=== PATIENT | male | born 1950 | race Caucasian/White ===

== ENCOUNTER 2019-11-02 08:23 | Outpatient (CLI) | payer OTHER, SELFPAY ==
--- NOTE | 2019-11-02 08:50 | CT_ITS ---
WS: [id number] CT ABDOMEN PELVIS TECHNIQUE: Noncontrast CT of the abdomen and pelvis with coronal and sagittal reformatted images. CLINICAL INFORMATION: EVAL FOR HYDROCELE COMPARISON: CT September 01, 2018 DLP: 1295.[address] scans at [facility] use at least one of these dose optimization techniques: automat ed exposure control; mA and/or kV adjustment per patient size (includes targeted exams where dose is matched to clinical indication); or iterative reconstruction. FINDINGS: Noncontrast liver is normal. Noncontrast spleen is normal. Postoperative changes GE junction. Calcifi ed granuloma left lower lobe. Subsegmental atelectasis right lung base. Pleural plaques. Tiny noncalc ified pulmonary nodule right lower lobe measuring 2.9 mm Adrenal glands are normal. Bilateral renal cortical atrophy. Prior postoperative changes cystectomy w ith ileoconduit right lower quadrant. Moderate left hydronephrosis. This is progressed slightly ellen red to 2018. Moderate left ureterectasis slightly progressed. Mild right hydronephrosis is unchanged. Fatty atrophy of the pancreas. Aortic calcification. Surgical clips in the pelvis. Cholecystectomy. Soft tissue thickening along the dorsal rectum unchanged. Ileal conduit appears unremarkable. Right r enal cyst. Chronic degenerative changes both hips. Left femoral head has been resected. Osteopenia. Chronic endp late compression deformities in the lumbar spine. CT/CT abdomen pelvis wo con [id number] IMPRESSION: 1. Moderate left hydronephrosis with ureterectasis has progressed since the p rior examination. Left ureter is dilated down to the ileal conduit. Ileal condu it appears normal. 2. Mild right hydronephrosis is unchanged. 3. No evidence of small or large bowel obstruction. 4. Soft tissue thickening along the dorsal rectum and distal sacrum is unchang ed in appearance. 5. Additional nonacute findings as above.
[2019-11-02] MEDS: iohexol 300 mg/mL 50 mL Btl PO (09:50)
== END 2019-11-02 08:24 | disposition home or self-care (01) ==
LOC: RADWPI 08:32
PROVIDERS: Family Provider Internal Medicine; PCP Internal Medicine; Visit Provider Internal Medicine
DX: N13.30 Unspecified hydronephrosis (principal)
CPT/HCPCS: 74176

== ENCOUNTER 2020-09-04 09:15 | Outpatient (CLI) | payer OTHER, SELFPAY ==
--- NOTE | 2020-09-04 09:20 | CT_ITS ---
WS: [id number] LDCT LUNG CANCER SCREENING TECHNIQUE: Noncontrast CT of the chest with coronal and sagittal reformatted images. CLINICAL INFORMATION: NICOTINE DEPENDENCE,CIGARETTES COMPARISON: None. DLP: 65.5 mGy.cm DIvol: 1.[address] scans at [facility] use at least one of these dose optimization techniques: automat ed exposure control; mA and/or kV adjustment per patient size (includes targeted exams where dose is matched to clinical indication); or iterative reconstruction. FINDINGS: No suspicious pulmonary parenchymal opacities. Calcified pleural plaques right lower lobe. Moderate chronic emphysematous changes. No acute pulmonary infiltrates. Subsegmental atelectasis in t he right greater than left lung bases. No mediastinal or hilar lymphadenopathy. Aortic calcification. Coronary calcification. Postoperative changes GE junction. No axillary lymphadenopathy. Enlarged nod ular left thyroid lobe measuring 3.2 x 2.2 CM. This can be followed up with ultrasound. A few calcifi ed granulomas. CT/CT lung screening [id number] IMPRESSION: LUNG-RADS: 1-Negative FOLLOW UP: 12 Month: Continue annual screening with LDCT
== END 2020-09-04 09:16 | disposition home or self-care (01) ==
LOC: RAD 09:18
PROVIDERS: PCP Family Medicine; Visit Provider Internal Medicine Pulmonary Disease
DX: Z12.2 Encounter for screening for malignant neoplasm of respiratory organs (principal); F17.210 Nicotine dependence, cigarettes, uncomplicated
CPT/HCPCS: G0297; J7611

== ENCOUNTER 2020-09-08 11:42 | Outpatient (CLI) | payer OTHER, SELFPAY ==
--- NOTE | 2020-09-08 11:47 | NM_ITS ---
WS: [id number] INDICATION: Hydronephrosis TECHNIQUE: Nuclear medicine renal flow study. 11.4 mCi technetium 99m DTPA administered. 20 mg Lasix administered at 10 minutes. FINDINGS: Bilateral renal cortical atrophy. Postoperative changes cystectomy with ileoconduit right lower quadrant. Poor asymmetric decreased per fusion involving the right kidney with decreased time to peak. Right kidney perfusion 25% compared to 74% in the left kidney. Delayed right nephrogram with delayed excretion. More normal appearing left nephrogram with cortical medullary phase and excretion. NM/NM renal flow w pharm [id number] IMPRESSION: 1. Prior postoperative changes cystectomy with ileoconduit right lower quadran t 2. Poor function right kidney with decreased perfusion and decreased time to p eak. 3. Right kidney perfusion 25% compared to 74% left kidney. 4. Delayed right nephrogram with delayed excretion.
== END 2020-09-08 11:43 | disposition home or self-care (01) ==
LOC: RAD 11:43
PROVIDERS: PCP Family Medicine; Visit Provider Urology
DX: N13.30 Unspecified hydronephrosis (principal)
CPT/HCPCS: 78708; A9539; J1940

== ENCOUNTER 2020-09-11 12:00 | Outpatient (CLI) | payer OTHER, SELFPAY | END 2020-09-11 12:01 | disposition home or self-care (01) | LOC: SLEEP 09-12 14:41 | PROVIDERS: PCP Family Medicine; Visit Provider Internal Medicine Pulmonary Disease | DX: G47.33 Obstructive sleep apnea (adult) (pediatric) (principal) | CPT/HCPCS: 87635; 94762 ==

== ENCOUNTER → 2020-10-26 14:54 | Outpatient (BNVA) | payer OTHER, SELFPAY | PROVIDERS: PCP Family Medicine; Visit Provider Internal Medicine Pulmonary Disease | DX: R06.02 Shortness of breath (principal) | CPT/HCPCS: 87635 ==

== ENCOUNTER → 2020-11-02 10:19 | Outpatient (BNVA) | payer OTHER, SELFPAY | PROVIDERS: PCP Family Medicine; Visit Provider Internal Medicine Pulmonary Disease | DX: J44.9 Chronic obstructive pulmonary disease, unspecified (principal) | CPT/HCPCS: 87635 ==

== ENCOUNTER 2020-11-07 10:16 | Outpatient (CLI) | payer OTHER, SELFPAY ==
--- NOTE | 2020-11-07 10:31 | US_ITS ---
WS: [id number] THYROID ULTRASOUND (TI-RADS CRITERIA) History: Enlarged thyroid. Technique: Ultrasound examination of the thyroid and adjacent soft tissues is performed. FINDINGS: Right lobe: 4.8 cm x 2.0 cm x 1.6 cm. Volume: 8.1 cm3. Mildly enlarged thyroid. Hypoechoic nodule is probably a cyst with a maximum diameter 4 mm in the inf erior gland. There is an additional similar 3 mm cyst more inferiorly. Benign lymph nodes. Left lobe: 4.1 cm x 1.3 cm x 1.8 cm. Volume: 4.9 cm3. Normal size gland. Nonspecific hypoechoic nodule measuring 9 x 7 x 6 mm in the inferior gland. Isthmus: 0.3 cm. Estimated total number of nodules greater than or equal to 1 cm: 0 Number of spongiform nodules greater than or equal to 2 cm not described below (TR1): 0 Number of mixed cystic and solid nodules greater than or equal to 1.5 cm not described below (TR2): 0 US/US thyroid [id number] Impression: TR1 Recommendation:No FNA or follow-up. If thyroid nodule(s) change on follow-up examinations the recommendations will be altered as necessary.
--- NOTE | 2020-11-07 11:16 | PFTS_ITS ---
Date of Study:11/07/20 Date of Dictation: 11/08/2020 MECHANICS: Forced vital capacity (FVC) is . Reduced Forced expiratory volume in one second (FEV1) is . Severely reduced 38% FEV1/FVC is reduced. There is no significant response to bronchodilators, however their use is not precluded if there is clinical benefit. FLOW VOLUME LOOP: Sloping of expiratory limb suggestive of airway obstruction. LUNG VOLUMES: Not measured DIFFUSING CAPACITY FOR CARBON MONOXIDE: Severely reduced 34% . INTERPRETATION: The spirometry consistent with severe obstructive ventilatory defect.There is no significant response to bronchodilators, however their use is not precluded if there is clinical benefit. Severely reduced gas transfer. Please correlate clinically MTDD
== END 2020-11-07 10:17 | disposition home or self-care (01) ==
LOC: RAD 10:22
PROVIDERS: PCP Family Medicine; Visit Provider Internal Medicine Pulmonary Disease
DX: E04.1 Nontoxic single thyroid nodule (principal); J44.9 Chronic obstructive pulmonary disease, unspecified
CPT/HCPCS: 76536; 94060; 94729; J7611

== ENCOUNTER → 2020-11-08 11:06 | Outpatient (BNVA) | payer OTHER, SELFPAY | PROVIDERS: PCP Family Medicine; Visit Provider Internal Medicine | DX: E04.1 Nontoxic single thyroid nodule (principal) | CPT/HCPCS: 99204 ==

== ENCOUNTER 2020-11-28 12:45 | Emergency (ER) | payer OTHER, MEDICARE, SELFPAY ==
[2020-11-28] VITALS (30 sets, daily range): BP systolic 85–180; BP diastolic 52–100; PULSE 54–86; RESP 12–20; TEMP 34.2–34.5; O2SAT 96–100
--- NOTE | 2020-11-28 12:50 | XR_ITS ---
WS: [id number] Exam: XR chest 1V portable [id number] Date/Time of Exam: 11/28/2020 1:14 PM Reason For Exam: dyspnea/cough Comparison 01/19/2018. An endotracheal tube has been placed and ends about 4 cm above the dominick in good position. Right sub clavian line ends at the expected region of the lower one third of the SVC. An enteric tube extends b elow the diaphragm. The tip is not visible. The side-port of the tube is probably near the GE junctio n. There is increased density in the left retrocardiac region that may represent infiltrate or atelec tasis in the left lower lobe. Pulmonary vascular congestion seen in the right lung. Numerous old righ t rib fractures and mild right-sided pleural thickening. Marked pulmonary hyperinflation. XR/XR chest 1V portable [id number] IMPRESSION: 1. Increased density in the left retrocardiac region which may represent infilt rate and/or atelectasis in the left lower lobe. 2. Pulmonary hyperinflation most likely indicating obstructive lung disease. 3. Pulmonary vascular congestion seen throughout the right lung. 4. ET tube and right subclavian central line both appear to be in satisfactory position. An enteric tube is also identified. The side-port of the tube is prob ably near the GE junction and should be advanced another 4 to 5 cm for optimal position.
--- NOTE | 2020-11-28 12:55 | CT_ITS ---
WS: [id number] CT ABDOMEN PELVIS TECHNIQUE: Contrast-enhanced CT of the abdomen and pelvis with coronal and sagittal reformatted image s. CLINICAL INFORMATION: abd pain COMPARISON: CT November 02, 2019 DLP: 1411.[address] scans at [facility] use at least one of these dose optimization techniques: automat ed exposure control; mA and/or kV adjustment per patient size (includes targeted exams where dose is matched to clinical indication); or iterative reconstruction. FINDINGS: Thoracolumbar scoliosis. Postoperative changes GE junction. Compressive atelectasis in left greater t barton right lung base with air bronchograms. Prior cholecystectomy. Mild intrahepatic biliary ductal di latation. Portal vein and splenic vein are normal. Fatty atrophy of the pancreas. Normal spleen. Ente deniz tube with tip in the stomach. Fluid distended stomach with air-fluid level in the duodenum. Bilateral renal cortical atrophy. Bilateral renal cortical cysts. Mild left hydronephrosis slightly i mproved compared to previous.. Bilateral ureterectasis. Mucosal enhancement involving the ureters. Re commend correlation for UTI. Ileoconduit appears patent. Aortic calcification. Normal caliber abdominal aorta. Sigmoid constipation. Left descending colon con stipation. No evidence of high-grade obstruction. Soft tissue thickening along the dorsal rectum and distal sacrum is similar in appearance compared to previous. No drainable fluid collections. Chronic degenerative changes both hips. Left femoral head has been resected. Osteopenia. Chronic endp late compression deformities in the lumbar spine. CT/CT abdomen pelvis w con* [id number] IMPRESSION: 1. Compressive atelectasis in the lung bases left greater than right with air bronchograms. 2. Prior cystectomy with ileoconduit and bilateral ureterectasis left greater than right similar to previous. Mild left hydronephrosis is slightly improved c ompared to previous. 3. Bilateral ureteral mucosal enhancement. Correlation for UTI. 4. Dense sigmoid and left descending colon constipation. No evidence of high-g rade obstruction. 5. Fluid distended stomach with air-fluid levels in the proximal duodenum. Ent rome tube with tip in the stomach. 6. Normal caliber abdominal aorta. 7. Soft tissue thickening along the dorsal rectum and distal sacrum unchanged in appearance. Attempted notification Segundo Corrales DO at 11/28/2020 4:06 PM.
--- NOTE | 2020-11-28 12:55 | CT_ITS ---
WS: [id number] CT HEAD TECHNIQUE: Noncontrast CT of the head obtained from the skullbase to the vertex. CLINICAL INFORMATION: AMS COMPARISON: None. DLP: 899.[address] scans at [facility] use at least one of these dose optimization techniques: automat ed exposure control; mA and/or kV adjustment per patient size (includes targeted exams where dose is matched to clinical indication); or iterative reconstruction. FINDINGS: No evidence of intracranial hemorrhage or mass effect. Ventricular system and basal cisterns are bell nt. Mild small vessel changes with mild parenchymal volume loss. No extra-axial fluid collections. Lo w-attenuation change in the right frontal lobe at the vertex nonspecific but likely due to chronic is chemia. Fluid within the ethmoid air cells and nasal turbinates. Mucosal thickening in the mastoid air cells. Fluid in the posterior nasopharynx from recent intubation. CT/CT head wo con* [id number] IMPRESSION: 1. No evidence of intracranial hemorrhage or mass effect. 2. Mild small vessel changes with mild parenchymal volume loss. 3. Subcortical low-attenuation change in the right frontal lobe at the vertex likely chronic ischemia. 4. Fluid within the mastoid air cells and posterior nasopharynx. Notified Segundo Corrales DO at 11/28/2020 3:53 PM.
--- NOTE | 2020-11-28 12:56 | ECG_ITS ---
[facility] Test Date: 2020-11-28 Pat Name: Johnny Jo Department: Room: Gender: Male [employer]: : 1950 Requested By: Segundo De La Cruz Order Number: [id number] Raoul MD: Tushar Muller M.D. Measurements Intervals [place] Rate: 54 P: 75 CA: 291 QRS: -64 QRSD: 110 T: 63 QT: 469 QTc: 448 Interpretive Statements SINUS BRADYCARDIA WITH FIRST DEGREE AV BLOCK LEFT AXIS DEVIATION [QRS AXIS < -30] INCOMPLETE RIGHT BUNDLE BRANCH BLOCK [90+ ms QRS DURATION, TERMINAL R IN V1/V2, 40+ ms S IN I/aVL/V4/V5/V6] INFERIOR MYOCARDIAL INFARCTION , PROBABLY OLD [40+ ms Q WAVE AND/OR ST/T ABNORMALITY IN II/aVF] ANTEROSEPTAL MYOCARDIAL INFARCTION , OF INDETERMINATE AGE [40+ ms Q WAVE IN V1-V4] Compared to ECG 01/20/2018 04:10:03 First degree AV block now present Left-axis deviation now present Incomplete right bundle-branch block now present Myocardial infarct finding still present Electronically Signed On 11-28-2020 17:37:02 [employer]ADE MATCHER by Tushar Muller M.D. [id number]
[2020-11-28 13:21] LABS: ABG PH Result 6.78 (7.35-7.45); Arterial Blood Gas Hematocrit 35.1 % (42-52); Base Excess ABG -22.5 mmol/L (-2.0-2.0); Blood Gas Allen Test Pos; Blood Gas Operator Identificat CAK; Blood Gas Sample Site Brachial, right; Blood Gas Sample Type Arterial; Carboxyhemoglobin 0.6 %THgb (0.4-20.1); HCO3 ABG 12.9 mmol/L (22-26); HGB O2 Sat 83.8 % (95-100); Ionized Calcium Level - ABG 1.3 mmol/L (1.1-1.4); Methemoglobin 1.1 % (0.4-1.5); Oxygen Device NC; Oxygen Saturation ABG 85.2; PO2 ABG 69.1 mmHg (80.0-100.0); Potassium Level - ABG 4.2 mmol/L (3.5-5.0); Total Hemoglobin 11.4 g/dL (14-18)
[2020-11-28 13:22] LABS: ABG PCO2 87.7 mmHg (35-45)
[2020-11-28] MEDS: sodium chloride 0.9% 1,000 ML 999 ML IV ×3 (14:00→16:34)
[2020-11-28 14:11] LABS: Basophils % 0.2 %; Hematocrit 34.5 % (42.0-52.0); Hemoglobin 10.6 g/dL (11.7-16.6); Lymphocytes # 0.2 10^3/uL (0.8-4.8); Mean Corpuscular HGB Conc 30.7 g/dL (30.0-36.0); Mean Corpuscular Hemoglobin 26.8 pg (28.0-34.0); Mean Corpuscular Volume 87.3 fL (80-94); Mean Platelet Volume 10.4 fL (7.4-10.4); Monocytes # 0.3 10^3/uL (0.2-0.9); Neutrophils # 23.24 10^3/uL (1.8-7.7); Nucleated Red Blood Cells # 0.1 /100WBC; Nucleated Red Blood Cells % 0.3 %; Platelet Count 207 10^3/cmm (130-400); Red Blood Count 3.95 10^6/uL (4.1-5.3); Red Cell Distribution Width 18.8 % (12.1-15.1)
[2020-11-28 14:23] LABS: Ketone (Acetest) Serum Negative (Negative)
[2020-11-28] MEDS: vecuronium 10 mg SDV IVP (14:23)
[2020-11-28 14:27] LABS: Troponin(5th) Baseline 60 ng/L (0-15)
[2020-11-28] MEDS: succinylcholine 20 mg/mL SDV 10mL 90 MG IV (14:29)
[2020-11-28] MEDS: ciprofloxacin 400 MG/200 ML PREMIX 200 MG IV (14:30)
[2020-11-28 14:32] LABS: Potassium 4.4 mmol/L (3.5-5.1)
--- NOTE | 2020-11-28 14:33 | ED_ITS ---
HPI - Weakness General: Chief complaint: Weakness Stated complaint: WEAKNESS, SOB Time Seen by Provider: 11/28/20 12:46 History of Present Illness: HPI Narrative: 69-year-old male brought in via EMS with complaint of shortness of breath altered mental status and weakness. On arrival here patient is nonresponsive and lethargic. ABG showed critical findings and patient was emergently intubated. Patient's previous histories were reviewed in the chart just on physical exam noted disease previously had abdominal surgery is also evidence of a previous tracheostomy with scarring and neck at the sternal notch. 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 MD Complaint: generalized weakness Onset (ago): unknown Duration: constant Review of Systems General: Reports: ROS unobtainable due to medical condition and ROS unobtainable due to mental status PFS ED PFSH: Medical History Anxiety Autonomic dysreflexia Calculus of kidney Chronic hepatitis CKD (chronic kidney disease), stage III Diabetes Folate deficiency anemia GERD with esophagitis History of pressure ulcer HTN (hypertension) Hydronephrosis Hyperkalemia Iron deficiency anemia Major depressive disorder, recurrent Old myocardial infarction Other osteomyelitis, other site Other specific personality disorders Pure hypercholesterolemia Quadriplegia, C5-C7 complete Recurrent UTI Vitamin D deficiency Surgical History History of kidney surgery Hx of heart artery stent Family History Mother , 93 Cancer Colon Father , 56 CAD (coronary artery disease) Social History Smoking and tobacco status: current some day smoker cigarettes [ Other cigarette details: [id number] 50yr history ] Quit status (tobacco): considering quitting Second hand smoke exposure: No Smoking risk assessment/counseling performed?: Yes Alcohol intake: never Desire information about substance/drug rehabilitation?: No Counseling given: Yes Caregiver/support person: Yes Lives independently: Yes Household members: spouse Housing: House Marital status: service: Yes status: Discharged branch: [employer] Current occupational status: disabled History of recent travel: No Current gender identity: Male Physical Exam Const: COMMON NORMALS: no acute distress GENERAL APPEARANCE: cooperative and comfortable HENMT: COMMON NORMALS: normocephalic, atraumatic and hearing grossly normal bilaterally HEAD & SCALP: normocephalic and atraumatic Resp: AUSCULTATION: rhonchi and diminished lung sounds Cardio: COMMON NORMALS: regular rate, regular rhythm and No murmurs present (Cardio) RATE: regular rate RHYTHM: regular rhythm GI: COMMON NORMALS: Soft to palpation and No hepatosplenomegaly present AUSCULTATION: Yes normoactive bowel sounds PALPATION: Yes Soft to palpation, No Tenderness to palpation present (GI), No Guarding due to palpation present (GI) and Yes No hepatosplenomegaly present Extremity: COMMON NORMALS: normal to inspection, capillary refill normal and no calf tenderness GENERAL: Yes edema (Nonpitting bilaterally) LEFT LOWER EXTREMITY: Yes hip joint (Flail left hip joint) Procedures Central Line Placement Right SC: Patient Placed on Monitor/Pulse Ox: Yes MD Prep: mask, gown and gloves Central Line Prep: Chlorhexidine scrub Ultrasound Used for Placement: Yes Central Line Lumen Inserted: triple Post Procedure: sutured in place, good blood return, all ports aspirated, flushed, capped and sterile dressing applied Post Procedure X-Ray: tip of catheter in good position and no pneumothorax seen Patient Tolerated Procedure: no complications Complications: none Additional Comments: Emergent placement of right subclavian central line for IV access in a critical patient. Intubation sedative: Etomidate Mg Given: 30 paralytic: Succinylcholine Mg Given: 90 Laryngoscope: fiber optic video scope Assist Device Used: fiber optic device ET Tube Size: 6.5 ET Tube Uncuffed: No Tube Secured Depth (cm): 22 Tube Secured Location: teeth Tube Placement Confirmation: visualized tube passing through cords, equal breath sounds bilaterally, no breath sounds over epigastrium and confirmation by capnometry Patient Tolerated Procedure: well Intubation Complications: difficult intubation Additional Comments: Previously had a tracheostomy initial attempt was made with an 8 5 ET tube was unable to get it to pass through the cords due to obstruction initial attempt was made and then abandoned since we could not get the tubes to pass through the cords. Cords were easily visualized without difficulty but just physically would not pass. Patient was hyperventilated by [id number] and then a second attempt was made during the same time a second smaller 1.5 ET tube was readied which was used passed easily through the cords. Course Vital Signs: Vital signs: Vital Signs Temperature 94.1 F L 11/28/20 18:09 Pulse Rate 82 11/28/20 19:09 Respiratory Rate 12 11/28/20 19:09 Blood Pressure 128/79 11/28/20 19:09 Pulse Oximetry 97 11/28/20 19:09 MDM - Weakness MDM Narrative: Medical decision making narrative: Transfer to [facility] ICU. Unfortunately no available ICU beds here. Patient has been started on antibiotics. Cultures done. He currently is getting IV fluids and IV Levophed via central line. We had tried titrating the Levophed down to where he requires a base amount of Levophed of 4 otherwise he will drop his pressures into the 50s and 60s systolic. He is requiring minimal assist sedation. Shortly after we had secured the central line patient was significantly bradycardic was given half milligram of atropine and has not needed any further since. Lab Data: Labs: Lab Results 11/28/20 11/28/20 11/28/20 Range/Units 12:57 13:07 13:10 WBC (4.0-10.0) 10^3/ uL RBC (4.1-5.3) 10^6/u L Hgb (11.7-16.6) g/dL Hct (42.0-52.0) % MCV (80-94) fL MCH (28.0-34.0) pg MCHC (30.0-36.0) g/dL RDW (12.1-15.1) % Plt Count (130-400) 10^3/c mm MPV (7.4-10.4) fL Neut % (Auto) % Lymph % (Auto) % Kaufman % (Auto) % Eos % (Auto) % Baso % (Auto) % Neut # (Auto) (1.8-7.7) 10^3/u L Lymph # (Auto) (0.8-4.8) 10^3/u L Kaufman # (Auto) (0.2-0.9) 10^3/u L Eos # (Auto) (0.0-0.8) 10^3/u L Baso # (Auto) (0.0-0.1) 10^3/u L Nucleated RBC % (a uto) % Nucleated RBCs # /100WBC PT (12.1-14.9) SECO NDS INR (0.8-1.2) APTT (23.9-36.7) SECO NDS Specimen Type Arterial Sample Site Brachial, right ABG pH 6.78 L* (7.35-7.45) ABG pCO2 87.7 H* (35-45) mmHg ABG pO2 69.1 L (80.0-100.0) mmH g ABG HCO3 12.9 L (22-26) mmol/L ABG O2 Saturation 85.2 ABG Base Excess -22.5 L (-2.0-2.0) mmol/ L Matt Test Pos A-a O2 Gradient Not Reportable Hematocrit 35.1 L (42-52) % Hgb O2 Saturation 83.8 L (95-100) % Carboxyhemoglobin 0.6 (0.4-20.1) %THgb Methemoglobin 1.1 (0.4-1.5) % Total Hemoglobin 11.4 L (14-18) g/dL Sodium 132.0 (131-143) mmol/L Potassium 4.2 (3.5-5.0) mmol/L Glucose 172.0 H (70-115) mg/dL Ionized Calcium 1.3 (1.1-1.4) mmol/L O2 Delivery Device Nc O2 Liters/Min 6.0 % Mechanical Rate FiO2 % Tidal Volume PEEP cmH20 Mechanical Assembler ID Cak Chloride (98-107) mmol/L Carbon Dioxide (22-29) mmol/L Anion Gap (5-19) BUN (8-23) mg/dL Creatinine (0.7-1.2) mg/dL GFR Calculation (90-130) mL/min POC Glucose 153 H (70-110) mg/dL Calculated Osmolal ity (285-295) mOsm/k g Lactic Acid (0.5-2.2) mmol/L Calcium (8.5-10.5) mg/dL Magnesium (1.7-2.3) mg/dL Total Bilirubin (0.15-1.2) mg/dL AST (0-40) U/L ALT (0-41) U/L Alkaline Phosphata se (40-130) IU/L Ammonia (16-60) umol/L Creatine Kinase Troponin T Baselin e (0-15) ng/L Troponin T 120 Min [place] (0-15) ng/L Delta Troponin T (0-10) ABS# Troponin T Hi Sens 6Hr (0-15) ng/L Troponin T Hi Sens 6Hr Delta (0-12) ng/L Total Protein (6.6-8.7) g/dL Albumin (3.5-5.2) g/dL Globulin (1.3-4.6) g/dL Lipase (13-60) U/L Urine Color Yellow (Yellow) Urine Appearance Cloudy (CLEAR) Urine pH 6.5 (5-7) Ur Specific Gravit y 1.010 (1.005-1.030) Urine Protein 2+ H (Negative) Urine Glucose (UA) Norm (Normal) Urine Ketones Negative (Negative) Urine Blood 3+ H (Negative) Urine Nitrate Negative (Negative) Urine Bilirubin Neg (Negative) Urine Urobilinogen Norm (Negative) mg/dL Ur Leukocyte Karina ase 2+ H (Negative) Urine RBC 15-25 H (0-2) /hpf Urine WBC Too numerous to c nt H (0-5) /hpf Ur Squamous Epith Cells 0-4 H (0-5) /hpf Amorphous Sediment Not Reportable Urine Bacteria 3+ H (NONE) /hpf Serum Ketones (Negative) SARS-CoV-2 Ag (Rap id) (Negative) 11/28/20 11/28/20 11/28/20 Range/Units 13:55 13:55 13:55 WBC 24.0 H (4.0-10.0) 10^3/ uL RBC 3.95 L (4.1-5.3) 10^6/u L Hgb 10.6 L (11.7-16.6) g/dL Hct 34.5 L (42.0-52.0) % MCV 87.3 (80-94) fL MCH 26.8 L (28.0-34.0) pg MCHC 30.7 (30.0-36.0) g/dL RDW 18.8 H (12.1-15.1) % Plt Count 207 (130-400) 10^3/c mm MPV 10.4 (7.4-10.4) fL Neut % (Auto) 97.0 % Lymph % (Auto) 1.0 % Kaufman % (Auto) 1.0 % Eos % (Auto) 0.0 % Baso % (Auto) 0.2 % Neut # (Auto) 23.24 H (1.8-7.7) 10^3/u L Lymph # (Auto) 0.2 L (0.8-4.8) 10^3/u L Kaufman # (Auto) 0.3 (0.2-0.9) 10^3/u L Eos # (Auto) 0.0 (0.0-0.8) 10^3/u L Baso # (Auto) 0.0 (0.0-0.1) 10^3/u L Nucleated RBC % (a uto) 0.3 % Nucleated RBCs # 0.1 /100WBC PT (12.1-14.9) SECO NDS INR (0.8-1.2) APTT (23.9-36.7) SECO NDS Specimen Type Sample Site ABG pH (7.35-7.45) ABG pCO2 (35-45) mmHg ABG pO2 (80.0-100.0) mmH g ABG HCO3 (22-26) mmol/L ABG O2 Saturation ABG Base Excess (-2.0-2.0) mmol/ L Matt Test A-a O2 Gradient Hematocrit (42-52) % Hgb O2 Saturation (95-100) % Carboxyhemoglobin (0.4-20.1) %THgb Methemoglobin (0.4-1.5) % Total Hemoglobin (14-18) g/dL Sodium 130 L (131-143) mmol/L Potassium 4.4 (3.5-5.0) mmol/L Glucose 181 H (70-115) mg/dL Ionized Calcium (1.1-1.4) mmol/L O2 Delivery Device O2 Liters/Min % Mechanical Rate FiO2 % Tidal Volume PEEP cmH20 Mechanical Assembler ID Chloride 105 (98-107) mmol/L Carbon Dioxide 11 L (22-29) mmol/L Anion Gap 18.4 (5-19) BUN 75 H (8-23) mg/dL Creatinine 3.1 H (0.7-1.2) mg/dL GFR Calculation 20.2 L (90-130) mL/min POC Glucose (70-110) mg/dL Calculated Osmolal ity 297 H (285-295) mOsm/k g Lactic Acid 0.7 (0.5-2.2) mmol/L Calcium 7.8 L (8.5-10.5) mg/dL Magnesium 2.2 (1.7-2.3) mg/dL Total Bilirubin 0.2 (0.15-1.2) mg/dL AST 15 (0-40) U/L ALT 12 (0-41) U/L Alkaline Phosphata se 209 H (40-130) IU/L Ammonia (16-60) umol/L Creatine Kinase Troponin T Baselin e (0-15) ng/L Troponin T 120 Min [place] (0-15) ng/L Delta Troponin T (0-10) ABS# Troponin T Hi Sens 6Hr (0-15) ng/L Troponin T Hi Sens 6Hr Delta (0-12) ng/L Total Protein 5.7 L (6.6-8.7) g/dL Albumin 3.1 L (3.5-5.2) g/dL Globulin 2.6 (1.3-4.6) g/dL Lipase 15 (13-60) U/L Urine Color (Yellow) Urine Appearance (CLEAR) Urine pH (5-7) Ur Specific Gravit y (1.005-1.030) Urine Protein (Negative) Urine Glucose (UA) (Normal) Urine Ketones (Negative) Urine Blood (Negative) Urine Nitrate (Negative) Urine Bilirubin (Negative) Urine Urobilinogen (Negative) mg/dL Ur Leukocyte Karina ase (Negative) Urine RBC (0-2) /hpf Urine WBC (0-5) /hpf Ur Squamous Epith Cells (0-5) /hpf Amorphous Sediment Urine Bacteria (NONE) /hpf Serum Ketones (Negative) SARS-CoV-2 Ag (Rap id) (Negative) 11/28/20 11/28/20 11/28/20 Range/Units 13:55 13:55 13:55 WBC (4.0-10.0) 10^3/ uL RBC (4.1-5.3) 10^6/u L Hgb (11.7-16.6) g/dL Hct (42.0-52.0) % MCV (80-94) fL MCH (28.0-34.0) pg MCHC (30.0-36.0) g/dL RDW (12.1-15.1) % Plt Count (130-400) 10^3/c mm MPV (7.4-10.4) fL Neut % (Auto) % Lymph % (Auto) % Kaufman % (Auto) % Eos % (Auto) % Baso % (Auto) % Neut # (Auto) (1.8-7.7) 10^3/u L Lymph # (Auto) (0.8-4.8) 10^3/u L Kaufman # (Auto) (0.2-0.9) 10^3/u L Eos # (Auto) (0.0-0.8) 10^3/u L Baso # (Auto) (0.0-0.1) 10^3/u L Nucleated RBC % (a uto) % Nucleated RBCs # /100WBC PT (12.1-14.9) SECO NDS INR (0.8-1.2) APTT (23.9-36.7) SECO NDS Specimen Type Sample Site ABG pH (7.35-7.45) ABG pCO2 (35-45) mmHg ABG pO2 (80.0-100.0) mmH g ABG HCO3 (22-26) mmol/L ABG O2 Saturation ABG Base Excess (-2.0-2.0) mmol/ L Matt Test A-a O2 Gradient Hematocrit (42-52) % Hgb O2 Saturation (95-100) % Carboxyhemoglobin (0.4-20.1) %THgb Methemoglobin (0.4-1.5) % Total Hemoglobin (14-18) g/dL Sodium (131-143) mmol/L Potassium (3.5-5.0) mmol/L Glucose (70-115) mg/dL Ionized Calcium (1.1-1.4) mmol/L O2 Delivery Device O2 Liters/Min % Mechanical Rate FiO2 % Tidal Volume PEEP cmH20 Mechanical Assembler ID Chloride (98-107) mmol/L Carbon Dioxide (22-29) mmol/L Anion Gap (5-19) BUN (8-23) mg/dL Creatinine (0.7-1.2) mg/dL GFR Calculation (90-130) mL/min POC Glucose (70-110) mg/dL Calculated Osmolal ity (285-295) mOsm/k g Lactic Acid (0.5-2.2) mmol/L Calcium (8.5-10.5) mg/dL Magnesium (1.7-2.3) mg/dL Total Bilirubin (0.15-1.2) mg/dL AST (0-40) U/L ALT (0-41) U/L Alkaline Phosphata se (40-130) IU/L Ammonia (16-60) umol/L Creatine Kinase Cancelled Troponin T Baselin e 60 H (0-15) ng/L Troponin T 120 Min [place] (0-15) ng/L Delta Troponin T (0-10) ABS# Troponin T Hi Sens 6Hr (0-15) ng/L Troponin T Hi Sens 6Hr Delta (0-12) ng/L Total Protein (6.6-8.7) g/dL Albumin (3.5-5.2) g/dL Globulin (1.3-4.6) g/dL Lipase (13-60) U/L Urine Color (Yellow) Urine Appearance (CLEAR) Urine pH (5-7) Ur Specific Gravit y (1.005-1.030) Urine Protein (Negative) Urine Glucose (UA) (Normal) Urine Ketones (Negative) Urine Blood (Negative) Urine Nitrate (Negative) Urine Bilirubin (Negative) Urine Urobilinogen (Negative) mg/dL Ur Leukocyte Karina ase (Negative) Urine RBC (0-2) /hpf Urine WBC (0-5) /hpf Ur Squamous Epith Cells (0-5) /hpf Amorphous Sediment Urine Bacteria (NONE) /hpf Serum Ketones Negative (Negative) SARS-CoV-2 Ag (Rap id) (Negative) 11/28/20 11/28/20 11/28/20 Range/Units 13:55 13:55 14:15 WBC (4.0-10.0) 10^3/ uL RBC (4.1-5.3) 10^6/u L Hgb (11.7-16.6) g/dL Hct (42.0-52.0) % MCV (80-94) fL MCH (28.0-34.0) pg MCHC (30.0-36.0) g/dL RDW (12.1-15.1) % Plt Count (130-400) 10^3/c mm MPV (7.4-10.4) fL Neut % (Auto) % Lymph % (Auto) % Kaufman % (Auto) % Eos % (Auto) % Baso % (Auto) % Neut # (Auto) (1.8-7.7) 10^3/u L Lymph # (Auto) (0.8-4.8) 10^3/u L Kaufman # (Auto) (0.2-0.9) 10^3/u L Eos # (Auto) (0.0-0.8) 10^3/u L Baso # (Auto) (0.0-0.1) 10^3/u L Nucleated RBC % (a uto) % Nucleated RBCs # /100WBC PT 16.20 H (12.1-14.9) SECO NDS INR 1.26 H (0.8-1.2) APTT 38.5 H (23.9-36.7) SECO NDS Specimen Type Arterial Sample Site Brachial, right ABG pH 6.99 L* (7.35-7.45) ABG pCO2 38.6 (35-45) mmHg ABG pO2 452.0 H (80.0-100.0) mmH g ABG HCO3 9.3 L (22-26) mmol/L ABG O2 Saturation 98.0 ABG Base Excess -21.3 L (-2.0-2.0) mmol/ L Matt Test N/a A-a O2 Gradient 25.9 H Hematocrit 32.7 L (42-52) % Hgb O2 Saturation 97.2 (95-100) % Carboxyhemoglobin < 0.0 L (0.4-20.1) %THgb Methemoglobin 1.0 (0.4-1.5) % Total Hemoglobin 10.7 L (14-18) g/dL Sodium 133.0 (131-143) mmol/L Potassium 3.5 (3.5-5.0) mmol/L Glucose 184.0 H (70-115) mg/dL Ionized Calcium 1.1 (1.1-1.4) mmol/L O2 Delivery Device Vent O2 Liters/Min % Mechanical Rate 14.0 FiO2 100.0 % Tidal Volume 0.50 PEEP 8.0 cmH20 Mechanical Assembler ID Gd Chloride (98-107) mmol/L Carbon Dioxide (22-29) mmol/L Anion Gap (5-19) BUN (8-23) mg/dL Creatinine (0.7-1.2) mg/dL GFR Calculation (90-130) mL/min POC Glucose (70-110) mg/dL Calculated Osmolal ity (285-295) mOsm/k g Lactic Acid (0.5-2.2) mmol/L Calcium (8.5-10.5) mg/dL Magnesium (1.7-2.3) mg/dL Total Bilirubin (0.15-1.2) mg/dL AST (0-40) U/L ALT (0-41) U/L Alkaline Phosphata se (40-130) IU/L Ammonia 63 H (16-60) umol/L Creatine Kinase Troponin T Baselin e (0-15) ng/L Troponin T 120 Min [place] (0-15) ng/L Delta Troponin T (0-10) ABS# Troponin T Hi Sens 6Hr (0-15) ng/L Troponin T Hi Sens 6Hr Delta (0-12) ng/L Total Protein (6.6-8.7) g/dL Albumin (3.5-5.2) g/dL Globulin (1.3-4.6) g/dL Lipase (13-60) U/L Urine Color (Yellow) Urine Appearance (CLEAR) Urine pH (5-7) Ur Specific Gravit y (1.005-1.030) Urine Protein (Negative) Urine Glucose (UA) (Normal) Urine Ketones (Negative) Urine Blood (Negative) Urine Nitrate (Negative) Urine Bilirubin (Negative) Urine Urobilinogen (Negative) mg/dL Ur Leukocyte Karina ase (Negative) Urine RBC (0-2) /hpf Urine WBC (0-5) /hpf Ur Squamous Epith Cells (0-5) /hpf Amorphous Sediment Urine Bacteria (NONE) /hpf Serum Ketones (Negative) SARS-CoV-2 Ag (Rap id) (Negative) 11/28/20 11/28/20 11/28/20 Range/Units 14:51 15:55 19:45 WBC (4.0-10.0) 10^3/ uL RBC (4.1-5.3) 10^6/u L Hgb (11.7-16.6) g/dL Hct (42.0-52.0) % MCV (80-94) fL MCH (28.0-34.0) pg MCHC (30.0-36.0) g/dL RDW (12.1-15.1) % Plt Count (130-400) 10^3/c mm MPV (7.4-10.4) fL Neut % (Auto) % Lymph % (Auto) % Kaufman % (Auto) % Eos % (Auto) % Baso % (Auto) % Neut # (Auto) (1.8-7.7) 10^3/u L Lymph # (Auto) (0.8-4.8) 10^3/u L Kaufman # (Auto) (0.2-0.9) 10^3/u L Eos # (Auto) (0.0-0.8) 10^3/u L Baso # (Auto) (0.0-0.1) 10^3/u L Nucleated RBC % (a uto) % Nucleated RBCs # /100WBC PT (12.1-14.9) SECO NDS INR (0.8-1.2) APTT (23.9-36.7) SECO NDS Specimen Type Sample Site ABG pH (7.35-7.45) ABG pCO2 (35-45) mmHg ABG pO2 (80.0-100.0) mmH g ABG HCO3 (22-26) mmol/L ABG O2 Saturation ABG Base Excess (-2.0-2.0) mmol/ L Matt Test A-a O2 Gradient Hematocrit (42-52) % Hgb O2 Saturation (95-100) % Carboxyhemoglobin (0.4-20.1) %THgb Methemoglobin (0.4-1.5) % Total Hemoglobin (14-18) g/dL Sodium (131-143) mmol/L Potassium (3.5-5.0) mmol/L Glucose (70-115) mg/dL Ionized Calcium (1.1-1.4) mmol/L O2 Delivery Device O2 Liters/Min % Mechanical Rate FiO2 % Tidal Volume PEEP cmH20 Mechanical Assembler ID Chloride (98-107) mmol/L Carbon Dioxide (22-29) mmol/L Anion Gap (5-19) BUN (8-23) mg/dL Creatinine (0.7-1.2) mg/dL GFR Calculation (90-130) mL/min POC Glucose (70-110) mg/dL Calculated Osmolal ity (285-295) mOsm/k g Lactic Acid (0.5-2.2) mmol/L Calcium (8.5-10.5) mg/dL Magnesium (1.7-2.3) mg/dL Total Bilirubin (0.15-1.2) mg/dL AST (0-40) U/L ALT (0-41) U/L Alkaline Phosphata se (40-130) IU/L Ammonia (16-60) umol/L Creatine Kinase Troponin T Baselin e (0-15) ng/L Troponin T 120 Min [place] 48.71 H (0-15) ng/L Delta Troponin T -11.29 L (0-10) ABS# Troponin T Hi Sens 6Hr 86.59 H (0-15) ng/L Troponin T Hi Sens 6Hr Delta 26.59 H* (0-12) ng/L Total Protein (6.6-8.7) g/dL Albumin (3.5-5.2) g/dL Globulin (1.3-4.6) g/dL Lipase (13-60) U/L Urine Color (Yellow) Urine Appearance (CLEAR) Urine pH (5-7) Ur Specific Gravit y (1.005-1.030) Urine Protein (Negative) Urine Glucose (UA) (Normal) Urine Ketones (Negative) Urine Blood (Negative) Urine Nitrate (Negative) Urine Bilirubin (Negative) Urine Urobilinogen (Negative) mg/dL Ur Leukocyte Karina ase (Negative) Urine RBC (0-2) /hpf Urine WBC (0-5) /hpf Ur Squamous Epith Cells (0-5) /hpf Amorphous Sediment Urine Bacteria (NONE) /hpf Serum Ketones (Negative) SARS-CoV-2 Ag (Rap id) Negative (Negative) Critical Care Time Critical Care Time: Critical Care Time: Yes Total Critical Care Time: 120 Attestation: This case had a high probability of a clinically significant, sudden, or life threatening deterioration of this patient's condition which required my full and direct attention, intervention and personal management. Discharge Plan Discharge Patient Disposition: Xfer Other Clinical Impression: Acute hypoxemic respiratory failure, Quadriplegia, C5-C7 complete, COPD (chronic obstructive pulmonary disease), Pneumonia Referrals: Julia Lacey MD [Referring] - Coding Level of Care Code ED Java Consultant for Lavonne Chaney
[2020-11-28 14:36] LABS: Blood Gas Operator Identificat GD; Blood Gas Sample Type Arterial; Oxygen Device VENT
[2020-11-28 14:36] LABS: Glucose Point of Care 153 mg/dL (70-110)
[2020-11-28] MEDS: vancomycin 1,000 MG in sodium chloride 0.9% 250 ML 250 MG IV (14:36)
[2020-11-28 14:42] LABS: Bilirubin Urine Neg (Negative); Blood Urine 3+ (Negative); Glucose Urine UA Norm (Normal); Ketones Urine Negative (Negative); Nitrate Urine Negative (Negative); Protein Urine 2+ (Negative); Urine Appearance Cloudy (CLEAR); Urine Color Yellow (Yellow); Urobilinogen Urine Norm (Negative); pH Urine 6.5 (5-7)
[2020-11-28] MEDS: atropine 0.1 mg/mL Syr 10 mL 1 MG IVP (14:42)
[2020-11-28 14:43] LABS: Add Urine Microscopic? YES; Leukocyte Esterase Urine 2+ (Negative)
[2020-11-28 14:44] LABS: INR 1.26 (0.8-1.2)
[2020-11-28 14:44] LABS: Bacteria Urine 3+ /hpf; RBC Urine 15-25 /hpf (0-2); Squamous Epithelial Cell Urine 0-4 /hpf (0-5); WBC Urine TOO NUMEROUS TO CNT /hpf (0-5)
[2020-11-28 14:45] LABS: Add Urine Culture? Yes
[2020-11-28 14:45] LABS: Partial Thromboplastin Time 38.5 SECONDS (23.9-36.7)
[2020-11-28 14:45] LABS: ABG PCO2 38.6 mmHg (35-45); Alveolar-Arterial Oxygen Gradi 25.9 mmHg (5-10); Arterial Blood Gas Hematocrit 32.7 % (42-52); Base Excess ABG -21.3 mmol/L (-2.0-2.0); Blood Gas Sample Site Brachial, right; Carboxyhemoglobin < 0.0 %THgb (0.4-20.1); HCO3 ABG 9.3 mmol/L (22-26); HGB O2 Sat 97.2 % (95-100); Ionized Calcium Level - ABG 1.1 mmol/L (1.1-1.4); Potassium Level - ABG 3.5 mmol/L (3.5-5.0); Total Hemoglobin 10.7 g/dL (14-18)
[2020-11-28 14:48] LABS: ABG PH Result 6.99 (7.35-7.45)
[2020-11-28 14:50] LABS: Glomerular Filtration Rate 20.2 mL/min (90-130); Glucose 181 mg/dL (65-115)
[2020-11-28 14:51] LABS: Anion Gap 18.4 (5-19); Blood Urea Nitrogen 75 mg/dL (8-23); Calcium 7.8 mg/dL (8.5-10.5); Carbon Dioxide 11 mmol/L (22-29); Chloride 105 mmol/L (98-107); Magnesium 2.2 mg/dL (1.7-2.3); Osmolality Calculated 297 mOsm/kg (285-295); Total Bilirubin 0.2 mg/dL (0.15-1.2)
[2020-11-28 14:52] LABS: Alanine Aminotransferase 12 U/L (0-41); Albumin Level 3.1 g/dL (3.5-5.2); Alkaline Phosphatase 209 IU/L (40-130); Aspartate Amino Transferase 15 U/L (0-40); Globulin 2.6 g/dL (1.3-4.6); Lipase 15 U/L (13-60); Total Protein 5.7 g/dL (6.6-8.7)
[2020-11-28 14:53] LABS: Ammonia 63 umol/L (16-60); Sodium 130 mmol/L (136-145)
--- NOTE | 2020-11-28 14:56 | PC.NURSE ---
patient brought in via EMS, c/o shortness of breathing, altered mental status. connect to monitor,patient is nonresponsive, agonal breathing,cool to touch, rectal temp shows 93, bear hugger placed. 1332 ET placed by MD 1342 central line placed by MD 1345 OG placed manual blood pressure 180/100 at 1445 MD awared, titrated Levo manual blood pressure 160/78 at 1450, keep levo at 4 mcg/min per MD verbal order recheck rectal temp 93.1
--- NOTE | 2020-11-28 14:56 | ECG_ITS ---
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 Measurements Intervals [place] Rate: 74 P: IA: QRS: -57 QRSD: 121 T: 74 QT: 457 QTc: 509 Interpretive Statements ATRIAL FLUTTER/TACHYCARDIA LEFT AXIS DEVIATION [QRS AXIS < -30] POSSIBLE RIGHT VENTRICULAR CONDUCTION DELAY [RSR (QR) IN V1/V2] ANTEROSEPTAL MYOCARDIAL INFARCTION , OF INDETERMINATE AGE [40+ ms Q WAVE IN V1-V4] Compared to ECG 11/28/2020 13:10:59 Sinus bradycardia no longer present First degree AV block no longer present Incomplete right bundle-branch block no longer present Myocardial infarct finding still present Electronically Signed On 11-28-2020 17:43:27 FUNERAL LIMOUSINE DRIVER by Tushar Muller M.D. [id number]
[2020-11-28 15:23] LABS: SARS Covid-2 Antigen Negative (Negative)
[2020-11-28] MEDS: iohexol 300 mg/mL 100 mL Btl IV (15:35)
[2020-11-28 15:43] LABS: Lactic Sepsis W/Reflex 0.7 mmol/L (0.5-2.2)
--- NOTE | 2020-11-28 16:05 | PC.NURSE ---
urine output from ileal conduit is 50ml
--- NOTE | 2020-11-28 16:22 | PC.NURSE ---
titrate levo at 6mcg/min at 1450
[2020-11-28 16:27] LABS: Troponin 5 2HR 48.71 ng/L (0-15); Troponin 5 2HR Delta -11.29 ABS# (0-10)
--- NOTE | 2020-11-28 16:50 | PC.NURSE ---
keep levo at 4 mcg/min per MD
--- NOTE | 2020-11-28 16:53 | PC.NURSE ---
hold levo at this time per MD verbal order
--- NOTE | 2020-11-28 17:21 | PC.NURSE ---
MD awared bp, keep levo at 4 mcg/min
--- NOTE | 2020-11-28 18:09 | PC.NURSE ---
MD flower Hernandez, michelle beverly.
--- NOTE | 2020-11-28 18:27 | PC.NURSE ---
attempted to call report, adviced to call back in 20 minutes due to shift change
[2020-11-28 20:31] LABS: Troponin 5 6HR 86.59 ng/L (0-15)
[2020-11-28 20:51] LABS: Troponin 5 6HR Delta 26.59 ng/L (0-12)
== END 2020-11-28 19:09 | disposition other institution (70) ==
PROVIDERS: Emergency Provider Family Medicine
DX: J44.0 Chronic obstructive pulmonary disease with (acute) lower respiratory infection (principal); J18.9 Pneumonia, unspecified organism; J96.01 Acute respiratory failure with hypoxia; G82.53 Quadriplegia, C5-C7 complete; E11.22 Type 2 diabetes mellitus with diabetic chronic kidney disease; I12.9 Hypertensive chronic kidney disease with stage 1 through stage 4 chronic kidney disease, or unspecified chronic kidney disease; N18.30 Chronic kidney disease, stage 3 unspecified; I25.2 Old myocardial infarction; F17.210 Nicotine dependence, cigarettes, uncomplicated
CPT/HCPCS: 31500; 36415; 36416; 36556; 36600; 70450; 71045; 74177; 80051; 80053; 81001; 82009; 82140; 82330; 82805; 82962; 83605; 83690; 83735; 84484; 85025; 85610; 85730; 87070; 87077; 87086; 87186; 87205; 87426; 93005; 94002; 94799; 96365; 96366; 96367; 99291; 99292; C1751; J0330; J0461; J0744; J3370; J3490; J7030; J7050; Q9967

== ENCOUNTER → 2021-01-09 11:19 | Day surgery (SDC) | payer OTHER, SELFPAY ==
--- NOTE | 2021-01-09 13:36 | PC.NURSE ---
1320- NOTIFIED [facility] PROVIDER OF LARGE CLOT FORMATION FOUND ON GUIDEWIRE DURING PROCEDURE AND INABILITY TO PLACE MIDLINE OR PICC LINE FOLLOWING ATTEMPT TO LEFT AND RIGHT SIDES. NEW ORDERS RECEIVED TO DRAW PT/INR.
[2021-01-09 14:18] LABS: INR 1.09 (0.8-1.2)
== END ==
PROVIDERS: PCP Family Medicine; Visit Provider Family Medicine
DX: N39.0 Urinary tract infection, site not specified (principal)
CPT/HCPCS: 36569; 85610

== ENCOUNTER 2021-01-09 14:15 | Emergency (ER) | payer OTHER, MEDICARE, SELFPAY ==
[2021-01-09 15:02] VITALS: BP 136/84; PULSE 61; RESP 18; TEMP 36.8; O2SAT 98; BMI 25.0
[2021-01-09 16:53] VITALS: BP 175/92; PULSE 73; RESP 16; O2SAT 97
--- NOTE | 2021-01-09 16:54 | USCV_ITS ---
Johnny Jo Age: 70 Gender: M : 1950 Exam Date: 01/09/2021 17:14 Ordering Phys: Segundo Corrales DO Technologist: Pooja Dolan Exam Location: [facility] – [place] Indication: CLOTS SEEN WHEN PICC LINE WAS ATTEMPTED HISTORY: ATTEMPTED ACCESS IN FOR PICC LINE. COULD NOT ACCESS AND SAW CLOTS PROCEDURES: Venous duplex imaging was performed in only the left upper extremity. The following venous structures were evaluated: internal jugular vein, subclavian vein, axillary vein, and brachial veins. In addition, the basilic vein, cephalic vein, radial vein, and ulnar vein. FINDINGS: NO EVIDENCE DVT SEEN. SCANNED RIGHT OVER AREA OF ATTEMPTED ACCESS IN LT BASILIC. PLEASE NOTE VIEWS 20, 21 AND 22 ARE CEPHALIC VEIN...VERY SMALL BUT ALSO APPEAR PATENT. CONCLUSIONS No evidence of thrombus of the left upper extremity veins. Small cephalic and basilic veins in the area of attempted access which appears patent. Misbah Villegas MD (Electronically Signed) Final Date: 10 January 2021 09:41 S
--- NOTE | 2021-01-09 16:55 | W.ED.GENADLT ---
HPI - General Adult General: Chief complaint: General Medical Stated complaint: to be seen for blood clots, [facility] Time Seen by Provider: 01/09/21 14:33 History of Present Illness: HPI narrative: 70-year-old male presents emergency room with complaint of difficulty with insertion of a PICC line. He was recently diagnosed with a cystitis has a mild pyelonephritis he was post to start IV antibiotics via PICC line on home infusions. They went up with the PICC line in today and could not get the PICC line to pass there was a concern that there was a clot. Patient relates that evidently there was clot at the end of the tip of the PICC line when it was removed. He denies any chest pain denies any shortness of breath is not any swelling in his left arm. Left arm was where they had been trying to place the line. Patient has a history of partial quadriplegia with minimal use of his upper extremities due to a previous below previous cervical cord injury. Onset (ago): minute(s) Associated symptoms: Deny chest pain, confusion, cough, diaphoresis, decreased appetite, dyspnea, fevers/chills, headache(s), malaise, nausea, rash, palpitations, seizures, short of breath, syncope, vomiting or weakness Treatments prior to arrival: none Review of Systems Const: Denies: malaise or diaphoresis ENMT: Denies: throat pain, ear or mastoid pain, nasal discharge or nasal congestion Card: Denies: chest pain, palpitations or syncope Resp: Denies: dyspnea GI: Denies: nausea or vomiting : Denies: flank pain, dysuria, urinary frequency or urinary urgency Skin/Breast: Denies: rash or pruritus Neuro: Denies: headache(s) or confusion [facility] PFSH: Medical History Anxiety Autonomic dysreflexia Calculus of kidney Chronic hepatitis CKD (chronic kidney disease), stage III Diabetes Folate deficiency anemia GERD with esophagitis History of pressure ulcer HTN (hypertension) Hydronephrosis Hyperkalemia Iron deficiency anemia Major depressive disorder, recurrent Old myocardial infarction Other osteomyelitis, other site Other specific personality disorders Pure hypercholesterolemia Quadriplegia, C5-C7 complete Recurrent UTI Vitamin D deficiency Surgical History History of kidney surgery Hx of heart artery stent Family History Mother , 93 Cancer Colon Father , 56 CAD (coronary artery disease) Social History Smoking and tobacco status: current some day smoker cigarettes [ Other cigarette details: [id number] 52yr history ] Quit status (tobacco): considering quitting Second hand smoke exposure: No Smoking risk assessment/counseling performed?: Yes Alcohol intake: never Desire information about substance/drug rehabilitation?: No Counseling given: Yes Caregiver/support person: Yes Lives independently: Yes Household members: spouse Housing: House Marital status: service: Yes status: Discharged branch: [employer] Current occupational status: disabled History of recent travel: No Current gender identity: Male Physical Exam Const: COMMON NORMALS: no acute distress GENERAL APPEARANCE: cooperative and comfortable ORIENTATION/CONSCIOUSNESS: Yes awake, Yes oriented to person, Yes oriented to place and Yes oriented to time HENMT: COMMON NORMALS: normocephalic, atraumatic and hearing grossly normal bilaterally HEAD & SCALP: normocephalic and atraumatic Neck/C-Spine: COMMON NORMALS: no JVD Resp: COMMON NORMALS: normal respiratory effort, No retractions, No use of accessory muscles and clear to auscultation bilaterally AUSCULTATION: clear to auscultation bilaterally Cardio: COMMON NORMALS: no JVD, regular rate, regular rhythm and No murmurs present (Cardio) RATE: regular rate RHYTHM: regular rhythm GI: COMMON NORMALS: Soft to palpation and No hepatosplenomegaly present AUSCULTATION: Yes normoactive bowel sounds PALPATION: Yes Soft to palpation, No Tenderness to palpation present (GI), No Guarding due to palpation present (GI) and Yes No hepatosplenomegaly present Neuro: SENSORIUM/ORIENTATION: Yes oriented to person, Yes oriented to place and Yes oriented to time Course Vital Signs: Vital signs: Vital Signs Temperature 98.3 F 01/09/21 15:02 Pulse Rate 72 01/09/21 17:47 Respiratory Rate 16 01/09/21 17:47 Blood Pressure 168/86 01/09/21 17:47 Pulse Oximetry 98 01/09/21 17:47 MDM - General Adult MDM Narrative: Medical decision making narrative: No sign of extra extremity clot. Recommend they follow-up with their primary care doc. He will need to get other vascular access is [facility] Discharge Plan Discharge Patient Disposition: Home Clinical Impression: Feared complaint without diagnosis Condition: Stable Prescriptions: No Action atorvastatin 80 mg tablet 80 mg PO DAILY@0800 RF: 0 carvedilol 12.5 mg tablet 6.25 mg PO BID@799,1999 RF: 0 cholecalciferol (vitamin D3) 1,250 mcg (50,000 unit) capsule 1,250 mcg PO DAILY@0800 RF: 0 docusate sodium 100 mg capsule 300 mg PO BID@ RF: 0 doxepin 10 mg capsule 20 mg PO BEDTIME@1999 RF: 0 duloxetine 30 mg capsule,delayed release(DR/EC) 60 mg PO DAILY@0800 RF: 0 famotidine 40 mg tablet 40 mg PO BID@ RF: 0 furosemide 20 mg tablet 20 mg PO DAILY@08 RF: 0 melatonin 3 mg capsule 6 mg PO DAILY@1999 RF: 0 senna 8.6 mg capsule 8.6 mg PO BID@799,1999 PRN (Reason: Constipation) RF: 0 sodium bicarbonate 650 mg tablet 650 mg PO BID@ RF: 0 lactulose 10 gram/15 mL solution 10 gm PO DAILY@08 RF: 0 lidocaine HCl 2 % jelly 1 applic TOPICAL TID PRN (Reason: Pain) RF: 0 oxycodone 5 mg capsule 5 mg PO Q4H PRN (Reason: Pain) RF: 0 patiromer calcium sorbitex 16.8 gram powder in packet 16.8 gm PO DAILY@1200 RF: 0 nitroglycerin [Nitrostat] 0.4 mg tablet, sublingual 0.4 mg SUBLINGUAL Q5M PRN (Reason: CHEST PAINS) RF: 0 Lantus Solostar U-100 Insulin 100 unit/mL (3 mL) insulin pen 20 unit SUBCUT DAILY@1999 RF: 0 gabapentin 100 mg capsule 300 mg PO BID@799,1999 RF: 0 Lactobacillus acidophilus [Acidophilus] Capsule 10 mg PO DAILY@08 RF: 0 alprazolam 0.25 mg tablet 0.25 mg PO BID PRN (Reason: anxiety) RF: 0 albuterol sulfate [ProAir HFA] 90 mcg/actuation HFA aerosol inhaler 2 puff inhalation Q6H PRN (Reason: Shortness Of Breath) RF: 0 ciprofloxacin HCl 500 mg tablet 200 mg PO BID@799,1999 RF: 0 Aspir-Low 81 mg Tablet,Delayed Release (Dr/Ec) 81 mg PO DAILY@799 RF: 0 bisacodyl 10 mg Suppository 10 mg MD DAILY@1999 RF: 0 ferrous sulfate 325 mg (65 mg iron) Tablet 325 mg PO BID@799,1999 RF: 0 folic acid 1 mg Tablet 1 mg PO DAILY@799 RF: 0 Bevespi Aerosphere 9-4.8 mcg HFA aerosol inhaler 2 puff inhalation BID@ RF: 0 Discharge Orders: Discharge ED (Routine); Ordered 01/09/21 Ordered By: Segundo Corraels Referrals: Julia Lacey MD [Primary Care Provider] - Discharge Diet: Usual diet Discharge Activity: Resume usual activity Patient Instructions: Opioid Safety Activity Restrictions/Additional Instructions: Contact your doctor tomorrow to arrange for other vascular access for treatments for your cystitis. Coding Level of Care Code ED Exposure Machine Operator for Lavonne Chaney
--- NOTE | 2021-01-09 17:13 | PC.NURSE ---
ULTRASOUND IN ROOM
[2021-01-09 17:47] VITALS: BP 168/86; PULSE 72; RESP 16; O2SAT 98
== END 2021-01-09 17:59 | disposition home or self-care (01) ==
PROVIDERS: Emergency Provider Family Medicine; PCP Family Medicine
DX: Z71.1 Person with feared health complaint in whom no diagnosis is made (principal); Z79.4 Long term (current) use of insulin; I12.9 Hypertensive chronic kidney disease with stage 1 through stage 4 chronic kidney disease, or unspecified chronic kidney disease; E11.22 Type 2 diabetes mellitus with diabetic chronic kidney disease; N18.30 Chronic kidney disease, stage 3 unspecified; I25.2 Old myocardial infarction; G82.53 Quadriplegia, C5-C7 complete; F17.210 Nicotine dependence, cigarettes, uncomplicated
CPT/HCPCS: 93971; 99282

== ENCOUNTER 2021-05-01 16:09 | Inpatient (IN) | payer OTHER, MEDICARE, SELFPAY ==
[2021-05-01] VITALS (7 sets, daily range): BP systolic 116–160; BP diastolic 72–117; PULSE 68–122; RESP 17–26; TEMP 37.6; O2SAT 93–100; BMI 22.9
--- NOTE | 2021-05-01 16:34 | XRR_ITS ---
PROCEDURE INFORMATION: Exam: XR Chest Exam date and time: 05/01/2021 4:34 PM Age: 70 years old Clinical indication: Shortness of breath; Patient HX: AMS; Additional info: SOB, sepsis TECHNIQUE: Imaging protocol: XR of the chest. Views: 1 view. COMPARISON: CR XR chest 1V portable [id number] 11/28/2020 2:05 PM FINDINGS: Lungs: There is mild coarse reticular opacity in the right mid to lower lung. Central interstitial markings are indistinct. There is no focal consolidation. Pleural spaces: There is no pleural effusion or pneumothorax. Heart/Mediastinum: There is moderate enlargement of the cardiac silhouette. Bones/joints: Bones are unremarkable. XR/XR chest 1V portable [id number] IMPRESSION: Indistinct central interstitial markings in the setting of cardiac enlargement suggests interstitial edema. This finding is decreased since 11/28/2020.
--- NOTE | 2021-05-01 16:35 | CTR_ITS ---
PROCEDURE INFORMATION: Exam: CT Head Without Contrast Exam date and time: 05/01/2021 4:35 PM Age: 70 years old Clinical indication: Altered mental status/memory loss; Additional info: AMS TECHNIQUE: Imaging protocol: Computed tomography of the head without contrast. Radiation optimization: All CT scans at this facility use at least one of these dose optimization techniques: automated exposure control; mA and/or kV adjustment per patient size (includes targeted exams where dose is matched to clinical indication); or iterative reconstruction. COMPARISON: CT head wo con* [id number] 11/28/2020 3:38 PM RADIATION DOSE METRICS: Total DLP (mGy-cm): 1238.77 FINDINGS: Brain: There is a small focus of encephalomalacia in the high mesial anterior right frontal lobe. There is mild diffuse cerebral atrophy. There is no acute intracranial hemorrhage. Cerebral ventricles: There is mild ex vacuo dilation of the lateral ventricles. The basal cisterns are unremarkable. Paranasal sinuses: The paranasal sinuses are clear. Mastoid air cells: The mastoid air cells are clear. Bones/joints: The calvarium is intact. Soft tissues: The visible extracranial soft tissues are unremarkable. CT/CT head wo con* [id number] IMPRESSION: 1. No acute intracranial abnormality. 2. Small chronic infarct right frontal lobe. Radiation Dose CTDIVOL = (mGy): DLP = 1238.77 (mGy-cm)
--- NOTE | 2021-05-01 16:36 | ED_ITS ---
Documented by User: NADYA Nam 05/01/21 17:01 HPI - Altered Mental Status General: Chief Complaint: Altered Mental Status Stated Complaint: AMS Time Seen by Provider: 05/01/21 16:31 Source: EMS Mode of arrival: EMS Limitations: altered mental status History of Present Illness: HPI narrative: Patient is a 70-year-old male with a history of hepatitis, DM, CKD, GERD, HTN, CAD, and quadriplegia here after he was brought by EMS for complaints of altered mental status. Patient himself is not able to provide any history at this time. He is not able to follow commands. EMS report states that the told them patient has been lethargic over the past few days and has been unable to speak. I contacted patient's who tells me prior to Friday patient had not been sleeping well so on Friday he took a sleeping pill and apparently slept for the next 41 hours. states she checked on him today and he was flushed and clammy so she called an ambulance. MD complaint: altered mental status Timing confirmed by: family member Severity: severe Consistency of symptoms: Getting Worse Review of Systems General: Reports: ROS unobtainable due to mental status PFSH ED PFSH: Medical History Anxiety Autonomic dysreflexia Calculus of kidney Chronic hepatitis CKD (chronic kidney disease), stage III Diabetes Folate deficiency anemia GERD with esophagitis History of pressure ulcer HTN (hypertension) Hydronephrosis Hyperkalemia Iron deficiency anemia Major depressive disorder, recurrent Old myocardial infarction Other osteomyelitis, other site Other specific personality disorders Pure hypercholesterolemia Quadriplegia, C5-C7 complete Recurrent UTI Vitamin D deficiency Surgical History History of kidney surgery Hx of heart artery stent Family History Mother , 93 Cancer Colon Father , 56 CAD (coronary artery disease) Social History Smoking and tobacco status: current every day smoker cigarettes [ Other cigarette details: [id number] 50yr history ] Quit status (tobacco): considering quitting Second hand smoke exposure: No Smoking risk assessment/counseling performed?: Yes Alcohol intake: never Desire information about substance/drug rehabilitation?: No Counseling given: Yes Caregiver/support person: Yes Lives independently: Yes Household members: spouse Housing: House Marital status: service: Yes status: Discharged branch: [employer] Current occupational status: disabled History of recent travel: No Current gender identity: Male Physical Exam Const: EXAM LIMITATIONS: altered mental status GENERAL APPEARANCE: disheveled and diaphoretic ORIENTATION/CONSCIOUSNESS: Yes awake HENMT: COMMON NORMALS: normocephalic and atraumatic HEAD & SCALP: normocephalic and atraumatic Resp: EFFORT & INSPECTION: Yes tachypneic and Yes labored AUSCULTATION: rhonchi (throughout) Cardio: COMMON NORMALS: regular rhythm RATE: tachycardic RHYTHM: regular rhythm GI: COMMON NORMALS: Normal to inspection, nondistended, normoactive bowel sounds present and Soft to palpation PALPATION: Yes Soft to palpation OTHER: ileal conduit urinary diversion present; urine in bag yellow with heavy sediment Neuro: A[place] COMA SCALE: document GCS findings [place] coma scale eye opening: Spontaneous [place] coma scale verbal response: Sounds [place] coma scale motor response: None (patient is a quadriplegic with no use of extr emities; does not follow commands) [place] coma scale total score: 7 Course Vital Signs: Vital signs: Vital Signs Temperature 99.6 F 05/01/21 16:11 Pulse Rate 68 05/01/21 22:55 Respiratory Rate 21 H 05/01/21 22:55 Blood Pressure 133/89 05/01/21 21:49 Pulse Oximetry 93 05/01/21 22:55 MDM - Altered Mental Status Lab Data: Labs: Lab Results 05/01/21 05/01/21 05/01/21 Range/Units 17:02 20:51 21:05 WBC Cancelled Corrected WBC Cancelled RBC Cancelled Hgb Cancelled Hct Cancelled MCV Cancelled MCH Cancelled MCHC Cancelled RDW Cancelled Plt Count Cancelled MPV Cancelled Gran % Cancelled Neut % (Auto) Cancelled Lymph % (Auto) Cancelled [place] % (Auto) Cancelled Eos % (Auto) Cancelled Baso % (Auto) Cancelled Neut # (Auto) Cancelled Lymph # (Auto) Cancelled [place] # (Auto) Cancelled Eos # (Auto) Cancelled Baso # (Auto) Cancelled Absolute Gran (aut o) Cancelled Nucleated RBC % (a uto) Cancelled Nucleated RBCs # Cancelled Specimen Type Arterial Sample Site Brachial, left ABG pH 7.48 H (7.35-7.45) ABG pCO2 28.2 L (35-45) mmHg ABG pO2 121.0 H (80.0-100.0) mmH g ABG HCO3 21.1 L (22-26) mmol/L ABG O2 Saturation 97.0 ABG Base Excess -1.2 (-2.0-2.0) mmol/ L Matt Test Pos A-a O2 Gradient 5.3 (5-10) mmHg Hematocrit 41.5 L (42-52) % Hgb O2 Saturation 96.0 (95-100) % Carboxyhemoglobin 0.1 L (0.4-20.1) %THgb Methemoglobin 0.9 (0.4-1.5) % Total Hemoglobin 13.5 L (14-18) g/dL Sodium 146.0 H (131-143) mmol/L Potassium 4.2 (3.5-5.0) mmol/L Glucose 177.0 H (70-115) mg/dL Ionized Calcium 1.5 H (1.1-1.4) mmol/L O2 Delivery Device Nc O2 Liters/Min 2.0 % FiO2 28.0 % Process Description Writer ID Cak Chloride (98-107) mmol/L Carbon Dioxide (22-29) mmol/L Anion Gap (5-19) BUN (8-23) mg/dL Creatinine (0.7-1.2) mg/dL GFR Calculation (90-130) mL/min Calculated Osmolal ity (285-295) mOsm/k g Lactic Acid (0.5-2.2) mmol/L Calcium (8.5-10.5) mg/dL Total Bilirubin (0.15-1.2) mg/dL AST (0-40) U/L ALT (0-41) U/L Alkaline Phosphata se (40-130) IU/L Creatine Kinase (39-308) U/L Troponin T Baselin e (0-15) ng/L C-Reactive Protein (0.0-4.9) mg/L NT-Pro-B Natriuret Pep (0-125) pg/mL Total Protein (6.6-8.7) g/dL Albumin (3.5-5.2) g/dL Globulin (1.3-4.6) g/dL Urine Color (Yellow) Urine Appearance (CLEAR) Urine pH (5-7) Ur Specific Gravit y (1.005-1.030) Urine Protein (Negative) Urine Glucose (UA) (Normal) Urine Ketones (Negative) Urine Blood (Negative) Urine Nitrate (Negative) Urine Bilirubin (Negative) Urine Urobilinogen (Negative) mg/dL Ur Leukocyte Karina ase (Negative) Urine RBC (0-2) /hpf Urine WBC (0-5) /hpf Ur Squamous Epith Cells (0-5) /hpf Amorphous Sediment /hpf Urine Bacteria (NONE) /hpf Urine Opiates Scre en (Negative) ng/mL Ur Barbiturates Sc reen (Negative) ng/mL Ur Phencyclidine S crn (Negative) ng/mL Ur Amphetamines Sc reen (Negative) ng/mL U Benzodiazepines Scrn (Negative) ng/mL Urine Cocaine Scre en (Negative) ng/mL U Marijuana (THC) Screen (Negative) ng/mL SARS-CoV-2 Ag (Rap id) Negative (Negative) 05/01/21 05/01/21 05/01/21 Range/Units 21:05 21:05 21:05 WBC Corrected WBC RBC Hgb Hct MCV MCH MCHC RDW Plt Count MPV Gran % Neut % (Auto) Lymph % (Auto) [place] % (Auto) Eos % (Auto) Baso % (Auto) Neut # (Auto) Lymph # (Auto) [place] # (Auto) Eos # (Auto) Baso # (Auto) Absolute Gran (aut o) Nucleated RBC % (a uto) Nucleated RBCs # Specimen Type Sample Site ABG pH (7.35-7.45) ABG pCO2 (35-45) mmHg ABG pO2 (80.0-100.0) mmH g ABG HCO3 (22-26) mmol/L ABG O2 Saturation ABG Base Excess (-2.0-2.0) mmol/ L Matt Test A-a O2 Gradient (5-10) mmHg Hematocrit (42-52) % Hgb O2 Saturation (95-100) % Carboxyhemoglobin (0.4-20.1) %THgb Methemoglobin (0.4-1.5) % Total Hemoglobin (14-18) g/dL Sodium 145 (131-143) mmol/L Potassium 4.7 (3.5-5.0) mmol/L Glucose 155 H (70-115) mg/dL Ionized Calcium (1.1-1.4) mmol/L O2 Delivery Device O2 Liters/Min % FiO2 % Process Description Writer ID Chloride 107 (98-107) mmol/L Carbon Dioxide 21 L (22-29) mmol/L Anion Gap 21.7 H (5-19) BUN 50 H (8-23) mg/dL Creatinine 1.6 H (0.7-1.2) mg/dL GFR Calculation 43.2 L (90-130) mL/min Calculated Osmolal ity 316 H (285-295) mOsm/k g Lactic Acid 2.3 H (0.5-2.2) mmol/L Calcium 10.6 H (8.5-10.5) mg/dL Total Bilirubin 0.4 (0.15-1.2) mg/dL AST 14 (0-40) U/L ALT 11 (0-41) U/L Alkaline Phosphata se 168 H (40-130) IU/L Creatine Kinase 47 (39-308) U/L Troponin T Baselin e 137 H* (0-15) ng/L C-Reactive Protein 9.0 H (0.0-4.9) mg/L NT-Pro-B Natriuret Pep 9585 H (0-125) pg/mL Total Protein 6.3 L (6.6-8.7) g/dL Albumin 3.4 L (3.5-5.2) g/dL Globulin 2.9 (1.3-4.6) g/dL Urine Color (Yellow) Urine Appearance (CLEAR) Urine pH (5-7) Ur Specific Gravit y (1.005-1.030) Urine Protein (Negative) Urine Glucose (UA) (Normal) Urine Ketones (Negative) Urine Blood (Negative) Urine Nitrate (Negative) Urine Bilirubin (Negative) Urine Urobilinogen (Negative) mg/dL Ur Leukocyte Karina ase (Negative) Urine RBC (0-2) /hpf Urine WBC (0-5) /hpf Ur Squamous Epith Cells (0-5) /hpf Amorphous Sediment /hpf Urine Bacteria (NONE) /hpf Urine Opiates Scre en (Negative) ng/mL Ur Barbiturates Sc reen (Negative) ng/mL Ur Phencyclidine S crn (Negative) ng/mL Ur Amphetamines Sc reen (Negative) ng/mL U Benzodiazepines Scrn (Negative) ng/mL Urine Cocaine Scre en (Negative) ng/mL U Marijuana (THC) Screen (Negative) ng/mL SARS-CoV-2 Ag (Rap id) (Negative) 05/01/21 05/01/21 05/01/21 Range/Units 21:11 21:11 22:21 WBC 14.8 H Corrected WBC RBC 4.25 Hgb 11.9 Hct 37.2 L MCV 87.5 MCH 28.0 MCHC 32.0 RDW 15.4 H Plt Count 265 MPV 9.6 Gran % Neut % (Auto) 91.7 Lymph % (Auto) 3.3 [place] % (Auto) 2.6 Eos % (Auto) 0.0 Baso % (Auto) 0.3 Neut # (Auto) 13.57 H Lymph # (Auto) 0.5 L [place] # (Auto) 0.4 Eos # (Auto) 0.0 Baso # (Auto) 0.1 Absolute Gran (aut o) Nucleated RBC % (a uto) 0 Nucleated RBCs # 0.0 Specimen Type Sample Site ABG pH (7.35-7.45) ABG pCO2 (35-45) mmHg ABG pO2 (80.0-100.0) mmH g ABG HCO3 (22-26) mmol/L ABG O2 Saturation ABG Base Excess (-2.0-2.0) mmol/ L Matt Test A-a O2 Gradient (5-10) mmHg Hematocrit (42-52) % Hgb O2 Saturation (95-100) % Carboxyhemoglobin (0.4-20.1) %THgb Methemoglobin (0.4-1.5) % Total Hemoglobin (14-18) g/dL Sodium (131-143) mmol/L Potassium (3.5-5.0) mmol/L Glucose (70-115) mg/dL Ionized Calcium (1.1-1.4) mmol/L O2 Delivery Device O2 Liters/Min % FiO2 % Process Description Writer ID Chloride (98-107) mmol/L Carbon Dioxide (22-29) mmol/L Anion Gap (5-19) BUN (8-23) mg/dL Creatinine (0.7-1.2) mg/dL GFR Calculation (90-130) mL/min Calculated Osmolal ity (285-295) mOsm/k g Lactic Acid (0.5-2.2) mmol/L Calcium (8.5-10.5) mg/dL Total Bilirubin (0.15-1.2) mg/dL AST (0-40) U/L ALT (0-41) U/L Alkaline Phosphata se (40-130) IU/L Creatine Kinase (39-308) U/L Troponin T Baselin e (0-15) ng/L C-Reactive Protein (0.0-4.9) mg/L NT-Pro-B Natriuret Pep (0-125) pg/mL Total Protein (6.6-8.7) g/dL Albumin (3.5-5.2) g/dL Globulin (1.3-4.6) g/dL Urine Color Yellow (Yellow) Urine Appearance Cloudy (CLEAR) Urine pH 6 (5-7) Ur Specific Gravit y 1.010 (1.005-1.030) Urine Protein 3+ H (Negative) Urine Glucose (UA) Norm (Normal) Urine Ketones Negative (Negative) Urine Blood 2+ H (Negative) Urine Nitrate Negative (Negative) Urine Bilirubin Neg (Negative) Urine Urobilinogen Norm (Negative) mg/dL Ur Leukocyte Karina ase 2+ H (Negative) Urine RBC 5-10 H (0-2) /hpf Urine WBC Too numerous to c nt H (0-5) /hpf Ur Squamous Epith Cells 0-4 H (0-5) /hpf Amorphous Sediment 4+ /hpf Urine Bacteria 4+ H (NONE) /hpf Urine Opiates Scre en Negative (Negative) ng/mL Ur Barbiturates Sc reen Negative (Negative) ng/mL Ur Phencyclidine S crn Negative (Negative) ng/mL Ur Amphetamines Sc reen Negative (Negative) ng/mL U Benzodiazepines Scrn Negative (Negative) ng/mL Urine Cocaine Scre en Negative (Negative) ng/mL U Marijuana (THC) Screen Positive H (Negative) ng/mL SARS-CoV-2 Ag (Rap id) (Negative) Discharge Plan Discharge Patient Disposition: Admitted As Inpatient Clinical Impression: Sepsis, Acute pyelitis, Acute alteration in mental status Condition: Stable Coding Level of Care Code ED Soaping Department Supervisor for Chg Fwd Exam Detailed Documented by User: Cameron Knight MD 05/01/21 23:41 HPI - Altered Mental Status General: Chief Complaint: Altered Mental Status Stated Complaint: AMS Time Seen by Provider: 05/01/21 16:31 PFSH ED PFSH: Medical History Anxiety Autonomic dysreflexia Calculus of kidney Chronic hepatitis CKD (chronic kidney disease), stage III Diabetes Folate deficiency anemia GERD with esophagitis History of pressure ulcer HTN (hypertension) Hydronephrosis Hyperkalemia Iron deficiency anemia Major depressive disorder, recurrent Old myocardial infarction Other osteomyelitis, other site Other specific personality disorders Pure hypercholesterolemia Quadriplegia, C5-C7 complete Recurrent UTI Vitamin D deficiency Surgical History History of kidney surgery Hx of heart artery stent Family History Mother , 93 Cancer Colon Father , 56 CAD (coronary artery disease) Social History Smoking and tobacco status: current every day smoker cigarettes [ Other cigarette details: [id number] 50yr history ] Quit status (tobacco): considering quitting Second hand smoke exposure: No Smoking risk assessment/counseling performed?: Yes Alcohol intake: never Desire information about substance/drug rehabilitation?: No Counseling given: Yes Caregiver/support person: Yes Lives independently: Yes Household members: spouse Housing: House Marital status: service: Yes status: Discharged branch: [employer] Current occupational status: disabled History of recent travel: No Current gender identity: Male Course Vital Signs: Vital signs: Vital Signs Temperature 99.6 F 05/01/21 16:11 Pulse Rate 68 05/01/21 22:55 Respiratory Rate 21 H 05/01/21 22:55 Blood Pressure 133/89 05/01/21 21:49 Pulse Oximetry 93 05/01/21 22:55 MDM - Altered Mental Status MDM Narrative: Medical decision making narrative: Antonia: Took over this patient from Ms. Beatty. The patient is likely septic and had been extremely difficult to get IV access. I even called anesthesiology and after multiple attempts he placed a central line in the right inguinal location for IV access. He is significantly altered and able to respond to pain. He is breathing on his own quite well satting in the upper 90s on room air. Blood pressure also maintaining itself. He came in quite tachycardic around 120 and after a couple hours it also spontaneously reduced. I discussed with his who said he is currently being treated for a UTI. 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 He has noticed the past 2 days of doses because he has sleep for them. He has not eaten or drinking nearly anything during that time. He was started on IV fluids and antibiotics for presumed sepsis from urine source. CT shows bilateral pyelitis. Discussed with Dr. Christy who accepts to the floor. Lab Data: Labs: Lab Results 05/01/21 05/01/21 05/01/21 Range/Units 17:02 20:51 21:05 WBC Cancelled Corrected WBC Cancelled RBC Cancelled Hgb Cancelled Hct Cancelled MCV Cancelled MCH Cancelled MCHC Cancelled RDW Cancelled Plt Count Cancelled MPV Cancelled Gran % Cancelled Neut % (Auto) Cancelled Lymph % (Auto) Cancelled [place] % (Auto) Cancelled Eos % (Auto) Cancelled Baso % (Auto) Cancelled Neut # (Auto) Cancelled Lymph # (Auto) Cancelled [place] # (Auto) Cancelled Eos # (Auto) Cancelled Baso # (Auto) Cancelled Absolute Gran (aut o) Cancelled Nucleated RBC % (a uto) Cancelled Nucleated RBCs # Cancelled Specimen Type Arterial Sample Site Brachial, left ABG pH 7.48 H (7.35-7.45) ABG pCO2 28.2 L (35-45) mmHg ABG pO2 121.0 H (80.0-100.0) mmH g ABG HCO3 21.1 L (22-26) mmol/L ABG O2 Saturation 97.0 ABG Base Excess -1.2 (-2.0-2.0) mmol/ L Matt Test Pos A-a O2 Gradient 5.3 (5-10) mmHg Hematocrit 41.5 L (42-52) % Hgb O2 Saturation 96.0 (95-100) % Carboxyhemoglobin 0.1 L (0.4-20.1) %THgb Methemoglobin 0.9 (0.4-1.5) % Total Hemoglobin 13.5 L (14-18) g/dL Sodium 146.0 H (131-143) mmol/L Potassium 4.2 (3.5-5.0) mmol/L Glucose 177.0 H (70-115) mg/dL Ionized Calcium 1.5 H (1.1-1.4) mmol/L O2 Delivery Device Nc O2 Liters/Min 2.0 % FiO2 28.0 % Process Description Writer ID Cak Chloride (98-107) mmol/L Carbon Dioxide (22-29) mmol/L Anion Gap (5-19) BUN (8-23) mg/dL Creatinine (0.7-1.2) mg/dL GFR Calculation (90-130) mL/min Calculated Osmolal ity (285-295) mOsm/k g Lactic Acid (0.5-2.2) mmol/L Calcium (8.5-10.5) mg/dL Total Bilirubin (0.15-1.2) mg/dL AST (0-40) U/L ALT (0-41) U/L Alkaline Phosphata se (40-130) IU/L Creatine Kinase (39-308) U/L Troponin T Baselin e (0-15) ng/L C-Reactive Protein (0.0-4.9) mg/L NT-Pro-B Natriuret Pep (0-125) pg/mL Total Protein (6.6-8.7) g/dL Albumin (3.5-5.2) g/dL Globulin (1.3-4.6) g/dL Urine Color (Yellow) Urine Appearance (CLEAR) Urine pH (5-7) Ur Specific Gravit y (1.005-1.030) Urine Protein (Negative) Urine Glucose (UA) (Normal) Urine Ketones (Negative) Urine Blood (Negative) Urine Nitrate (Negative) Urine Bilirubin (Negative) Urine Urobilinogen (Negative) mg/dL Ur Leukocyte Karina ase (Negative) Urine RBC (0-2) /hpf Urine WBC (0-5) /hpf Ur Squamous Epith Cells (0-5) /hpf Amorphous Sediment /hpf Urine Bacteria (NONE) /hpf Urine Opiates Scre en (Negative) ng/mL Ur Barbiturates Sc reen (Negative) ng/mL Ur Phencyclidine S crn (Negative) ng/mL Ur Amphetamines Sc reen (Negative) ng/mL U Benzodiazepines Scrn (Negative) ng/mL Urine Cocaine Scre en (Negative) ng/mL U Marijuana (THC) Screen (Negative) ng/mL SARS-CoV-2 Ag (Rap id) Negative (Negative) 05/01/21 05/01/21 05/01/21 Range/Units 21:05 21:05 21:05 WBC Corrected WBC RBC Hgb Hct MCV MCH MCHC RDW Plt Count MPV Gran % Neut % (Auto) Lymph % (Auto) [place] % (Auto) Eos % (Auto) Baso % (Auto) Neut # (Auto) Lymph # (Auto) [place] # (Auto) Eos # (Auto) Baso # (Auto) Absolute Gran (aut o) Nucleated RBC % (a uto) Nucleated RBCs # Specimen Type Sample Site ABG pH (7.35-7.45) ABG pCO2 (35-45) mmHg ABG pO2 (80.0-100.0) mmH g ABG HCO3 (22-26) mmol/L ABG O2 Saturation ABG Base Excess (-2.0-2.0) mmol/ L Matt Test A-a O2 Gradient (5-10) mmHg Hematocrit (42-52) % Hgb O2 Saturation (95-100) % Carboxyhemoglobin (0.4-20.1) %THgb Methemoglobin (0.4-1.5) % Total Hemoglobin (14-18) g/dL Sodium 145 (131-143) mmol/L Potassium 4.7 (3.5-5.0) mmol/L Glucose 155 H (70-115) mg/dL Ionized Calcium (1.1-1.4) mmol/L O2 Delivery Device O2 Liters/Min % FiO2 % Process Description Writer ID Chloride 107 (98-107) mmol/L Carbon Dioxide 21 L (22-29) mmol/L Anion Gap 21.7 H (5-19) BUN 50 H (8-23) mg/dL Creatinine 1.6 H (0.7-1.2) mg/dL GFR Calculation 43.2 L (90-130) mL/min Calculated Osmolal ity 316 H (285-295) mOsm/k g Lactic Acid 2.3 H (0.5-2.2) mmol/L Calcium 10.6 H (8.5-10.5) mg/dL Total Bilirubin 0.4 (0.15-1.2) mg/dL AST 14 (0-40) U/L ALT 11 (0-41) U/L Alkaline Phosphata se 168 H (40-130) IU/L Creatine Kinase 47 (39-308) U/L Troponin T Baselin e 137 H* (0-15) ng/L C-Reactive Protein 9.0 H (0.0-4.9) mg/L NT-Pro-B Natriuret Pep 9585 H (0-125) pg/mL Total Protein 6.3 L (6.6-8.7) g/dL Albumin 3.4 L (3.5-5.2) g/dL Globulin 2.9 (1.3-4.6) g/dL Urine Color (Yellow) Urine Appearance (CLEAR) Urine pH (5-7) Ur Specific Gravit y (1.005-1.030) Urine Protein (Negative) Urine Glucose (UA) (Normal) Urine Ketones (Negative) Urine Blood (Negative) Urine Nitrate (Negative) Urine Bilirubin (Negative) Urine Urobilinogen (Negative) mg/dL Ur Leukocyte Karina ase (Negative) Urine RBC (0-2) /hpf Urine WBC (0-5) /hpf Ur Squamous Epith Cells (0-5) /hpf Amorphous Sediment /hpf Urine Bacteria (NONE) /hpf Urine Opiates Scre en (Negative) ng/mL Ur Barbiturates Sc reen (Negative) ng/mL Ur Phencyclidine S crn (Negative) ng/mL Ur Amphetamines Sc reen (Negative) ng/mL U Benzodiazepines Scrn (Negative) ng/mL Urine Cocaine Scre en (Negative) ng/mL U Marijuana (THC) Screen (Negative) ng/mL SARS-CoV-2 Ag (Rap id) (Negative) 05/01/21 05/01/21 05/01/21 Range/Units 21:11 21:11 22:21 WBC 14.8 H Corrected WBC RBC 4.25 Hgb 11.9 Hct 37.2 L MCV 87.5 MCH 28.0 MCHC 32.0 RDW 15.4 H Plt Count 265 MPV 9.6 Gran % Neut % (Auto) 91.7 Lymph % (Auto) 3.3 [place] % (Auto) 2.6 Eos % (Auto) 0.0 Baso % (Auto) 0.3 Neut # (Auto) 13.57 H Lymph # (Auto) 0.5 L [place] # (Auto) 0.4 Eos # (Auto) 0.0 Baso # (Auto) 0.1 Absolute Gran (aut o) Nucleated RBC % (a uto) 0 Nucleated RBCs # 0.0 Specimen Type Sample Site ABG pH (7.35-7.45) ABG pCO2 (35-45) mmHg ABG pO2 (80.0-100.0) mmH g ABG HCO3 (22-26) mmol/L ABG O2 Saturation ABG Base Excess (-2.0-2.0) mmol/ L Matt Test A-a O2 Gradient (5-10) mmHg Hematocrit (42-52) % Hgb O2 Saturation (95-100) % Carboxyhemoglobin (0.4-20.1) %THgb Methemoglobin (0.4-1.5) % Total Hemoglobin (14-18) g/dL Sodium (131-143) mmol/L Potassium (3.5-5.0) mmol/L Glucose (70-115) mg/dL Ionized Calcium (1.1-1.4) mmol/L O2 Delivery Device O2 Liters/Min % FiO2 % Process Description Writer ID Chloride (98-107) mmol/L Carbon Dioxide (22-29) mmol/L Anion Gap (5-19) BUN (8-23) mg/dL Creatinine (0.7-1.2) mg/dL GFR Calculation (90-130) mL/min Calculated Osmolal ity (285-295) mOsm/k g Lactic Acid (0.5-2.2) mmol/L Calcium (8.5-10.5) mg/dL Total Bilirubin (0.15-1.2) mg/dL AST (0-40) U/L ALT (0-41) U/L Alkaline Phosphata se (40-130) IU/L Creatine Kinase (39-308) U/L Troponin T Baselin e (0-15) ng/L C-Reactive Protein (0.0-4.9) mg/L NT-Pro-B Natriuret Pep (0-125) pg/mL Total Protein (6.6-8.7) g/dL Albumin (3.5-5.2) g/dL Globulin (1.3-4.6) g/dL Urine Color Yellow (Yellow) Urine Appearance Cloudy (CLEAR) Urine pH 6 (5-7) Ur Specific Gravit y 1.010 (1.005-1.030) Urine Protein 3+ H (Negative) Urine Glucose (UA) Norm (Normal) Urine Ketones Negative (Negative) Urine Blood 2+ H (Negative) Urine Nitrate Negative (Negative) Urine Bilirubin Neg (Negative) Urine Urobilinogen Norm (Negative) mg/dL Ur Leukocyte Karina ase 2+ H (Negative) Urine RBC 5-10 H (0-2) /hpf Urine WBC Too numerous to c nt H (0-5) /hpf Ur Squamous Epith Cells 0-4 H (0-5) /hpf Amorphous Sediment 4+ /hpf Urine Bacteria 4+ H (NONE) /hpf Urine Opiates Scre en Negative (Negative) ng/mL Ur Barbiturates Sc reen Negative (Negative) ng/mL Ur Phencyclidine S crn Negative (Negative) ng/mL Ur Amphetamines Sc reen Negative (Negative) ng/mL U Benzodiazepines Scrn Negative (Negative) ng/mL Urine Cocaine Scre en Negative (Negative) ng/mL U Marijuana (THC) Screen Positive H (Negative) ng/mL SARS-CoV-2 Ag (Rap id) (Negative) Discharge Plan Discharge Patient Disposition: Admitted As Inpatient Clinical Impression: Sepsis, Acute pyelitis, Acute alteration in mental status Condition: Stable Coding Level of Care Code ED Soaping Department Supervisor for [place] Fwd Exam Detailed
--- NOTE | 2021-05-01 16:37 | ECG_ITS ---
[facility] Test Date: 2021-05-01 Pat Name: Johnny Jo Department: Room: Gender: Male Emergency Telecommunications Dispatcher: : 1950 Requested By: Amparo Beatty Order Number: [id number] Raoul MD: Tushar Muller M.D. Measurements Intervals [place] Rate: 94 P: 75 ME: 216 QRS: -70 QRSD: 90 T: 68 QT: 363 QTc: 455 Interpretive Statements SINUS RHYTHM WITH SINUS ARRHYTHMIA WITH FIRST DEGREE AV BLOCK POSSIBLE RIGHT ATRIAL ENLARGEMENT [0.25mV P WAVE] POSSIBLE LEFT ATRIAL ENLARGEMENT [-0.1mV P WAVE IN V1/V2] POSSIBLE RIGHT VENTRICULAR CONDUCTION DELAY [RSR (QR) IN V1/V2] LEFT ANTERIOR FASCICULAR BLOCK [QRS AXIS <= -45, QR IN I, RS IN II] POSSIBLE ANTEROSEPTAL MYOCARDIAL INFARCTION [30 ms Q WAVE IN V1-V4], OF INDETERMINATE AGE Compared to ECG 11/28/2020 15:48:43 Left anterior fascicular block now present Atrial flutter no longer present Left-axis deviation no longer present Myocardial infarct finding still present Electronically Signed On 05-02-2021 0:51:39 CDT by Tushar Muller M.D. [id number]
[2021-05-01 17:13] LABS: ABG PCO2 28.2 mmHg (35-45); ABG PH Result 7.48 (7.35-7.45); Alveolar-Arterial Oxygen Gradi 5.3 mmHg (5-10); Arterial Blood Gas Hematocrit 41.5 % (42-52); Base Excess ABG -1.2 mmol/L (-2.0-2.0); Blood Gas Allen Test Pos; Blood Gas Operator Identificat CAK; Blood Gas Sample Site Brachial, left; Blood Gas Sample Type Arterial; Carboxyhemoglobin 0.1 %THgb (0.4-20.1); HCO3 ABG 21.1 mmol/L (22-26); Ionized Calcium Level - ABG 1.5 mmol/L (1.1-1.4); Methemoglobin 0.9 % (0.4-1.5); Oxygen Device NC; Potassium Level - ABG 4.2 mmol/L (3.5-5.0); Total Hemoglobin 13.5 g/dL (14-18)
--- NOTE | 2021-05-01 17:45 | PC.NURSE ---
Patient's eyes open, when patient is asked a question, he closes his eyes and doesn't respond.
--- NOTE | 2021-05-01 18:37 | ECG_ITS ---
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 Measurements Intervals [place] Rate: 107 P: 80 ND: 193 QRS: -72 QRSD: 97 T: 71 QT: 352 QTc: 471 Interpretive Statements SINUS TACHYCARDIA POSSIBLE RIGHT ATRIAL ENLARGEMENT [0.25mV P WAVE] POSSIBLE LEFT ATRIAL ENLARGEMENT [-0.1mV P WAVE IN V1/V2] MARKED LEFT AXIS DEVIATION [QRS AXIS < -30] INCOMPLETE RIGHT BUNDLE BRANCH BLOCK [90+ ms QRS DURATION, TERMINAL R IN V1/V2, 40+ ms S IN I/aVL/V4/V5/V6] POSSIBLE LEFT VENTRICULAR HYPERTROPHY [VOLTAGE CRITERIA PLUS LAE OR QRS WIDENING] ANTEROSEPTAL MYOCARDIAL INFARCTION [40+ ms Q WAVE IN V1-V4], OF INDETERMINATE AGE Compared to ECG 05/01/2021 17:17:18 Incomplete right bundle-branch block now present First degree AV block no longer present Left anterior fascicular block no longer present Myocardial infarct finding still present Electronically Signed On 05-02-2021 0:52:35 CDT by Tushar Muller M.D. [email or web address]/store/[id number]
--- NOTE | 2021-05-01 21:04 | XRR_ITS ---
PROCEDURE INFORMATION: Exam: XR Chest Exam date and time: 05/01/2021 9:04 PM Age: 70 years old Clinical indication: Prior surgery; Surgery type: Cardiac stents; Patient HX: S/P attempted central line placement. ; Additional info: Post central line attempt TECHNIQUE: Imaging protocol: XR of the chest. Views: 1 view. COMPARISON: CR XR chest 1V portable [id number] 05/01/2021 4:44 PM FINDINGS: Tubes, catheters and devices: No central line is visible. Lungs: There is no consolidation. Pleural spaces: There is no pleural effusion or pneumothorax. Heart/Mediastinum: There is moderate enlargement of the cardiac silhouette. Bones/joints: Bones are unremarkable. XR/XR chest 1V portable [id number] IMPRESSION: No pneumothorax.
--- NOTE | 2021-05-01 21:22 | ANES.PROC ---
Anesthesia Procedures Procedure/Date: 05/01/21 Right femoral central access Central Venous Insert: Central Venous Line: 7fr 3-lumen 20cm Time Out Performed: Yes Consent: requested by attending/covering physician and emergency procedure Central Line: New Anesthesia monitors: pulse oximetry, EKG, BP cuff and oxygen Vein cannulated: other (Right femoral) Ultrasound used: to identify patency to vessel Post procedure: Obtain Chest X-Ray Additional Comments: Attempted several times in left subclavian, but patient very uncooperative and could not hold still enough to gain access there. Attempted right femoral vein after visualization with US, initially hit femoral artery and then redirected to access vein. Seldinger technique, sterile gown, glove, mask and drapes. Patient tolerated the femoral access much better. Sutured in place and covered with sterile dressing.
[2021-05-01] MEDS: sodium chloride 0.9% 1,000 ML 999 ML IV (21:29)
[2021-05-01 21:45] LABS: Amphetamines Screen Urine Negative (Negative); Barbiturates Screen Urine Negative (Negative); Benzodiazepines Screen Urine Negative (Negative); Cocaine Screen Urine Negative (Negative); Opiate Screen Urine Negative (Negative); PCP Screen Urine Negative (Negative); THC Screen Urine Positive (Negative)
[2021-05-01] MEDS: aztreonam 2,000 MG in sodium chloride 0.9% (plus) 100 ML 200 MG IV (21:48)
[2021-05-01 21:53] LABS: Alanine Aminotransferase 11 U/L (0-41); Albumin Level 3.4 g/dL (3.5-5.2); Alkaline Phosphatase 168 IU/L (40-130); Anion Gap 21.7 (5-19); Aspartate Amino Transferase 14 U/L (0-40); Blood Urea Nitrogen 50 mg/dL (8-23); Calcium 10.6 mg/dL (8.5-10.5); Carbon Dioxide 21 mmol/L (22-29); Chloride 107 mmol/L (98-107); Creatine Phosphokinase 47 U/L (39-308); Globulin 2.9 g/dL (1.3-4.6); Glomerular Filtration Rate 43.2 mL/min (90-130); Glucose 155 mg/dL (65-115); Osmolality Calculated 316 mOsm/kg (285-295); Potassium 4.7 mmol/L (3.5-5.1); Sodium 145 mmol/L (136-145); Total Bilirubin 0.4 mg/dL (0.15-1.2); Total Protein 6.3 g/dL (6.6-8.7)
[2021-05-01 21:57] LABS: Add Urine Culture? Yes; Add Urine Microscopic? YES; Amorphous Sediment Urine 4+ /hpf; Bacteria Urine 4+ /hpf; Bilirubin Urine Neg (Negative); Blood Urine 2+ (Negative); Glucose Urine UA Norm (Normal); Ketones Urine Negative (Negative); Leukocyte Esterase Urine 2+ (Negative); Nitrate Urine Negative (Negative); Protein Urine 3+ (Negative); Squamous Epithelial Cell Urine 0-4 /hpf (0-5); Urine Appearance Cloudy (CLEAR); Urine Color Yellow (Yellow); Urobilinogen Urine Norm (Negative); WBC Urine TOO NUMEROUS TO CNT /hpf (0-5); pH Urine 6 (5-7)
[2021-05-01 22:09] LABS: Lactic Sepsis W/Reflex 2.3 mmol/L (0.5-2.2)
[2021-05-01 22:14] LABS: SARS Covid-2 Antigen Negative (Negative)
[2021-05-01 22:20] LABS: NT Pro B Type Natriuretic Pept 9585 pg/mL (0-125)
[2021-05-01] MEDS: vancomycin 1,500 MG/300 ML PIGGYBACK 200 MG IV (22:22)
--- NOTE | 2021-05-01 22:22 | CTR_ITS ---
PROCEDURE INFORMATION: Exam: CT Chest With Contrast; Diagnostic Exam date and time: 05/01/2021 10:22 PM Age: 70 years old Clinical indication: Fever and shortness of breath; Prior surgery; Surgery type: Stents, kidney, bladder, gb; Additional info: Altered. Ileal conduit. Has UTI currently. TECHNIQUE: Imaging protocol: Diagnostic computed tomography of the chest with contrast. Radiation optimization: All CT scans at this facility use at least one of these dose optimization techniques: automated exposure control; mA and/or kV adjustment per patient size (includes targeted exams where dose is matched to clinical indication); or iterative reconstruction. Contrast material: VISI 320; Contrast volume: 95 ml; Contrast route: INTRAVENOUS (IV); COMPARISON: CT abdomen pelvis w con* [id number] 11/28/2020 3:42 PM RADIATION DOSE METRICS: Total DLP (mGy-cm): 2195.07 FINDINGS: Thyroid: Substernal thyroid nodule the left measuring up to 3.6 cm. Lungs: There is mild upper lung predominant centrilobular emphysema. There is subsegmental atelectasis in the lung bases. Pleural spaces: There is posterior costal pleural calcification on the right. There is no pleural effusion or pneumothorax. Heart: Heart size is normal. There is no pericardial effusion. Pulmonary arteries: The central pulmonary arteries are unremarkable. Aorta: There is moderate aortic atherosclerotic disease. Lymph nodes: There is no mediastinal or hilar lymphadenopathy. Bones/joints: Bones are unremarkable. Soft tissues: The extrathoracic soft tissues are unremarkable. IMPRESSION: 1. No acute findings. 2. Substernal thyroid nodule on the left. Follow-up non-emergent thyroid ultrasound is recommended. COMMENTS: Consistent with the [employer]'s Incidental Findings Committee white paper (J Am Constance Radiol 2015): In patients aged 35 years and older with an incidental thyroid nodule equal to or greater than 1.[address], MRI or extrathyroidal US, further evaluation with dedicated thyroid US is recommended for patients with normal life expectancy and without comorbidities. For smaller nodules without suspicious features, no further evaluation or follow up is recommended. PROCEDURE INFORMATION: Exam: CT Abdomen And Pelvis With Contrast Exam date and time: 05/01/2021 10:22 PM Age: 70 years old Clinical indication: Fever and shortness of breath; Prior surgery; Surgery type: Stents, kidney, bladder, gb; Additional info: Altered. Ileal conduit. Has UTI currently. TECHNIQUE: Imaging protocol: Computed tomography of the abdomen and pelvis with contrast. Radiation optimization: All CT scans at this facility use at least one of these dose optimization techniques: automated exposure control; mA and/or kV adjustment per patient size (includes targeted exams where dose is matched to clinical indication); or iterative reconstruction. Contrast material: VISI 320; Contrast volume: 95 ml; Contrast route: INTRAVENOUS (IV); COMPARISON: CT abdomen pelvis w con* [id number] 11/28/2020 3:42 PM RADIATION DOSE METRICS: Total DLP (mGy-cm): 2195.07 FINDINGS: Tubes, catheters and devices: There is a right femoral venous catheter extending into the common iliac vein. Liver: The liver is normal. Gallbladder and bile ducts: The gallbladder is absent. There is ectasia of the common bile duct and central intrahepatic ducts. Pancreas: There is mild atrophy of the pancreas. Spleen: The spleen is unremarkable. Adrenal glands: The adrenal glands are unremarkable. Kidneys and ureters: There is moderate bilateral renal atrophy and multifocal renal cortical scarring. There is moderate left and mild right hydronephrosis. There is gas in the collecting systems bilaterally. There is diffuse renal pelvic and proximal ureteral urothelial thickening and enhancement bilaterally. Right lower quadrant ileal urinary diversion is nondistended. Stomach and bowel: The stomach is unremarkable. The small bowel is nondilated. There is mild sigmoid colonic diverticulosis without evidence of diverticulitis. Appendix: The appendix is not visible. Intraperitoneal space: There is no free air or significant intraperitoneal free fluid. Vasculature: There is severe aortic atherosclerotic disease. The portal, splenic and superior mesenteric veins are patent. Lymph nodes: There is no lymphadenopathy in the retroperitoneum, mesentery, pelvis or inguinal regions. Urinary bladder: Absent Reproductive: Unremarkable as visualized. Bones/joints: There is moderate lumbar scoliosis. No fracture. There is chronic deformity of the pelvis with internal fixation of the right proximal femur and marked heterotopic calcification of the right hip. The left femoral head is absent. Soft tissues: There is no peristomal hernia. CT/CT chest abd pel w con* IMPRESSION: 1. Bilateral pyelitis. Gas in the renal collecting system bilaterally may be related to gas-forming infection or gaseous reflux related to ileal urinary diversion. 2. Mild right and moderate left hydronephrosis, stable compared to 11/28/2020. Right lower quadrant ileal urinary diversion is nondistended. Radiation Dose CTDIVOL = (mGy): DLP = 2195.07~2195.07 (mGy-cm)
[2021-05-01 22:23] LABS: Basophils # 0.1 10^3/uL (0.0-0.1); Basophils % 0.3 %; Hematocrit 37.2 % (42.0-52.0); Hemoglobin 11.9 g/dL (11.7-16.6); Lymphocytes # 0.5 10^3/uL (0.8-4.8); Lymphocytes % 3.3 %; Mean Corpuscular Volume 87.5 fL (80-94); Mean Platelet Volume 9.6 fL (7.4-10.4); Monocytes # 0.4 10^3/uL (0.2-0.9); Monocytes % 2.6 %; Neutrophils # 13.57 10^3/uL (1.8-7.7); Neutrophils % 91.7 %; Nucleated Red Blood Cells % 0 %; Platelet Count 265 10^3/cmm (130-400); Red Blood Count 4.25 10^6/uL (4.1-5.3); Red Cell Distribution Width 15.4 % (12.1-15.1); White Blood Count 14.8 10^3/uL (4.0-10.0)
--- NOTE | 2021-05-01 22:37 | ECG_ITS ---
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 Measurements Intervals [place] Rate: 67 P: 84 NC: 209 QRS: -59 QRSD: 88 T: 72 QT: 404 QTc: 429 Interpretive Statements SINUS RHYTHM POSSIBLE RIGHT VENTRICULAR CONDUCTION DELAY [RSR (QR) IN V1/V2] LEFT ANTERIOR FASCICULAR BLOCK [QRS AXIS <= -45, QR IN I, RS IN II] ANTEROSEPTAL MYOCARDIAL INFARCTION [40+ ms Q WAVE IN V1-V4], OF INDETERMINATE AGE Compared to ECG 05/01/2021 18:04:47 Left anterior fascicular block now present Sinus tachycardia no longer present Left-axis deviation no longer present Incomplete right bundle-branch block no longer present Myocardial infarct finding still present Electronically Signed On 05-17-2021 10:12:19 CDT by Janis Cuevas M.D. [id number]
[2021-05-01] MEDS: iodixanol 320 mg/mL 100mL Btl IV (22:42)
[2021-05-01 22:46] LABS: Troponin(5th) Baseline 137 ng/L (0-15)
[2021-05-01 23:17] LABS: Reflex Lactate Order REFLEX LACTIC ORDERD
--- NOTE | 2021-05-01 23:52 | PC.NURSE ---
Assumed care of patient at 2300 05/01/21 from DIANA Mendoza
[2021-05-02] VITALS (9 sets, daily range): BP systolic 94–180; BP diastolic 64–118; PULSE 51–94; RESP 15–22; TEMP 36.4–36.9; O2SAT 97–100
[2021-05-02 00:01] LABS: Lactic Acid level (Lactate) 1.6 mmol/L (0.5-2.2)
[2021-05-02 00:03] LABS: Troponin 5 2HR 136.6 ng/L (0-15); Troponin 5 2HR Delta -0.4 ABS# (0-10)
--- NOTE | 2021-05-02 01:45 | PC.NURSE ---
Patient turned to left side, pillow placed under right back/buttock to alleviate pressure.
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
[2021-05-02] MEDS: sodium chloride 0.9% 1,000 ML 500 ML IV (02:43)
[2021-05-02 04:03] LABS: Troponin 5 6HR 156.7 ng/L (0-15); Troponin 5 6HR Delta 19.7 ng/L (0-12)
[2021-05-02] MEDS: enoxaparin 40 mg/0.4 mL Syringe SUBCUT (04:14)
[2021-05-02] MEDS: sodium chloride 0.45% 1,000 ML 75 ML IV (04:14)
[2021-05-02] MEDS: famotidine 20 mg/2 mL INJ IVP ×2 (04:14→15:57)
[2021-05-02 04:21] LABS: Glucose Point of Care 143 mg/dL (70-110)
[2021-05-02 05:20] LABS: Alanine Aminotransferase 9 U/L (0-41); Albumin Level 2.9 g/dL (3.5-5.2); Alkaline Phosphatase 139 IU/L (40-130); Anion Gap 18.5 (5-19); Aspartate Amino Transferase 13 U/L (0-40); Blood Urea Nitrogen 49 mg/dL (8-23); Calcium 9.2 mg/dL (8.5-10.5); Carbon Dioxide 20 mmol/L (22-29); Chloride 112 mmol/L (98-107); Globulin 2.6 g/dL (1.3-4.6); Glomerular Filtration Rate 46.5 mL/min (90-130); Glucose 143 mg/dL (65-115); Osmolality Calculated 317 mOsm/kg (285-295); Potassium 4.5 mmol/L (3.5-5.1); Sodium 146 mmol/L (136-145); Total Bilirubin 0.3 mg/dL (0.15-1.2); Total Protein 5.5 g/dL (6.6-8.7)
[2021-05-02] MEDS: meropenem 2,000 MG in sodium chloride 0.9% (100 ml) 100 ML 33.33 MG IV ×2 (05:39→17:56)
[2021-05-02 06:39] LABS: Glucose Point of Care 136 mg/dL (70-110)
--- NOTE | 2021-05-02 07:43 | P.CONIM_ITS ---
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 Apparently it was placed because of a dysfunctional bladder secondary to quadriplegia C7 level. Reports approximately 2-3 urinary tract infections per year. Typical symptoms include cloudy urine increased flank pain sediment in the urine and fever at times. Imaging including ultrasounds in 2019 showed moderate BILATERAL hydronephrosis with cortical thinning bilaterally. In June 2020 had a loopogram that showed reflux of contrast through the ileal conduit and up both ureters unchanged from 2016 with no evidence of obstruction. The hydronephrosis was presumed at that time to be related to reflux and chronic upper urinary tract deterioration from diversion and not Obstruction. To be sure though, a Lasix renogram was performed that showed no evidence of destruction but with decreased function bilaterally and this was in September 2020. We discussed that it was likely that he would continue to see further deterioration of his renal function over time and that he was over 2 decades post urinary diversion but had done reasonably well. Has had multiple with multiple resistant organisms. This hospital stay was initiated after ER evaluation for altered mental status, anorexia, and significant deterioration from his baseline with presumed sepsis. CT scan revealed bilateral hydronephrosis, bilateral renal inflammatory changes, air within the collecting system but not into the tissue. Question for consult was whether or not this represented severe emphysematous pyelonephritis and whether or not his hydronephrosis required intervention. Given the above data regarding his prior loopogram and Lasix renogram I think that the hydronephrosis is related to reflux that does not require further intervention. Agree with selective antibiotic therapy based on culture results. Review of Systems General: Reports: ROS unobtainable due to mental status Meds/Allergies Home Medications and Allergies Home Medications Medication Instructions Recorded Confirmed Last Taken Type atorvastatin 80 mg tablet 80 mg PO DAILY@0800 05/25/20 05/01/21 04/29/21 History carvedilol 12.5 mg tablet 12.5 mg PO BID@0800,199905/25/20 05/01/21 04/29/21 History cholecalciferol (vitamin D3) 1,250 1,250 mcg PO DAILY@0800 05/25/20 05/01/21 04/29/21 History mcg (50,000 unit) capsule docusate sodium 100 mg capsule 300 mg PO BID@0800,199905/25/20 05/01/21 04/29/21 History famotidine 40 mg tablet 40 mg PO BID@0800,199905/25/20 05/01/21 04/29/21 History furosemide 20 mg tablet 20 mg PO DAILY@0805/25/20 05/01/21 04/29/21 History lidocaine HCl 2 % mucosal jelly 1 applic TOPICAL TID PRN 05/25/20 05/01/21 04/29/21 History melatonin 3 mg capsule 6 mg PO DAILY@199905/25/20 05/01/21 04/29/21 History nitroglycerin 0.4 mg sublingual 0.4 mg SUBLINGUAL Q5M PRN 05/25/20 05/01/21 Unknown History tablet oxycodone 5 mg capsule 5 mg PO Q4H PRN 05/25/20 05/01/21 Unknown History patiromer calcium sorbitex 16.8 16.8 gm PO DAILY@1200 05/25/20 05/01/21 04/29/21 History gram oral powder packet sennosides 8.6 mg capsule 8.6 mg PO BID@08,1999 PRN 05/25/20 05/01/21 04/29/21 History sodium bicarbonate 650 mg tablet 650 mg PO BID@0800,199905/25/20 05/01/21 04/29/21 History Lactobacillus acidophilus 10 mg PO DAILY@0800 07/21/20 05/01/21 04/29/21 History albuterol sulfate 90 mcg/actuation 2 puff INHALATION Q6H PRN 08/16/20 05/01/21 04/29/21 History aerosol inhaler alprazolam 0.25 mg tablet 0.25 mg PO BID PRN 08/16/20 05/01/21 Unknown History gabapentin 100 mg capsule 300 mg PO BID@08,1999 cap 10/16/20 05/01/21 04/29/21 History aspirin [Aspir-Low] 81 mg PO DAILY@0811/28/20 05/01/21 04/29/21 History bisacodyl 10 mg OK BID@799,199911/28/20 05/01/21 04/29/21 History ferrous sulfate 325 mg PO BID@08,199911/28/20 05/01/21 04/29/21 History folic acid 1 mg PO DAILY@0811/28/20 05/01/21 04/29/21 History albuterol sulfate 2.5 mg INHALATION Q4H PRN 01/17/21 05/01/21 Unknown History budesonide 160 mcg-glycopyr 9 2 inh INHALATION BID #10.7 g 04/17/21 05/01/21 04/29/21 Rx mcg-formot 4.8 mcg/actuation HFA inhaler doxepin 10 mg capsule 10 mg PO BEDTIME@1999 cap 04/17/21 05/01/21 04/29/21 History duloxetine 30 mg capsule,delayed 60 mg PO DAILY@799 cap 04/17/21 05/01/21 04/29/21 History release insulin glargine 100 unit/mL (3 15 unit SUBCUT DAILY@1999 PRN ml 04/17/21 05/01/21 Unknown History mL) subcutaneous pen lactulose 10 gram/15 mL oral 10 g PO DAILY@08 PRN 04/17/21 05/01/21 Unknown History solution Allergies Allergy/AdvReac Type Severity Reaction Status Date / Time ceftazidime Allergy Unknown Unknown Verified 05/01/21 16:26 Penicillins Allergy Unknown Unknown Verified 05/01/21 16:26 pravastatin Allergy Unknown Unknown Verified 05/01/21 16:26 Current Medications Current Medications Generic Name Dose Route Start Last Admin Trade Name Freq PRN Reason Stop Dose Admin Enoxaparin Sodium 40 mg 05/02/21 04:00 05/02/21 04:14 Enoxaparin 40 Mg/0.4 Ml Syringe SUBCUT 40 mg Q24H BRII Administration Famotidine 20 mg 05/02/21 03:46 05/02/21 04:14 Famotidine 20 Mg/2 Ml Inj IVP 20 mg Q12H BRII Administration Sodium Chloride 1,000 mls @ 75 mls/hr 05/02/21 03:46 05/02/21 04:14 Sodium Chloride 0.45% IV 75 mls/hr .[id number] BRII Administration Meropenem 2,000 mg/ Sodium 100 mls @ 33.3333 mls/hr 05/02/21 05:30 05/02/21 05:39 Chloride IV 33.33 mls/hr Q12H BRII Administration PFSH Acute PFSH: Medical History Anxiety Autonomic dysreflexia Calculus of kidney Chronic hepatitis CKD (chronic kidney disease), stage III Diabetes Folate deficiency anemia GERD with esophagitis History of pressure ulcer HTN (hypertension) Hydronephrosis Hyperkalemia Iron deficiency anemia Major depressive disorder, recurrent Old myocardial infarction Other osteomyelitis, other site Other specific personality disorders Pure hypercholesterolemia Quadriplegia, C5-C7 complete Recurrent UTI Vitamin D deficiency Surgical History History of kidney surgery Hx of heart artery stent Family History Mother , 93 Cancer Colon Father , 56 CAD (coronary artery disease) Social History Smoking and tobacco status: current every day smoker cigarettes [ Other cigarette details: [id number] 50yr history ] Quit status (tobacco): considering quitting Second hand smoke exposure: No Smoking risk assessment/counseling performed?: Yes Alcohol intake: never Desire information about substance/drug rehabilitation?: No Counseling given: Yes Caregiver/support person: Yes Lives independently: Yes Household members: spouse Housing: House Marital status: service: Yes status: Discharged branch: [place] Current occupational status: disabled History of recent travel: No Current gender identity: Male Vitals/I&O/Wt Last Vital Signs Temp 98.4 F 05/02/21 00:33 Pulse 87 05/02/21 05:46 Resp 20 H 05/02/21 05:46 BP 144/83 05/02/21 05:46 Pulse Ox 99 05/02/21 05:46 05/01/21 05/02/21 05/02/21 22:59 06:59 14:59 Intake Total 100 / 100 2300 / 2400 Balance 100 / 100 2300 / 2400 Weight last 48 hrs Weight 160 lb Physical Exam Narrative: EXAM NARRATIVE: Arousable. Responds to questions Not able to speak coherently though. Unaware of his situation. No labored respiration. No abdominal distention Quadriplegia Data Micro: Micro: Microbiology 05/01/21 21:05 Blood Culture - Pr eliminary Blood SPECIMEN [facility] 05/01/21 21:05 Blood Culture - Pr eliminary Blood SPECIMEN [facility] A&P Assessment and plan (1) Hydronephrosis: Historically nonobstructive. Refluxing ureterointestinal anastomosis with urinary diversion on loopogram study in the recent past. Lasix renogram showed no evidence of obstruction as well. Does not require intervention Would not recommend stenting or PERC tubes given the findings above Status: Acute Qualifiers: Hydronephrosis type: other Qualified Code(s): N13.39 - Other hydronephrosis (2) History of urostomy: Ileal loop diversion initially in the and later revised about 10+ years later. 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 Status: Acute (3) Recurrent UTI: Multiple recurrent UTIs Status: Acute (4) Quadriplegia, C5-C7 complete: Status: Acute (5) Sepsis: Status: Acute Qualifiers: Sepsis acute organ dysfunction status: with acute organ dysfunction Sepsis type: sepsis due to unspecified organism Severe sepsis acute organ dysfunction type: encephalopathy Severe sepsis shock status: without septic shock Qualified Code(s): A41.9 - Sepsis, unspecified organism; R65.20 - Severe sepsis without septic shock; G93.40 - Encephalopathy, unspecified Consult Attestations Medical Necessity Statement: See attending Coding Level of Care Code Acute Door Technician for [facility] Fwd Diagnoses Hydronephrosis N13.39 Hydronephrosis type: other History of urostomy Z98.890 Recurrent UTI N39.0 Quadriplegia, C5-C7 complete G82.53 Sepsis A41.9; R65.20; G93.40 Sepsis acute organ dysfunction status: with acute organ dysfunction Sepsis type: sepsis due to unspecified organism Severe sepsis acute organ dysfunction type: encephalopathy Severe sepsis shock status: without septic shock
--- NOTE | 2021-05-02 07:54 | USCV_ITS ---
Johnny Jo Age: 70 Gender: M : 1950 Exam Date: 05/02/2021 10:09 Ordering Phys: Jahaira Christy MD Technologist: Exam Location: [facility] [place] Indication: nstemi BP: 163 / 96 HR: 88 Rhythm: Sinus Technical Quality: Poor MEASUREMENTS (Male / Female) Normal Values 2D ECHO LV Diastolic Diameter PLAX 4.1 cm 4.2 - 5.9 / 3.9 - 5.3 cm LV Systolic Diameter PLAX 2.4 cm IVS Diastolic Thickness 1.4 cm 0.6 - 1.0 / 0.6 - 0.9 cm IVS Systolic Thickness 1.8 cm LVPW Diastolic Thickness 1.2 cm 0.6 - 1.0 / 0.6 - 0.9 cm LVPW Systolic Thickness 1.5 cm LVOT Diameter 2.1 cm LV Ejection Fraction 2D Teich 72.3 % LV Ejection Fraction MOD 2C 45.3 % LV Ejection Fraction 2C AL 46.0 % LA Diameter 3.6 cm Aorta at Sinotubular Diameter 3.5 cm DOPPLER AV Peak Velocity 126.0 cm/s LVOT Peak Velocity 81.0 cm/s AV Area Cont Eq vti 2.3 cm squared AV Area Cont Eq pk 2.2 cm squared MV Area PHT 5.0 cm squared Mitral E to A Ratio 1.0 MV E' Velocity 41.5 cm/s Mitral E to MV E' Ratio 14.2 Mitral E to LV E' Lateral Ratio 14.4 Mitral E to LV E' Septal Ratio 14.2 TR Peak Velocity 139.7 cm/s TR Peak Gradient 7.8 mmHg TV Peak E Velocity 94.0 cm/s Right Atrial Pressure 3.0 mmHg Pulmonary Artery Systolic Pressu 10.8 mmHg FINDINGS Left Ventricle Normal left ventricular size and systolic function, EF 55 %. Mild left ventricular hypertrophy. Segmental wall motion analysis difficult. No gross abnormalities noted. Grade I/IV diastolic dysfunction (abnormal relaxation filling pattern), normal to mildly elevated filling pressures. Right Ventricle Possibly of normal size and ejection fraction Right Atrium Right atrium not well visualized. Left Atrium Possibly of normal size. Mitral Valve The leaflets could not be visualized well. No gross abnormalities noted. Aortic Valve The leaflets could not be visualized well Tricuspid Valve No gross abnormalities noted Pulmonic Valve Pulmonic valve not well visualized. Pericardium Normal pericardium without effusion. Aorta Normal aortic annulus size. CONCLUSIONS Patient was uncooperative. Technically difficult study because of poor apical windows. Normal left ventricular size and systolic function, EF 55 %. Mild left ventricular hypertrophy. Segmental wall motion analysis difficult. No gross abnormalities noted. Grade I/IV diastolic dysfunction (abnormal relaxation filling pattern), normal to mildly elevated filling pressures. No gross valvular abnormalities were noted. No pericardial effusion. No previous study is available for comparison. Dr Tavon Yanes MD FACC (Electronically Signed) Final Date: 02 May 2021 19:55 S
[2021-05-02 08:28] LABS: Glucose Point of Care 127 mg/dL (70-110)
[2021-05-02] MEDS: enoxaparin 30 mg/0.3 mL Syringe SUBCUT (09:20)
[2021-05-02] MEDS: atorvastatin 40 mg Tablet 80 MG PO (09:21)
[2021-05-02] MEDS: aspirin 81 mg EC Tablet PO (09:21)
--- NOTE | 2021-05-02 10:58 | PC.NURSE ---
Pt able to answer yes and no questions only at this time, which is an improvement from yesterday. Pt turned to L-side, vss, unable to obtain BP on either arm at this time. Fluids infusing Abx infusion complete. no other needs identified at this time, will continue to monitor.
[2021-05-02 14:10] LABS: Troponin T (5th) Once 145 ng/L (0-15)
[2021-05-02 14:20] LABS: Coronavirus Test Green County Not Detected
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
[2021-05-02] MEDS: dextrose 5%-sod chloride 0.45% 1,000 ML 75 ML IV (15:57)
[2021-05-02 16:26] LABS: Procalcitonin 0.17 ng/mL (0-0.5)
[2021-05-02 17:21] LABS: Glucose Point of Care 121 mg/dL (70-110)
[2021-05-02] MEDS: acetaminophen 325 mg Tablet 650 MG PO (20:13)
[2021-05-02] MEDS: bisacodyl 10 mg Supp PR (20:14)
[2021-05-02] MEDS: enoxaparin 80 mg/0.8 mL Syringe 70 MG SUBCUT (20:14)
[2021-05-02] MEDS: carvedilol 12.5 mg Tablet PO (20:14)
[2021-05-02 22:00] LABS: Glucose Point of Care 113 mg/dL (70-110)
[2021-05-03] VITALS (17 sets, daily range): BP systolic 69–127; BP diastolic 43–75; PULSE 0–68; RESP 10–20; TEMP 35.7–37.1; O2SAT 98–100
[2021-05-03] MEDS: acetaminophen 325 mg Tablet 650 MG PO ×2 (02:48→14:26)
[2021-05-03] MEDS: famotidine 20 mg/2 mL INJ IVP ×2 (02:48→15:38)
[2021-05-03] MEDS: meropenem 2,000 MG in sodium chloride 0.9% (100 ml) 100 ML 33.33 MG IV (05:27)
[2021-05-03 05:50] LABS: Basophils % 0.4 %; Hematocrit 30.3 % (42.0-52.0); Hemoglobin 9.2 g/dL (11.7-16.6); Lymphocytes # 0.1 10^3/uL (0.8-4.8); Lymphocytes % 1.7 %; Mean Corpuscular HGB Conc 30.4 g/dL (30.0-36.0); Mean Corpuscular Hemoglobin 27.5 pg (28.0-34.0); Mean Corpuscular Volume 90.4 fL (80-94); Monocytes # 0.3 10^3/uL (0.2-0.9); Neutrophils # 6.81 10^3/uL (1.8-7.7); Nucleated Red Blood Cells % 0 %; Platelet Count 165 10^3/cmm (130-400); Red Blood Count 3.35 10^6/uL (4.1-5.3); Red Cell Distribution Width 15.7 % (12.1-15.1); White Blood Count 7.5 10^3/uL (4.0-10.0)
[2021-05-03 06:09] LABS: Anion Gap 16.7 (5-19); Blood Urea Nitrogen 55 mg/dL (8-23); Calcium 8.3 mg/dL (8.5-10.5); Carbon Dioxide 15 mmol/L (22-29); Chloride 111 mmol/L (98-107); Glomerular Filtration Rate 40.3 mL/min (90-130); Glucose 117 mg/dL (65-115); Osmolality Calculated 304 mOsm/kg (285-295); Potassium 3.7 mmol/L (3.5-5.1); Sodium 139 mmol/L (136-145)
[2021-05-03 06:15] LABS: Procalcitonin 0.16 ng/mL (0-0.5)
[2021-05-03 06:41] LABS: Glucose Point of Care 108 mg/dL (70-110)
[2021-05-03] MEDS: carvedilol 12.5 mg Tablet PO (08:13)
[2021-05-03] MEDS: atorvastatin 40 mg Tablet 80 MG PO (08:13)
[2021-05-03] MEDS: clopidogrel 75 mg Tablet PO (08:13)
[2021-05-03] MEDS: aspirin 81 mg EC Tablet PO (08:13)
[2021-05-03] MEDS: enoxaparin 80 mg/0.8 mL Syringe 70 MG SUBCUT ×2 (08:14→21:58)
[2021-05-03] MEDS: ipratropium-albuterol 3 mL Neb INHALATION ×2 (08:40→16:22)
[2021-05-03] MEDS: bisacodyl 10 mg Supp PR (10:17)
[2021-05-03 10:37] LABS: Glucose Point of Care 120 mg/dL (70-110)
[2021-05-03] MEDS: dextrose 5%-sod chloride 0.45% 1,000 ML 75 ML IV (10:55)
--- NOTE | 2021-05-03 11:13 | PC.CHAP ---
Pastoral Care Encounter/Spiritual Assessment Type of Contact [] Declined case aide visit [] Patient/Family/Request visit [] Outpatient visit [] Follow-up visit [] Physician referral [] Code/Alert [x] Routine visit [] Staff referral [] Actively dying [] Patient sleeping [] Family support [] [] Out of room [] Palliative care [] [x] Receiving care in room [] Pre-surgical visit [] Trauma [x] Long length of stay [] ICU visit [] Other: Relational/Emotional Strength [x Patient feels connected with others/family/visitors/staff [] Distress [] Loneliness/isolation [] Abandonment Spirituality of Patient [x] Person of Jessica [] Attends Sabianism of their Jessica [x] Believes in Prayer [] Reads Bible or Pentecostalism materials [] There are Spiritual issues to be addressed Radio Program Director Interventions [x] Prayer [x] Active listening [x] Non-anxious presence [x] Spiritual/emotional support [] Crisis/trauma care [x] Spiritual counseling [] Bereavement support [] Provided bereavement packet [] Provided Bible/devotional materials [] Provided toy/stuffed animal, coloring book to patient or family member [] Provided Communion [] Anointing/[place]sea [] Salvation [x] Completed spiritual assessment [] Other: Impact on Illness or Injury [] Angry [] Fearful [x] Anxious [] Often cries [] Exhaustion [x] Unable to work [] Unable to attend yazidism [] Unable to walk/stand [] Unable to read [] Unable to drive [] Unable to eat/drink [] Unable to sleep [] Unable to be with family [] Patient intubated [] Other: Summary a senior / has health issues not mihir when he can go home has a good attitude about his health Time spent with patient 10 mins
[2021-05-03] MEDS: oxyCODONE 5 mg IR Tab/Cap PO (15:38)
--- NOTE | 2021-05-03 16:34 | XR_ITS ---
WS: [id number] CHEST XRAY TECHNIQUE: Portable chest. CLINICAL INFORMATION: lung sound coarse COMPARISON: May 01, 2021 FINDINGS: Heart: Cardiomegaly. Calcification. Lungs: Hyperinflation with advanced chronic emphysematous changes. Mild interstitial thickening in th e lung bases similar to previous. No acute-appearing pulmonary infiltrates. No focal pneumonia. Trace pleural fluid or pleural thickening in the lung bases. Bones: Chronic bilateral rib fractures. XR/XR chest 1V portable [id number] IMPRESSION: 1. Hyperinflation with advanced chronic emphysematous changes. 2. Mild interstitial thickening in the lung bases similar to previous. No acut e-appearing pulmonary infiltrates. 3. Trace pleural fluid or pleural thickening both costophrenic angles.
--- NOTE | 2021-05-03 17:40 | P.PN_ITS ---
Subjective Subjective: Interval history: Patient was awake and alert this morning very pleasant and cooperative during my evaluation Echo 55% EF, poor apical windows, no active chest pain patient is stating that he did not express any chest pain yesterday Urine culture growing 1 out of 2 blood Blood culture positive gram-positive bacillus Vitals/I&O/Wt Last Vital Signs Temp 98.7 F 05/03/21 16:00 Pulse 48 L 05/03/21 16:22 Resp 10 L 05/03/21 16:22 BP 93/49 05/03/21 16:00 Pulse Ox 98 05/03/21 16:22 05/03/21 05/03/21 05/03/21 06:59 14:59 22:59 Intake Total 1600 / 2710 340 / 340 Balance 1600 / 2210 340 / 340 Physical Exam Narrative: EXAM NARRATIVE: He was laying in right lateral position Saturating well on 2 L nasal cannula Hemodynamically stable Awake alert oriented x3 Quadriplegia No new neurological deficit S1, S2 sinus rhythm No sign of congestive heart failure or dehydration Soft abdomen, ileal conduit draining clear urine Data : 05/03/21 05:10 05/03/21 05:10 Micro: Microbiology 05/01/21 21:05 Blood Culture - Preliminary Blood Bacillus sp not b. anthracis 05/01/21 21:11 Urine Culture - Preliminary Urine,Clean Catch Gram Negative Rods 05/01/21 21:05 Blood Culture - Preliminary Blood NEGATIVE TO DATE A&P Assessment and plan (1) Sepsis: Status: Acute Qualifiers: Sepsis acute organ dysfunction status: with acute organ dysfunction Sepsis type: sepsis due to unspecified organism Severe sepsis acute organ dysfunction type: encephalopathy Severe sepsis shock status: without septic shock Qualified Code(s): A41.9 - Sepsis, unspecified organism; R65.20 - Severe sepsis without septic shock; G93.40 - Encephalopathy, unspecified (2) Acute pyelitis: Status: Acute (3) Non-STEMI (non-ST elevated myocardial infarction): Status: Acute (4) Acute alteration in mental status: Status: Acute (5) Quadriplegia, C5-C7 complete: Status: Acute Additional A&P Information Sepsis: Encephalopathy improved Remarkable recovery of his mentation Has stayed afebrile Blood pressure soft today we will give him 1 L normal saline bolus Chest x-ray without any signs of from edema Urine culture growing gram-negative rods, blood culture positive gram-positive cocci bacillus which I think is a contaminant Keep him on meropenem for now, has stayed afebrile, white count improved remarkably NSTEMI: Echo difficult to tell if there was any wall motion abnormality directed however he has grade 1 diastolic dysfunction with preserved ejection fraction to finish 48 hours of ACS protocol, no active chest pain Altered mental status: Improved this was deemed secondary to septic encephalopathy Acute on chronic kidney disease current creatinine 1.7 we will discontinue Lovenox if creatinine function is worsening, not a candidate to get lisinopril Full code Cardiac diet DVT prophylaxis not indicated therapeutic Lovenox would suffice Sleep apnea uses 2 L of oxygen at night Attestations Medical Necessity Statement*: Patient will stay in the hospital until we see culture and sensitivity report Time Spent in Patient Care: less than 15 minutes Coding Level of Care Code Acute Circulating Nurse for [facility] Fwd Diagnoses Sepsis A41.9; R65.20; G93.40 Sepsis acute organ dysfunction status: with acute organ dysfunction Sepsis type: sepsis due to unspecified organism Severe sepsis acute organ dysfunction type: encephalopathy Severe sepsis shock status: without septic shock Acute pyelitis N10 Non-STEMI (non-ST elevated myocardial infarction) I21.4 Acute alteration in mental status R41.82 Quadriplegia, C5-C7 complete G82.53
[2021-05-03 17:41] LABS: Glucose Point of Care 116 mg/dL (70-110)
--- NOTE | 2021-05-03 18:38 | PC.RESP ---
Smoking Cessation and Pulmonary Rehab information sent to patient.
[2021-05-03] MEDS: sodium chloride 0.9% 1,000 ML 999 ML IV ×2 (20:32→21:09)
--- NOTE | 2021-05-03 21:14 | PC.NURSE ---
2nd 1 liter bolus infusing, bp 80/47
[2021-05-03 22:44] LABS: Glucose Point of Care 134 mg/dL (70-110)
--- NOTE | 2021-05-03 23:54 | PC.NURSE ---
Report called to DIANA Helms in [facility]. Patient transferred by bed with all personal belongings to room 107 on 1[address].
[2021-05-04] VITALS (87 sets, daily range): BP systolic 72–156; BP diastolic 34–94; PULSE 50–88; RESP 15–33; TEMP 36.7; O2SAT 85–100
[2021-05-04] MEDS: ipratropium-albuterol 3 mL Neb INHALATION (00:27)
[2021-05-04] MEDS: midodrine 5 mg TABLET 10 MG PO (00:28)
[2021-05-04] MEDS: dextrose 5%-sod chloride 0.45% 1,000 ML 75 ML IV (00:58)
--- NOTE | 2021-05-04 00:59 | PC.NURSE ---
Received patient from [facility] via bed. Report from DIANA Zapata at bedside. Patient transferred to first floor per Dr Christy due to decrease in blood pressure with decreased MAP. Dr Christy in to see patient and decided hold Levophed drip for now to try Midodrine. Received verbal order to hold Levophed and give Midodrine 10mg TID with first dose now which has been been given. Will monitor blood pressures every 30min. Patient has patent triple lumen central line to right groin. Urostomy to right lower abd. Patient requires total assistance due to being quadriplegic. Patient has open area to inner right buttock. Sacrum in red and blanchable at this time. Open area to left upper inner groin which is covered with optifoam presently.
[2021-05-04] MEDS: meropenem 2,000 MG in sodium chloride 0.9% (100 ml) 100 ML 33.3 MG IV (01:36)
--- NOTE | 2021-05-04 01:55 | PC.NURSE ---
Noted blood pressures continue to decrease in bilateral arms. Obtained manual and received 74/36. Placed cuff on right popliteal and received pressure reading of 99/50 with MAP of 66. Informed Dr Christy and she will stop Midodrine and we will start Levophed as previously ordered. RBVO
[2021-05-04 02:36] LABS: Basophils % 0.2 %; Lymphocytes # 0.1 10^3/uL (0.8-4.8); Lymphocytes % 2.2 %; Mean Corpuscular Hemoglobin 27.9 pg (28.0-34.0); Mean Corpuscular Volume 92.9 fL (80-94); Mean Platelet Volume 10.2 fL (7.4-10.4); Monocytes # 0.2 10^3/uL (0.2-0.9); Monocytes % 3.8 %; Neutrophils # 4.01 10^3/uL (1.8-7.7); Neutrophils % 88.9 %; Nucleated Red Blood Cells % 0 %; Platelet Count 146 10^3/cmm (130-400); Red Blood Count 3.23 10^6/uL (4.1-5.3); Red Cell Distribution Width 15.6 % (12.1-15.1); White Blood Count 4.5 10^3/uL (4.0-10.0)
--- NOTE | 2021-05-04 02:40 | XRR_ITS ---
PROCEDURE INFORMATION: Exam: XR Chest Exam date and time: 05/04/2021 2:40 AM Age: 70 years old Clinical indication: Prior surgery; Surgery type: Cardiac stents; Patient HX: Worsening dyspnea TECHNIQUE: Imaging protocol: XR of the chest. Views: 1 view. COMPARISON: CR XR chest 1V portable [id number] 05/03/2021 4:56 PM FINDINGS: Lungs: There is enlargement of the pulmonary vascularity. There is thickening of the interstitial markings. Pleural spaces: Tiny bilateral pleural effusions. Heart/Mediastinum: The heart is moderately enlarged. Bones/joints: Unremarkable. XR/XR chest 1V portable [id number] IMPRESSION: 1. Congestive heart failure. 2. Tiny bilateral pleural effusions.
[2021-05-04 02:44] LABS: Anion Gap 15.9 (5-19); Blood Urea Nitrogen 53 mg/dL (8-23); Calcium 7.1 mg/dL (8.5-10.5); Chloride 111 mmol/L (98-107); Glomerular Filtration Rate 35.4 mL/min (90-130); Glucose 105 mg/dL (65-115); Osmolality Calculated 291 mOsm/kg (285-295); Sodium 133 mmol/L (136-145)
[2021-05-04 02:47] LABS: Carbon Dioxide 8 mmol/L (22-29); Potassium 1.9 mmol/L (3.5-5.1)
[2021-05-04] MEDS: famotidine 20 mg/2 mL INJ IVP ×2 (02:58→15:51)
[2021-05-04] MEDS: acetaminophen 325 mg Tablet 650 MG PO ×2 (02:58→18:00)
[2021-05-04] MEDS: ALPRAZolam 0.5 mg Tablet PO (03:04)
[2021-05-04 03:10] LABS: NT Pro B Type Natriuretic Pept 6845 pg/mL (0-125)
[2021-05-04 03:36] LABS: ABG PCO2 25.8 mmHg (35-45); Arterial Blood Gas Hematocrit 28.2 % (42-52); Base Excess ABG -21.1 mmol/L (-2.0-2.0); Blood Gas Allen Test Pos; Blood Gas Sample Type Arterial; HCO3 ABG 7.5 mmol/L (22-26)
[2021-05-04 03:37] LABS: Blood Gas Sample Site Radial, left; Oxygen Device NC
[2021-05-04] MEDS: oxyCODONE 5 mg IR Tab/Cap PO ×3 (03:48→09:39)
[2021-05-04] MEDS: potassium chloride ER 20 mEq Tablet 40 MEQ PO (03:48)
--- NOTE | 2021-05-04 03:57 | PC.NURSE ---
0250 received critical lab results of KCl of 1.9 and venous CO2 of 8. Informed Dr Christy and she placed orders for ABG to confirm levels as well as KCl replacement. Dr Christy in to see patient. Levophed started at 2mcg/min (7ml/hr) per doctor orders. Monitoring BP q15min currently.
[2021-05-04] MEDS: potassium chloride premix 100 ML 25 MEQ IV ×2 (04:07→07:35)
--- NOTE | 2021-05-04 04:12 | PC.NURSE ---
Meropenum timing adjusted per Deena in pharmacy due to late administration.
[2021-05-04 05:01] LABS: Lactate (Lactic Acid level) 0.7 mmol/L (0.5-2.2)
--- NOTE | 2021-05-04 05:27 | PM.EVENT ---
Event Note Event Note: Multiple events through the night. Was called by nurse at 8 PM to report blood pressure of 69/40. Received 2 L fluid bolus thereafter which improved the blood pressure to 86/40. Patient also bradycardic, hypothermic to 96.5, alert and awake, complaining of dizziness. Started on pressor support with Levophed which improved blood pressure to 130/58. Cheetah monitoring showing low SVC, hypotension does not appear to be fluid responsive. Initially moved to CSU when there were no beds, thereafter shifted to ICU once bed became available. CMP this morning with profound hypokalemia at 1.9, confirmed with ABG which confirms potassium of 1.6. Also with interim development of metabolic acidosis with bicarb at 8. ABG with 7.07/25/126/99% Supplemented with 80 mEq of IV potassium +40 mEq p.o. Check CMP every 4 hours Also started on bicarb infusion Due to concern for worsening sepsis received additional dose of amikacin 7.5 mg x 1. Discussed with pharmacy, amikacin trough monitoring not possible in-house, will hold off on further doses for now and monitor closely , his past Pseudomonas isolate was both tobramycin and gentamicin resistant. Additionally started on vancomycin given positive blood cultures for bacillus, likely to be a contaminant however given concern for worsening sepsis will cover until clear blood culture can be demonstrated for today. This morning patient complained of shortness of breath, chest x-ray was repeated, showed signs of pulmonary vascular congestion. May have been precipitated by fluid boluses through the day yesterday. Holding off on Lasix for now given critically low potassium of 1.9. Once potassium at an acceptable level may need to consider diuresis again. Currently saturating 99% on 2 L/min nasal cannula. No tachypnea. check TSH and random cortisol Event Notes Attestations Time Spent in Patient Care: Greater than 35 minutes
[2021-05-04] MEDS: sodium bicarbonate 150 MEQ in dextrose 5% 1,000 ML 100 MEQ IV ×2 (05:32→16:24)
[2021-05-04 05:58] LABS: ABG PH Result 7.07 (7.35-7.45)
[2021-05-04 06:56] LABS: Glucose Point of Care 128 mg/dL (70-110)
[2021-05-04] MEDS: vancomycin 1,250 MG/250 ML PIGGYBACK 250 MG IV (07:22)
--- NOTE | 2021-05-04 08:25 | ECG_ITS ---
[facility] Test Date: 2021-05-04 Pat Name: Johnny Jo Department: Room: ICU02 Gender: Male [employer]: : 1950 Requested By: Jahaira Christy Order Number: [id number] Reading MD: PARISH SHEPARD Measurements Intervals [place] Rate: 68 P: 268 LA: 169 QRS: -47 QRSD: 110 T: 29 QT: 448 QTc: 480 Interpretive Statements ECTOPIC ATRIAL RHYTHM WITH FREQUENT VENTRICULAR PREMATURE COMPLEXES IN A BIGEMINAL PATTERN MARKED LEFT AXIS DEVIATION [QRS AXIS < -30] INCOMPLETE RIGHT BUNDLE BRANCH BLOCK [90+ ms QRS DURATION, TERMINAL R IN V1/V2, 40+ ms S IN I/aVL/V4/V5/V6] ANTEROSEPTAL MYOCARDIAL INFARCTION [40+ ms Q WAVE IN V1-V4], OF INDETERMINATE AGE Compared to ECG 05/01/2021 23:15:42 Ectopic atrial rhythm now present Ventricular premature complex(es) now present Left-axis deviation now present Incomplete right bundle-branch block now present Electronically Signed On 05-05-2021 20:29:57 CDT by PARISH SHEPARD [id number]
[2021-05-04 08:28] LABS: Glucose Point of Care 115 mg/dL (70-110)
[2021-05-04 08:40] LABS: ABG PCO2 26.9 mmHg (35-45); Alveolar-Arterial Oxygen Gradi 6.1 mmHg (5-10); Arterial Blood Gas Hematocrit 31.8 % (42-52); Base Excess ABG -20.3 mmol/L (-2.0-2.0); Blood Gas Allen Test Pos; Blood Gas Operator Identificat AMH; Blood Gas Sample Site Radial, right; Blood Gas Sample Type Arterial; Carboxyhemoglobin 0.1 %THgb (0.4-20.1); HCO3 ABG 8.1 mmol/L (22-26); HGB O2 Sat 96.8 % (95-100); Ionized Calcium Level - ABG 1.2 mmol/L (1.1-1.4); Oxygen Device NC; Oxygen Saturation ABG 97.9; Potassium Level - ABG 2.3 mmol/L (3.5-5.0); Total Hemoglobin 10.4 g/dL (14-18)
[2021-05-04] MEDS: ALPRAZolam 0.5 mg Tablet 0.25 MG PO (08:40)
[2021-05-04] MEDS: atorvastatin 40 mg Tablet 80 MG PO (08:40)
[2021-05-04] MEDS: aspirin 81 mg EC Tablet PO (08:40)
[2021-05-04] MEDS: enoxaparin 80 mg/0.8 mL Syringe 70 MG SUBCUT (08:41)
[2021-05-04] MEDS: duloxetine 30 mg Capsule 60 MG PO (08:41)
[2021-05-04] MEDS: clopidogrel 75 mg Tablet PO (08:41)
--- NOTE | 2021-05-04 09:15 | PC.NURSE ---
Patient transferred to ICU as previosly ordered.
--- NOTE | 2021-05-04 09:27 | PC.NURSE ---
At 0815 patient c/o feel like I am going to pass out . Dr. Martines at bedside. Orders for stat abg's and 12 lead EKG. O2 sat 85-88%. RR 32. Patient denies chest pain. Episode resolved by the time ekg completed. RR rate still elevated at 26. Patient asked for his breakfast tray back.
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
--- NOTE | 2021-05-04 10:25 | PC.NURSE ---
Patient states that he is scared that he is going to . Patient reassured that his vital signs are doing well and his status is improving. Patient states that he is anxious and hasn't slept in 3 days. Patient asked for something to help calm him down, says that he should have Xanax. Patient's doctor notified and doctor stated that he wanted the patient to stay tachypnic to help with the his CO2 (acidosis).
[2021-05-04 11:33] LABS: Glucose Point of Care 134 mg/dL (70-110)
--- NOTE | 2021-05-04 12:00 | PC.NURSE ---
Patient asked again for something to help calm him down and help him sleep. Patient assured that the nurses are watching his vital signs and we monitor everything from the nurses station. This nurse also made sure to check in with the patient to reassure him.
[2021-05-04] MEDS: potassium chloride oral liq 20 mEq/15 mL UDC 40 MEQ PO (12:27)
--- NOTE | 2021-05-04 12:30 | PC.NURSE ---
at patient's bedside. Patient appears to be less anxious at this time. Patient's brought supplies to change out the urostomy bag. This nurse offered assistance with changing the urostomy bag out, but the said she would do it. The also fed the patient his lunch. Patient items and call light in reach. Will continue to monitor.
[2021-05-04 13:26] LABS: Alanine Aminotransferase 12 U/L (0-41); Albumin Level 2.6 g/dL (3.5-5.2); Alkaline Phosphatase 123 IU/L (40-130); Anion Gap 17.8 (5-19); Aspartate Amino Transferase 45 U/L (0-40); Blood Urea Nitrogen 53 mg/dL (8-23); Calcium 6.5 mg/dL (8.5-10.5); Carbon Dioxide 10 mmol/L (22-29); Chloride 105 mmol/L (98-107); Free T4 Free Thyroxine 0.98 ng/dL (0.82-1.77); Globulin 2.2 g/dL (1.3-4.6); Glomerular Filtration Rate 29.9 mL/min (90-130); Glucose 133 mg/dL (65-115); Osmolality Calculated 286 mOsm/kg (285-295); Sodium 130 mmol/L (136-145); T3 Free 1.3 PG/ML (2.0-4.4); Thyroid Stimulating Hormone 0.27 uIU/mL (0.27-4.20); Total Bilirubin 0.2 mg/dL (0.15-1.2); Total Protein 4.8 g/dL (6.6-8.7)
[2021-05-04 13:31] LABS: Potassium 2.8 mmol/L (3.5-5.1)
--- NOTE | 2021-05-04 15:06 | PC.NURSE ---
Patient resting in bed with eyes closed. Will continue to monitor.
--- NOTE | 2021-05-04 15:57 | PM.PN ---
Subjective Subjective: Interval history: Last night events noted, and I was interviewing patient he stated presyncopal symptoms, stat EKG was obtained which showed multiple PVCs without any active infarction or ischemic changes, glucose 116 mg/dL, his map was 69, he was afebrile and was eating his breakfast when entered the room His symptoms resolved within 5 minutes without any intervention, he has been using his accessory muscles for deep breathing however no neck flaccidness or drooling of saliva noted no ptosis Repeat ABG was done which showed worsening acidosis unfortunately cannot start bicarb drip because of hypokalemia he has potassium running at the bedside I also gave him 40 mEq p.o., creatinine 2.2, lactic acid normal, TSH normal Requested Dr. Amato to evaluate him as he is not fluid responsive and he came in with troponin above 100 and received therapeutic Lovenox however no active chest pain ischemic or infarctive event he is not fluid responsive as per Cheetah device, my differentials would include neurogenic shock versus cardiogenic, he has stayed afebrile, without leukocytosis does not show typical septic signs lactic acid is normal, procalcitonin normal, agree with following up with cortisol level He does have normal anion gap metabolic acidosis which is secondary to ureteral ileal conduit which would explain hypokalemia as well, Covid PCR negative, he received amikacin 1 dose last night Vitals/I&O/Wt Last Vital Signs Temp 98.1 F 05/04/21 07:08 Pulse 62 05/04/21 13:45 Resp 20 H 05/04/21 09:39 BP 122/60 05/04/21 13:45 Pulse Ox 98 05/04/21 13:45 05/04/21 05/04/21 05/04/21 06:59 14:59 22:59 Intake Total 1789.66 / 3825.71 909.306 / 909.306 Output Total 100 / 350 Balance 1689.66 / 3475.71 909.306 / 909.306 Weight last 48 hrs Weight 78.063 kg Physical Exam Narrative: EXAM NARRATIVE: Patient was awake and alert was eating breakfast with the help of an aide went into the room however complain of presyncope however no ptosis noted but he has been using his respiratory sensory muscles and shoulder blades to take deep breaths Able to hold his head no active drooling of saliva Quadriplegic S1, S2 with mild signs of fluid overload Bilateral breath sounds with crackles Lower extremity no edema Disuse atrophy of legs Soft abdomen, ureteroileal conduit draining yellow-colored urine Data : 05/04/21 01:53 05/04/21 12:20 Micro: Microbiology 05/04/21 12:20 Blood Culture - Preliminary Blood SPECIMEN COLLECTED 05/01/21 21:11 Urine Culture - Final Urine,Clean Catch Escherichia coli 05/04/21 06:06 Blood Culture - Preliminary Blood SPECIMEN COLLECTED 05/01/21 21:05 Blood Culture - Preliminary Blood Bacillus sp not b. anthracis A&P Assessment and plan (1) Non-STEMI (non-ST elevated myocardial infarction): Status: Acute (2) Sepsis: Status: Acute Qualifiers: Sepsis acute organ dysfunction status: with acute organ dysfunction Sepsis type: sepsis due to unspecified organism Severe sepsis acute organ dysfunction type: encephalopathy Severe sepsis shock status: without septic shock Qualified Code(s): A41.9 - Sepsis, unspecified organism; R65.20 - Severe sepsis without septic shock; G93.40 - Encephalopathy, unspecified (3) Acute pyelitis: Status: Acute (4) Acute alteration in mental status: Status: Acute (5) Thyroid nodule incidentally noted on imaging study: Status: Acute (6) Nocturnal hypoxia: Status: Acute (7) Quadriplegia, C5-C7 complete: Status: Acute (8) Normal anion gap metabolic acidosis: Status: Acute (9) Hypokalemia: Status: Acute (10) Acute kidney injury superimposed on chronic kidney disease: Status: Acute Additional A&P Information Septic encephalopathy: Improved Sepsis Amikacin first dose was given yesterday he has been on meropenem, vancomycin added last night No leukocytosis he has stayed afebrile Normal procalcitonin level, normal lactic acid level urine is dark-colored Shock: lactic acid, procalcitonin, TSH normal, will follow up with the cortisol level Was admitted with NSTEMI, rule out cardiogenic shock, Hypovolemic shock less likely as he is not responsive to fluids Obstructive shock to be ruled out will request D-dimer I will keep neurogenic shock high in my differential with hypotension I did not see tachycardia, it is very important to follow-up with cortisol level Currently he is in ICU with improvement in blood pressure on Levophed Requested cardiology consult Normal anion gap metabolic acidosis Secondary to ureteral ileal conduit Lactic acid normal Hypokalemia noted, renal tubular acidosis will be in differential I cannot add bicarb at this point because of hypokalemia potassium repleted 2.8 today, discontinue bicarb drip that was added overnight We will give him another 40 meq PO kcl Check magnesium level Acute on chronic kidney disease Worsening creatinine received 2 L normal saline bolus which caused pulmonary edema Bilateral pyelitis gas in renal collecting system no intervention recommended by urologist Non-ST segment elevation ND Finished 2 days on Lovenox EKG not showing ischemic infarct changes No active chest pain, requested cardiology consult Echo with poor apical window however preserved ejection fraction Full code Regular diet DVT prophylaxis Heparin discontinued therapeutic Lovenox Attestations Medical Necessity Statement*: Continue ICU management for shock Time Spent in Patient Care: 16 - 35 minutes Coding Level of Care Code Acute Epic Ambulatory Analyst for Chg Fwd Diagnoses Non-STEMI (non-ST elevated myocardial infarction) I21.4 Sepsis A41.9; R65.20; G93.40 Sepsis acute organ dysfunction status: with acute organ dysfunction Sepsis type: sepsis due to unspecified organism Severe sepsis acute organ dysfunction type: encephalopathy Severe sepsis shock status: without septic shock Acute pyelitis N10 Acute alteration in mental status R41.82 Thyroid nodule incidentally noted on imaging study E04.1 Nocturnal hypoxia G47.34 Quadriplegia, C5-C7 complete G82.53 Normal anion gap metabolic acidosis E87.2 Hypokalemia E87.6 Acute kidney injury superimposed on chronic kidney disease N17.9; N18.9
[2021-05-04 16:11] LABS: Glucose Point of Care 204 mg/dL (70-110)
--- NOTE | 2021-05-04 16:20 | PC.NURSE ---
Patient Temperature Attempted to take patient's temperature oral, axillary and rectally. Thermometer would not give a reading. Patient given a heated blanket and temperature was turned up. [employer] was contacted for the bear hugger used for hypothermic patients. Patient states that the bear hugger feels good. Call light and patient items within reach. Will continue to monitor.
--- NOTE | 2021-05-04 16:25 | PC.NURSE ---
Report Report faxed to [employer]. Report further called and received by Christy Dent RN
[2021-05-04] MEDS: meropenem 2,000 MG in sodium chloride 0.9% (100 ml) 100 ML 33.33 MG IV (16:47)
--- NOTE | 2021-05-04 17:00 | PC.NURSE ---
Patient temperature rechecked rectally. Patient temperature reading was 94.3 degrees. Bear hugger blanket is set on the medium setting. Patient's updated on current status. Call light and patient items within reach. Will continue to monitor.
[2021-05-04 17:38] LABS: Glucose Point of Care 175 mg/dL (70-110)
[2021-05-04 17:46] LABS: Alanine Aminotransferase 12 U/L (0-41); Albumin Level 2.3 g/dL (3.5-5.2); Alkaline Phosphatase 123 IU/L (40-130); Anion Gap 17.1 (5-19); Aspartate Amino Transferase 47 U/L (0-40); Blood Urea Nitrogen 54 mg/dL (8-23); Calcium 6.5 mg/dL (8.5-10.5); Carbon Dioxide 10 mmol/L (22-29); Chloride 106 mmol/L (98-107); Globulin 2.6 g/dL (1.3-4.6); Glomerular Filtration Rate 28.4 mL/min (90-130); Glucose 182 mg/dL (65-115); Osmolality Calculated 289 mOsm/kg (285-295); Potassium 3.1 mmol/L (3.5-5.1); Sodium 130 mmol/L (136-145); Total Bilirubin 0.2 mg/dL (0.15-1.2); Total Protein 4.9 g/dL (6.6-8.7)
--- NOTE | 2021-05-04 18:16 | PC.NURSE ---
Patient c/o feeling too hot. Patient asks that covers and bear hugger be turned off. Patient rolled and rectal temperature reads 95.9 degrees. Patient covered with sheet. Call light and patient items within reach. Will continue to monitor.
[2021-05-04 19:16] LABS: Blood Urea Nitrogen 56 mg/dL (8-23); Calcium 6.2 mg/dL (8.5-10.5); Carbon Dioxide 10 mmol/L (22-29); Chloride 107 mmol/L (98-107); Glomerular Filtration Rate 27.1 mL/min (90-130); Glucose 161 mg/dL (65-115); Osmolality Calculated 291 mOsm/kg (285-295); Sodium 131 mmol/L (136-145)
[2021-05-04 20:50] LABS: Glucose Point of Care 136 mg/dL (70-110)
[2021-05-04] MEDS: heparin 5,000 unit/mL INJ 1 mL 5000 UNIT SUBCUT (20:51)
[2021-05-04 21:07] LABS: Alanine Aminotransferase 11 U/L (0-41); Albumin Level 2.4 g/dL (3.5-5.2); Alkaline Phosphatase 117 IU/L (40-130); Aspartate Amino Transferase 41 U/L (0-40); Blood Urea Nitrogen 54 mg/dL (8-23); Calcium 6.2 mg/dL (8.5-10.5); Carbon Dioxide 11 mmol/L (22-29); Chloride 105 mmol/L (98-107); Globulin 2.4 g/dL (1.3-4.6); Glomerular Filtration Rate 27.1 mL/min (90-130); Glucose 148 mg/dL (65-115); Osmolality Calculated 290 mOsm/kg (285-295); Sodium 131 mmol/L (136-145); Total Bilirubin 0.2 mg/dL (0.15-1.2); Total Protein 4.8 g/dL (6.6-8.7)
--- NOTE | 2021-05-04 21:25 | PM.CONSULT ---
Providers/Reason For Consult Consulting Physician/Specialty*: Cardiology Reason for Consult*: Hypotension, arrhythmia Attending Physician: Le Martines MD Primary Care Provider: Julia Lacey MD History of Present Illness History of Present Illness Johnny Jo is a 70 year old male past medical history significant for quadriplegic, CKD, recurrent UTIs, electrolyte imbalance, anemia, obesity was admitted with sepsis, UTI, today was found to be hypotensive with abnormal PAC and frequent PVCs on the rhythm strips which is the reason we have been asked to see him. Patient was given IV fluids started on Levophed. Patient was moved to the unit. He was also noted to be severely hypokalemic which is being replenished now. When I saw the patient he denies chest pain rhythm was sinus with ectopic atrial and ventricular beats. Currently denies chest pain and there is no evidence on the EKG for ischemia. Review of Systems General: Reports: ROS unobtainable due to medical condition and ROS unobtainable due to mental status Meds/Allergies Home Medications and Allergies Home Medications Medication Instructions Recorded Confirmed Last Taken Type atorvastatin 80 mg tablet 80 mg PO DAILY@79905/25/20 05/01/21 04/29/21 History carvedilol 12.5 mg tablet 12.5 mg PO BID@05/25/20 05/01/21 04/29/21 History cholecalciferol (vitamin D3) 1,250 1,250 mcg PO DAILY@79905/25/20 05/01/21 04/29/21 History mcg (50,000 unit) capsule docusate sodium 100 mg capsule 300 mg PO BID@05/25/20 05/01/21 04/29/21 History famotidine 40 mg tablet 40 mg PO BID@05/25/20 05/01/21 04/29/21 History furosemide 20 mg tablet 20 mg PO DAILY@79905/25/20 05/01/21 04/29/21 History lidocaine HCl 2 % mucosal jelly 1 applic TOPICAL TID PRN 05/25/20 05/01/21 04/29/21 History melatonin 3 mg capsule 6 mg PO DAILY@199905/25/20 05/01/21 04/29/21 History nitroglycerin 0.4 mg sublingual 0.4 mg SUBLINGUAL Q5M PRN 05/25/20 05/01/21 Unknown History tablet oxycodone 5 mg capsule 5 mg PO Q4H PRN 05/25/20 05/01/21 Unknown History patiromer calcium sorbitex 16.8 16.8 gm PO DAILY@1200 05/25/20 05/01/21 04/29/21 History gram oral powder packet sennosides 8.6 mg capsule 8.6 mg PO BID@0800,1999 PRN 05/25/20 05/01/21 04/29/21 History sodium bicarbonate 650 mg tablet 650 mg PO BID@0800,199905/25/20 05/01/21 04/29/21 History Lactobacillus acidophilus 10 mg PO DAILY@0800 07/21/20 05/01/21 04/29/21 History albuterol sulfate 90 mcg/actuation 2 puff INHALATION Q6H PRN 08/16/20 05/01/21 04/29/21 History aerosol inhaler alprazolam 0.25 mg tablet 0.25 mg PO BID PRN 08/16/20 05/01/21 Unknown History gabapentin 100 mg capsule 300 mg PO BID@0800,1999 cap 10/16/20 05/01/21 04/29/21 History aspirin [Aspir-Low] 81 mg PO DAILY@0800 11/28/20 05/01/21 04/29/21 History bisacodyl 10 mg TX BID@0800,199911/28/20 05/01/21 04/29/21 History ferrous sulfate 325 mg PO BID@0800,199911/28/20 05/01/21 04/29/21 History folic acid 1 mg PO DAILY@0800 11/28/20 05/01/21 04/29/21 History albuterol sulfate 2.5 mg INHALATION Q4H PRN 01/17/21 05/01/21 Unknown History budesonide 160 mcg-glycopyr 9 2 inh INHALATION BID #10.7 g 04/17/21 05/01/21 04/29/21 Rx mcg-formot 4.8 mcg/actuation HFA inhaler doxepin 10 mg capsule 10 mg PO BEDTIME@1999 cap 04/17/21 05/01/21 04/29/21 History duloxetine 30 mg capsule,delayed 60 mg PO DAILY@0800 cap 04/17/21 05/01/21 04/29/21 History release insulin glargine 100 unit/mL (3 15 unit SUBCUT DAILY@1999 PRN ml 04/17/21 05/01/21 Unknown History mL) subcutaneous pen lactulose 10 gram/15 mL oral 10 g PO DAILY@0800 PRN 04/17/21 05/01/21 Unknown History solution Allergies Allergy/AdvReac Type Severity Reaction Status Date / Time ceftazidime Allergy Unknown Unknown Verified 05/01/21 16:26 Penicillins Allergy Unknown Unknown Verified 05/01/21 16:26 pravastatin Allergy Unknown Unknown Verified 05/01/21 16:26 Current Medications Current Medications Generic Name Dose Route Start Last Admin Trade Name Freq PRN Reason Stop Dose Admin Acetaminophen 650 mg 05/02/21 03:46 05/04/21 18:00 Acetaminophen 325 Mg Tablet PO 650 mg Q6H PRN Administration Mild/Mod Pain Or Temp >/= 101 Albuterol Sulfate 2.5 mg 05/02/21 03:55 05/04/21 03:20 Albuterol 2.5 Mg/0.5 Ml Neb INHALATION 2.5 mg Q4H PRN Administration SHORTNESS OF BREATH Albuterol/Ipratropium 3 ml 05/02/21 03:46 05/04/21 00:27 Ipratropium-Albuterol 3 Ml Neb INHALATION 3 ml Q6H PRN Administration SHORTNESS OF BREATH Alprazolam 0.25 mg 05/04/21 02:52 05/04/21 08:40 Alprazolam 0.5 Mg Tablet PO 0.25 mg BID PRN Administration anxiety Aspirin 81 mg 05/02/21 08:00 05/04/21 08:40 Aspirin 81 Mg Ec Tablet PO 81 mg DAILY@0800 BRII Administration Atorvastatin Calcium 80 mg 05/02/21 08:00 05/04/21 08:40 Atorvastatin 40 Mg Tablet PO 80 mg DAILY@0800 BRII Administration Bisacodyl 10 mg 05/02/21 08:00 05/04/21 20:42 Bisacodyl 10 Mg Supp TX Not Given BID@ [facility] Carvedilol 12.5 mg 05/02/21 08:00 05/03/21 08:13 Carvedilol 12.5 Mg Tablet PO 12.5 mg BID@0800,2000 BRII Administration Clopidogrel Bisulfate 75 mg 05/03/21 09:00 05/04/21 08:41 Clopidogrel 75 Mg Tablet PO 75 mg DAILY BRII Administration Duloxetine HCl 60 mg 05/04/21 08:00 05/04/21 08:41 Duloxetine 30 Mg Capsule PO 60 mg DAILY@0800 BRII Administration Famotidine 20 mg 05/02/21 03:46 05/04/21 15:51 Famotidine 20 Mg/2 Ml Inj IVP 20 mg Q12H BRII Administration Heparin Sodium (Beef Lung) 5,000 unit 05/04/21 21:00 05/04/21 20:51 Heparin 5,000 Unit/Ml Inj 1 Ml SUBCUT 5,000 unit Q8H BRII Administration Norepinephrine Bitartrate 4 mg 254 mls @ 0 mls/hr 05/04/21 00:16 05/04/21 08:24 / Dextrose IV 10 mcg/min .Q0M BRII 38.1 mls/hr Titration Protocol Per Protocol Vancomycin/PEG/NADA/Lysine/Water 1,250 mg in 250 mls @ 250 mls/hr 05/04/21 06:30 05/04/21 08:35 Vancocin IV Infused Q24H BRII Infusion Meropenem 2,000 mg/ Sodium 100 mls @ 33.3333 mls/hr 05/04/21 17:00 05/04/21 16:47 Chloride IV 33.33 mls/hr Q12H BRII Administration Insulin Aspart 0 unit 05/02/21 08:00 05/04/21 20:48 Insulin Aspart 100 Unit/1 Ml SUBCUT Not Given WM&BEDTIME [facility] Protocol Oxycodone HCl 5 mg 05/03/21 15:03 05/04/21 09:39 Oxycodone 5 Mg Ir Tab/Cap PO 5 mg Q4H PRN Administration Pain PFSH Acute PFSH: Medical History Anxiety Autonomic dysreflexia Calculus of kidney Chronic hepatitis CKD (chronic kidney disease), stage III Diabetes Folate deficiency anemia GERD with esophagitis History of pressure ulcer HTN (hypertension) Hydronephrosis Hyperkalemia Iron deficiency anemia Major depressive disorder, recurrent Old myocardial infarction Other osteomyelitis, other site Other specific personality disorders Pure hypercholesterolemia Quadriplegia, C5-C7 complete Recurrent UTI Vitamin D deficiency Surgical History History of kidney surgery Hx of heart artery stent Family History Mother , 93 Cancer Colon Father , 56 CAD (coronary artery disease) Social History Smoking and tobacco status: current every day smoker cigarettes [ Other cigarette details: [id number] 50yr history ] Quit status (tobacco): considering quitting Second hand smoke exposure: No Smoking risk assessment/counseling performed?: Yes Alcohol intake: never Desire information about substance/drug rehabilitation?: No Counseling given: Yes Caregiver/support person: Yes Lives independently: Yes Household members: spouse Housing: House Marital status: service: Yes status: Discharged branch: [employer] Current occupational status: disabled History of recent travel: No Current gender identity: Male Dietary Habits: Current diet type/program: diabetic Caffeine: Yes Vitals/I&O/Wt Last Vital Signs Temp 98.1 F 05/04/21 07:08 Pulse 55 L 05/04/21 21:00 Resp 20 H 05/04/21 19:58 BP 111/46 05/04/21 21:00 Pulse Ox 100 05/04/21 21:00 05/04/21 05/04/21 05/04/21 06:59 14:59 22:59 Intake Total 1789.66 / 3825.71 909.306 / 557.672 1094.667 / 2231.973 Output Total 100 / 350 100 / 100 Balance 1689.66 / 3475.71 909.306 / 247.976 8798.667 / 2131.973 Weight last 48 hrs Weight 172 lb 1.6 oz Physical Exam Narrative: EXAM NARRATIVE: GENERAL: Patient is alert, awake and oriented x3. He appeared to be anxious NECK: No jugular vein distension. HEENT: No cyanosis. No icterus. No pallor. HEART: Regular S1 and S2. No murmur, rub or gallop. LUNGS: Clear to auscultate bilaterally. ABDOMEN: Soft, nontender and nondistended. Positive bowel sounds. No guarding, rebound or tenderness. CENTRAL NERVOUS SYSTEM: Quadriplegia EXTREMITIES: Lower extremities with trace edema bilaterally. Data Micro: Micro: Microbiology 05/04/21 12:20 Blood Culture - Pr eliminary Blood [facility] 05/01/21 21:11 Urine Culture - Fi nal Urine,Clean Catch Escherichia col i 05/04/21 06:06 Blood Culture - Pr eliminary Blood SPE[facility]IM[facility] 05/01/21 21:05 Blood Culture - Pr eliminary Blood Bacillus sp not b. anthracis PACs and frequent PVCs left axis deviation otherwise no significant ST changes suggestive of ischemia. A&P Assessment and plan (1) Sepsis: Most likely cause for hypotension is sepsis continue IV fluid along with pressors and antibiotics as suggested Status: Acute Qualifiers: Sepsis acute organ dysfunction status: with acute organ dysfunction Sepsis type: sepsis due to unspecified organism Severe sepsis acute organ dysfunction type: encephalopathy Severe sepsis shock status: without septic shock Qualified Code(s): A41.9 - Sepsis, unspecified organism; R65.20 - Severe sepsis without septic shock; G93.40 - Encephalopathy, unspecified (2) Non-STEMI (non-ST elevated myocardial infarction): Most likely type II event due to sepsis Status: Acute (3) Hypokalemia: It is being replenished Status: Acute (4) Acute kidney injury superimposed on chronic kidney disease: Continue IV fluid hopefully with improvement of mean arterial pressure and IV fluid renal function will improve. Status: Acute (5) Hypotensive episode: Most likely due to sepsis less likely cardiogenic. Continue IV fluid and pressors. Will monitor. We will ask for echocardiogram to assess LV function Status: Acute Consult Attestations Medical Necessity Statement: Patient require continuation hospitalization and by ICU for above defined care. 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
[2021-05-04 22:25] LABS: ABG PH Result 7.09 (7.35-7.45)
[2021-05-05] VITALS (55 sets, daily range): BP systolic 79–157; BP diastolic 42–73; PULSE 55–83; RESP 18–37; TEMP 34.4–35.1; O2SAT 89–100
--- NOTE | 2021-05-05 00:15 | PC.NURSE ---
Levophed running at 2 mcg/min at begging of shift, MAR shows 10
[2021-05-05] MEDS: potassium chloride oral liq 20 mEq/15 mL UDC 40 MEQ PO ×2 (01:31→09:16)
[2021-05-05] MEDS: oxyCODONE 5 mg IR Tab/Cap PO ×2 (01:53→05:47)
--- NOTE | 2021-05-05 02:34 | PC.NURSE ---
patient cool to the touch, unable to obtain temp, rectal probe inserted, temp 94.6. bear hugger placed, temp currently 95.2. patient refusing bear hugger at this time, patient educated why it is necessary, patient still refused
[2021-05-05] MEDS: famotidine 20 mg/2 mL INJ IVP ×2 (03:20→14:50)
[2021-05-05 04:45] LABS: Basophils % 0.4 %; Eosinophils # 0.1 10^3/uL (0.0-0.8); Eosinophils % 1.1 %; Hematocrit 30.8 % (42.0-52.0); Hemoglobin 9.8 g/dL (11.7-16.6); Lymphocytes # 0.2 10^3/uL (0.8-4.8); Mean Corpuscular HGB Conc 31.8 g/dL (30.0-36.0); Mean Corpuscular Hemoglobin 27.5 pg (28.0-34.0); Mean Corpuscular Volume 86.5 fL (80-94); Mean Platelet Volume 10.8 fL (7.4-10.4); Monocytes # 0.3 10^3/uL (0.2-0.9); Monocytes % 2.9 %; Neutrophils # 9.68 10^3/uL (1.8-7.7); Neutrophils % 90.2 %; Nucleated Red Blood Cells % 0.4 %; Platelet Count 138 10^3/cmm (130-400); Red Blood Count 3.56 10^6/uL (4.1-5.3); Red Cell Distribution Width 15.7 % (12.1-15.1); White Blood Count 10.7 10^3/uL (4.0-10.0)
[2021-05-05 05:08] LABS: Alanine Aminotransferase 13 U/L (0-41); Albumin Level 2.4 g/dL (3.5-5.2); Alkaline Phosphatase 128 IU/L (40-130); Anion Gap 16.2 (5-19); Aspartate Amino Transferase 40 U/L (0-40); Blood Urea Nitrogen 53 mg/dL (8-23); Calcium 6.2 mg/dL (8.5-10.5); Carbon Dioxide 14 mmol/L (22-29); Chloride 108 mmol/L (98-107); Globulin 2.4 g/dL (1.3-4.6); Glomerular Filtration Rate 25.8 mL/min (90-130); Glucose 91 mg/dL (65-115); Osmolality Calculated 294 mOsm/kg (285-295); Potassium 3.2 mmol/L (3.5-5.1); Sodium 135 mmol/L (136-145); Total Bilirubin 0.2 mg/dL (0.15-1.2); Total Protein 4.8 g/dL (6.6-8.7)
[2021-05-05] MEDS: heparin 5,000 unit/mL INJ 1 mL 5000 UNIT SUBCUT ×3 (05:45→20:56)
[2021-05-05] MEDS: meropenem 2,000 MG in sodium chloride 0.9% (100 ml) 100 ML 33.33 MG IV (05:46)
[2021-05-05] MEDS: vancomycin 1,250 MG/250 ML PIGGYBACK 250 MG IV (05:46)
[2021-05-05] MEDS: sodium bicarbonate 8.4% 1 mEq/mL 50mL Syr 25 MEQ IVP (09:15)
[2021-05-05] MEDS: aspirin 81 mg EC Tablet PO (09:16)
[2021-05-05] MEDS: duloxetine 30 mg Capsule 60 MG PO (09:16)
[2021-05-05] MEDS: bisacodyl 10 mg Supp PR ×2 (09:17→20:56)
[2021-05-05] MEDS: levoFLOXacin 750 mg Tablet PO (09:17)
[2021-05-05] MEDS: atorvastatin 40 mg Tablet 80 MG PO (09:17)
[2021-05-05] MEDS: clopidogrel 75 mg Tablet PO (09:17)
[2021-05-05 09:22] LABS: Glucose Point of Care 101 mg/dL (70-110)
[2021-05-05 10:21] LABS: Slide Review Slide Review Perform
[2021-05-05 10:27] LABS: Cortisol Random 30.18 ug/dL (2.47-19.5)
[2021-05-05 11:30] LABS: ABG PCO2 51.2 mmHg (35-45); Base Excess ABG -16.2 mmol/L (-2.0-2.0); Blood Gas Allen Test Pos; Blood Gas LPM 3.5 %; Blood Gas Operator Identificat BD; Blood Gas Sample Site Brachial, right; Blood Gas Sample Type Arterial; Oxygen Device NC; PO2 ABG 97.6 mmHg (80.0-100.0)
[2021-05-05 11:31] LABS: ABG PH Result 7.04 (7.35-7.45)
--- NOTE | 2021-05-05 11:59 | PC.NURSE ---
Patients core temperature was 93.9. This nurse educated patient on the rohan hugger but he refused.
[2021-05-05 12:34] LABS: Glucose Point of Care 56 mg/dL (70-110)
[2021-05-05 12:34] LABS: Glucose Point of Care 108 mg/dL (70-110)
--- NOTE | 2021-05-05 12:46 | PC.SOCIAL ---
IM follow up explained to patient and he nodded yes when asked if understood.Paper copy left in room.Pt currently on bipap.
[2021-05-05 13:12] LABS: D Dimer 3.72 ug/mIFEU (0-0.59)
--- NOTE | 2021-05-05 13:34 | PM.PN ---
Subjective Subjective: Interval history: Blood pressure has improved. Overall stable currently vital lino. He is off pressors. Vitals/I&O/Wt Last Vital Signs Temp 93.9 F L 05/05/21 09:00 Pulse 67 05/05/21 09:30 Resp 18 05/05/21 05:47 BP 119/59 05/05/21 09:30 Pulse Ox 98 05/05/21 09:30 05/04/21 05/05/21 05/05/21 22:59 06:59 14:59 Intake Total 1422.667 / 2553.334 Output Total 100 / 100 Balance 1322.667 / 2453.334 Weight last 48 hrs Weight 172 lb 1.6 oz Physical Exam Narrative: EXAM NARRATIVE: GENERAL: Patient is sleeping NECK: No jugular vein distension. HEENT: No cyanosis. No icterus. No pallor. HEART: Regular S1 and S2. No murmur, rub or gallop. LUNGS: Clear to auscultate bilaterally. CENTRAL NERVOUS SYSTEM: Quadriplegia EXTREMITIES: Lower extremities with trace edema bilaterally. Data : 05/05/21 03:30 05/05/21 03:30 Micro: Microbiology 05/04/21 12:20 Blood Culture - Preliminary Blood NEGATIVE TO DATE 05/04/21 06:06 Blood Culture - Preliminary Blood NEGATIVE TO DATE 05/01/21 21:11 Urine Culture - Final Urine,Clean Catch Escherichia coli A&P Assessment and plan (1) Sepsis: Continue as per medicine Status: Acute Qualifiers: Sepsis acute organ dysfunction status: with acute organ dysfunction Sepsis type: sepsis due to unspecified organism Severe sepsis acute organ dysfunction type: encephalopathy Severe sepsis shock status: without septic shock Qualified Code(s): A41.9 - Sepsis, unspecified organism; R65.20 - Severe sepsis without septic shock; G93.40 - Encephalopathy, unspecified (2) Non-STEMI (non-ST elevated myocardial infarction): Most likely type II event due to sepsis, continue conservative management Status: Acute (3) Hypokalemia: Replenished Status: Acute (4) Acute kidney injury superimposed on chronic kidney disease: Continue IV fluids for possible sepsis induced prerenal insult with ATN Status: Acute (5) Hypotensive episode: Continue IV fluid. Most likely not due to cardiogenic secondary to sepsis since LV function is normal no effusion on the echo. Status: Acute Attestations Medical Necessity Statement*: Continue hospitalization for above defined care. 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
--- NOTE | 2021-05-05 13:41 | PM.PN ---
Subjective Subjective: Interval history: This morning patient was seen in the ICU, his vasopressors were turned off at 7 AM, wean off his oxygen he was saturating 100% on 2 L Requested ABG which revealed mixed metabolic and respiratory acidosis, requested BiPAP, and repeat blood gas within1 hr urine culture which is growing E. coli pansensitive Noticed leukocytosis however he has stayed hypothermic Vitals/I&O/Wt Last Vital Signs Temp 93.9 F L 05/05/21 09:00 Pulse 67 05/05/21 09:30 Resp 18 05/05/21 05:47 BP 119/59 05/05/21 09:30 Pulse Ox 98 05/05/21 09:30 05/04/21 05/05/21 05/05/21 22:59 06:59 14:59 Intake Total 1422.667 / 2553.334 Output Total 100 / 100 Balance 1322.667 / 2453.334 Weight last 48 hrs Weight 78.063 kg Physical Exam Narrative: EXAM NARRATIVE: Patient opens eyes to verbal command Awake alert oriented to time place and person However feels lethargic and fatigued and frequently stares at the ceiling during conversation however no signs of delirium or psychosis Soft abdomen with bag draining concentrated urine Lower extremity misuse atrophy Patient is quadriplegic and uses his respiratory sensory muscles and shoulder blades to help him take deep breaths no active signs of myasthenia gravis no ptosis he is able to hold his neck independently Data : 05/05/21 03:30 05/05/21 03:30 Micro: Microbiology 05/04/21 12:20 Blood Culture - Preliminary Blood NEGATIVE TO DATE 05/04/21 06:06 Blood Culture - Preliminary Blood NEGATIVE TO DATE 05/01/21 21:11 Urine Culture - Final Urine,Clean Catch Escherichia coli A&P Assessment and plan (1) Shock: Status: Acute (2) Acute kidney injury superimposed on chronic kidney disease: Status: Acute (3) Hypokalemia: Status: Acute (4) Normal anion gap metabolic acidosis: Status: Acute (5) Non-STEMI (non-ST elevated myocardial infarction): Status: Acute (6) Acute pyelitis: Status: Acute (7) Thyroid nodule incidentally noted on imaging study: Status: Acute (8) Nocturnal hypoxia: Status: Acute (9) Quadriplegia, C5-C7 complete: Status: Acute Additional A&P Information Septic shock Noticed leukocytosis today he is hypothermic, lactic acid procalcitonin TSH and cortisol level unremarkable Appreciate cardiology recommendations Vasopressors weaned off this morning We will do another [place]etah device monitoring to see fluid responsiveness his urine does look concentrated Neurogenic shock has not been ruled out that was thought secondary to lack of tachycardia with hypotension Urine culture showing pansensitive gram-negative bruno, E. coli I would go ahead and switch him to linezolid and aztreonam instead of meropenem and vancomycin because of worsening kidney function Blood cultures sterile Mixed metabolic and respiratory acidosis respiratory failure I will start him on BiPAP I do believe he is getting tired because of tachypnea which was in compensation to metabolic acidosis his bicarb and potassium improved I will give him another amp of bicarb today and repeat blood gas after BiPAP usage and if he is deteriorating we will plan for intubation Normal anion gap acidosis with hypokalemia Ureteroileal conduit versus RTA, normal anion gap Replenish bicarb furthur once potassium is within acceptable range Will request urinary electrolytes to know the etiology Acute on chronic kidney disease Creatinine worsened in last 48 hours, he was not fully responsive and became fluid overloaded after getting bolus with hypotension, He came in with sepsis secondary to bilateral pyelitis however urology not planning for any intervention, will place nephro consult today His urine looks concentrated, send urine electrolytes Non-ST segment elevation MA: Appreciate cardio recommendation, type II MA secondary to sepsis We will transition his diet to liquid because he is on BiPAP now Full code DVT prophylaxis Heparin, Lovenox discontinued Attestations Medical Necessity Statement*: Continue ICU care for mixed respiratory and metabolic acidosis Time Spent in Patient Care: 16 - 35 minutes Coding Level of Care Code Acute 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
[2021-05-05 14:24] LABS: ABG PCO2 40.9 mmHg (35-45); Alveolar-Arterial Oxygen Gradi 19.9 mmHg (5-10); Arterial Blood Gas Hematocrit 32.9 % (42-52); Base Excess ABG -15.9 mmol/L (-2.0-2.0); Blood Gas Allen Test Pos; Blood Gas Operator Identificat BD; Blood Gas Sample Site Brachial, right; Blood Gas Sample Type Arterial; Blood Gas Tidal Volume 0.55; Carboxyhemoglobin 0.1 %THgb (0.4-20.1); HCO3 ABG 12.8 mmol/L (22-26); HGB O2 Sat 94.8 % (95-100); Methemoglobin 0.3 % (0.4-1.5); Oxygen Device BIPAP; Oxygen Saturation ABG 95.3; PO2 ABG 80.5 mmHg (80.0-100.0); Potassium Level - ABG 4.3 mmol/L (3.5-5.0); Total Hemoglobin 10.7 g/dL (14-18)
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
[2021-05-05] MEDS: sodium bicarbonate 8.4% 1 mEq/mL 50mL Syr 100 MEQ IVP ×2 (14:45→14:47)
[2021-05-05] MEDS: calcium gluconate 0.1 gm/mL 10% SDV 10mL 1 GM IVP (14:45)
[2021-05-05] MEDS: linezolid premix 600 MG/300 ML PREMIX 300 MG IV (14:55)
[2021-05-05] MEDS: lidocaine 1% 5 ML in potassium chloride premix 100 ML 25 ML IV (14:55)
[2021-05-05] MEDS: sodium bicarbonate 8.4% 1 mEq/mL 50mL Syr 50 MEQ IVP (15:02)
[2021-05-05 15:59] LABS: Lactate (Lactic Acid level) 0.8 mmol/L (0.5-2.2)
[2021-05-05 16:08] LABS: Creatine Phosphokinase 71 U/L (39-308); Magnesium 1.4 mg/dL (1.7-2.3); Uric Acid 6.2 mg/dL (3.4-7.0)
[2021-05-05] MEDS: aztreonam 1,000 MG in sodium chloride 0.9% (plus) 50 ML 100 MG IV (17:29)
[2021-05-05 18:36] LABS: Creatinine Urine, Random 63 mg/dL (39-259)
[2021-05-05 18:37] LABS: Potassium, Radom Urine 16 mmol/L; Urine Random Sodium 79 mmol/L
[2021-05-05 19:26] LABS: Urine Random Chloride 10 mmol/L
[2021-05-05 19:52] LABS: Glucose Point of Care 147 mg/dL (70-110)
[2021-05-05 20:54] LABS: Glucose Point of Care 85 mg/dL (70-110)
--- NOTE | 2021-05-05 23:22 | PC.NURSE ---
MAR showing vasopressor still running when I began care at 1999. No IV fluids are going at this time. Per doctors note the pressors where scheduled to be d/c'd.
[2021-05-05 23:48] LABS: Urea Nitrogen,Urine Random 203 mg/dL
[2021-05-06] VITALS (56 sets, daily range): BP systolic 92–199; BP diastolic 47–113; PULSE 32–120; RESP 14–36; TEMP 35.2–36.4; O2SAT 86–100
--- NOTE | 2021-05-06 | SCC_ITS ---
Procedure Done: 1. Placement of 12 Serbian 16 cm long non-tunneled temporary hemodialysis catheter right internal jugular vein 2. Fluoroscopic guidance and interpretation for placement of catheter 3. Ultrasound guidance to access the right internal jugular vein 5.2 seconds of fluoroscopic guidance, for a cumulative dose of 0.34 mGy, was provided to Dr. Jones by the radiology department. C-arm images of the chest were saved for the patient's permanent record. GENIE
[2021-05-06] MEDS: famotidine 20 mg/2 mL INJ IVP ×2 (02:49→15:43)
[2021-05-06] MEDS: linezolid premix 600 MG/300 ML PREMIX 300 MG IV (02:57)
[2021-05-06] MEDS: ALPRAZolam 0.5 mg Tablet 0.25 MG PO (03:25)
--- NOTE | 2021-05-06 04:14 | PC.NURSE ---
patient not cooperating with staff, taking bipap off, pushing staff away when trying to help. Dr. Christy contacted and gave t.o. for precedex gtt
[2021-05-06] MEDS: aztreonam 1,000 MG in sodium chloride 0.9% (plus) 50 ML 100 MG IV (05:20)
[2021-05-06] MEDS: heparin 5,000 unit/mL INJ 1 mL 5000 UNIT SUBCUT (05:23)
--- NOTE | 2021-05-06 05:26 | PC.NURSE ---
Patient increasing confusion and agression. Not leaving BI-pap or bear hugger on. DOc called who ordered Precidex. Started at 1730. Will continue to monitor.
[2021-05-06] MEDS: dexmedetomidine 400 MCG in sodium chloride 0.9% (100 ml) 100 ML 6.09 MCG IV (05:35)
[2021-05-06 08:40] LABS: Eosinophils % 0.5 %; Hematocrit 24.3 % (42.0-52.0); Hemoglobin 7.7 g/dL (11.7-16.6); Lymphocytes # 0.1 10^3/uL (0.8-4.8); Lymphocytes % 3.6 %; Mean Corpuscular HGB Conc 31.7 g/dL (30.0-36.0); Mean Corpuscular Hemoglobin 27.5 pg (28.0-34.0); Mean Corpuscular Volume 86.8 fL (80-94); Mean Platelet Volume 11.3 fL (7.4-10.4); Monocytes # 0.1 10^3/uL (0.2-0.9); Monocytes % 3.8 %; Neutrophils % 90.5 %; Nucleated Red Blood Cells % 0.5 %; Platelet Count 68 10^3/cmm (130-400); Red Cell Distribution Width 16.4 % (12.1-15.1); White Blood Count 3.7 10^3/uL (4.0-10.0)
[2021-05-06] MEDS: sodium chloride 0.9% 1,000 ML 50 ML IV (08:40)
[2021-05-06 08:54] LABS: Glucose Point of Care 103 mg/dL (70-110)
[2021-05-06 09:01] LABS: Anion Gap 16.5 (5-19); Blood Urea Nitrogen 62 mg/dL (8-23); Calcium 6.4 mg/dL (8.5-10.5); Carbon Dioxide 16 mmol/L (22-29); Chloride 106 mmol/L (98-107); Glomerular Filtration Rate 20.9 mL/min (90-130); Glucose 89 mg/dL (65-115); Osmolality Calculated 295 mOsm/kg (285-295); Potassium 4.5 mmol/L (3.5-5.1); Sodium 134 mmol/L (136-145)
[2021-05-06] MEDS: clopidogrel 75 mg Tablet PO (09:02)
[2021-05-06] MEDS: aspirin 81 mg EC Tablet PO (09:02)
[2021-05-06] MEDS: atorvastatin 40 mg Tablet 80 MG PO (09:02)
[2021-05-06] MEDS: duloxetine 30 mg Capsule 60 MG PO (09:03)
[2021-05-06] MEDS: bisacodyl 10 mg Supp PR ×2 (09:19→20:18)
--- NOTE | 2021-05-06 09:49 | PC.NURSE ---
wm. saline used for fluid bolus and infusion
--- NOTE | 2021-05-06 10:45 | ANE.PACU2 ---
Inpatient post-anesthesia follow up: Airway intact: Yes Vital signs: Temperature 97.5 F Pulse Rate [Apical ] 62 Pulse Rate 77 Respiratory Rate 22 Blood Pressure [Ri ght Arm] 116/72 Blood Pressure 99/62 Pulse Oximetry 81 Oxygen Delivery Me thod Mechanical Ventila tion Oxygen Flow Rate 40 Fraction of Inspir ed Oxygen 100 Hydration adequate: Yes Nausea and vomiting: No Pain level: 1 Mental status: Baseline Additional Comments: This note is for 05/06/21
--- NOTE | 2021-05-06 10:48 | P.PN_ITS ---
Subjective Subjective: Interval history: He was on nasal cannula oxygen throughout the night, however, remained extremely tachypneic. Respiratory rate in the 40-50 range. He is back on BiPAP now and appears to be a little more comfortable. Mild global edema. Urine output noted to be roughly 450 mL over the last 24 hours. Hemodynamics otherwise soft but relatively stable. No overt uremic s ymptoms. Medications: Reviewed: Yes Vitals/I&O/Wt Last Vital Signs Temp 95.4 F L 05/06/21 04:00 Pulse 64 05/06/21 05:51 Resp 22 H 05/06/21 04:00 BP 94/55 05/06/21 04:00 Pulse Ox 96 05/06/21 05:51 05/05/21 05/06/21 05/06/21 22:59 06:59 14:59 Intake Total 705 / 888.82 352.943 / 1241.763 7.579 / 7.579 Output Total 150 / 150 300 / 450 Balance 555 / 738.82 52.943 / 791.763 7.579 / 7.579 Physical Exam Narrative: EXAM NARRATIVE: Constitutional: Sick, unwell HEENT: Wet mucosa, no jvp, non icteric Lungs: Bilaterally clear wheeze or rales in all lung zones CVS: S1 S2, no murmurs Abdo: Soft, BS ok Ext 4: Minimal edema, peripheral perfusion with no cyanosis Neurological: Grossly non-focal Data : 05/06/21 08:32 05/06/21 08:32 Micro: Microbiology 05/04/21 12:20 Blood Culture - Preliminary Blood NEGATIVE TO DATE 05/04/21 06:06 Blood Culture - Preliminary Blood NEGATIVE TO DATE A&P Additional A&P Information 1. Oliguric acute renal failure Consistent with septic associated ATN. Admission CT scan demonstrated bilateral hydronephrosis, however, this more consistent with reflux rather than true obstruction. Given that he is severely tachypneic, attempting to blow off the acid burden, he is at high risk of respiratory failure. We are unable to give him large volumes of sodium bicarbonate intravenously and so dialysis is indicated for his acidosis. Message left for his [place] to call me. Dialysis will be prescribed today, 3K, ultrafiltration of only 1 L, bicarb concentration of 35, 3.5 hours. I will evaluate him tomorrow morning for additional dialysis needs. Avoid usual nephrotoxic agents Dose medications for GFR less than 15 2. Acidosis As mentioned above, at this time dialysis will be indicated to correct his acidosis and prevent respiratory failure. 3. Septic shock. Consistent with urosepsis, E. coli found in the urine. Currently on combination antibiotic therapy with aztreonam and Zyvox. 4. Respiratory distress Secondary to sepsis, combination metabolic and respiratory acidosis. Currently on BiPAP, currently at high risk of requiring intubation. Call placed to his , d/w Bedside RN, manager dialysis, Dr Martines Exam and interview performed with aid of bedside RN using telemedicine Time spent 20 min inc > 50% of time in face to face counseling Salvador Watters MD [facility] [phone] Attestations Medical Necessity Statement*: Eval for renal failure Coding Level of Care Code Acute Central Supply Worker for Perig Shiv
--- NOTE | 2021-05-06 11:48 | PC.NURSE ---
0900 cheeta monitor used for fluid sensitivity. h.r. 52, svi44, 74%end. fluid responsive
[2021-05-06 11:59] LABS: Glucose Point of Care 87 mg/dL (70-110)
--- NOTE | 2021-05-06 12:06 | PM.CONSULT ---
Providers/Reason For Consult Consulting Physician/Specialty*: Evan Jones MD Reason for Consult*: Temporary hemo-dialysis catheter Requesting Physician: Dr. Martines Attending Physician: Le Martines MD Primary Care Provider: Julia Lacey MD History of Present Illness History of Present Illness Chief Complaint: Patient requires hemodialysis catheter per nephrology service History of present illness: Mitch Jo is a 70 year old male with history of quadriplegia, chronic kidney disease and recurrent UTIs. Admitted with sepsis and UTI to the hospital service. Patient has an ileal conduit. Because of the worsening kidney functions and patient has been tachypneic, the thought that the patient is having sepsis associated with acute tubular necrosis that will require temporary hemodialysis. General surgery was consulted for placement of temporary hemodialysis catheter Review of Systems General: Reports: ROS unobtainable due to medical condition Meds/Allergies Home Medications and Allergies Home Medications Medication Instructions Recorded Confirmed Last Taken Type atorvastatin 80 mg tablet 80 mg PO DAILY@79905/25/20 05/01/21 04/29/21 History carvedilol 12.5 mg tablet 12.5 mg PO BID@08,199905/25/20 05/01/21 04/29/21 History cholecalciferol (vitamin D3) 1,250 1,250 mcg PO DAILY@79905/25/20 05/01/21 04/29/21 History mcg (50,000 unit) capsule docusate sodium 100 mg capsule 300 mg PO BID@08,199905/25/20 05/01/21 04/29/21 History famotidine 40 mg tablet 40 mg PO BID@05/25/20 05/01/21 04/29/21 History furosemide 20 mg tablet 20 mg PO DAILY@79905/25/20 05/01/21 04/29/21 History lidocaine HCl 2 % mucosal jelly 1 applic TOPICAL TID PRN 05/25/20 05/01/21 04/29/21 History melatonin 3 mg capsule 6 mg PO DAILY@199905/25/20 05/01/21 04/29/21 History nitroglycerin 0.4 mg sublingual 0.4 mg SUBLINGUAL Q5M PRN 05/25/20 05/01/21 Unknown History tablet oxycodone 5 mg capsule 5 mg PO Q4H PRN 05/25/20 05/01/21 Unknown History patiromer calcium sorbitex 16.8 16.8 gm PO DAILY@1200 05/25/20 05/01/21 04/29/21 History gram oral powder packet sennosides 8.6 mg capsule 8.6 mg PO BID@0800,1999 PRN 05/25/20 05/01/21 04/29/21 History sodium bicarbonate 650 mg tablet 650 mg PO BID@0800,199905/25/20 05/01/21 04/29/21 History Lactobacillus acidophilus 10 mg PO DAILY@0800 07/21/20 05/01/21 04/29/21 History albuterol sulfate 90 mcg/actuation 2 puff INHALATION Q6H PRN 08/16/20 05/01/21 04/29/21 History aerosol inhaler alprazolam 0.25 mg tablet 0.25 mg PO BID PRN 08/16/20 05/01/21 Unknown History gabapentin 100 mg capsule 300 mg PO BID@0800,1999 cap 10/16/20 05/01/21 04/29/21 History aspirin [Aspir-Low] 81 mg PO DAILY@0800 11/28/20 05/01/21 04/29/21 History bisacodyl 10 mg ID BID@0800,199911/28/20 05/01/21 04/29/21 History ferrous sulfate 325 mg PO BID@0800,199911/28/20 05/01/21 04/29/21 History folic acid 1 mg PO DAILY@0800 11/28/20 05/01/21 04/29/21 History albuterol sulfate 2.5 mg INHALATION Q4H PRN 01/17/21 05/01/21 Unknown History budesonide 160 mcg-glycopyr 9 2 inh INHALATION BID #10.7 g 04/17/21 05/01/21 04/29/21 Rx mcg-formot 4.8 mcg/actuation HFA inhaler doxepin 10 mg capsule 10 mg PO BEDTIME@1999 cap 04/17/21 05/01/21 04/29/21 History duloxetine 30 mg capsule,delayed 60 mg PO DAILY@0800 cap 04/17/21 05/01/21 04/29/21 History release insulin glargine 100 unit/mL (3 15 unit SUBCUT DAILY@1999 PRN ml 04/17/21 05/01/21 Unknown History mL) subcutaneous pen lactulose 10 gram/15 mL oral 10 g PO DAILY@0800 PRN 04/17/21 05/01/21 Unknown History solution Allergies Allergy/AdvReac Type Severity Reaction Status Date / Time ceftazidime Allergy Unknown Unknown Verified 05/06/21 12:31 Penicillins Allergy Unknown Unknown Verified 05/06/21 12:31 pravastatin Allergy Unknown Unknown Verified 05/06/21 12:31 Current Medications Current Medications Generic Name Dose Route Start Last Admin Trade Name Freq PRN Reason Stop Dose Admin Acetaminophen 650 mg 05/02/21 03:46 05/04/21 18:00 Acetaminophen 325 Mg Tablet PO 650 mg Q6H PRN Administration Mild/Mod Pain Or Temp >/= 101 Albuterol Sulfate 2.5 mg 05/02/21 03:55 05/04/21 03:20 Albuterol 2.5 Mg/0.5 Ml Neb INHALATION 2.5 mg Q4H PRN Administration SHORTNESS OF BREATH Albuterol/Ipratropium 3 ml 05/02/21 03:46 05/04/21 00:27 Ipratropium-Albuterol 3 Ml Neb INHALATION 3 ml Q6H PRN Administration SHORTNESS OF BREATH Alprazolam 0.25 mg 05/04/21 02:52 05/06/21 03:25 Alprazolam 0.5 Mg Tablet PO 0.25 mg BID PRN Administration anxiety Aspirin 81 mg 05/02/21 08:00 05/06/21 09:02 Aspirin 81 Mg Ec Tablet PO 81 mg DAILY@0800 BRII Administration Atorvastatin Calcium 80 mg 05/02/21 08:00 05/06/21 09:02 Atorvastatin 40 Mg Tablet PO 80 mg DAILY@0800 BRII Administration Bisacodyl 10 mg 05/02/21 08:00 05/06/21 09:19 Bisacodyl 10 Mg Supp ID 10 mg BID@ BRII Administration Carvedilol 12.5 mg 05/02/21 08:00 05/03/21 08:13 Carvedilol 12.5 Mg Tablet PO 12.5 mg BID@ BRII Administration Famotidine 20 mg 05/02/21 03:46 05/06/21 02:49 Famotidine 20 Mg/2 Ml Inj IVP 20 mg Q12H BRII Administration Heparin Sodium (Beef Lung) 5,000 unit 05/04/21 21:00 05/06/21 05:23 Heparin 5,000 Unit/Ml Inj 1 Ml SUBCUT 5,000 unit Q8H BRII Administration Norepinephrine Bitartrate 4 mg 254 mls @ 0 mls/hr 05/04/21 00:16 05/05/21 08:00 / Dextrose IV 0 mcg/min .Q0M BRII 0 mls/hr Titration Protocol Per Protocol Aztreonam 1,000 mg/ Sodium 50 mls @ 100 mls/hr 05/05/21 16:00 05/06/21 05:41 Chloride IV Infused Q12H BRII Infusion Protocol Linezolid 600 mg in 300 mls @ 300 mls/hr 05/05/21 15:00 05/06/21 04:37 Zyvox Premix IV Infused Q12H BRII Infusion Protocol Sodium Chloride 1,000 mls @ 50 mls/hr 05/06/21 08:30 05/06/21 08:40 Sodium Chloride 0.9% IV 50 mls/hr .Q20H BRII Administration Insulin Aspart 0 unit 05/02/21 08:00 05/06/21 09:22 Insulin Aspart 100 Unit/1 Ml SUBCUT Not Given WM&BEDTIME BRII Protocol Oxycodone HCl 5 mg 05/03/21 15:03 05/05/21 05:47 Oxycodone 5 Mg Ir Tab/Cap PO 5 mg Q4H PRN Administration Pain PFSH Acute PFSH: Medical History Anxiety Autonomic dysreflexia Calculus of kidney Chronic hepatitis CKD (chronic kidney disease), stage III Diabetes Folate deficiency anemia GERD with esophagitis History of pressure ulcer HTN (hypertension) Hydronephrosis Hyperkalemia Iron deficiency anemia Major depressive disorder, recurrent Old myocardial infarction Other osteomyelitis, other site Other specific personality disorders Pure hypercholesterolemia Quadriplegia, C5-C7 complete Recurrent UTI Vitamin D deficiency Surgical History History of kidney surgery Hx of heart artery stent Family History Mother , 93 Cancer Colon Father , 56 CAD (coronary artery disease) Social History Smoking and tobacco status: current every day smoker cigarettes [ Other cigarette details: [id number] 50yr history ] Quit status (tobacco): considering quitting Second hand smoke exposure: No Smoking risk assessment/counseling performed?: Yes Alcohol intake: never Desire information about substance/drug rehabilitation?: No Counseling given: Yes Caregiver/support person: Yes Lives independently: Yes Household members: spouse Housing: House Marital status: service: Yes status: Discharged branch: [employer] Current occupational status: disabled History of recent travel: No Current gender identity: Male Vitals/I&O/Wt Last Vital Signs Temp 95.4 F L 05/06/21 04:00 Pulse 54 L 05/06/21 11:00 Resp 22 H 05/06/21 11:00 BP 115/54 05/06/21 11:00 Pulse Ox 99 05/06/21 11:00 05/05/21 05/06/21 05/06/21 22:59 06:59 14:59 Intake Total 705 / 888.82 352.943 / 1241.763 7.579 / 7.579 Output Total 150 / 150 300 / 450 Balance 555 / 738.82 52.943 / 791.763 7.579 / 7.579 Physical Exam Narrative: EXAM NARRATIVE: Patient is conscious alert yet lethargic BMI 25 Head and neck examination PERRLA no masses no cervical lymphadenopathy no jaundice Cardiac examination audible S1-S2 no murmurs no gallops no arrhythmias Chest is clear bilateral,abscence of Rhonchi or wheezes,no surgical emphysema Abdomen nontender nondistended soft no organomegaly guarding or rigidity/no signs of peritonitis Presence of ileal conduit and urinary diversion Patient is quadriplegic Right femoral triple-lumen central line placed Data Micro: Micro: Microbiology 05/04/21 12:20 Blood Culture - Pr eliminary Blood NEGATIVE TO RUMA E A&P Assessment and plan (1) Acute kidney injury superimposed on chronic kidney disease: Plan of care; After thorough history physical examination and reviewing the chart and reviweing the images with my personal intrepretation.I counseled the patient and his for temporary hemodialysis cath placement, indications, risks including pneumothorax that may require Chest tube(s) placement and potential injury of major vascular structures that may require Thoractomy, benefits,indications and alternatives were all discussed with the patient and his , patient's spouse understands and is interested to proceed. Rationale was carefully and clearly discussed with the patient's spouse.Appropriate informed consent have been reviewed and signed. Status: Acute Consult Attestations Medical Necessity Statement: Per hospitalist service Time Spent in Patient Care: (>than 50% of time spent in counselling and/or direct pt care on unit). Coding Level of Care Code Acute [employer] Account Manager for Chg Fwd Diagnoses Acute kidney injury superimposed on chronic kidney disease N17.9; N18.9
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
[2021-05-06] MEDS: magnesium oxide 400 mg tablet PO (12:15)
[2021-05-06 12:55] LABS: Eosinophils % 0.5 %; Hematocrit 25.9 % (42.0-52.0); Hemoglobin 8.2 g/dL (11.7-16.6); Lymphocytes # 0.2 10^3/uL (0.8-4.8); Mean Corpuscular HGB Conc 31.7 g/dL (30.0-36.0); Mean Corpuscular Hemoglobin 27.8 pg (28.0-34.0); Mean Corpuscular Volume 87.8 fL (80-94); Mean Platelet Volume 11.6 fL (7.4-10.4); Monocytes # 0.2 10^3/uL (0.2-0.9); Monocytes % 3.7 %; Neutrophils # 3.58 10^3/uL (1.8-7.7); Neutrophils % 89.1 %; Nucleated Red Blood Cells % 0.5 %; Platelet Count 71 10^3/cmm (130-400); Red Blood Count 2.95 10^6/uL (4.1-5.3); Red Cell Distribution Width 16.8 % (12.1-15.1)
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
--- NOTE | 2021-05-06 13:39 | SC_ITS ---
WS: [id number] INTRAOPERATIVE TECHNIQUE: 2 Spot fluoroscopic images for intraoperative purposes. FLUOROSCOPY TIME: 5.2 seconds CLINICAL INFORMATION: surgery COMPARISON: None. FINDINGS: Right central venous catheter with tip in the distal SVC. SC/C-arm FL for CVA [id number] IMPRESSION: Images obtained for intraoperative purposes.
--- NOTE | 2021-05-06 14:19 | PC.NURSE ---
1400 to o.r. for dialysis catheter.
--- NOTE | 2021-05-06 14:33 | P.OP_ITS ---
Operative Report Date of procedure: May 06, 2021 Pre-op Diagnosis: Acute renal failure Post-op diagnosis: same Post-op Findings: Normal anatomy of right IJ vein Procedure Done: 1. Placement of 12 [place] 16 cm long non-tunneled temporary hemodialysis catheter right internal jugular vein 2. Fluoroscopic guidance and interpretation for placement of catheter 3. Ultrasound guidance to access the right internal jugular vein Implants: Right internal jugular vein 12 [place] temporary dialysis catheter Surgeon: Evan Jones Machine Hostler: optometric tech April Circulating nurse Rimma BATISTA Anesthesia: MAC (Bri Yevgeniy) Estimated blood loss (mL): 5 Condition: stable Disposition: ICU Brief History: Acute renal failure requiring hemodialysis. Procedure: After identifying the patient in the ICU, patient was transferred to the OR and was placed in supine position . Both arms were tucked and all pressure points were padded. Patient was secured appropriately to the bed. Medications were reviewed to assess for anticoagulant usage. Risks and benefits and prevention of central line associated blood stream infection (CLABSI) were discussed with the patient/CPOA, and a consent was obtained. Monitors were in place and monitored throughout the procedure. A time out was performed with the nurse present. All necessary supplies were available prior to start. Hand hygiene was completed prior to starting. Maximum barrier technique was utilized including a sterile gown, sterile gloves with a hat and mask. Site was was prepped with [chlorhexidine] and a full body drape was placed. 5 mL of 1% lidocaine was injected into the skin with a 25 gauge needle. RN SURGERY ICU started infusing IV propofol . Started by right internal jugular vein, under ultrasound guidance, there was no evidence of intraluminal thrombosis per my interpretation and from the first stick I was able to retrieve venous blood. A wire was then advanced without difficulty. There were no ectopy noted.. A small incision was then made to facilitate the dilators over which the catheter was placed. The wire was then removed. The catheter was threaded to hub of the catheter. All ports were then aspirated showing venous return and were each then flushed with sterile normal saline and heparin. The catheter was then sutured in place and a Tegaderm was used to cover the insertion site. Biopatch was in placed around the insertion site. Type of catheter placement of 12 [place] temporary dialysis catheter 16 cm Week flush thousand units of heparin and 1 L of normal saline Strong flush 5000 units of heparin Count of instruments needles and sponges were completed The entire procedure was done under direct fluoroscopy and ultrasonography with my personal interpretation Patient was transferred to the ICU in stable condition Patient tolerated the procedure without difficulty or complication. A portable chest x-ray was performed which illustrated no pneumothorax and proper placement of the catheter with the tip resting just above the right atrium. Patients vital signs remained stable throughout the procedure. I was present for the whole entire procedure
--- NOTE | 2021-05-06 14:38 | XRR_ITS ---
PROCEDURE INFORMATION: Exam: XR Chest Exam date and time: 05/06/2021 2:38 PM Age: 70 years old Clinical indication: Other vascular access device placement or adjustment; Other: Ij hemodialysis catheter; Additional info: Status post placement of right internal jugular vein hemodia, hemodialysis catheter TECHNIQUE: Imaging protocol: XR of the chest. Views: 1 view. COMPARISON: CR XR chest 1V portable [id number] 05/04/2021 2:41 AM FINDINGS: Tubes, catheters and devices: Temporary dialysis catheter in the right neck extends to the mid SVC. Lungs: Hyperinflation of lungs. Coarsened reticular interstitial lung changes. Negative for focal airspace consolidation. Pleural spaces: Unremarkable. No pleural effusion. No pneumothorax. Heart/Mediastinum: Mild to moderate cardiomegaly. Bones/joints: Unremarkable. XR/XR chest 1V portable [id number] IMPRESSION: Right internal jugular vein approach temporary dialysis catheter in the mid superior vena cava without acute pulmonary complication.
--- NOTE | 2021-05-06 15:02 | PC.NURSE ---
1458 recd from or, post hemodialysis catheter placement. dressin to right neck d/i. back to bipap, 30% fio2.
[2021-05-06] MEDS: dextrose 50% syringe 50 mL 25 ML IVP (15:19)
[2021-05-06] MEDS: levofloxacin-dextrose 5 % 750 MG/150 ML PREMIX 100 MG IV (15:43)
--- NOTE | 2021-05-06 16:28 | PHA.FALL ---
A Pharmacy Consult Was Conducted For Johnny Catherine Langstoney Due To: Patel Fall Scale Risk Level: High Fall Risk On 05/06/21 08:00 And A Medication Fall Risk Score Greater Than 10. The Recommendations Are As Follows: EFFECTS ARE DESCRIBED, COMBINATIONS MAY INCREASE PERCENTAGE OR RISK THEY CAN BE ADDITIVE. IF FALL RISK IN FACILITY OR AFTER DISCHARGE IS POSSIBLE, LIMIT USE OF THE FOLLOWING MEDICATIONS OR USE ALTERNATIVES. ALPRAZOLAM: ADVERSE EFFECTS INCLUDE: Neurologic: Cognitive disorder (28.8% ), Confusion (1.5% to 10.4% ), Dysarthria (10.9% to 23.3% ), Incoordination (9.4% to 40.1% ), Lightheadedness (20.8% ), Memory impairment (15.4% to 33.1% ), Sedated (45.2% ), Somnolence (23% to 76.8% ) - RECOMMEND LIMIT LEVAQUIN: Neurologic: Dizziness (3% ), Headache (6% to 10% ), Insomnia (4% ) Disorientated, Disturbance of attention, Guillain-[place] syndrome, Memory impairment, Peripheral neuropathy, Pseudotumor cerebri, Raised intracranial pressure, Seizure (0.1% to 1% ) RECOMMEND CONTINUE WITH MONITORING OXYCODONE: Neurologic: Dizziness (1.6% to 5.7% ), Headache (6.2% to 13.9% ), Somnolence (Up to 8.8% ) RECOMMEND LIMIT ONDANSETRON: Other: Fatigue, Malaise - RECOMMEND CONTINUE WITH MONITORING
[2021-05-06] MEDS: heparin, porcine 1,000 unit/mL INJ 10 mL 10000 UNIT HE (16:30)
--- NOTE | 2021-05-06 17:00 | PC.HD ---
Catheter inserted today, surgical dressing in place with small amount bloody drainage noted to gauze under opsite. Catheter flushes and draws well. Hypertension noted pre treatment. Pt is quadriplegic with encephalopathy, currently on bipap so communication is limited, but he appears anxious. Explained procedure and offered reassurance. Discussed pt's anxiety with DISTRIBUTION MANAGER.
--- NOTE | 2021-05-06 17:07 | PC.NURSE ---
post hemodialysis catheter insertion, pt. moved from icu 4 to icu 10
--- NOTE | 2021-05-06 17:11 | P.PN_ITS ---
Subjective Subjective: Interval history: Blood pressure is stable. Patient was told therefore wearing warm blanket Medications: Reviewed: Yes Vitals/I&O/Wt Last Vital Signs Temp 95.4 F L 05/06/21 04:00 Pulse 54 L 05/06/21 11:00 Resp 22 H 05/06/21 11:00 BP 115/54 05/06/21 11:00 Pulse Ox 99 05/06/21 11:00 05/06/21 05/06/21 05/06/21 06:59 14:59 22:59 Intake Total 352.943 / 1241.763 7.579 / 7.579 Output Total 300 / 450 Balance 52.943 / 791.763 7.579 / 7.579 Physical Exam Narrative: EXAM NARRATIVE: GENERAL: Patient is on CPAP appear to be stable and arousable NECK: No jugular vein distension. HEENT: No cyanosis. No icterus. No pallor. HEART: Regular S1 and S2. No murmur, rub or gallop. LUNGS: Clear to auscultate bilaterally. CENTRAL NERVOUS SYSTEM: Quadriplegia Data : 05/06/21 12:18 05/06/21 08:32 Micro: Microbiology 05/04/21 12:20 Blood Culture - Preliminary Blood NEGATIVE TO DATE A&P Assessment and plan (1) Sepsis: Continue as per medicine recommendation Status: Acute Qualifiers: Sepsis acute organ dysfunction status: with acute organ dysfunction Sepsis type: sepsis due to unspecified organism Severe sepsis acute organ dysfunction type: encephalopathy Severe sepsis shock status: without septic shock Qualified Code(s): A41.9 - Sepsis, unspecified organism; R65.20 - Severe sepsis without septic shock; G93.40 - Encephalopathy, unspecified (2) Non-STEMI (non-ST elevated myocardial infarction): Stable doing fine from a cardiovascular perspective non-STEMI is due to sepsis and type II no further invasive or stress test needed at the moment Status: Acute (3) Hypokalemia: Replenished Status: Acute (4) Acute kidney injury superimposed on chronic kidney disease: Continue IV fluids for possible sepsis induced prerenal insult with ATN Status: Acute (5) Hypotensive episode: Continue IV fluid. Improved Status: Acute Attestations Medical Necessity Statement*: As per medicine Coding Level of Care Code Established Pt Acute Assistant Loan Processor for Chg Fwd Patient Type Established History Detailed Exam Detailed Medical Decision Making Moderate Complexity Diagnoses Sepsis A41.9; R65.20; G93.40 Sepsis acute organ dysfunction status: with acute organ dysfunction Sepsis type: sepsis due to unspecified organism Severe sepsis acute organ dysfunction type: encephalopathy Severe sepsis shock status: without septic shock Non-STEMI (non-ST elevated myocardial infarction) I21.4 Hypokalemia E87.6 Acute kidney injury superimposed on chronic kidney disease N17.9; N18.9 Hypotensive episode I95.9
--- NOTE | 2021-05-06 17:53 | XRR_ITS ---
PROCEDURE INFORMATION: Exam: XR Chest Exam date and time: 05/06/2021 5:53 PM Age: 70 years old Clinical indication: Device placement; Ett placement (vent status); Prior surgery; Surgery date: Post-operative (0-2 days); Surgery type: Dialysis cath; Patient HX: Check S/P et and og placement. Patient not yet fully sedated. Best films obtained. ; Additional info: Intubated TECHNIQUE: Imaging protocol: XR of the chest. Views: 1 view. COMPARISON: CR (CHEST, ) 05/06/2021 2:46 PM FINDINGS: Tubes, catheters and devices: Mid tracheal positioning of the endotracheal tube. Enteric tube in the stomach. Right neck approach temporary hemodialysis catheter in the mid SVC. Lungs: Hyperinflation of lungs with emphysematous changes. No focal airspace consolidation identified. Pleural spaces: Unremarkable. No pleural effusion. No pneumothorax. Heart/Mediastinum: Mild severity cardiac enlargement. Bones/joints: Old right lateral rib deformities. Old left lateral rib deformity. XR/XR chest 1V portable [id number] IMPRESSION: Satisfactory endotracheal and enteric tube placement.
--- NOTE | 2021-05-06 17:55 | PM.EVENT ---
Event Note Event Note: I was called on stat basis to evaluate the patient during his hemodialysis Patient was getting dialyzed today(1 hour down in his hemodialysis, 300 cc of fluids removed), then patient complaint of feeling hot while being on Linda hugger, nurse took him off BiPAP and tried to give him Tylenol, he was off BiPAP for about 5 minutes, he started becoming hypoxic on 10 L oxygen mask, his eyes started rolling back, he become bradycardic and unresponsive, he did not lose pulse, CPR was not started When I arrived patient was bradycardic heart rate in 50s, pulses intact, unresponsive with mild mottling noted at the chest anterior wall, however systolic blood pressure 110 mmHg, patient was intubated at the bedside right away As soon as we intubated him he started opening his eyes, he was biting tube and tried to move his arms Atropine 1 mg was pushed before intubation by Dr Brock, who was in the room when I arrived After intubation, pulse ox was showing 100% saturation, systolic blood pressure 113/67mmhg, heart rate fluctuated between 1 20-1 40s Plan Hypoxia leading to bradycardia and unresponsiveness Intubated at the bedside, Endotracheal tube size 8, secured at lip bite 25 cm which has been advanced to 27 cm after reviewing x-ray Post intubation hemodynamically stable, start fentanyl drip for sedation, heart rate 113, will obtain EKG on telemetry looks like SVT Will update Dr. 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
--- NOTE | 2021-05-06 18:14 | PC.NURSE ---
1744 hemodialysis in progress. pt. c/o headache. bipap off to mask at 6l became very anxious, took tylenol,mask back in place. heart rate bradyed down, pts eyes rolled back, help called for. [address]. martínez her, dr prescott arrived. intubated with 8.0 tube an og insertred
[2021-05-06 18:22] LABS: ABG PCO2 35.9 mmHg (35-45); ABG PH Result 7.31 (7.35-7.45); Arterial Blood Gas Hematocrit 26.9 % (42-52); Base Excess ABG -7.4 mmol/L (-2.0-2.0); Blood Gas Allen Test Pos; Blood Gas Operator Identificat BD; Blood Gas Sample Site Radial, right; Blood Gas Sample Type Arterial; Blood Gas Tidal Volume 0.45; Carboxyhemoglobin 0.1 %THgb (0.4-20.1); HCO3 ABG 18.1 mmol/L (22-26); HGB O2 Sat 97.4 % (95-100); Methemoglobin 0.8 % (0.4-1.5); Oxygen Device VENT; Oxygen Saturation ABG 98.2; Potassium Level - ABG 3.7 mmol/L (3.5-5.0); Total Hemoglobin 8.8 g/dL (14-18)
--- NOTE | 2021-05-06 18:28 | ECG_ITS ---
[facility] Test Date: 2021-05-06 Pat Name: Johnny Jo Department: Room: ICU10 Gender: Male Tapeman: : 1950 Requested By: Le Martines Order Number: [id number] Reading MD: LE SHEPARD Measurements Intervals [place] Rate: 110 P: 78 FL: 196 QRS: -83 QRSD: 84 T: 58 QT: 356 QTc: 482 Interpretive Statements SINUS TACHYCARDIA LOW QRS VOLTAGE IN PRECORDIAL LEADS [QRS DEFLECTION < 1.0 mV IN CHEST LEADS] POSSIBLE RIGHT VENTRICULAR CONDUCTION DELAY [RSR (QR) IN V1/V2] INFERIOR MYOCARDIAL INFARCTION, PROBABLY OLD ANTEROLATERAL MYOCARDIAL INFARCTION [40+ ms Q WAVE IN I/aVL/V3-V6], PROBABLY OLD Compared to ECG 05/04/2021 08:29:35 Low QRS voltage now present Ectopic atrial rhythm no longer present Ventricular premature complex(es) no longer present Left-axis deviation no longer present Incomplete right bundle-branch block no longer present Myocardial infarct finding still present Electronically Signed On 05-07-2021 23:34:52 CDT by LE SHEPARD [email or web address]
--- NOTE | 2021-05-06 18:30 | PC.NURSE ---
dialysis will resume tomorrow. was notifieed of episode, and is on her way from 1hr. out.
[2021-05-06 18:47] LABS: Basophils % 0.3 %; Eosinophils # 0.1 10^3/uL (0.0-0.8); Eosinophils % 0.6 %; Hematocrit 26.5 % (42.0-52.0); Hemoglobin 8.5 g/dL (11.7-16.6); Lymphocytes # 0.3 10^3/uL (0.8-4.8); Lymphocytes % 3.2 %; Mean Corpuscular HGB Conc 32.1 g/dL (30.0-36.0); Mean Corpuscular Hemoglobin 27.8 pg (28.0-34.0); Mean Corpuscular Volume 86.6 fL (80-94); Mean Platelet Volume 10.4 fL (7.4-10.4); Monocytes # 0.2 10^3/uL (0.2-0.9); Monocytes % 3.1 %; Neutrophils # 7.01 10^3/uL (1.8-7.7); Neutrophils % 90.6 %; Nucleated Red Blood Cells % 0.5 %; Platelet Count 82 10^3/cmm (130-400); Red Blood Count 3.06 10^6/uL (4.1-5.3); Red Cell Distribution Width 16.6 % (12.1-15.1); White Blood Count 7.7 10^3/uL (4.0-10.0)
[2021-05-06 18:53] LABS: Glucose Point of Care 100 mg/dL (70-110)
[2021-05-06 19:10] LABS: Anion Gap 18.9 (5-19); Blood Urea Nitrogen 43 mg/dL (8-23); Calcium 6.6 mg/dL (8.5-10.5); Carbon Dioxide 17 mmol/L (22-29); Chloride 107 mmol/L (98-107); Glomerular Filtration Rate 28.4 mL/min (90-130); Glucose 98 mg/dL (65-115); Osmolality Calculated 299 mOsm/kg (285-295); Potassium 3.9 mmol/L (3.5-5.1); Sodium 139 mmol/L (136-145)
--- NOTE | 2021-05-06 19:26 | PC.HD ---
appx 1 hour into treatment, PARISH VISITOR removed pt's bipap for med administration. He became extremely anxious with tachypneic guppy breathing, O2 mask applied per RN. Pt rapidly decompensated, lost consciousness, pulse decreased to 30's. Blood lines disconnected and cath flushed, machine moved out of the way of responders with blood recirculating. Dr Watters notified of situation. After pt was intubated and epi was given, pt was tachycardic and BP gradually decreased to 76/61, so blood returned to patient. Dr Watters awaiting ABG results to determine need to resume treatment. Once available, ABG results called to Dr Watters with instructions not to resume treatment tonite. Cath ports flushed and heparinized with caps secured.
[2021-05-06 19:32] LABS: Glucose Point of Care 83 mg/dL (70-110)
[2021-05-06 20:00] LABS: Troponin T (5th) Once 84 ng/L (0-15)
[2021-05-06 20:10] LABS: Hepatitis B Surface Antigen Non-Reactive (Nonreactive)
[2021-05-06] MEDS: carvedilol 12.5 mg Tablet PO ×2 (20:18→20:30)
[2021-05-06 21:40] LABS: Glucose Point of Care 82 mg/dL (70-110)
[2021-05-07] VITALS (72 sets, daily range): BP systolic 66–158; BP diastolic 41–89; PULSE 51–79; RESP 15–44; TEMP 36.1–36.8; O2SAT 96–100
[2021-05-07] MEDS: phenylephrine inj 25 MG in sodium chloride 0.9% 250 ML 24.24 MG IV ×2 (00:46→19:55)
[2021-05-07] MEDS: sodium chloride 0.9% 1,000 ML 50 ML IV (04:12)
[2021-05-07] MEDS: famotidine 20 mg/2 mL INJ IVP ×2 (04:12→16:13)
[2021-05-07 04:29] LABS: Basophils % 0.1 %; Eosinophils # 0.1 10^3/uL (0.0-0.8); Eosinophils % 0.8 %; Hematocrit 25.6 % (42.0-52.0); Hemoglobin 8.1 g/dL (11.7-16.6); Lymphocytes # 0.4 10^3/uL (0.8-4.8); Lymphocytes % 5.2 %; Mean Corpuscular HGB Conc 31.6 g/dL (30.0-36.0); Mean Corpuscular Hemoglobin 27.8 pg (28.0-34.0); Mean Platelet Volume 11.4 fL (7.4-10.4); Monocytes # 0.3 10^3/uL (0.2-0.9); Monocytes % 4.3 %; Neutrophils # 6.28 10^3/uL (1.8-7.7); Neutrophils % 87.5 %; Nucleated Red Blood Cells % 0.3 %; Platelet Count 101 10^3/cmm (130-400); Red Blood Count 2.91 10^6/uL (4.1-5.3); Red Cell Distribution Width 16.8 % (12.1-15.1); White Blood Count 7.2 10^3/uL (4.0-10.0)
[2021-05-07 04:46] LABS: Lactate (Lactic Acid level) 0.8 mmol/L (0.5-2.2)
[2021-05-07 04:52] LABS: Anion Gap 17.3 (5-19); Blood Urea Nitrogen 49 mg/dL (8-23); Calcium 6.7 mg/dL (8.5-10.5); Carbon Dioxide 17 mmol/L (22-29); Chloride 109 mmol/L (98-107); Glomerular Filtration Rate 22.6 mL/min (90-130); Glucose 76 mg/dL (65-115); Magnesium 1.5 mg/dL (1.7-2.3); Osmolality Calculated 300 mOsm/kg (285-295); Potassium 4.3 mmol/L (3.5-5.1); Sodium 139 mmol/L (136-145)
[2021-05-07 04:55] LABS: Procalcitonin 0.75 ng/mL (0-0.5)
[2021-05-07 05:06] LABS: ABG PH Result 7.34 (7.35-7.45); Arterial Blood Gas Hematocrit 30.1 % (42-52); Blood Gas Allen Test Pos; Blood Gas Sample Site Radial, right; Blood Gas Sample Type Arterial; Blood Gas Tidal Volume 0.45; HCO3 ABG 17.9 mmol/L (22-26); Oxygen Device VENT; PO2 ABG 78.9 mmHg (80.0-100.0)
--- NOTE | 2021-05-07 07:02 | PC.NURSE ---
Patient had an uneventful shift. Nil distress noted. Patient BP was low overnight, Spenser was started, BP came up, Spenser off. Other V/S stable. NPO status maintained. SCDs on. Remains on vent with peep 5 FiO2 30%, TV 450 and set rate 14, nil changes to vent settings. Bath given. Remains on Fent 25mcg Versed 3mg and N/S 50mls infusing. Report given to Ava ORTIZ.
[2021-05-07] MEDS: atorvastatin 40 mg Tablet 80 MG PO (09:04)
[2021-05-07] MEDS: magnesium oxide 400 mg tablet PO ×2 (09:05→14:19)
[2021-05-07] MEDS: aspirin 81 mg EC Tablet PO (09:05)
--- NOTE | 2021-05-07 09:49 | P.PN_ITS ---
Subjective Subjective: Interval history: Events of the last 24 hours in urine noted. During dialysis yesterday, his BiPAP was temporarily held so he could receive some oral medication at which time he became quite bradycardic, requiring intubation, ventilation and CPR. Today he is remarkably improved. He is off vasopressor agents. He is awake and close to being extubated. Urine output noted to be 275 mL only. Medications: Reviewed: Yes Vitals/I&O/Wt Last Vital Signs Temp 97.7 F 05/07/21 04:00 Pulse 68 05/07/21 06:00 Resp 18 05/07/21 09:10 BP 145/68 05/07/21 04:00 Pulse Ox 98 05/07/21 09:10 05/06/21 05/07/21 05/07/21 22:59 06:59 14:59 Intake Total 653.592 / 717.165 7690.244 / 1795.415 Output Total 658 / 658 530 / 1188 Balance -4.408 / 3.171 604.244 / 607.415 Weight last 48 hrs Weight 87.9 kg Physical Exam Narrative: EXAM NARRATIVE: Per RN report Constitutional: Intubated and vented HEENT: Wet mucosa, no jvp, non icteric Lungs: Bilaterally, wheezy in the bases CVS: S1 S2, no murmurs Abdo: Soft, BS ok Ext 4: Minimal edema, peripheral perfusion with no cyanosis Neurological: Grossly non-focal Data : 05/07/21 03:57 05/07/21 03:57 Micro: Microbiology 05/06/21 18:00 Gram Stain - Final Sputum - Endotracheal Tube Aspirate 05/01/21 21:05 Blood Culture - Final Blood NO GROWTH AFTER 5 DAYS A&P Additional A&P Information 1. Oliguric acute renal failure Consistent with septic associated ATN. Admission CT scan demonstrated bilateral hydronephrosis, however, this more consistent with reflux rather than true obstruction. Dialysis planned for today; UF 1-1.5L, 3K bath I will evaluate him tomorrow morning for additional dialysis needs. Avoid usual nephrotoxic agents Dose medications for GFR less than 15 2. Acidosis Due to bicarb wasting from ileostomy; dialysis will help 3. Septic shock. Consistent with urosepsis, E. coli found in the urine. Currently on combination antibiotic therapy with aztreonam and Zyvox. 4. Respiratory distress Secondary to sepsis, combination metabolic and respiratory acidosis. Intubated and vented, SBTs after dialysis today Exam and interview performed with aid of bedside RN using telemedicine Time spent 20 min inc > 50% of time in face to face counseling Salvador Watters MD [facility] [phone] Attestations Medical Necessity Statement*: Eval for renal failure Coding Level of Care Code Acute Respiratory Supervisor for Chg Fwd
--- NOTE | 2021-05-07 10:12 | PC.NURSE ---
Pain Assessment Patient is intubated and unable to report pain. When asked if he is in pain the patient shakes his head no from side to side.
--- NOTE | 2021-05-07 10:20 | PC.NURSE ---
Rounding Note Patient receiving hemodialysis at this time. Will continue to monitor.
--- NOTE | 2021-05-07 11:00 | PC.SOCIAL ---
IMM NOT GIVEN IMM update not given due to patient being intubated at this time and not d/c in the next 48 hours.
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
[2021-05-07 12:03] LABS: Glucose Point of Care 79 mg/dL (70-110)
[2021-05-07 12:03] LABS: Glucose Point of Care 76 mg/dL (70-110)
--- NOTE | 2021-05-07 13:23 | PC.NURSE ---
Patient still receiving hemodialysis. Patient resting in bed with eyes closed. Patient's at bedside. Will continue to monitor.
[2021-05-07] MEDS: bisacodyl 10 mg Supp PR (14:19)
[2021-05-07] MEDS: carvedilol 12.5 mg Tablet PO (14:19)
[2021-05-07 14:24] LABS: ABG PH Result 7.11 (7.35-7.45)
--- NOTE | 2021-05-07 15:27 | PC.NURSE ---
Restraints Patient restraints removed. Patient's at bedside to watch him. Patient restraint order still available incase it is needed at a later time. Will continue to monitor.
[2021-05-07] MEDS: dexmedetomidine 400 MCG in sodium chloride 0.9% (100 ml) 100 ML IV (17:07)
--- NOTE | 2021-05-07 17:20 | PC.NURSE ---
This nurse at bedside due to the patient removing his ventilation tube (tube removed at 16:30). Patient immediately had bipap applied by RT. Oxygen saturations are 100%. Patient in restraints and is fighting rest. Patient keeps trying to remove his mask by moving his face around and is trying to release his restraints. Patient is on a fentanyl and precedex drip. Doctor and charge nurse notified. Will continue to monitor.
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
--- NOTE | 2021-05-07 17:50 | PC.RESP ---
1630 pt self extubated, placed pt on bipap
[2021-05-07 18:04] LABS: Glucose Point of Care 70 mg/dL (70-110)
[2021-05-07] MEDS: haloperidol inj 5 mg/mL INJ 1 mL IM (18:33)
--- NOTE | 2021-05-07 19:27 | PC.HD ---
Arterial port gómez with some resistance, flushed well but would not run as arterial so lines reversed.
--- NOTE | 2021-05-07 19:34 | PC.HD ---
Catheter dressing with serousanguinous drainage noted, and site actively draining small amount. Pt had episodes of transient hypotension during treatment, resolved by turning off UF briefly. Treatment completed without other incidents.
--- NOTE | 2021-05-07 19:39 | PC.NURSE ---
Patient recieved with low BPs 80/50-70s/40s. Dr. Martines was called re patient's low BPs and order to restart Phenylephrine infusion. Patient on Bipap, nil distress noted. Remains stable.
--- NOTE | 2021-05-07 19:46 | PC.NURSE ---
Bisacodyl 10mg IN suppository held, patient having loose stools.
--- NOTE | 2021-05-07 19:47 | PC.NURSE ---
Carvedilol held, patient due to low BPs and HR 58bpm. Patient also NPO on Bipap as order.
[2021-05-08] VITALS (108 sets, daily range): BP systolic 73–166; BP diastolic 49–111; PULSE 47–69; RESP 17–45; TEMP 36–37.6; O2SAT 92–100
[2021-05-08] MEDS: dexmedetomidine 400 MCG in sodium chloride 0.9% (100 ml) 100 ML 16 MCG IV (01:07)
[2021-05-08] MEDS: famotidine 20 mg/2 mL INJ IVP ×2 (03:20→15:10)
[2021-05-08] MEDS: phenylephrine inj 25 MG in sodium chloride 0.9% 250 ML 24.24 MG IV (05:15)
--- NOTE | 2021-05-08 07:05 | PC.NURSE ---
Patient spent an uneventful shift last pm. Remains on Bipap with FiO2 40%. SB-SR on monitor.Remains on sedation Fent 25mcg, Precedex 0.5mcg. Phenylephrine 40mcg infusing via CVC line to Rt. groin. Neprostomy tube remains in place. Rt. Hemodialysis cath to Rt IJ remains in place. SCDs remains on. Restraints in place for patient's safety. Observation continues. Report given to Kay ORTIZ.
[2021-05-08 07:40] LABS: Glucose Point of Care 77 mg/dL (70-110)
[2021-05-08 08:04] LABS: Glucose Point of Care 79 mg/dL (70-110)
--- NOTE | 2021-05-08 08:21 | PC.NURSE ---
Patient left SCD currently removed. This morning this nurse was unable to obtain a blood pressure in either arm, so the blood pressure cuff was place on his lower left leg. Patient blood pressure was obtained and charted under vital signs. Blood pressure cuff will be removed and placed on right leg to ensure adequate perfusion with SCDs. Will continue to monitor.
--- NOTE | 2021-05-08 09:27 | PM.PN ---
Subjective Subjective: Interval history: Self extubated yesterday now on bipap. Remains on zayra at 40. Awake, interactive. Medications: Reviewed: Yes Vitals/I&O/Wt Last Vital Signs Temp 98.6 F 05/08/21 08:00 Pulse 58 L 05/08/21 09:05 Resp 17 05/08/21 08:00 BP 83/60 05/08/21 08:00 Pulse Ox 99 05/08/21 09:05 05/07/21 05/08/21 05/08/21 22:59 06:59 14:59 Intake Total 89.182 / 589.182 186.577 / 775.759 Output Total 350 / 2350 95 / 95 Balance -260.818 / -1760.818 186.577 / -1574.241 -95 / -95 Weight last 48 hrs Weight 85.5 kg Weight 87.9 kg Physical Exam Narrative: EXAM NARRATIVE: Constitutional: on bipap HEENT: Wet mucosa, no jvp, non icteric Lungs: Bilaterally, wheezy in the bases CVS: S1 S2, no murmurs Abdo: Soft, BS ok Ext 4: Minimal edema, peripheral perfusion with no cyanosis Neurological: Grossly non-focal Data : 05/07/21 03:57 05/07/21 03:57 Micro: Microbiology 05/01/21 21:05 Blood Culture - Final Blood Bacillus sp not b. anthracis 05/06/21 18:00 Gram Stain - Final Sputum - Endotracheal Tube Aspirate A&P Additional A&P Information 1. Oliguric acute renal failure Consistent with septic associated ATN. Admission CT scan demonstrated bilateral hydronephrosis, however, this more consistent with reflux rather than true obstruction. Repeat dialysis today, 1-2L, 3K,may need CRRT if he cannot tolerate UF although I don't believe he has a huge volume of fluid to remove at this time I will evaluate him tomorrow morning for additional dialysis needs. Avoid usual nephrotoxic agents Dose medications for GFR less than 15 2. Acidosis Due to bicarb wasting from ileostomy; dialysis likely to have hleped, labs pending for today. Of note his bicarb wasting will be less of an issues while he is oliguric 3. Septic shock. Consistent with urosepsis, E. coli found in the urine. Currently on combination antibiotic therapy with aztreonam and Zyvox. 4. Respiratory distress Secondary to sepsis, combination metabolic and respiratory acidosis. 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
[2021-05-08 09:30] LABS: Basophils % 0.1 %; Eosinophils % 0.1 %; Hematocrit 27.5 % (42.0-52.0); Hemoglobin 8.7 g/dL (11.7-16.6); Lymphocytes # 0.5 10^3/uL (0.8-4.8); Lymphocytes % 4.3 %; Mean Corpuscular HGB Conc 31.6 g/dL (30.0-36.0); Mean Corpuscular Hemoglobin 27.6 pg (28.0-34.0); Mean Corpuscular Volume 87.3 fL (80-94); Mean Platelet Volume 11.3 fL (7.4-10.4); Monocytes # 0.4 10^3/uL (0.2-0.9); Monocytes % 3.7 %; Neutrophils # 10.43 10^3/uL (1.8-7.7); Neutrophils % 89.9 %; Nucleated Red Blood Cells % 0 %; Platelet Count 146 10^3/cmm (130-400); Red Blood Count 3.15 10^6/uL (4.1-5.3); Red Cell Distribution Width 16.7 % (12.1-15.1); White Blood Count 11.6 10^3/uL (4.0-10.0)
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
--- NOTE | 2021-05-08 09:40 | PC.CHAP ---
Pastoral Care Encounter/Spiritual Assessment Type of Contact [] Declined hospital housekeeper visit [] Patient/Family/Request visit [] Outpatient visit [] Follow-up visit [] Physician referral [] Code/Alert [x] Routine visit [] Staff referral [] Actively dying [] Patient sleeping [] Family support [] [] Out of room [] Palliative care [] [] Receiving care in room [] Pre-surgical visit [] Trauma [] Long length of stay [x] ICU visit [x] Other: ventilator Relational/Emotional Strength [] Patient feels connected with others/family/visitors/staff [] Distress [] Loneliness/isolation [] Abandonment Spirituality of Patient [] Person of Jessica [] Attends Evangelical of their Jessica [] Believes in Prayer [] Reads Bible or Mu-Ism materials [] There are Spiritual issues to be addressed 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 Interventions [x] Prayer [] Active listening [] Non-anxious presence [] Spiritual/emotional support [] Crisis/trauma care [] Spiritual counseling [] Bereavement support [] Provided bereavement packet [] Provided Bible/devotional materials [] Provided toy/stuffed animal, coloring book to patient or family member [] Provided Communion [] Anointing/[place] [] Salvation [x] Completed spiritual assessment [] Other: Impact on Illness or Injury [] Angry [] Fearful [] Anxious [] Often cries [] Exhaustion [] Unable to work [] Unable to attend denominational [] Unable to walk/stand [] Unable to read [] Unable to drive [] Unable to eat/drink [] Unable to sleep [] Unable to be with family [] Patient intubated [] Other: Summary Time spent with patient
--- NOTE | 2021-05-08 09:48 | P.PN_ITS ---
Subjective Subjective: Interval history: The patient was seen and examined this morning. He self extubated yesterday. Currently he is on BiPAP. The patient appears to be awake alert and able to communicate. Remittent episodes of agitation requiring Haldol. Overnight was started on phenylephrine for hypotension. Medications: Reviewed: Yes Vitals/I&O/Wt Last Vital Signs Temp 98.6 F 05/08/21 08:00 Pulse 58 L 05/08/21 09:05 Resp 17 05/08/21 08:00 BP 83/60 05/08/21 08:00 Pulse Ox 99 05/08/21 09:05 05/07/21 05/08/21 05/08/21 22:59 06:59 14:59 Intake Total 89.182 / 589.182 186.577 / 775.759 Output Total 350 / 2350 95 / 95 Balance -260.818 / -1760.818 186.577 / -1574.241 -95 / -95 Weight last 48 hrs Weight 188 lb 7.924 oz Weight 193 lb 12.581 oz Physical Exam Narrative: EXAM NARRATIVE: General: Patient is awake alert and able to communicate. Neck: No JVD Respiratory: Auscultation: Reduced breath sound bilaterally, no crackles wheezing or rhonchi Cardiovascular: Regular rate and rhythm, S1-S2 present, distant heart sound Abdomen: Soft, nondistended, positive bowel sound Musculoskeletal: The patient is quadriplegia Skin: No rash Neuro: The patient is able to answer questions appropriately, he is able to move upper extremities somewhat Data : 05/08/21 09:07 05/07/21 03:57 Micro: Microbiology 05/01/21 21:05 Blood Culture - Final Blood Bacillus sp not b. anthracis 05/06/21 18:00 Gram Stain - Final Sputum - Endotracheal Tube Aspirate A&P Assessment and plan (1) Acute kidney injury superimposed on chronic kidney disease: This is a 70-year-old gentleman with acute worsening on chronic CKD. The worsening most likely secondary to acute pyelitis with E. coli. This had resulted in significant metabolic acidosis. The patient has COPD with severe airflow obstruction and was unable to compensate for the respiratory demand and ended up developing acute hypercapnic respiratory failure. The patient at that point was started on BiPAP however that could not prevent the impending respiratory failure. The patient self extubated yesterday. After that the patient was anxious and tachypneic and required BiPAP support. The patient seems to be doing better today. He will get dialysis today again. Status: Acute (2) Metabolic acidosis: Please see above Status: Acute (3) Acute hypercapnic respiratory failure: Currently the patient is on BiPAP. However, I believe we will be able to use BiPAP intermittently. Status: Acute (4) Acute respiratory failure with hypoxia: Status: Acute (5) COPD (chronic obstructive pulmonary disease): The patient has severe airflow obstruction and he is an active smoker. He follows up with my colleague as outpatient. We will start him on DuoNeb and Pulmicort nebulization [id number]. Status: Acute Qualifiers: COPD type: emphysema Emphysema type: centrilobular Qualified Code(s): J43.2 - Centrilobular emphysema (6) Sepsis: The patient has sepsis secondary to pyelitis with E. coli. He is on Levaquin. His blood cultures have been negative. There are episodes of hypotension. Going to start him on midodrine. Also going to start DVT prophylaxis. Status: Acute Qualifiers: Sepsis acute organ dysfunction status: with acute organ dysfunction Sepsis type: sepsis due to unspecified organism Severe sepsis acute organ dysfunction type: encephalopathy Severe sepsis shock status: without septic shock Qualified Code(s): A41.9 - Sepsis, unspecified organism; R65.20 - Severe sepsis without septic shock; G93.40 - Encephalopathy, unspecified (7) Acute pyelitis: See above Status: Acute (8) Hydronephrosis: The patient has chronic nonobstructive hydronephrosis. no surgical intervention is planned at this point. Status: Acute Qualifiers: Hydronephrosis type: other Qualified Code(s): N13.39 - Other hydronephrosis Attestations Medical Necessity Statement*: Will defer to the primary team Coding Level of Care Code Acute Shadowgraph Scale Operator for Lavonne Chaney Diagnoses Acute kidney injury superimposed on chronic kidney disease N17.9; N18.9 Metabolic acidosis E87.2 Acute hypercapnic respiratory failure J96.02 Acute respiratory failure with hypoxia J96.01 COPD (chronic obstructive pulmonary disease) J43.2 COPD type: emphysema Emphysema type: centrilobular Sepsis A41.9; R65.20; G93.40 Sepsis acute organ dysfunction status: with acute organ dysfunction Sepsis type: sepsis due to unspecified organism Severe sepsis acute organ dysfunction type: encephalopathy Severe sepsis shock status: without septic shock Acute pyelitis N10 Hydronephrosis N13.39 Hydronephrosis type: other Time Spent (min) 35
[2021-05-08 10:05] LABS: Alanine Aminotransferase 18 U/L (0-41); Albumin Level 2.5 g/dL (3.5-5.2); Alkaline Phosphatase 193 IU/L (40-130); Anion Gap 18.6 (5-19); Aspartate Amino Transferase 39 U/L (0-40); Blood Urea Nitrogen 39 mg/dL (8-23); Calcium 7.3 mg/dL (8.5-10.5); Carbon Dioxide 19 mmol/L (22-29); Chloride 103 mmol/L (98-107); Globulin 2.4 g/dL (1.3-4.6); Glomerular Filtration Rate 33.4 mL/min (90-130); Glucose 73 mg/dL (65-115); Magnesium 1.8 mg/dL (1.7-2.3); Osmolality Calculated 290 mOsm/kg (285-295); Phosphorus 5.9 mg/dL (2.5-4.5); Potassium 4.6 mmol/L (3.5-5.1); Sodium 136 mmol/L (136-145); Total Bilirubin 0.2 mg/dL (0.15-1.2); Total Protein 4.9 g/dL (6.6-8.7)
[2021-05-08] MEDS: enoxaparin 40 mg/0.4 mL Syringe SUBCUT (11:22)
[2021-05-08] MEDS: dexmedetomidine 400 MCG in sodium chloride 0.9% (100 ml) 100 ML IV (11:22)
[2021-05-08 11:51] LABS: Glucose Point of Care 76 mg/dL (70-110)
[2021-05-08] MEDS: phenylephrine inj 25 MG in sodium chloride 0.9% 250 ML 42.42 MG IV (14:03)
--- NOTE | 2021-05-08 14:40 | PC.NURSE ---
Wasted 31 ml of fentanyl with Soco Figueroa RN.
--- NOTE | 2021-05-08 15:00 | ECG_ITS ---
[facility] Test Date: 2021-05-08 Pat Name: Johnny Jo Department: Room: ICU10 Gender: Male Film Touch Up Inspector: : 1950 Requested By: Arsenio Singletary Order Number: [id number] Raoul MD: PARISH SHEPARD Measurements Intervals [place] Rate: 49 P: [place]: QRS: -22 QRSD: 94 T: 32 QT: 493 QTc: 447 Interpretive Statements SUPRAVENTRICULAR BRADYCARDIA INCOMPLETE RIGHT BUNDLE BRANCH BLOCK [90+ ms QRS DURATION, TERMINAL R IN V1/V2, 40+ ms S IN I/aVL/V4/V5/V6] ANTEROSEPTAL MYOCARDIAL INFARCTION [40+ ms Q WAVE IN V1-V4], PROBABLY OLD Compared to ECG 05/06/2021 18:31:12 Incomplete right bundle-branch block now present Sinus tachycardia no longer present Myocardial infarct finding still present Electronically Signed On 05-08-2021 22:31:54 CDT by PARISH SHEPARD [id number]
[2021-05-08] MEDS: fentaNYL 50 mcg/mL INJ 2mL 25 MCG IVP ×2 (15:10→22:38)
--- NOTE | 2021-05-08 15:18 | XRR_ITS ---
PROCEDURE INFORMATION: Exam: XR Chest Exam date and time: 05/08/2021 3:18 PM Age: 70 years old Clinical indication: Pain; Angina pectoris; Additional info: Chest pain TECHNIQUE: Imaging protocol: XR of the chest. Views: 1 view. COMPARISON: CR (CHEST, ) 05/06/2021 5:58 PM FINDINGS: Tubes, catheters and devices: Right central line terminates in the distal SVC. Mild cardiomegaly. Lungs: See Pleural spaces finding. Pleural spaces: Small volume right pleural effusion. The left lung base is not fully visualized due to positioning. No evident consolidation. Heart/Mediastinum: See Tubes, catheters and devices finding. Bones/joints: Unremarkable. XR/XR chest 1V portable [id number] IMPRESSION: 1. Small volume right pleural effusion. No evident consolidation. 2. Mild cardiomegaly.
[2021-05-08] MEDS: levofloxacin-dextrose 5 % 750 MG/150 ML PREMIX 100 MG IV (15:34)
[2021-05-08] MEDS: LORazepam 2 mg/mL INJ 1 mL IVP (15:34)
[2021-05-08 16:00] LABS: ABG PCO2 48.4 mmHg (35-45); ABG PH Result 7.32 (7.35-7.45); Alveolar-Arterial Oxygen Gradi 15.6 mmHg (5-10); Arterial Blood Gas Hematocrit 29.7 % (42-52); Base Excess ABG -1.3 mmol/L (-2.0-2.0); Blood Gas Allen Test Pos; Blood Gas Operator Identificat BD; Blood Gas Sample Site Radial, right; Blood Gas Sample Type Arterial; Blood Gas Tidal Volume 0.55; Carboxyhemoglobin 0.6 %THgb (0.4-20.1); HGB O2 Sat 93.1 % (95-100); Ionized Calcium Level - ABG 1.1 mmol/L (1.1-1.4); Methemoglobin 0.6 % (0.4-1.5); Oxygen Device BIPAP; Oxygen Saturation ABG 94.3; PO2 ABG 70.2 mmHg (80.0-100.0); Potassium Level - ABG 3.7 mmol/L (3.5-5.0); Total Hemoglobin 9.7 g/dL (14-18)
--- NOTE | 2021-05-08 16:21 | PC.NUTR ---
Nutrition folllow up: Notified Dr. Singletary of pt with no po intake X 4 days. If unable to consume oral diet within 1-3 days, recommend consideration of nutrition support if consistent with patient's plan of care. If TF appropriate and to be initiated, recommend Nepro starting at 10 ml/hr, increasing by 10 ml/hr q 6 hours to goal rate of 45 ml hr, with 180 ml H2O flushes q 4 hrs, to provide 1944 kcal, 87 g protein, and 1863 ml H2O. TF recommendations to be adjusted pending tolerance, labs, and other factors as needed. See full RD assessment for further details.
[2021-05-08 17:55] LABS: Glucose Point of Care 91 mg/dL (70-110)
--- NOTE | 2021-05-08 19:21 | PC.NURSE ---
[address] Perrin. Reviewed labs, vitals signs, and medications. Discussed plan of care. 1420 Clarified orders for fentanly drip. Orders to DC drip and give IVP PRN. 1455 HD nurse reported patient c/o chest pain. Vital signs obtained. Spoke to Dr. Singletary to report chest pain. Orders for EKG. 1510 Dr. Singletary at bedside orders for CXR and ABG. [address] Watters [address]45 Dr[address] Perrin at bedside. Reviewed vital signs and medications. US done at bedside per Dr. Perrin. Orders to give Haldol first for agitation followed by Zyprexa.
--- NOTE | 2021-05-08 19:31 | PC.NURSE ---
Shift Note Frequent safety and comfort rounds continue. Orders and/or nursing care completed as indicated. Patient monitored for response to intervention and treatment(s). Will continue to monitor.
[2021-05-08 21:12] LABS: Glucose Point of Care 86 mg/dL (70-110)
[2021-05-08] MEDS: ipratropium-albuterol 3 mL Neb INHALATION (21:17)
[2021-05-08] MEDS: budesonide 0.5 mg/2 mL Neb INHALATION (21:17)
[2021-05-08] MEDS: phenylephrine inj 25 MG in sodium chloride 0.9% 250 ML 36.36 MG IV (22:39)
[2021-05-09] VITALS (57 sets, daily range): BP systolic 61–139; BP diastolic 46–92; PULSE 40–97; RESP 16–36; TEMP 33.2–37.2; O2SAT 91–100
[2021-05-09] MEDS: dexmedetomidine 400 MCG in sodium chloride 0.9% (100 ml) 100 ML IV (00:13)
[2021-05-09] MEDS: haloperidol inj 5 mg/mL INJ 1 mL IM (00:36)
[2021-05-09] MEDS: famotidine 20 mg/2 mL INJ IVP ×2 (04:26→17:06)
--- NOTE | 2021-05-09 06:05 | PC.NURSE ---
shift summary patient has remained alert and oriented this shift. he is able to follow all commands on upper extremities, with mostly gross motor movement, and remains flaccid on the lower extremities. patient has been given a soft touch call light. patient remains increasingly more agitated throughout the night, constantly pulling bipap off. precedex gtt was started at a minimal rate of 0.1 and IM haldol was given. patient complained of mild pain this shift that was relieved by IV pain medicine. UOP was minimal with 150 out. Patient has remained sinus abdon throughout shift and BP remains stable with Spenser gtt. spenser has been titrated to 40 this morning. q2h turning has been implemented this shift with no new skin issues noted. patient has only slept a very minimal amount overnight.
--- NOTE | 2021-05-09 07:25 | P.PN_ITS ---
Subjective Subjective: Interval history: sob on bipap, on zayra, confused, weak Medications: Reviewed: Yes Medication Review Details: Current Medications Acetaminophen (Acetaminophen 325 Mg Tablet) 650 mg PO Q6H PRN PRN Reason: Mild/Mod Pain Or Temp >/= 101 Last Admin: 05/04/21 18:00 Dose: 650 mg Documented by: Albuterol Sulfate (Albuterol 2.5 Mg/0.5 Ml Neb) 2.5 mg INHALATION Q4H PRN PRN Reason: SHORTNESS OF BREATH Last Admin: 05/04/21 03:20 Dose: 2.5 mg Documented by: Albuterol/Ipratropium (Ipratropium-Albuterol 3 Ml Neb) 3 ml INHALATION Q6H PRN PRN Reason: SHORTNESS OF BREATH Last Admin: 05/08/21 21:17 Dose: 3 ml Documented by: Aspirin (Aspirin 81 Mg Ec Tablet) 81 mg PO DAILY@0800 [facility] Last Admin: 05/08/21 10:02 Dose: Not Given Documented by: Atorvastatin Calcium (Atorvastatin 40 Mg Tablet) 80 mg PO DAILY@08 [facility] Last Admin: 05/08/21 10:02 Dose: Not Given Documented by: Bisacodyl (Bisacodyl 10 Mg Supp) 10 mg IA BID@ [facility] Last Admin: 05/08/21 21:25 Dose: Not Given Documented by: Budesonide (Budesonide 0.5 Mg/2 Ml Neb) 0.5 mg INHALATION BID.RESPIRATORY [facility] Last Admin: 05/08/21 21:17 Dose: 0.5 mg Documented by: Carvedilol (Carvedilol 12.5 Mg Tablet) 12.5 mg PO BID@ [facility] Last Admin: 05/08/21 08:42 Dose: Not Given Documented by: Dextrose (Dextrose 50% Syringe 50 Ml) 25 ml IVP ONCE PRN; Protocol PRN Reason: hypoglycemia protocol Dextrose (Dextrose 50% Syringe 50 Ml) 50 ml IVP PRN PRN; Protocol PRN Reason: hypoglycemia protocol Enoxaparin Sodium (Enoxaparin 40 Mg/0.4 Ml Syringe) 40 mg SUBCUT Q24H [facility] Last Admin: 05/08/21 11:22 Dose: 40 mg Documented by: Famotidine (Famotidine 20 Mg/2 Ml Inj) 20 mg IVP Q12H [facility] Last Admin: 05/09/21 04:26 Dose: 20 mg Documented by: Fentanyl (Fentanyl 50 Mcg/Ml Inj 2ml) 25 mcg IVP Q2H PRN PRN Reason: SEVERE PAIN Last Admin: 05/08/21 22:38 Dose: 25 mcg Documented by: Glucagon (Glucagon 1 Mg/Ml Inj 1 Ml) 1 mg IM ONCE PRN; Protocol PRN Reason: Adult Acute Hypoglycemia Prot. Haloperidol Lactate (Haloperidol Inj 5 Mg/Ml Inj 1 Ml) 5 mg IM ONCE PRN PRN Reason: AGITATION Last Admin: 05/09/21 00:36 Dose: 5 mg Documented by: Dextrose (D5w) 500 mls @ 100 mls/hr IV ONCE PRN; Protocol PRN Reason: Adult Acute Hypoglycemia Prot Levofloxacin/Dextrose (Levaquin-D5w) 750 mg in 150 mls @ 100 mls/hr IV Q48H [facility]; Protocol Last Infusion: 05/08/21 17:05 Dose: Infused Documented by: Dexmedetomidine HCl 400 mcg/ (Sodium Chloride) 104 mls @ 0 mls/hr IV .Q0M BRII; Protocol Last Admin: 05/09/21 00:13 Dose: 0.2 mcg/kg/hr, 4.57 mls/hr Documented by: Phenylephrine HCl 25 mg/ (Sodium Chloride) 252.5 mls @ 0 mls/hr IV .Q0M BRII; Protocol Last Titration: 05/09/21 06:48 Dose: 50 mcg/min, 30.3 mls/hr Documented by: Insulin Aspart (Insulin Aspart 100 Unit/1 Ml) 0 unit SUBCUT WM&BEDTIME [facility]; Protocol Last Admin: 05/08/21 21:26 Dose: Not Given Documented by: Magnesium Oxide (Magnesium Oxide 400 Mg Tablet) 400 mg PO BID [facility] Last Admin: 05/08/21 17:48 Dose: Not Given Documented by: Methylprednisolone Sodium Succinate (Methylprednisolone Sod Succ 40 Mg/Ml Inj) 40 mg IVP DAILY [facility] Last Admin: 05/08/21 15:10 Dose: 40 mg Documented by: Midodrine (Midodrine 5 Mg Tablet) 10 mg PO TID [facility] Last Admin: 05/08/21 21:26 Dose: Not Given Documented by: Olanzapine (Olanzapine 10 Mg Vial) 5 mg IM ONCE PRN PRN Reason: AGITATION Ondansetron HCl (Ondansetron 2 Mg/Ml Sdv 2 Ml) 4 mg IVP Q8H PRN PRN Reason: vomiting, or N/V if npo Vitals/I&O/Wt Last Vital Signs Temp 97.8 F 05/09/21 03:30 Pulse 45 L 05/09/21 06:30 Resp 27 H 05/09/21 04:15 BP 91/53 05/09/21 04:15 Pulse Ox 100 05/09/21 06:30 05/08/21 05/09/21 05/09/21 22:59 06:59 14:59 Intake Total 702.50 / 959.473 210.686 / 1170.159 Output Total 1351 / 1496 150 / 1646 Balance -648.50 / -536.527 60.686 / -475.841 Weight last 48 hrs Weight 83.6 kg Weight 85.5 kg Physical Exam Narrative: EXAM NARRATIVE: zayra@ 40, rt sided nephtostomy tube, bipap, bradycardic, hypotensive heent- nc/at, eomi, anicteric neck supple lung -dull bases, poor air movement heart- reg bradycardic, no rub abd -soft, nt, nd, +BS, +ileostomy ext- 1-2+ edema neuro- responds Data : 05/08/21 09:07 05/08/21 09:07 Micro: Microbiology 05/04/21 06:06 Blood Culture - Final Blood NO GROWTH AFTER 5 DAYS 05/06/21 18:00 Gram Stain - Final Sputum - Endotracheal Tube Aspirate Sputum Culture - Preliminary Yeast species A&P Additional A&P Information 1. Oliguric acute renal failure working dx is septic associated ATN. Admission CT scan demonstrated bilateral hydronephrosis, however, this more consistent with reflux rather than true obstruction. Repeat dialysis today SUF only 1L QB 250, -ay need CRRT if he cannot tolerate UF although I don't believe he has a huge volume of fluid to remove at this time I will evaluate him tomorrow morning for additional dialysis needs. Avoid usual nephrotoxic agents Dose medications for GFR less than 15 2. Acidosis -currently resp acidosis -bipap 3. Septic shock. Consistent with urosepsis, E. coli found in the urine. Currently on combination antibiotic therapy with aztreonam and Zyvox. 4. Respiratory distress -per pulm Exam and interview performed with aid of bedside RN using telemedicine Time spent 30 min inc > 50% of time in face to face counseling Attestations 2 Medical Necessity Statement*: sepsis, ion, acidosis- per pulm/ medicine Time Spent in Patient Care: 16 - 35 minutes Coding Level of Care Code Acute Scientific Photographer for Lavonne Chaney
[2021-05-09 08:10] LABS: Glucose Point of Care 105 mg/dL (70-110)
[2021-05-09] MEDS: budesonide 0.5 mg/2 mL Neb INHALATION ×2 (08:48→21:07)
[2021-05-09] MEDS: ipratropium-albuterol 3 mL Neb INHALATION ×3 (08:48→21:07)
[2021-05-09] MEDS: magnesium oxide 400 mg tablet PO (08:53)
[2021-05-09] MEDS: aspirin 81 mg EC Tablet PO (08:54)
[2021-05-09] MEDS: midodrine 5 mg TABLET 10 MG PO ×2 (08:54→14:19)
[2021-05-09] MEDS: bisacodyl 10 mg Supp PR ×2 (08:54→19:52)
[2021-05-09] MEDS: atorvastatin 40 mg Tablet 80 MG PO (08:54)
[2021-05-09] MEDS: acetaminophen 325 mg Tablet 650 MG PO (09:12)
--- NOTE | 2021-05-09 09:49 | PC.CHAP ---
Pastoral Care Encounter/Spiritual Assessment Type of Contact [] Declined diamond blender visit [] Patient/Family/Request visit [] Outpatient visit [] Follow-up visit [] Physician referral [] Code/Alert [x] Routine visit [] Staff referral [] Actively dying [] Patient sleeping [] Family support [] [] Out of room [] Palliative care [] [x] Receiving care in room [] Pre-surgical visit [] Trauma [] Long length of stay [x] ICU visit x] Other: oxygen Relational/Emotional Strength [] Patient feels connected with others/family/visitors/staff [] Distress [] Loneliness/isolation [] Abandonment Spirituality of Patient [] Person of Jessica [] Attends Nondenominational of their Jessica [] Believes in Prayer [] Reads Bible or Shinto materials [] There are Spiritual issues to be addressed Ct Technician Interventions [x] Prayer [] Active listening [] Non-anxious presence [] Spiritual/emotional support [] Crisis/trauma care [] Spiritual counseling [] Bereavement support [] Provided bereavement packet [] Provided Bible/devotional materials [] Provided toy/stuffed animal, coloring book to patient or family member [] Provided Communion [] Anointing/[place] [] Salvation [x] Completed spiritual assessment [] Other: Impact on Illness or Injury [] Angry [] Fearful [] Anxious [] Often cries [] Exhaustion [] Unable to work [] Unable to attend baptism [] Unable to walk/stand [] Unable to read [] Unable to drive [] Unable to eat/drink [] Unable to sleep [] Unable to be with family [] Patient intubated [] Other: Summary Time spent with patient
--- NOTE | 2021-05-09 10:28 | PM.PN ---
Subjective Subjective: Interval history: The patient was seen and examined this morning. He was resting comfortably. Appears sleepy. Yesterday evening, the patient complained of chest pain while undergoing dialysis. He was tachypneic. Eventually a chest x-ray was done which did not reveal any new abnormalities. An arterial blood gas did not reveal any evidence of hypercapnia or significant hypoxia. The patient had been doing well overall. However, he has required BiPAP since he had self extubated more than 36 hours ago. Medications: Reviewed: Yes Vitals/I&O/Wt Last Vital Signs Temp 97.8 F 05/09/21 07:54 Pulse 44 L 05/09/21 08:49 Resp 17 05/09/21 08:49 BP 119/63 05/09/21 07:54 Pulse Ox 99 05/09/21 08:49 05/08/21 05/09/21 05/09/21 22:59 06:59 14:59 Intake Total 702.50 / 959.473 210.686 / 1170.159 Output Total 1351 / 1496 150 / 1646 Balance -648.50 / -536.527 60.686 / -475.841 Weight last 48 hrs Weight 184 lb 4.903 oz Weight 188 lb 7.924 oz Physical Exam Narrative: EXAM NARRATIVE: General: Patient is sleeping on BiPAP Neck: No JVD Respiratory: Auscultation: Reduced breath sound bilaterally, no crackles wheezing or rhonchi Cardiovascular: Regular rate and rhythm, S1-S2 present, distant heart sound Abdomen: Soft, nondistended, positive bowel sound Musculoskeletal: The patient is quadriplegia Skin: No rash Neuro: The patient is able to answer questions appropriately, he is able to move upper extremities somewhat Data : 05/08/21 09:07 05/08/21 09:07 Micro: Microbiology 05/04/21 06:06 Blood Culture - Final Blood NO GROWTH AFTER 5 DAYS 05/06/21 18:00 Gram Stain - Final Sputum - Endotracheal Tube Aspirate Sputum Culture - Preliminary Yeast species Attestation for Other Data: I personally reviewed and interpreted the following: Other data: I have reviewed his laboratory, microbiologic and radiologic data. A&P Assessment and plan (1) Acute kidney injury superimposed on chronic kidney disease: This is a 70-year-old gentleman with acute worsening on chronic CKD. The worsening most likely secondary to acute pyelitis with E. coli. This had resulted in significant metabolic acidosis. The patient has COPD with severe airflow obstruction and was unable to compensate for the respiratory demand and ended up developing acute hypercapnic respiratory failure. The patient at that point was started on BiPAP however that could not prevent the impending respiratory failure. The patient self extubated 05/07. After that the patient was anxious and tachypneic and required BiPAP support. The anxiety and tachypnea is contributing significantly to the patient's compromised respiratory status. I am going to start him on Seroquel today. Hopefully this will help. Status: Acute (2) Metabolic acidosis: The patient has undergone 2 sessions of dialysis. No significant metabolic acidosis at this time. Status: Acute (3) Acute hypercapnic respiratory failure: Currently the patient is on BiPAP. I am hoping that I will be able to at least get him off of BiPAP intermittently today. Status: Acute (4) Acute respiratory failure with hypoxia: There is no significant worsening of the hypoxia when the patient had a blood gas yesterday evening. Status: Acute (5) COPD (chronic obstructive pulmonary disease): The patient has severe airflow obstruction and he is an active smoker. He is receiving Pulmicort and DuoNeb nebulization as well as 40 mg of Solu-Medrol daily. We will continue the steroid therapy for 5 days. Status: Acute Qualifiers: COPD type: emphysema Emphysema type: centrilobular Qualified Code(s): J43.2 - Centrilobular emphysema (6) Sepsis: The patient has sepsis secondary to pyelitis with E. coli. He is on Levaquin. His blood cultures have been negative. There are episodes of hypotension. Now he is on midodrine. He will be on Levaquin 750 mg every 48 hours. Also going to start DVT prophylaxis. Status: Acute Qualifiers: Sepsis acute organ dysfunction status: with acute organ dysfunction Sepsis type: sepsis due to unspecified organism Severe sepsis acute organ dysfunction type: encephalopathy Severe sepsis shock status: without septic shock Qualified Code(s): A41.9 - Sepsis, unspecified organism; R65.20 - Severe sepsis without septic shock; G93.40 - Encephalopathy, unspecified (7) Acute pyelitis: See above Status: Acute (8) Hydronephrosis: The patient has chronic nonobstructive hydronephrosis. no surgical intervention is planned at this point. Status: Acute Qualifiers: Hydronephrosis type: other Qualified Code(s): N13.39 - Other hydronephrosis Additional A&P Information I am hoping that his respiratory status will improve and he would not require BiPAP at all times and hopefully then we can transfer him to the floor. Attestations Medical Necessity Statement*: Will defer to the primary team Coding Level of Care Code Acute Etcher [employer]ed [employer] Boards for g Fwd Diagnoses Acute kidney injury superimposed on chronic kidney disease N17.9; N18.9 Metabolic acidosis E87.2 Acute hypercapnic respiratory failure J96.02 Acute respiratory failure with hypoxia J96.01 COPD (chronic obstructive pulmonary disease) J43.2 COPD type: emphysema Emphysema type: centrilobular Sepsis A41.9; R65.20; G93.40 Sepsis acute organ dysfunction status: with acute organ dysfunction Sepsis type: sepsis due to unspecified organism Severe sepsis acute organ dysfunction type: encephalopathy Severe sepsis shock status: without septic shock Acute pyelitis N10 Hydronephrosis N13.39 Hydronephrosis type: other Time Spent (min) 33
--- NOTE | 2021-05-09 10:57 | PC.NURSE ---
Report received, assessment completed as charted. Pt AAOx4, remains bradycardic aware. Dialysis orders, awaiting dialysis nurse to initiate. No other issues noted. Nephrostomy tube in place draining to BSD. BIPAP in place. Repositioned Q2h and PRN. Will monitor.
[2021-05-09] MEDS: enoxaparin 40 mg/0.4 mL Syringe SUBCUT (11:16)
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
[2021-05-09] MEDS: albumin 12.5 GM/50 ML VIAL IV (13:00)
[2021-05-09] MEDS: phenylephrine inj 25 MG in sodium chloride 0.9% 250 ML 54.54 MG IV (13:13)
--- NOTE | 2021-05-09 13:16 | PC.NURSE ---
Pt was getting dialysis, became hypotensive. Spenser increased per protocol. increasingly hypotensive, albumin infused per dialysis nurse and spenser increased once again. Dialysis stopped per orders. BP slowly improving. aware, Labs ordered. Will monitor.
--- NOTE | 2021-05-09 13:44 | PC.SOCIAL ---
IMM UPDATE Infection Control Manager gave patient IMM update. Left him a copy of pg 2 of IMM. Initialed, dated, timed and placed in chart.
[2021-05-09 14:37] LABS: Free T4 Free Thyroxine 1.04 ng/dL (0.82-1.77); T3 Free 1.2 PG/ML (2.0-4.4)
--- NOTE | 2021-05-09 15:03 | USCV_ITS ---
Johnny Jo Age: 70 Gender: M : 1950 Exam Date: 05/09/2021 15:32 Ordering Phys: Gregory Perrin MD Technologist: Martina Lyons [place] [facility] [place] PT HAVING BREATHING DIFFICULITIES HISTORY: Sudden onset of breathing difficulities PROCEDURES: The venous duplex Doppler examination of both lower extremities was performed in the standard fashion. The following venous structures were evaluated: common femoral vein, profunda vein, proximal portion of the greater saphenous vein, superficial femoral vein, and the popliteal vein. In addition, the posterior tibial and peroneal trunk were evaluated. Serial compression, augmentation maneuvers, and spectral Doppler flow evaluation were performed. FINDINGS: Normal 2-D Doppler and augmentation and compressibility throughout the lower extremity venous structures. Additional imaging through the proximal calf veins also reveals no thrombus. Limited evaluation of the greater saphenous vein is patent with no thrombus. CONCLUSIONS No DVT bilateral lower extremities. Dr. Soco Whitfield DO (Electronically Signed) Final Date: 09 May 2021 16:18 S
[2021-05-09 15:31] LABS: Basophils % 0.2 %; Eosinophils % 0.1 %; Hematocrit 32.6 % (42.0-52.0); Hemoglobin 9.9 g/dL (11.7-16.6); Lymphocytes # 0.6 10^3/uL (0.8-4.8); Lymphocytes % 4.4 %; Mean Corpuscular HGB Conc 30.4 g/dL (30.0-36.0); Mean Corpuscular Hemoglobin 27.3 pg (28.0-34.0); Mean Corpuscular Volume 89.8 fL (80-94); Mean Platelet Volume 11.6 fL (7.4-10.4); Monocytes # 0.2 10^3/uL (0.2-0.9); Monocytes % 1.9 %; Neutrophils # 11.15 10^3/uL (1.8-7.7); Neutrophils % 90.2 %; Nucleated Red Blood Cells # 0.1 /100WBC; Nucleated Red Blood Cells % 0.6 %; Platelet Count 229 10^3/cmm (130-400); Red Blood Count 3.63 10^6/uL (4.1-5.3); Red Cell Distribution Width 16.2 % (12.1-15.1); White Blood Count 12.4 10^3/uL (4.0-10.0)
[2021-05-09 15:48] LABS: Lactate (Lactic Acid level) 0.7 mmol/L (0.5-2.2)
[2021-05-09 15:52] LABS: Alanine Aminotransferase 19 U/L (0-41); Alkaline Phosphatase 168 IU/L (40-130); Anion Gap 19.7 (5-19); Aspartate Amino Transferase 52 U/L (0-40); Blood Urea Nitrogen 34 mg/dL (8-23); Calcium 7.6 mg/dL (8.5-10.5); Carbon Dioxide 18 mmol/L (22-29); Chloride 102 mmol/L (98-107); Globulin 2.5 g/dL (1.3-4.6); Glomerular Filtration Rate 37.7 mL/min (90-130); Glucose 111 mg/dL (65-115); Osmolality Calculated 288 mOsm/kg (285-295); Potassium 4.7 mmol/L (3.5-5.1); Sodium 135 mmol/L (136-145); Total Bilirubin 0.4 mg/dL (0.15-1.2); Total Protein 5.5 g/dL (6.6-8.7)
--- NOTE | 2021-05-09 16:12 | ECG_ITS ---
[facility] Test Date: 2021-05-09 Pat Name: Johnny Jo Department: Room: ICU10 Gender: Male Scow Captain: : 1950 Requested By: Kloudco Marychuy Order Number: [id number] Raoul MD: Janis Cuevas M.D. Measurements Intervals [place] Rate: 98 P: 81 KS: 205 QRS: -78 QRSD: 98 T: 60 QT: 350 QTc: 448 Interpretive Statements SINUS RHYTHM LOW QRS VOLTAGE IN PRECORDIAL LEADS [QRS DEFLECTION < 1.0 mV IN CHEST LEADS] POSSIBLE RIGHT VENTRICULAR CONDUCTION DELAY [RSR (QR) IN V1/V2] LEFT ANTERIOR FASCICULAR BLOCK [QRS AXIS <= -45, QR IN I, RS IN II] ANTEROSEPTAL MYOCARDIAL INFARCTION [40+ ms Q WAVE IN V1-V4], OF INDETERMINATE AGE Compared to ECG 05/08/2021 15:06:19 Low QRS voltage now present Left anterior fascicular block now present Incomplete right bundle-branch block no longer present Myocardial infarct finding still present Electronically Signed On 05-09-2021 20:22:56 CDT by Janis Cuevas M.D. [id number]
[2021-05-09 17:07] LABS: Glucose Point of Care 133 mg/dL (70-110)
--- NOTE | 2021-05-09 17:26 | PC.NURSE ---
Titrated spenser down while adjusting levophed to desired effect. Spenser off by 1600, levo at mcg/min. Arrhythmia noted earlier,labs and EKG ordered. Difficulty obtaining oral or axillary temp. Rectal temp obtained, MD aware. Linda beverly ordered and applied. Various meds and labs ordered per MD. Pt alert and oriented but becoming increasingly unable to follow directions appropriately. Will monitor.
[2021-05-09 17:51] LABS: Troponin(5th) Baseline 100 ng/L (0-15)
[2021-05-09 18:23] LABS: Troponin 5 2HR 97.02 ng/L (0-15)
[2021-05-09 18:31] LABS: Troponin 5 2HR Delta -2.98 ABS# (0-10)
--- NOTE | 2021-05-09 18:31 | ECG_ITS ---
[facility] Test Date: 2021-05-09 Pat Name: Johnny Jo Department: Room: ICU10 Gender: Male Order Manager: : 1950 Requested By: [employer] Marychuy Order Number: [id number] Raoul MD: Tushar Muller M.D. Measurements Intervals [place] Rate: 72 P: 83 KS: 209 QRS: -86 QRSD: 95 T: 77 QT: 414 QTc: 455 Interpretive Statements SINUS RHYTHM MARKED LEFT AXIS DEVIATION [QRS AXIS < -30] POSSIBLE RIGHT VENTRICULAR CONDUCTION DELAY [RSR (QR) IN V1/V2] ANTEROSEPTAL MYOCARDIAL INFARCTION [40+ ms Q WAVE IN V1-V4], PROBABLY RECENT ACUTE CA Compared to ECG 05/09/2021 16:18:20 Left-axis deviation now present Left anterior fascicular block no longer present Myocardial infarct finding still present Electronically Signed On 05-10-2021 10:11:10 CDT by Tushar Muller M.D. [email or web address]/store/OM/[id number]
[2021-05-09] MEDS: hydrocortisone 100 mg/2 mL SDV 50 MG IVP (19:52)
[2021-05-09 20:29] LABS: Glucose Point of Care 201 mg/dL (70-110)
[2021-05-09] MEDS: sodium bicarbonate 650 mg Tablet PO (20:43)
[2021-05-09 21:23] LABS: Glucose Point of Care 90 mg/dL (70-110)
[2021-05-10] VITALS (76 sets, daily range): BP systolic 71–175; BP diastolic 42–111; PULSE 53–80; RESP 17–37; TEMP 35.2–36.5; O2SAT 74–100
[2021-05-10] MEDS: hydrocortisone 100 mg/2 mL SDV 50 MG IVP ×4 (00:36→20:03)
[2021-05-10] MEDS: famotidine 20 mg/2 mL INJ IVP ×2 (05:42→16:00)
--- NOTE | 2021-05-10 06:20 | PC.NURSE ---
Admit Note Patient admitted to [] from [] via []. Covering service notified. Patient presents with []. Orders reviewed & will continue to monitor. Patient oriented to environment, equipment, and informed of the following as found in the admission booklet: patient rights & responsibilities, visitor policy, hand and respiratory hygiene practice. Other education includes: [Oxygen saftey]. Patient had no c/o through shift]
[2021-05-10 06:58] LABS: Basophils % 0.1 %; Hematocrit 24.6 % (42.0-52.0); Hemoglobin 7.8 g/dL (11.7-16.6); Lymphocytes # 0.4 10^3/uL (0.8-4.8); Lymphocytes % 3.3 %; Mean Corpuscular HGB Conc 31.7 g/dL (30.0-36.0); Mean Corpuscular Hemoglobin 27.5 pg (28.0-34.0); Mean Corpuscular Volume 86.6 fL (80-94); Mean Platelet Volume 11.8 fL (7.4-10.4); Monocytes # 0.7 10^3/uL (0.2-0.9); Neutrophils # 10.31 10^3/uL (1.8-7.7); Neutrophils % 89.3 %; Nucleated Red Blood Cells % 0.3 %; Platelet Count 131 10^3/cmm (130-400); Red Blood Count 2.84 10^6/uL (4.1-5.3); Red Cell Distribution Width 16.1 % (12.1-15.1); White Blood Count 11.5 10^3/uL (4.0-10.0)
--- NOTE | 2021-05-10 07:06 | PC.NURSE ---
Shift Note Frequent safety and comfort rounds continue. Orders and/or nursing care completed as indicated. Patient monitored for response to intervention and treatment(s). Education provided includes[oxygen saftyey]. Patient had no c/o through shift. Will continue to monitor.
--- NOTE | 2021-05-10 07:06 | P.PN_ITS ---
Subjective Subjective: Interval history: more awake, on 2 pressers, bipap. sob, swollen, weak Medications: Reviewed: Yes Medication Review Details: Current Medications Acetaminophen (Acetaminophen 325 Mg Tablet) 650 mg PO Q6H PRN PRN Reason: Mild/Mod Pain Or Temp >/= 101 Last Admin: 05/09/21 09:12 Dose: 650 mg Documented by: Albuterol Sulfate (Albuterol 2.5 Mg/0.5 Ml Neb) 2.5 mg INHALATION Q4H PRN PRN Reason: SHORTNESS OF BREATH Last Admin: 05/04/21 03:20 Dose: 2.5 mg Documented by: Albuterol/Ipratropium (Ipratropium-Albuterol 3 Ml Neb) 3 ml INHALATION Q6H PRN PRN Reason: SHORTNESS OF BREATH Last Admin: 05/09/21 21:07 Dose: 3 ml Documented by: Alprazolam (Alprazolam 0.5 Mg Tablet) 0.25 mg PO TID PRN PRN Reason: AIR HUNGER Aspirin (Aspirin 81 Mg Ec Tablet) 81 mg PO DAILY@0800 [facility] Last Admin: 05/09/21 08:54 Dose: 81 mg Documented by: Atorvastatin Calcium (Atorvastatin 40 Mg Tablet) 80 mg PO DAILY@0800 [facility] Last Admin: 05/09/21 08:54 Dose: 80 mg Documented by: Bisacodyl (Bisacodyl 10 Mg Supp) 10 mg [place] BID@ [facility] Last Admin: 05/09/21 19:52 Dose: 10 mg Documented by: Budesonide (Budesonide 0.5 Mg/2 Ml Neb) 0.5 mg INHALATION BID.RESPIRATORY [facility] Last Admin: 05/09/21 21:07 Dose: 0.5 mg Documented by: Carvedilol (Carvedilol 12.5 Mg Tablet) 12.5 mg PO BID@ [facility] Last Admin: 05/08/21 08:42 Dose: Not Given Documented by: Dextrose (Dextrose 50% Syringe 50 Ml) 25 ml IVP ONCE PRN; Protocol PRN Reason: hypoglycemia protocol Dextrose (Dextrose 50% Syringe 50 Ml) 50 ml IVP PRN PRN; Protocol PRN Reason: hypoglycemia protocol Enoxaparin Sodium (Enoxaparin 40 Mg/0.4 Ml Syringe) 40 mg SUBCUT Q24H [facility] Last Admin: 05/09/21 11:16 Dose: 40 mg Documented by: Famotidine (Famotidine 20 Mg/2 Ml Inj) 20 mg IVP Q12H [facility] Last Admin: 05/10/21 05:42 Dose: 20 mg Documented by: Fentanyl (Fentanyl 50 Mcg/Ml Inj 2ml) 25 mcg IVP Q2H PRN PRN Reason: SEVERE PAIN Last Admin: 05/08/21 22:38 Dose: 25 mcg Documented by: Glucagon (Glucagon 1 Mg/Ml Inj 1 Ml) 1 mg IM ONCE PRN; Protocol PRN Reason: Adult Acute Hypoglycemia Prot. Haloperidol Lactate (Haloperidol Inj 5 Mg/Ml Inj 1 Ml) 5 mg IM ONCE PRN PRN Reason: AGITATION Last Admin: 05/09/21 00:36 Dose: 5 mg Documented by: Hydrocortisone Sodium Succinate (Hydrocortisone 100 Mg/2 Ml Sdv) 50 mg IVP Q6H [facility] Last Admin: 05/10/21 06:18 Dose: 50 mg Documented by: Dextrose (D5w) 500 mls @ 100 mls/hr IV ONCE PRN; Protocol PRN Reason: Adult Acute Hypoglycemia Prot Albumin Human (Albumin) 12.5 gm in 50 mls @ 60 mls/hr IV PRN PRN PRN Reason: Hypotension and/or symptomatic Last Infusion: 05/09/21 13:22 Dose: Infused Documented by: Norepinephrine Bitartrate 4 mg (/ Dextrose) 254 mls @ 0 mls/hr IV .Q0M [facility]; Protocol Last Admin: 05/09/21 23:42 Dose: 12 mcg/min, 45.72 mls/hr Documented by: Imipenem/Cilastatin Sodium 500 (mg/ Sodium Chloride) 100 mls @ 200 mls/hr IV Q12H [facility]; Protocol Last Admin: 05/10/21 05:42 Dose: 200 mls/hr Documented by: Caspofungin 50 mg/ Sodium (Chloride) 250 mls @ 250 mls/hr IV Q24H [facility] Vasopressin 100 unit/ Sodium (Chloride) 100 mls @ 0 mls/hr IV .Q0M [facility]; Protocol Vasopressin 40 unit/ Sodium (Chloride) 40 mls @ 0.03 mls/min IV CONT [facility] Last Infusion: 05/09/21 21:26 Dose: 0.03 mls/min Documented by: Insulin Aspart (Insulin Aspart 100 Unit/1 Ml) 0 unit SUBCUT WM&BEDTIME [facility]; Protocol Last Admin: 05/09/21 20:43 Dose: 1 unit Documented by: Magnesium Oxide (Magnesium Oxide 400 Mg Tablet) 400 mg PO BID [facility] Last Admin: 05/09/21 17:57 Dose: Not Given Documented by: Olanzapine (Olanzapine 10 Mg Vial) 5 mg IM ONCE PRN PRN Reason: AGITATION Ondansetron HCl (Ondansetron 2 Mg/Ml Sdv 2 Ml) 4 mg IVP Q8H PRN PRN Reason: vomiting, or N/V if npo Sodium Bicarbonate (Sodium Bicarbonate 650 Mg Tablet) 650 mg PO TID [facility] Last Admin: 05/09/21 20:43 Dose: 650 mg Documented by: Vitals/I&O/Wt Last Vital Signs Temp 91.7 F L 05/09/21 16:30 Pulse 68 05/10/21 06:21 Resp 33 H 05/10/21 06:00 BP 100/70 05/10/21 06:00 Pulse Ox 100 05/10/21 06:21 05/09/21 05/10/21 05/10/21 22:59 06:59 14:59 Intake Total 798.072 / 1338.203 Output Total 50 / 1276 Balance 748.072 / 62.203 Weight last 48 hrs Weight 85.2 kg Weight 83.6 kg Physical Exam Narrative: EXAM NARRATIVE: levo@ 4, vasoprrein on bipap tachypneic rt sided nephtostomy tube heent- nc/at, eomi, anicteric neck supple lung -dull bases and b/l wheezes heart- reg +s1, s2, no rub abd -soft, nt, nd, +BS, +ileostomy ext- 1-2+ edema neuro- responds Data : 05/10/21 06:05 05/09/21 15:15 Micro: Microbiology 05/09/21 17:39 Blood Culture - Preliminary Blood SPECIMEN COLLECTED 05/09/21 17:23 Blood Culture - Preliminary Blood SPECIMEN COLLECTED 05/06/21 18:00 Gram Stain - Final Sputum - Endotracheal Tube Aspirate Sputum Culture - Preliminary Yeast species 05/04/21 12:20 Blood Culture - Final Blood NO GROWTH AFTER 5 DAYS 05/04/21 06:06 Blood Culture - Final Blood NO GROWTH AFTER 5 DAYS A&P Additional A&P Information 1. Oliguric acute renal failure working dx is septic associated ATN. Admission CT scan demonstrated bilateral hydronephrosis, however, this more consistent with reflux rather than true obstruction. -BP dropped on HD yesterday -pt on 2 pressers -if needs dialysis, would recommend CRRT. Avoid usual nephrotoxic agents Dose medications for GFR less than 15 2. Acidosis - resp acidosis yesterday -bipap 3. Septic shock. - E. coli found in the urine. -yeast in sputum -blood bacillus -renal dose abx and anti-fungals 4. Respiratory distress -per pulm discussed marilu w/ Dr. Perrin Exam and interview performed with aid of bedside RN using telemedicine Time spent 30 min inc > 50% of time in face to face counseling Attestations Medical Necessity Statement*: septic shock, ion, bipap dependent Time Spent in Patient Care: 16 - 35 minutes Coding Level of Care Code Acute Optical Store Manager for Lavonne Chaney
[2021-05-10 07:11] LABS: Alanine Aminotransferase 15 U/L (0-41); Albumin Level 2.7 g/dL (3.5-5.2); Anion Gap 21.2 (5-19); Aspartate Amino Transferase 24 U/L (0-40); Blood Urea Nitrogen 40 mg/dL (8-23); Calcium 7.6 mg/dL (8.5-10.5); Carbon Dioxide 19 mmol/L (22-29); Chloride 99 mmol/L (98-107); Glomerular Filtration Rate 29.9 mL/min (90-130); Glucose 132 mg/dL (65-115); Osmolality Calculated 292 mOsm/kg (285-295); Phosphorus 5.4 mg/dL (2.5-4.5); Potassium 4.2 mmol/L (3.5-5.1); Sodium 135 mmol/L (136-145); Total Bilirubin 0.2 mg/dL (0.15-1.2); Total Protein 4.8 g/dL (6.6-8.7)
[2021-05-10 07:12] LABS: Alkaline Phosphatase 152 IU/L (40-130); Globulin 2.1 g/dL (1.3-4.6)
[2021-05-10 07:19] LABS: Calcium 7.4 mg/dL (8.5-10.5)
[2021-05-10 07:20] LABS: Parathyroid Hormone 193.9 pg/mL (15-65)
[2021-05-10 07:52] LABS: Specific Gravity, Urine 1.015 (1.005-1.030); Urine Appearance Hazy (CLEAR); Urine Color Yellow (Yellow); pH Urine 6.5 (5-7)
[2021-05-10 07:53] LABS: Add Urine Microscopic? YES; Bilirubin Urine Neg (Negative); Blood Urine 2+ (Negative); Glucose Urine UA Norm (Normal); Ketones Urine 1+ (Negative); Leukocyte Esterase Urine 1+ (Negative); Nitrate Urine Negative (Negative); Protein Urine 3+ (Negative); Urobilinogen Urine Norm (Negative)
[2021-05-10 07:55] LABS: Add Urine Culture? Yes; Bacteria Urine 1+ /hpf; Squamous Epithelial Cell Urine RARE /hpf (0-5); WBC Urine 0-4 /hpf (0-5)
[2021-05-10 08:08] LABS: Glucose Point of Care 145 mg/dL (70-110)
[2021-05-10 08:16] LABS: T4 Total 3.8 mcg/dL (4.9-10.5)
[2021-05-10] MEDS: sodium bicarbonate 650 mg Tablet PO ×3 (08:30→20:04)
[2021-05-10] MEDS: magnesium oxide 400 mg tablet PO ×2 (08:30→17:51)
[2021-05-10] MEDS: aspirin 81 mg EC Tablet PO (08:30)
[2021-05-10] MEDS: bisacodyl 10 mg Supp PR ×2 (08:31→20:04)
[2021-05-10] MEDS: budesonide 0.5 mg/2 mL Neb INHALATION ×2 (09:13→21:35)
[2021-05-10] MEDS: ALPRAZolam 0.5 mg Tablet 0.25 MG PO ×2 (09:23→20:04)
--- NOTE | 2021-05-10 09:44 | PC.CHAP ---
Pastoral Care Encounter/Spiritual Assessment Type of Contact [] Declined merchandising intern visit [] Patient/Family/Request visit [] Outpatient visit [] Follow-up visit [] Physician referral [] Code/Alert [x] Routine visit [] Staff referral [] Actively dying [] Patient sleeping [] Family support [] [] Out of room [] Palliative care [] [] Receiving care in room [] Pre-surgical visit [] Trauma [] Long length of stay [x] ICU visit [] Other: Relational/Emotional Strength [] Patient feels connected with others/family/visitors/staff [] Distress [] Loneliness/isolation [] Abandonment Spirituality of Patient [] Person of Jessica [] Attends [facility] of their Jessica [] Believes in Prayer [] Reads Bible or Evangelical materials [] There are Spiritual issues to be addressed Maid Housekeeper Interventions [x] Prayer [] Active listening [] Non-anxious presence [] Spiritual/emotional support [] Crisis/trauma care [] Spiritual counseling [] Bereavement support [] Provided bereavement packet [] Provided Bible/devotional materials [] Provided toy/stuffed animal, coloring book to patient or family member [] Provided Communion [] Anointing/[place] [] Salvation [x] Completed spiritual assessment [] Other: Impact on Illness or Injury [] Angry [] Fearful [] Anxious [] Often cries [] Exhaustion [] Unable to work [] Unable to attend baptist [] Unable to walk/stand [] Unable to read [] Unable to drive [] Unable to eat/drink [] Unable to sleep [] Unable to be with family [] Patient intubated [] Other: Summary Time spent with patient
[2021-05-10] MEDS: enoxaparin 40 mg/0.4 mL Syringe SUBCUT (09:47)
--- NOTE | 2021-05-10 10:24 | PM.PN ---
Subjective Subjective: Interval history: The patient was seen and examined this morning. I had also evaluate him yesterday evening. After his dialysis started yesterday, the patient became hypotensive and the dialysis was stopped. Unfortunately, the patient continued to be hypotensive eventually requiring 20 mcg of Levophed. At that point, the patient was started on vasopressin as well as stress dose hydrocortisone. At this time, the patient was also hypothermic with a temperature of 91 ?F. His cardiac work-up did not reveal any sign of ischemia. Bacterial and fungal blood cultures were sent. His antibiotic was switched to imipenem and caspofungin was added. His urine culture on this admission showed E. coli which was pansensitive. However, he is urine culture from November 2020 grew Pseudomonas which was resistant to Carbapenem, aminoglycoside. His endotracheal aspirate culture from May [address] scan of his abdomen has revealed bilateral hydronephrosis and air in the urinary collecting system likely secondary to transfer of gas from the gut because of the ileal conduit. This morning, the patient is still on BiPAP. He complains of shortness of breath and appears lethargic. Medications: Reviewed: Yes Vitals/I&O/Wt Last Vital Signs Temp 91.7 F L 05/09/21 16:30 Pulse 71 05/10/21 09:20 Resp 29 H 05/10/21 09:10 BP 113/74 05/10/21 08:00 Pulse Ox 94 05/10/21 09:17 05/09/21 05/10/21 05/10/21 22:59 06:59 14:59 Intake Total 798.072 / 1338.203 354 / 354 Output Total 50 / 1276 Balance 748.072 / 62.203 354 / 354 Weight last 48 hrs Weight 187 lb 13.341 oz Weight 184 lb 4.903 oz Physical Exam Narrative: EXAM NARRATIVE: General: Patient tired hent on BiPAP Neck: No JVD Respiratory: Auscultation: Reduced breath sound bilaterally, no crackles wheezing or rhonchi Cardiovascular: Regular rate and rhythm, S1-S2 present, distant heart sound Abdomen: Soft, nondistended, positive bowel sound Musculoskeletal: The patient is quadriplegic Skin: No rash Neuro: Patient is still able to answer questions, he is able to move upper extremities somewhat Data : 05/10/21 06:05 05/10/21 06:05 Micro: Microbiology 05/09/21 17:39 Blood Culture - Preliminary Blood SPECIMEN COLLECTED 05/09/21 17:23 Blood Culture - Preliminary Blood SPECIMEN COLLECTED 05/06/21 18:00 Gram Stain - Final Sputum - Endotracheal Tube Aspirate Sputum Culture - Preliminary Yeast species 05/04/21 12:20 Blood Culture - Final Blood NO GROWTH AFTER 5 DAYS 05/04/21 06:06 Blood Culture - Final Blood NO GROWTH AFTER 5 DAYS Attestation for Other Data: I personally reviewed and interpreted the following: Other data: I have reviewed his laboratory, microbiologic and radiologic data A&P Assessment and plan (1) Septic shock: The patient is currently being treated for septic shock. The source of the infection is likely urinary. However, it is unclear why the patient would develop shock all of a sudden after being treated with the appropriate antibiotic for the pansensitive E. coli. It is possible, that the patient has developed fungemia which would not be unusual in the setting of ileal conduit. At this point, I will continue with the empiric antibiotic and antifungal coverage. The patient is on Levophed and vasopressin and stress dose steroid. The map goal is 65. Status: Acute (2) Acute kidney injury superimposed on chronic kidney disease: The patient has acute worsening on chronic CKD. He has stable oliguric renal failure. The worsening most likely secondary to acute pyelitis with E. coli. The patient self extubated 05/07. After that the patient was anxious and tachypneic and required BiPAP support. At this point, I think the patient will benefit from CRRT as any degree of worsening metabolic acidosis or volume overload will likely result in intubation. Currently the patient is barely hanging on with the BiPAP. Status: Acute (3) Metabolic acidosis: The nephrology team is following the patient. He will be started on CRRT today. Status: Acute (4) Acute hypercapnic respiratory failure: Currently the patient is on BiPAP. There is no evidence of hypercapnia at this point. Status: Acute (5) COPD (chronic obstructive pulmonary disease): The patient has severe airflow obstruction and he is an active smoker. We will continue with DuoNeb and Pulmicort nebulization. He is on stress dose steroid. Status: Acute Qualifiers: COPD type: emphysema Emphysema type: centrilobular Qualified Code(s): J43.2 - Centrilobular emphysema (6) Acute pyelitis: His antibiotic coverage has been broadened. He is also on antifungal at this point. We have repeated the blood culture and urine culture. Status: Acute (7) Hydronephrosis: The patient has chronic nonobstructive hydronephrosis. no surgical intervention is planned at this point. Status: Acute Qualifiers: Hydronephrosis type: other Qualified Code(s): N13.39 - Other hydronephrosis Additional A&P Information The patient has gotten worse since yesterday. Hopefully he will pull-through. Attestations Medical Necessity Statement*: Will defer to the primary team Coding Level of Care Code Acute Supervisor Paste Mix[employer] for [facility] Fwd Diagnoses Septic shock A41.9; R65.21 Acute kidney injury superimposed on chronic kidney disease N17.9; N18.9 Metabolic acidosis E87.2 Acute hypercapnic respiratory failure J96.02 COPD (chronic obstructive pulmonary disease) J43.2 COPD type: emphysema Emphysema type: centrilobular Acute pyelitis N10 Hydronephrosis N13.39 Hydronephrosis type: other Time Spent (min) 37
[2021-05-10 10:56] LABS: Glucose Point of Care 143 mg/dL (70-110)
[2021-05-10 11:10] LABS: Basophils % 0.1 %; Hematocrit 25.4 % (42.0-52.0); Hemoglobin 8.1 g/dL (11.7-16.6); Lymphocytes # 0.3 10^3/uL (0.8-4.8); Mean Corpuscular HGB Conc 31.9 g/dL (30.0-36.0); Mean Corpuscular Hemoglobin 27.6 pg (28.0-34.0); Mean Corpuscular Volume 86.4 fL (80-94); Mean Platelet Volume 11.4 fL (7.4-10.4); Monocytes # 0.5 10^3/uL (0.2-0.9); Monocytes % 4.7 %; Neutrophils # 10.23 10^3/uL (1.8-7.7); Neutrophils % 90.9 %; Nucleated Red Blood Cells % 0.3 %; Platelet Count 133 10^3/cmm (130-400); Red Blood Count 2.94 10^6/uL (4.1-5.3); Red Cell Distribution Width 16.1 % (12.1-15.1); White Blood Count 11.3 10^3/uL (4.0-10.0)
--- NOTE | 2021-05-10 11:24 | PC.NURSE ---
0700 Report received. Pt assessment completed. No c/o pain or SOB at this time. Bipap in place, levo and vasopressin infusing per orders. Warming blanket in place. Temp normalized at 98.0. PT c/o being hot. rohan hugger removed. for now. Pt in bilateral wrist restraints d/t pulling bipap off. Repositioned q2h and PRN. Incont of bowel. VSS at this time. Will monitor
[2021-05-10 11:25] LABS: Partial Thromboplastin Time 36.4 SECONDS (23.9-36.7)
[2021-05-10 11:44] LABS: Albumin Level 2.8 g/dL (3.5-5.2); Anion Gap 19.2 (5-19); Blood Urea Nitrogen 39 mg/dL (8-23); Calcium 7.6 mg/dL (8.5-10.5); Carbon Dioxide 20 mmol/L (22-29); Chloride 101 mmol/L (98-107); Glomerular Filtration Rate 28.4 mL/min (90-130); Glucose 129 mg/dL (65-115); Magnesium 2.1 mg/dL (1.7-2.3); Phosphorus 5.3 mg/dL (2.5-4.5); Potassium 4.2 mmol/L (3.5-5.1); Sodium 136 mmol/L (136-145)
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
--- NOTE | 2021-05-10 12:23 | PC.NURSE ---
Switched patient from bipap to NC to eat. Pt in high fowlers position for meal. Pt ate well, no s/s of aspiration, but O2 sat and BP decreased. R femoral line in place and that is where pressors are infusing. Pt lowered to semi fowlers position after eating to see if angle of elevation was causing decrease in infusion of pressors. Bipap replaced per RT, levo increased to 10mcg/min. at bedside. Will monitor.
[2021-05-10 12:28] LABS: INR 1.13 (0.8-1.2)
--- NOTE | 2021-05-10 13:01 | PC.NURSE ---
Report given to Margo ORTIZ. Education provided to r/t CRRT, consent signed. BP stabilized. O2 sat stable. Dr. Perrin aware of condition.
[2021-05-10] MEDS: ipratropium-albuterol 3 mL Neb INHALATION (14:13)
[2021-05-10 15:23] LABS: Partial Thromboplastin Time 47.1 SECONDS (23.9-36.7)
[2021-05-10] MEDS: PrismaSol BGK 4/2.5 - 5,000 mL Bag 5000 ML CRRT ×3 (15:37→15:39)
[2021-05-10] MEDS: sodium chloride 0.9% 1,000 mL Bag CRRT ×2 (15:40→16:29)
--- NOTE | 2021-05-10 17:15 | PC.NURSE ---
CRRT: Dr Gilmore called to clarify CRRT orders. CRRT then started.
[2021-05-10 17:38] LABS: Anion Gap 19.2 (5-19); Blood Urea Nitrogen 40 mg/dL (8-23); Calcium 7.5 mg/dL (8.5-10.5); Carbon Dioxide 20 mmol/L (22-29); Chloride 101 mmol/L (98-107); Glomerular Filtration Rate 29.9 mL/min (90-130); Glucose 157 mg/dL (65-115); Magnesium 2.1 mg/dL (1.7-2.3); Phosphorus 5.5 mg/dL (2.5-4.5); Potassium 4.2 mmol/L (3.5-5.1); Sodium 136 mmol/L (136-145)
--- NOTE | 2021-05-10 17:38 | PC.NURSE ---
CRRT: Heparin 20ml (1000units/ml) syringe now installed.
--- NOTE | 2021-05-10 19:27 | PC.NURSE ---
Addendum entered by Margo Dickinson RN 05/10/21 19:36: Frequent safety and comfort rounds continue. Orders and/or nursing care completed as indicated. Patient monitored for response to intervention and treatment(s). Education provided includes Levophed, CRRT. Patient and/or representative personal service verbalized understanding. Will continue to monitor. Original Note: Shift summary: Pt rested in bed this shift. His has been in to visit, Dr Perrin updated her. Pt hypotensive this am, He is on vasopressin at 0.03ml/hr, rate non-titratable. Levophed was up to 10mcg/hr, now off. Pt started on CRRT, he is not tolerating blood f low rate of 200ml/hr, pump keeps alarming, now at 100ml/hr. It its being tolerated. Urine output of 450ml. Pt has urinary divergence appliance. Discharge in bag looks similar to yeast. Pt had used heated high flow today his O2 sats decreased, he has been on Bipap at 40% since. Bradycardia noted o m onitor at end of shift. Pt normotensive. Pt has had bradycardia previously.
--- NOTE | 2021-05-10 19:30 | PC.NURSE ---
Shift Note Frequent safety and comfort rounds continue. Orders and/or nursing care completed as indicated. Patient monitored for response to intervention and treatment(s). Education provided includes CRRT, call light, q2 hour turning, and wearing Bi-pap. Patient and/or floor representative understands and denies any further questions or concerns at this time. Will continue to monitor. Pt is rest in bed watching tv. Respirations are even and unlabored. No s/sx of distress noted. Pt is currently on CRRT and bi-pap. Pt denies any pains at this time. Pt is having difficulty wearing bi-pap due to the straps being too tight. Attempted to loosen straps but unable to so due to moderate leak around mask. Pt stated he understood and will try to tolerate bi-pap as much as possible. Pt denies any further concerns at this time. It is noted that pt's abd is distended and tender to palpation in upper and lower left quadrants. The distension is moderate in nature. Active bowel sounds x's 4 quadrants. When reading the last couple progress notes there is not distension or tenderness noted. Notified hospitalist contact acid plant operator helper. Waiting for response at this time. Bed in lowest and locked position, call light within reach, x's 2 rails up. Will continue to monitor pt.
[2021-05-10 19:59] LABS: Glucose Point of Care 151 mg/dL (70-110)
[2021-05-10 20:06] LABS: Partial Thromboplastin Time 60.5 SECONDS (23.9-36.7)
[2021-05-10 23:12] LABS: Partial Thromboplastin Time 192.8 SECONDS (23.9-36.7)
--- NOTE | 2021-05-10 23:32 | XRR_ITS ---
PROCEDURE INFORMATION: Exam: XR Abdomen Exam date and time: 05/10/2021 11:32 PM Age: 70 years old Clinical indication: Other: Distension; Prior surgery; Additional info: Abd distention TECHNIQUE: Imaging protocol: XR of the abdomen. Views: Frontal supine view of the abdomen. 1 View. COMPARISON: CT chest abd pel w con* 05/01/2021 10:38 PM FINDINGS: Tubes, catheters and devices: A right femoral venous catheter is placed, its tip near the L5 level. Joint space narrowing, sclerosis and bone spurring is seen within the right acetabulum compatible with osteoarthritis. Gastrointestinal tract: There is prominent gaseous distension of the stomach. Multiple loops of large and small bowel appear gas-filled. Bones/joints: There is absence of the left femoral head neck. XR/XR KUB portable [id number] IMPRESSION: There is gaseous distension of the stomach and multiple nondistended gas-filled loops of small and large bowel are seen. A diffuse ileus cannot be excluded.
[2021-05-11] VITALS (46 sets, daily range): BP systolic 66–167; BP diastolic 39–100; PULSE 43–141; RESP 7–54; TEMP 34.1–36.4; O2SAT 46–100; BMI 26.6
--- NOTE | 2021-05-11 00:10 | PC.NURSE ---
23:50- Hospitalist replied to my message about my concerns about pt's abd being distended and tender. X-ray of the abd was ordered. Hospitalist was asked to come to bedside due to x-ray findings. Hospitalist ordered NG to relieve pressure off abd. As the hospitalist entered the room to assess the pt the pt's HR dropped down into the 30's then into asystole. A code blue was then called. Refer to Code Blue sheet. Pt is now intubated and sedated. Before being sedated pt was alert and oriented and able to answer yes and no questions by shaking his head. I explained to the pt that he was doing good and that we were about to give him medication to help him rest. Pt shook his head yes that he understood. at bed side. Dr. Martines stated that the can stay at bedside for the rest of the night due to pt's condition. Pt's denies any further questions or concerns at this time. Bed in lowest and locked position, call light within reach, x's 2 rails up. Will continue to monitor pt. Dr. Rogers was notified that pt coded. Dr. Rogers stated to continue CRRT and call with AM labs.
--- NOTE | 2021-05-11 00:22 | ECG_ITS ---
[facility] Test Date: 2021-05-11 Pat Name: Johnny Jo Department: Room: ICU10 Gender: Male [employer]: JEMAL CERDA: 1950 Requested By: Le Martines Order Number: [id number] Reading MD: Janis Cuevas M.D. Measurements Intervals [place] Rate: 83 P: -87 RI: 142 QRS: 208 QRSD: 86 T: 92 QT: 346 QTc: 408 Interpretive Statements SINUS RHYTHM POSSIBLE RIGHT VENTRICULAR HYPERTROPHY [SOME/ALL OF: PROMINENT R IN V1, LATE TRANSITION, RAD, SRIDEVI, SSS] ANTEROLATERAL MYOCARDIAL INFARCTION [40+ ms Q WAVE IN I/aVL/V3-V6], OF INDETERMINATE AGE Compared to ECG 05/09/2021 19:47:43 Left-axis deviation no longer present Myocardial infarct finding still present Electronically Signed On 05-11-2021 16:41:30 CDT by Janis Cuevas M.D. [email or web address]
--- NOTE | 2021-05-11 00:32 | P.EN_ITS ---
Event Note Event Note: I was called to evaluate abdominal distention. Stat KUB was requested which showed massive gastric distention with ileus, just after we took KUB and patient was turned in his bed, he became hypotensive and bradycardic I was at the bedside, he had weak femoral pulse CRRT turned off One dose of 1 mg of atropine was given, heart rate dropped down down and went into pulseless PEA, CPR was started, MELISSA BLUE announced, he was intubated by Dr. Moya at the bedside, As soon as we removed his BiPAP mask, patient vomited large volume of gastric content for about 200 mL, it was suctioned, endotracheal tube size 8 was placed with use of galeidoscope, ACLS, code ran for about 15 minutes, we were able to achieve ROSC at the end In total he received four doses of epi, 3 A of bicarb one dose of calcium gluconate Roughly after three rounds of CPR, patient went into pulseless V. tach, wide QRS complex rhythm noted, he was shocked, he converted to atrial fibrillation, received 150 mg of amiodarone for persistent RVR in 150s, at that time he had a strong pulse, he converted to normal sinus rhythm within few minutes afterwards Heart rate 97, map 67-75, O2 saturation 85 to 89% on ventilator, vent settings FiO2 100% PEEP eight, tidal volume 450, respiratory rate 16 EKG showing A. fib however his nuclear monitoring technician is showing good T waves heart rate 80-87 Currently on vasopressin and levo CRRT to be started by Dr. Gilmore who was updated Chest x-ray showing right-sided aspiration pneumonitis, currently on broad- spectrum antibiotic ABG showing respiratory acidosis, lactic 3.8 updated Before starting sedatives patient was able to open his eyes and move his extremities bilaterally,
[2021-05-11 00:40] LABS: Basophils % 0.1 %; Eosinophils % 0.1 %; Hemoglobin 7.5 g/dL (11.7-16.6); Lymphocytes # 2.7 10^3/uL (0.8-4.8); Lymphocytes % 15.7 %; Mean Corpuscular HGB Conc 31.3 g/dL (30.0-36.0); Mean Corpuscular Hemoglobin 27.5 pg (28.0-34.0); Mean Corpuscular Volume 87.9 fL (80-94); Mean Platelet Volume 11.7 fL (7.4-10.4); Monocytes # 1.7 10^3/uL (0.2-0.9); Monocytes % 10.2 %; Neutrophils # 12.25 10^3/uL (1.8-7.7); Neutrophils % 71.4 %; Nucleated Red Blood Cells # 0.2 /100WBC; Nucleated Red Blood Cells % 1.1 %; Platelet Count 98 10^3/cmm (130-400); Red Blood Count 2.73 10^6/uL (4.1-5.3); Red Cell Distribution Width 16.3 % (12.1-15.1); White Blood Count 17.1 10^3/uL (4.0-10.0)
[2021-05-11 00:42] LABS: ABG PCO2 55.1 mmHg (35-45); ABG PH Result 7.24 (7.35-7.45); Base Excess ABG -3.6 mmol/L (-2.0-2.0); Blood Gas Allen Test Pos; Blood Gas Sample Type Arterial; Carboxyhemoglobin 0.5 %THgb (0.4-20.1); HCO3 ABG 23.8 mmol/L (22-26); HGB O2 Sat 98.4 % (95-100); Ionized Calcium Level - ABG 1.3 mmol/L (1.1-1.4); Methemoglobin 1.2 % (0.4-1.5); Potassium Level - ABG 3.1 mmol/L (3.5-5.0); Total Hemoglobin 8.5 g/dL (14-18)
--- NOTE | 2021-05-11 00:43 | XRR_ITS ---
PROCEDURE INFORMATION: Exam: XR Chest Exam date and time: 05/11/2021 12:43 AM Age: 70 years old Clinical indication: Device placement; Ett placement (vent status); Patient HX: Check for et and og placement S/P code blue TECHNIQUE: Imaging protocol: XR of the chest. Views: 1 view. COMPARISON: CR XR chest 1V portable [id number] 05/08/2021 3:28 PM FINDINGS: Tubes, catheters and devices: An orogastric tube is placed with its tip at least in the proximal stomach. An endotracheal tube is placed with its tip approximately 5.8 cm from the dominick. A right internal jugular vein central venous line is placed with its tip at the level of the superior vena cava. EKG leads overlie the chest. Transcutaneous pacemaker leads overlie the chest. Lungs: There are indistinct pulmonary vascular markings and bilateral predominately perihilar interstitial opacities present suggesting pulmonary edema. Pleural spaces: Unremarkable. No pleural effusion. No pneumothorax. Heart/Mediastinum: Unremarkable. No cardiomegaly. Bones/joints: Unremarkable. XR/XR chest 1V portable [id number] IMPRESSION: 1. Endotracheal tube tip 5.8 cm from the dominick. 2. Orogastric tube tip at least in proximal stomach. 3. Right internal jugular vein central venous line placed with tip the level of the superior vena cava. 4. Findings suggesting pulmonary edema.
[2021-05-11 00:44] LABS: Alveolar-Arterial Oxygen Gradi 32.9 mmHg (5-10); Blood Gas Sample Site Radial, right; Blood Gas Tidal Volume 0.45; Oxygen Device VENT
[2021-05-11 00:48] LABS: INR 1.12 (0.8-1.2)
[2021-05-11 00:52] LABS: Alanine Aminotransferase 12 U/L (0-41); Albumin Level 2.6 g/dL (3.5-5.2); Alkaline Phosphatase 139 IU/L (40-130); Anion Gap 14.8 (5-19); Aspartate Amino Transferase 20 U/L (0-40); Blood Urea Nitrogen 28 mg/dL (8-23); Calcium 8.7 mg/dL (8.5-10.5); Carbon Dioxide 25 mmol/L (22-29); Chloride 107 mmol/L (98-107); Globulin 2.1 g/dL (1.3-4.6); Glomerular Filtration Rate 40.3 mL/min (90-130); Glucose 115 mg/dL (65-115); Lactate (Lactic Acid level) 3.8 mmol/L (0.5-2.2); Magnesium 2.2 mg/dL (1.7-2.3); Osmolality Calculated 300 mOsm/kg (285-295); Phosphorus 4.3 mg/dL (2.5-4.5); Potassium 4.8 mmol/L (3.5-5.1); Sodium 142 mmol/L (136-145); Total Bilirubin 0.2 mg/dL (0.15-1.2); Total Protein 4.7 g/dL (6.6-8.7)
[2021-05-11 00:57] LABS: Partial Thromboplastin Time 106.2 SECONDS (23.9-36.7)
[2021-05-11 01:01] LABS: Creatinine Clr Calc Pharmacy 45.8118
[2021-05-11] MEDS: hydrocortisone 100 mg/2 mL SDV 50 MG IVP ×4 (01:44→19:42)
[2021-05-11] MEDS: sodium chloride 0.9% 1,000 mL Bag CRRT (01:45)
[2021-05-11 02:13] LABS: Troponin T (5th) Once 40 ng/L (0-15)
[2021-05-11 03:35] LABS: Partial Thromboplastin Time 43.8 SECONDS (23.9-36.7)
[2021-05-11] MEDS: famotidine 20 mg/2 mL INJ IVP ×2 (04:41→15:07)
[2021-05-11 06:06] LABS: Basophils % 0.1 %; Lymphocytes # 0.4 10^3/uL (0.8-4.8); Lymphocytes % 1.9 %; Mean Corpuscular HGB Conc 32.2 g/dL (30.0-36.0); Mean Corpuscular Hemoglobin 27.8 pg (28.0-34.0); Mean Corpuscular Volume 86.3 fL (80-94); Mean Platelet Volume 11.4 fL (7.4-10.4); Monocytes # 0.8 10^3/uL (0.2-0.9); Neutrophils # 19.16 10^3/uL (1.8-7.7); Neutrophils % 92.6 %; Nucleated Red Blood Cells # 0.2 /100WBC; Nucleated Red Blood Cells % 0.9 %; Platelet Count 186 10^3/cmm (130-400); Red Blood Count 2.34 10^6/uL (4.1-5.3); Red Cell Distribution Width 16.2 % (12.1-15.1); White Blood Count 20.7 10^3/uL (4.0-10.0)
[2021-05-11 06:10] LABS: Hematocrit 20.2 % (42.0-52.0); Hemoglobin 6.5 g/dL (11.7-16.6)
[2021-05-11 06:18] LABS: Lactate (Lactic Acid level) 1.9 mmol/L (0.5-2.2)
[2021-05-11 06:20] LABS: Blood Gas Allen Test Pos; Blood Gas Sample Type Arterial
[2021-05-11 06:22] LABS: Alanine Aminotransferase 12 U/L (0-41); Albumin Level 2.3 g/dL (3.5-5.2); Alkaline Phosphatase 123 IU/L (40-130); Anion Gap 14.9 (5-19); Aspartate Amino Transferase 20 U/L (0-40); Blood Urea Nitrogen 29 mg/dL (8-23); Calcium 7.3 mg/dL (8.5-10.5); Carbon Dioxide 23 mmol/L (22-29); Chloride 106 mmol/L (98-107); Globulin 1.8 g/dL (1.3-4.6); Glomerular Filtration Rate 40.3 mL/min (90-130); Glucose 128 mg/dL (65-115); Magnesium 1.9 mg/dL (1.7-2.3); Osmolality Calculated 297 mOsm/kg (285-295); Phosphorus 3.4 mg/dL (2.5-4.5); Potassium 3.9 mmol/L (3.5-5.1); Sodium 140 mmol/L (136-145); Total Bilirubin 0.4 mg/dL (0.15-1.2); Total Protein 4.1 g/dL (6.6-8.7)
[2021-05-11 06:24] LABS: ABG PCO2 26.8 mmHg (35-45); ABG PH Result 7.55 (7.35-7.45); Arterial Blood Gas Hematocrit 23.8 % (42-52); Base Excess ABG 1.1 mmol/L (-2.0-2.0); Blood Gas Operator Identificat ER; Blood Gas Sample Site Radial, right; Blood Gas Tidal Volume 0.55; HCO3 ABG 23.2 mmol/L (22-26); Oxygen Device VENT
--- NOTE | 2021-05-11 07:00 | ECG_ITS ---
[facility] Test Date: 2021-05-11 Pat Name: Johnny oJ Department: Room: ICU10 Gender: Male [employer] Leader: ROBERT : 1950 Requested By: Le Martines Order Number: [id number] Raoul MD: Janis Cuevas M.D. Measurements Intervals [place] Rate: 50 P: 50 CO: 218 QRS: -13 QRSD: 84 T: 55 QT: 515 QTc: 474 Interpretive Statements SINUS BRADYCARDIA WITH FIRST DEGREE AV BLOCK POSSIBLE RIGHT VENTRICULAR CONDUCTION DELAY [RSR (QR) IN V1/V2] ANTEROSEPTAL MYOCARDIAL INFARCTION [40+ ms Q WAVE IN V1-V4], OF INDETERMINATE AGE Compared to ECG 05/11/2021 00:34:43 First degree AV block now present Sinus rhythm no longer present Myocardial infarct finding still present Electronically Signed On 05-11-2021 16:45:44 CDT by Janis Cuevas M.D. [id number]
[2021-05-11] MEDS: propofol 1,000 MG/100 ML INJ 5.06 MG IV ×3 (07:36→18:22)
[2021-05-11 07:39] LABS: Partial Thromboplastin Time 63.8 SECONDS (23.9-36.7)
[2021-05-11 08:26] LABS: Glucose Point of Care 90 mg/dL (70-110)
[2021-05-11] MEDS: bisacodyl 10 mg Supp PR ×2 (09:24→19:42)
[2021-05-11] MEDS: aspirin 81 mg EC Tablet PO (09:24)
[2021-05-11] MEDS: heparin 5,000 unit/mL INJ 1 mL 5000 UNIT SUBCUT ×2 (09:24→19:42)
[2021-05-11] MEDS: magnesium oxide 400 mg tablet PO (09:25)
[2021-05-11] MEDS: sodium bicarbonate 650 mg Tablet PO (09:25)
[2021-05-11] MEDS: sodium chloride 0.9% 250 ML 10 ML IV (09:45)
[2021-05-11] MEDS: ipratropium-albuterol 3 mL Neb INHALATION (10:00)
[2021-05-11] MEDS: budesonide 0.5 mg/2 mL Neb INHALATION (10:00)
[2021-05-11] MEDS: PrismaSol BGK 4/2.5 - 5,000 mL Bag 5000 ML CRRT ×3 (10:30)
--- NOTE | 2021-05-11 10:30 | SUR.PREOP ---
PICC NOTE Discussed with MD need for PICC as patient has Femoral triple lumen cath in place. MD plans to discontinue the femoral line if a triple lumen catheter can be placed in upper extremities. Informed that we have dual and single lumen catheters in stock. MD said patient really needed a triple lumen placed. Called to storeroom and infact in stock. To be delivered to department today. MD Aware. Okay to place line once they arrive. Noted. RN caring for patient aware.
--- NOTE | 2021-05-11 11:34 | P.PN_ITS ---
Subjective Subjective: Interval history: Events of last night noted. Abdominal distention, nasogastric tube placed, bradycardia and then asystolic cardiac arrest. Intubated, spontaneous rhythm restored. CRRT resumed subsequently afterwards. Patient now seen and examined on CRRT, tolerating the therapy well. Remains on combination vasopressor agents, Levophed at 7. Ventilator settings noted, FiO2 45%, PEEP of 5. Urine output now minimal. Medications: Reviewed: Yes Medication Review Details: Current Medications Acetaminophen (Acetaminophen 325 Mg Tablet) 650 mg PO Q6H PRN PRN Reason: Mild/Mod Pain Or Temp >/= 101 Last Admin: 05/09/21 09:12 Dose: 650 mg Documented by: Albuterol Sulfate (Albuterol 2.5 Mg/0.5 Ml Neb) 2.5 mg INHALATION Q4H PRN PRN Reason: SHORTNESS OF BREATH Last Admin: 05/04/21 03:20 Dose: 2.5 mg Documented by: Albuterol/Ipratropium (Ipratropium-Albuterol 3 Ml Neb) 3 ml INHALATION Q6H PRN PRN Reason: SHORTNESS OF BREATH Last Admin: 05/09/21 21:07 Dose: 3 ml Documented by: Alprazolam (Alprazolam 0.5 Mg Tablet) 0.25 mg PO TID PRN PRN Reason: AIR HUNGER Aspirin (Aspirin 81 Mg Ec Tablet) 81 mg PO DAILY@0800 [facility] Last Admin: 05/09/21 08:54 Dose: 81 mg Documented by: Atorvastatin Calcium (Atorvastatin 40 Mg Tablet) 80 mg PO DAILY@0800 [facility] Last Admin: 05/09/21 08:54 Dose: 80 mg Documented by: Bisacodyl (Bisacodyl 10 Mg Supp) 10 mg NV BID@ [facility] Last Admin: 05/09/21 19:52 Dose: 10 mg Documented by: Budesonide (Budesonide 0.5 Mg/2 Ml Neb) 0.5 mg INHALATION BID.RESPIRATORY [facility] Last Admin: 05/09/21 21:07 Dose: 0.5 mg Documented by: Carvedilol (Carvedilol 12.5 Mg Tablet) 12.5 mg PO BID@ [facility] Last Admin: 05/08/21 08:42 Dose: Not Given Documented by: Dextrose (Dextrose 50% Syringe 50 Ml) 25 ml IVP ONCE PRN; Protocol PRN Reason: hypoglycemia protocol Dextrose (Dextrose 50% Syringe 50 Ml) 50 ml IVP PRN PRN; Protocol PRN Reason: hypoglycemia protocol Enoxaparin Sodium (Enoxaparin 40 Mg/0.4 Ml Syringe) 40 mg SUBCUT Q24H [facility] Last Admin: 05/09/21 11:16 Dose: 40 mg Documented by: Famotidine (Famotidine 20 Mg/2 Ml Inj) 20 mg IVP Q12H BRII Last Admin: 05/10/21 05:42 Dose: 20 mg Documented by: Fentanyl (Fentanyl 50 Mcg/Ml Inj 2ml) 25 mcg IVP Q2H PRN PRN Reason: SEVERE PAIN Last Admin: 05/08/21 22:38 Dose: 25 mcg Documented by: Glucagon (Glucagon 1 Mg/Ml Inj 1 Ml) 1 mg IM ONCE PRN; Protocol PRN Reason: Adult Acute Hypoglycemia Prot. Haloperidol Lactate (Haloperidol Inj 5 Mg/Ml Inj 1 Ml) 5 mg IM ONCE PRN PRN Reason: AGITATION Last Admin: 05/09/21 00:36 Dose: 5 mg Documented by: Hydrocortisone Sodium Succinate (Hydrocortisone 100 Mg/2 Ml Sdv) 50 mg IVP Q6H BRII Last Admin: 05/10/21 06:18 Dose: 50 mg Documented by: Dextrose (D5w) 500 mls @ 100 mls/hr IV ONCE PRN; Protocol PRN Reason: Adult Acute Hypoglycemia Prot Albumin Human (Albumin) 12.5 gm in 50 mls @ 60 mls/hr IV PRN PRN PRN Reason: Hypotension and/or symptomatic Last Infusion: 05/09/21 13:22 Dose: Infused Documented by: Norepinephrine Bitartrate 4 mg (/ Dextrose) 254 mls @ 0 mls/hr IV .Q0M [facility]; Protocol Last Admin: 05/09/21 23:42 Dose: 12 mcg/min, 45.72 mls/hr Documented by: Imipenem/Cilastatin Sodium 500 (mg/ Sodium Chloride) 100 mls @ 200 mls/hr IV Q12H [facility]; Protocol Last Admin: 05/10/21 05:42 Dose: 200 mls/hr Documented by: Caspofungin 50 mg/ Sodium (Chloride) 250 mls @ 250 mls/hr IV Q24H [facility] Vasopressin 100 unit/ Sodium (Chloride) 100 mls @ 0 mls/hr IV .Q0M [facility]; Protocol Vasopressin 40 unit/ Sodium (Chloride) 40 mls @ 0.03 mls/min IV CONT [facility] Last Infusion: 05/09/21 21:26 Dose: 0.03 mls/min Documented by: Insulin Aspart (Insulin Aspart 100 Unit/1 Ml) 0 unit SUBCUT WM&BEDTIME [facility]; Protocol Last Admin: 05/09/21 20:43 Dose: 1 unit Documented by: Magnesium Oxide (Magnesium Oxide 400 Mg Tablet) 400 mg PO BID [facility] Last Admin: 05/09/21 17:57 Dose: Not Given Documented by: Olanzapine (Olanzapine 10 Mg Vial) 5 mg IM ONCE PRN PRN Reason: AGITATION Ondansetron HCl (Ondansetron 2 Mg/Ml Sdv 2 Ml) 4 mg IVP Q8H PRN PRN Reason: vomiting, or N/V if npo Sodium Bicarbonate (Sodium Bicarbonate 650 Mg Tablet) 650 mg PO TID [facility] Last Admin: 05/09/21 20:43 Dose: 650 mg Documented by: Vitals/I&O/Wt Last Vital Signs Temp 95.2 F L 05/11/21 10:29 Pulse 48 L 05/11/21 10:14 Resp 12 05/11/21 11:09 BP 144/56 05/11/21 10:29 Pulse Ox 100 05/11/21 11:09 05/10/21 05/11/21 05/11/21 22:59 06:59 14:59 Intake Total 1507.511 / 2014.498 109.728 / 2125.226 229.867 / 229.867 Output Total 400 / 400 36 / 436 Balance 1107.511 / 1615.498 73.728 / 1689.226 229.867 / 229.867 Weight last 48 hrs Weight 84.368 kg Weight 85.2 kg Physical Exam Narrative: EXAM NARRATIVE: Constitutional: on vent HEENT: Wet mucosa, no jvp, non icteric Lungs: Bilaterally, wheezy in the bases CVS: S1 S2, no murmurs Abdo: Soft, BS ok Ext 4: Minimal edema, peripheral perfusion with no cyanosis Neurological: Grossly non-focal Data : 05/11/21 05:30 05/11/21 05:30 Micro: Microbiology 05/09/21 17:39 Blood Culture - Preliminary Blood NEGATIVE TO DATE 05/09/21 17:23 Blood Culture - Preliminary Blood NEGATIVE TO DATE 05/06/21 18:00 Gram Stain - Final Sputum - Endotracheal Tube Aspirate Sputum Culture - Preliminary Yeast species A&P Additional A&P Information 1. Oliguric acute renal failure Consistent with septic associated ATN. Admission CT scan demonstrated bilateral hydronephrosis, however, this more consistent with reflux rather than true obstruction. Seen and examined on CRRT. 4K bath, dialysate flow 1500 mL, prefilter flow 60 mL. Currently on net even ultrafiltration. Avoid usual nephrotoxic agents Dose medications for GFR less than 15 2. Acidosis and electrolytes Due to bicarb wasting from ileostomy; Chemistry well-balanced on CRRT. DC oral bicarb/magnesium 3. Septic shock. Consistent with urosepsis, E. coli found in the urine, yeast in Sputum. Currently on combination antibiotic therapy with Caspofungin and Primaxin 4. Respiratory distress and VDRF Management per ICU team. Weaning as tolerated over the next few days depending upon clinical response to care. Exam and interview performed with aid of bedside RN using telemedicine Time spent 20 min inc > 50% of time in face to face counseling Salvador Watters MD [facility] [phone] Attestations Medical Necessity Statement*: eval for ANGEILCA Coding Level of Care Code Acute [employer] Worker for [employer] Fwd
--- NOTE | 2021-05-11 11:46 | PC.SOCIAL ---
IMM UPDATE Did not give patient IMM update due to being intubated at the time. Called and unable to reach her. Business Services Specialist Sales left copy of pg 2 of IMM at bedside.
--- NOTE | 2021-05-11 12:00 | SUR.PREOP ---
PICC NOTE Triple lumen catheter arrived. PICC line off hold. See Insert note.
--- NOTE | 2021-05-11 12:15 | SUR.PREOP ---
Time out for PICC insertion
[2021-05-11 12:19] LABS: Glucose Point of Care 149 mg/dL (70-110)
--- NOTE | 2021-05-11 12:33 | XR_ITS ---
WS: [id number] PORTABLE CHEST HISTORY: picc placement COMPARISON: Earlier the same day. RIGHT PICC line is been placed. The tip does not extend caudad into the SVC but within the subclavian vein. Nasogastric and endotracheal tubes and RIGHT IJ line remain in good positions. Lungs are hyperinflate d. Pleural thickening or fluid on the LEFT. Interstitial thickening and opacifications are unchanged. Cardiac size: Incompletely visualized but moderately enlarged. Mediastinum/Aorta: Atherosclerosis aorta. No osseous abnormality seen. XR/XR chest 1V portable [id number] IMPRESSION: 1. Tip of the RIGHT PICC line ends in the subclavian vein. 2. Endotracheal and nasogastric tubes remain in good position.
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
--- NOTE | 2021-05-11 16:04 | PC.SLP ---
Due to re-intubation, speech therapy will monitor and address any swallowing needs once the patient has been extubated.
--- NOTE | 2021-05-11 18:17 | PC.NURSE ---
Shift Note Frequent safety and comfort rounds continue. Orders and/or nursing care completed as indicated. Patient monitored for response to intervention and treatment(s). Education provided includes CRRT and medication gone over with family. Patient and/or customer loyalty representative understands information given. Will continue to monitor.
[2021-05-11 18:28] LABS: Glucose Point of Care 166 mg/dL (70-110)
[2021-05-11 19:41] LABS: Glucose Point of Care 130 mg/dL (70-110)
--- NOTE | 2021-05-11 19:43 | P.PN_ITS ---
Subjective Subjective: Interval history: The patient was seen and examined this morning. Overnight, the patient had suffered from cardiac arrest. The patient had developed abdominal distention. An abdominal film revealed significant gastric and small bowel dilation. During the course of the evaluation the patient had bradycardia that culminated into pulseless electrical activity. The patient regained his pulse back after approximately 15 minutes. During the code, he also received defibrillation for pulseless V. tach. This morning, the patient was spontaneously opening his eyes however he did not track. Additionally, he did not have any lid closure to visual threat. However, the patient was on sedation. The patient also had a bowel movement during code which is likely contaminated the right femoral triple-lumen catheter site. I had attempted to put in a new triple-lumen catheter. 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 The right subclavian vein could not be accessed. This was predominantly because of his body habitus with prolonged quadriplegia. 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 Eventually, a right PICC line was put in. The PICC line ends in the right subclavian vein. All his IV medications were eventually switched to the PICC line and the right groin line was discontinued. The patient is currently receiving CRRT. He received 1 unit of PRBC today. His blood cultures have remained negative so far. Medications: Reviewed: Yes Vitals/I&O/Wt Last Vital Signs Temp 97.5 F L 05/11/21 19:23 Pulse 44 L 05/11/21 19:23 Resp 12 05/11/21 19:23 BP 132/58 05/11/21 19:23 Pulse Ox 100 05/11/21 19:23 05/11/21 05/11/21 05/11/21 06:59 14:59 22:59 Intake Total 109.728 / 2125.226 486.741 / 486.741 820.981 / 1307.722 Output Total 36 / 436 15 Balance 73.728 / 1689.226 486.741 / 486.741 805.981 / 1292.722 Weight last 48 hrs Weight 186 lb Physical Exam Narrative: EXAM NARRATIVE: General: Patient is intubated and sedated. He spontaneously opens his eyes however there is no tracking or eye closure to threat Respiratory: Auscultation: Reduced breath sound bilaterally, minimal wheezing at bilateral bases Cardiovascular: Regular rate and rhythm, S1-S2 present, no murmur, minimal peripheral edema. Abdomen: Soft, nondistended, positive bowel sound Neuro: Intubated and sedated, the patient has contracture of all four extremities Data : 05/11/21 05:30 05/11/21 05:30 Micro: Microbiology 05/09/21 07:11 Urine Culture - Preliminary Urine,Clean Catch 05/09/21 17:39 Blood Culture - Preliminary Blood NEGATIVE TO DATE 05/09/21 17:23 Blood Culture - Preliminary Blood NEGATIVE TO DATE 05/06/21 18:00 Gram Stain - Final Sputum - Endotracheal Tube Aspirate Sputum Culture - Preliminary Yeast species A&P Assessment and plan (1) Cardiac arrest: The patient had suffered from cardiac arrest on May 10. He received CPR for approximately 15 minutes. The etiology of the cardiac arrest is unclear. The patient suffered from bradycardia followed by pulseless electrical activity. Massive gastric dilation in the setting of BiPAP may induce vagal response causing bradycardia. However, the reason for cardiac arrest is likely massive aspiration and the patient's overall poor condition. The patient has septic shock. He has developed dialysis dependent renal failure. Severe airflow obstruction, COPD. Currently the patient is on small dose of Levophed and vasopressin. Chest x-ray revealed evidence of aspiration. The patient's physical exam is concerning for anoxic brain injury. This will need to be evaluated further in the next couple of days. We will likely obtain a head CT. Status: Acute (2) Septic shock: The patient is currently on imipenem and caspofungin. This has been dosed for CRRT. The blood culture has still remained negative. Status: Acute (3) Acute kidney injury superimposed on chronic kidney disease: The patient has acute worsening on chronic CKD. The worsening most likely secondary to acute pyelitis with E. coli. The patient self extubated 05/07. However, now he is intubated again following cardiac arrest. The patient is on CRRT. Status: Acute (4) Metabolic acidosis: The nephrology team is following the patient. He is on CRRT Status: Acute (5) Acute hypercapnic respiratory failure: Now the patient is intubated. His oxygen requirement is not the greatest. He is only on 45% oxygen currently. Status: Acute (6) COPD (chronic obstructive pulmonary disease): The patient has severe airflow obstruction and he is an active smoker. We will continue with DuoNeb and Pulmicort nebulization. He is on stress dose steroid. Status: Acute Qualifiers: COPD type: emphysema Emphysema type: centrilobular Qualified Code(s): J43.2 - Centrilobular emphysema (7) Acute pyelitis: His antibiotic coverage has been broadened. He is also on antifungal at this point. We will wait for the final result on the blood cultures. Status: Acute (8) Hydronephrosis: The patient has chronic nonobstructive hydronephrosis. no surgical intervention is planned at this point. Status: Acute Qualifiers: Hydronephrosis type: other Qualified Code(s): N13.39 - Other hydronephrosis Additional A&P Information His overall prognosis is poor. We will continue with the supportive therapy. Attestations Medical Necessity Statement*: Will defer to the primary team Coding Level of Care Code Acute Adjustment Clerk for [facility] Diagnoses Cardiac arrest I46.9 Septic shock A41.9; R65.21 Acute kidney injury superimposed on chronic kidney disease N17.9; N18.9 Metabolic acidosis E87.2 Acute hypercapnic respiratory failure J96.02 COPD (chronic obstructive pulmonary disease) J43.2 COPD type: emphysema Emphysema type: centrilobular Acute pyelitis N10 Hydronephrosis N13.39 Hydronephrosis type: other Time Spent (min) 35
--- NOTE | 2021-05-11 19:55 | PC.NURSE ---
Shift Note Frequent safety and comfort rounds continue. Orders and/or nursing care completed as indicated. Patient monitored for response to intervention and treatment(s). Education provided includes, Pt is currently intubated and sedated at this time. Patient and/or service liaison representative, unable to comprehend at this time. Will continue to monitor. Received bed side shift report from off going nurse. Pt's plan of care reviewed. Pt is resting in bed. Respirations are even and unlabored. No s/sx of distress noted. Pt is currently intubated and sedated and continues to be on CRRT and tolerating well at this time. Pt does appear to be more edematous tonight compared to last night. No fluids are being removed from pt at this time. Notified Dr. Rogers and received an order to start removing fluids at 100mL an hr. Will continue to monitor pt.
[2021-05-12] VITALS (65 sets, daily range): BP systolic 85–137; BP diastolic 52–88; PULSE 41–68; RESP 0–15; TEMP 36.3–36.7; O2SAT 97–100
[2021-05-12] MEDS: propofol 1,000 MG/100 ML INJ 10.12 MG IV ×3 (01:05→18:05)
[2021-05-12] MEDS: hydrocortisone 100 mg/2 mL SDV 50 MG IVP ×4 (03:14→19:27)
[2021-05-12] MEDS: famotidine 20 mg/2 mL INJ IVP ×2 (04:25→14:15)
[2021-05-12 04:27] LABS: Hematocrit 26.1 % (42.0-52.0); Hemoglobin 8.7 g/dL (11.7-16.6); Lymphocytes # 0.5 10^3/uL (0.8-4.8); Lymphocytes % 5.4 %; Mean Corpuscular HGB Conc 33.3 g/dL (30.0-36.0); Mean Corpuscular Hemoglobin 28.3 pg (28.0-34.0); Mean Platelet Volume 11.3 fL (7.4-10.4); Monocytes # 0.6 10^3/uL (0.2-0.9); Monocytes % 5.5 %; Neutrophils # 8.64 10^3/uL (1.8-7.7); Neutrophils % 86.7 %; Nucleated Red Blood Cells # 0.1 /100WBC; Nucleated Red Blood Cells % 0.5 %; Platelet Count 96 10^3/cmm (130-400); Red Blood Count 3.07 10^6/uL (4.1-5.3); Red Cell Distribution Width 16.6 % (12.1-15.1)
[2021-05-12 05:04] LABS: Alanine Aminotransferase 9 U/L (0-41); Albumin Level 2.4 g/dL (3.5-5.2); Alkaline Phosphatase 117 IU/L (40-130); Anion Gap 14.4 (5-19); Aspartate Amino Transferase 21 U/L (0-40); Blood Urea Nitrogen 15 mg/dL (8-23); Calcium 7.4 mg/dL (8.5-10.5); Carbon Dioxide 24 mmol/L (22-29); Chloride 105 mmol/L (98-107); Glomerular Filtration Rate 66.6 mL/min (90-130); Glucose 117 mg/dL (65-115); Magnesium 2.1 mg/dL (1.7-2.3); Osmolality Calculated 290 mOsm/kg (285-295); Potassium 4.4 mmol/L (3.5-5.1); Sodium 139 mmol/L (136-145); Total Bilirubin 0.6 mg/dL (0.15-1.2); Total Protein 4.4 g/dL (6.6-8.7)
[2021-05-12 07:34] LABS: Glucose Point of Care 111 mg/dL (70-110)
[2021-05-12] MEDS: aspirin 81 mg EC Tablet PO (07:57)
[2021-05-12] MEDS: bisacodyl 10 mg Supp PR ×2 (07:57→19:27)
[2021-05-12] MEDS: heparin 5,000 unit/mL INJ 1 mL 5000 UNIT SUBCUT ×2 (07:57→19:30)
--- NOTE | 2021-05-12 09:01 | PM.PN ---
Subjective Subjective: Interval history: The patient was seen and examined this morning. Overall, he remains stable. His pressor requirement has come down. Approximately 350 cc of fluid was removed in the last 12-hour shift with the CRRT. Currently he is on 40% oxygen. The plan for today is to reduce his sedation and see if he can be extubated tomorrow. Medications: Reviewed: Yes Vitals/I&O/Wt Last Vital Signs Temp 98.1 F 05/12/21 07:23 Pulse 45 L 05/12/21 07:23 Resp 12 05/12/21 07:23 BP 103/59 05/12/21 07:23 Pulse Ox 100 05/12/21 07:23 05/11/21 05/12/21 05/12/21 22:59 06:59 14:59 Intake Total 908.611 / 1395.352 272.324 / 1667.676 Output Total Balance 893.611 / 1380.352 267.324 / 1647.676 Weight last 48 hrs Weight 186 lb Physical Exam Narrative: EXAM NARRATIVE: General: Patient is intubated and sedated. He spontaneously opens his eyes however there is no tracking or eye closure to threat Respiratory: Auscultation: Reduced breath sound bilaterally, minimal wheezing at bilateral bases Cardiovascular: Regular rate and rhythm, S1-S2 present, no murmur, minimal peripheral edema. Abdomen: Soft, nondistended, positive bowel sound Neuro: Intubated and sedated, the patient has contracture of all four extremities Data : 05/12/21 04:12 05/12/21 04:12 Micro: Microbiology 05/09/21 07:11 Urine Culture - Preliminary Urine,Clean Catch Yeast Attestation for Other Data: I personally reviewed and interpreted the following: Other data: I have reviewed his laboratory, microbiologic and radiologic data. The white count has improved. The hemoglobin has improved after 1 unit of PRBC transfusion. His electrolytes are stable. He is tolerating the CRRT well. A&P Assessment and plan (1) Cardiac arrest: The patient had suffered from cardiac arrest on May 10. He received CPR for approximately 15 minutes. The etiology of the cardiac arrest is unclear. The patient suffered from bradycardia followed by pulseless electrical activity. Massive gastric dilation in the setting of BiPAP may induce vagal response causing bradycardia. However, the reason for cardiac arrest is likely massive aspiration and the patient's overall poor condition. The patient has septic shock. He has developed dialysis dependent renal failure. Severe airflow obstruction, COPD. Currently the patient is on small dose of Levophed and vasopressin. The pressor requirement is coming down. Chest x-ray revealed evidence of aspiration. The patient's physical exam is concerning for anoxic brain injury. This will need to be evaluated further in the next couple of days. We will likely obtain a head CT. Status: Acute (2) Septic shock: The patient is currently on imipenem and caspofungin. This has been dosed for CRRT. The blood culture has still remained negative. Status: Acute (3) Acute kidney injury superimposed on chronic kidney disease: The patient has acute worsening on chronic CKD. Minimal urine output. The worsening most likely secondary to acute pyelitis with E. coli. The patient self extubated 05/07. However, now he is intubated again following cardiac arrest. The patient is on CRRT. Status: Acute (4) Metabolic acidosis: The nephrology team is following the patient. He is on CRRT Status: Acute (5) Acute hypercapnic respiratory failure: Now the patient is intubated. His oxygen requirement is not the greatest. He is only on 40% oxygen currently. I'm hoping to extubate him tomorrow if at all possible. Will come down on the sedation. Status: Acute (6) COPD (chronic obstructive pulmonary disease): The patient has severe airflow obstruction and he is an active smoker. We will continue with DuoNeb and Pulmicort nebulization. He is on stress dose steroid. Status: Acute Qualifiers: COPD type: emphysema Emphysema type: centrilobular Qualified Code(s): J43.2 - Centrilobular emphysema (7) Acute pyelitis: His antibiotic coverage has been broadened. He is also on antifungal at this point. We will wait for the final result on the blood cultures. Status: Acute (8) Hydronephrosis: The patient has chronic nonobstructive hydronephrosis. no surgical intervention is planned at this point. Status: Acute Qualifiers: Hydronephrosis type: other Qualified Code(s): N13.39 - Other hydronephrosis Additional A&P Information His overall prognosis is poor. We will continue with the supportive therapy. 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
[2021-05-12] MEDS: ipratropium-albuterol 3 mL Neb INHALATION ×2 (09:18→20:13)
[2021-05-12] MEDS: budesonide 0.5 mg/2 mL Neb INHALATION ×2 (09:18→20:13)
[2021-05-12] MEDS: PrismaSol BGK 4/2.5 - 5,000 mL Bag 5000 ML CRRT ×2 (10:14→20:22)
--- NOTE | 2021-05-12 11:06 | P.PN_ITS ---
Subjective Subjective: Interval history: Seen and examined on CRRT today. Parameters reviewed, remained stable. Ultrafiltration of 100 mL/h over the last few hours being tolerated hemodynamically with recent decrease in pressor requirement. FiO2 also come down to 30%, PEEP of 5. Remains anuric. Medications: Reviewed: Yes Medication Review Details: Current Medications Acetaminophen (Acetaminophen 325 Mg Tablet) 650 mg PO Q6H PRN PRN Reason: Mild/Mod Pain Or Temp >/= 101 Last Admin: 05/09/21 09:12 Dose: 650 mg Documented by: Albuterol Sulfate (Albuterol 2.5 Mg/0.5 Ml Neb) 2.5 mg INHALATION Q4H PRN PRN Reason: SHORTNESS OF BREATH Last Admin: 05/04/21 03:20 Dose: 2.5 mg Documented by: Albuterol/Ipratropium (Ipratropium-Albuterol 3 Ml Neb) 3 ml INHALATION Q6H PRN PRN Reason: SHORTNESS OF BREATH Last Admin: 05/09/21 21:07 Dose: 3 ml Documented by: Alprazolam (Alprazolam 0.5 Mg Tablet) 0.25 mg PO TID PRN PRN Reason: AIR HUNGER Aspirin (Aspirin 81 Mg Ec Tablet) 81 mg PO DAILY@0800 [facility] Last Admin: 05/09/21 08:54 Dose: 81 mg Documented by: Atorvastatin Calcium (Atorvastatin 40 Mg Tablet) 80 mg PO DAILY@0800 [facility] Last Admin: 05/09/21 08:54 Dose: 80 mg Documented by: Bisacodyl (Bisacodyl 10 Mg Supp) 10 mg CA BID@ [facility] Last Admin: 05/09/21 19:52 Dose: 10 mg Documented by: Budesonide (Budesonide 0.5 Mg/2 Ml Neb) 0.5 mg INHALATION BID.RESPIRATORY [facility] Last Admin: 05/09/21 21:07 Dose: 0.5 mg Documented by: Carvedilol (Carvedilol 12.5 Mg Tablet) 12.5 mg PO BID@ [facility] Last Admin: 05/08/21 08:42 Dose: Not Given Documented by: Dextrose (Dextrose 50% Syringe 50 Ml) 25 ml IVP ONCE PRN; Protocol PRN Reason: hypoglycemia protocol Dextrose (Dextrose 50% Syringe 50 Ml) 50 ml IVP PRN PRN; Protocol PRN Reason: hypoglycemia protocol Enoxaparin Sodium (Enoxaparin 40 Mg/0.4 Ml Syringe) 40 mg SUBCUT Q24H BRII Last Admin: 05/09/21 11:16 Dose: 40 mg Documented by: Famotidine (Famotidine 20 Mg/2 Ml Inj) 20 mg IVP Q12H BRII Last Admin: 05/10/21 05:42 Dose: 20 mg Documented by: Fentanyl (Fentanyl 50 Mcg/Ml Inj 2ml) 25 mcg IVP Q2H PRN PRN Reason: SEVERE PAIN Last Admin: 05/08/21 22:38 Dose: 25 mcg Documented by: Glucagon (Glucagon 1 Mg/Ml Inj 1 Ml) 1 mg IM ONCE PRN; Protocol PRN Reason: Adult Acute Hypoglycemia Prot. Haloperidol Lactate (Haloperidol Inj 5 Mg/Ml Inj 1 Ml) 5 mg IM ONCE PRN PRN Reason: AGITATION Last Admin: 05/09/21 00:36 Dose: 5 mg Documented by: Hydrocortisone Sodium Succinate (Hydrocortisone 100 Mg/2 Ml Sdv) 50 mg IVP Q6H BRII Last Admin: 05/10/21 06:18 Dose: 50 mg Documented by: Dextrose (D5w) 500 mls @ 100 mls/hr IV ONCE PRN; Protocol PRN Reason: Adult Acute Hypoglycemia Prot Albumin Human (Albumin) 12.5 gm in 50 mls @ 60 mls/hr IV PRN PRN PRN Reason: Hypotension and/or symptomatic Last Infusion: 05/09/21 13:22 Dose: Infused Documented by: Norepinephrine Bitartrate 4 mg (/ Dextrose) 254 mls @ 0 mls/hr IV .Q0M BRII; Protocol Last Admin: 05/09/21 23:42 Dose: 12 mcg/min, 45.72 mls/hr Documented by: Imipenem/Cilastatin Sodium 500 (mg/ Sodium Chloride) 100 mls @ 200 mls/hr IV Q12H BRII; Protocol Last Admin: 05/10/21 05:42 Dose: 200 mls/hr Documented by: Caspofungin 50 mg/ Sodium (Chloride) 250 mls @ 250 mls/hr IV Q24H BRII Vasopressin 100 unit/ Sodium (Chloride) 100 mls @ 0 mls/hr IV .Q0M BRII; Protocol Vasopressin 40 unit/ Sodium (Chloride) 40 mls @ 0.03 mls/min IV CONT BRII Last Infusion: 05/09/21 21:26 Dose: 0.03 mls/min Documented by: Insulin Aspart (Insulin Aspart 100 Unit/1 Ml) 0 unit SUBCUT WM&BEDTIME [facility]; Protocol Last Admin: 05/09/21 20:43 Dose: 1 unit Documented by: Magnesium Oxide (Magnesium Oxide 400 Mg Tablet) 400 mg PO BID [facility] Last Admin: 05/09/21 17:57 Dose: Not Given Documented by: Olanzapine (Olanzapine 10 Mg Vial) 5 mg IM ONCE PRN PRN Reason: AGITATION Ondansetron HCl (Ondansetron 2 Mg/Ml Sdv 2 Ml) 4 mg IVP Q8H PRN PRN Reason: vomiting, or N/V if npo Sodium Bicarbonate (Sodium Bicarbonate 650 Mg Tablet) 650 mg PO TID [facility] Last Admin: 05/09/21 20:43 Dose: 650 mg Documented by: Vitals/I&O/Wt Last Vital Signs Temp 98.1 F 05/12/21 07:23 Pulse 52 L 05/12/21 09:18 Resp 12 05/12/21 09:21 BP 103/59 05/12/21 07:23 Pulse Ox 100 05/12/21 09:21 05/11/21 05/12/21 05/12/21 22:59 06:59 14:59 Intake Total 908.611 / 1395.352 272.324 / 1667.676 150.91 / 150.91 Output Total Balance 893.611 / 1380.352 267.324 / 1647.676 150.91 / 150.91 Weight last 48 hrs Weight 84.368 kg Physical Exam Narrative: EXAM NARRATIVE: Constitutional: on vent HEENT: Wet mucosa, no jvp, non icteric Lungs: Bilaterally, wheezy in the bases CVS: S1 S2, no murmurs Abdo: Soft, BS ok Ext 4: Minimal edema, peripheral perfusion with no cyanosis Neurological: Grossly non-focal Data : 05/12/21 04:12 05/12/21 04:12 Micro: Microbiology 05/09/21 07:11 Urine Culture - Preliminary Urine,Clean Catch Yeast A&P Additional A&P Information 1. Oliguric acute renal failure Consistent with septic associated ATN. Admission CT scan demonstrated bilateral hydronephrosis, however, this more consistent with reflux rather than true obstruction. Seen and examined on CRRT. 4K bath, dialysate flow 1500 mL, prefilter flow 60 mL. Currently on net even ultrafiltration. Heparin protocol Avoid usual nephrotoxic agents Dose medications for GFR less than 15 2. Acidosis and electrolytes Due to bicarb wasting from ileostomy; Chemistry well-balanced on CRRT. DC oral bicarb/magnesium 3. Septic shock. Consistent with urosepsis, E. coli found in the urine, yeast in Sputum. Currently on combination antibiotic therapy with Caspofungin and Primaxin 4. Respiratory distress and VDRF Management per ICU team. Weaning as tolerated over the next few days depending upon clinical response to care. 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
[2021-05-12 11:24] LABS: Glucose Point of Care 161 mg/dL (70-110)
--- NOTE | 2021-05-12 12:34 | PC.NUTR ---
Tube feeding recommendations: Pt has had no nutritional intake X 8 days per chart review. Notified Dr. Perrin as well as nurse. states will initiate Nepro TF, but possibly in a couple days, as pt is on 2 pressors at this time. Recommend initiation of nutrition support when medically possible given 8 days of no nutrition. Continue to recommend previous TF recs made on 05/08/21, as below: Nepro starting at 10 ml/hr, increasing by 10 ml/hr q 6 hours to goal rate of 45 ml hr, with 180 ml H2O flushes q 4 hrs, to provide 1944 kcal, 87 g protein, and 1863 ml H2O. If remaining on vent/propofol, recommend hold at 35 ml/hr and advance to 45 when propofol decreases, to avoid overfeeding. TF recommendations to be adjusted pending tolerance, labs, and other factors as needed. See full RD assessment for further details.
--- NOTE | 2021-05-12 15:37 | PC.RESP ---
RT Shift Note Frequent safety and respiratory rounds continue. Orders completed as indicated. Patient monitored pre and post treatments throughout shift. Patient [Did tolerate treatments appropriately. Condition [.DidNotChange]. Patient and/or visitor services representative educated on respiratory treatment and medications. Patient and/or visitor services representative [UNABLE]. Will continue to monitor patient progress.
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
[2021-05-12 17:01] LABS: Albumin Level 2.5 g/dL (3.5-5.2); Anion Gap 12.2 (5-19); Blood Urea Nitrogen 12 mg/dL (8-23); Calcium 7.4 mg/dL (8.5-10.5); Carbon Dioxide 25 mmol/L (22-29); Chloride 103 mmol/L (98-107); Glomerular Filtration Rate 96.1 mL/min (90-130); Glucose 127 mg/dL (65-115); Magnesium 2.3 mg/dL (1.7-2.3); Potassium 4.2 mmol/L (3.5-5.1); Sodium 136 mmol/L (136-145)
[2021-05-12 17:19] LABS: Glucose Point of Care 138 mg/dL (70-110)
--- NOTE | 2021-05-12 18:25 | PC.NURSE ---
Shift Note Frequent safety and comfort rounds continue. Orders and/or nursing care completed as indicated. Patient monitored for response to intervention and treatment(s). Education provided includes CRRT. Patient and/or textile designs sales representative verbalized understanding. Will continue to monitor.
[2021-05-12 19:28] LABS: Glucose Point of Care 137 mg/dL (70-110)
--- NOTE | 2021-05-12 19:45 | PC.NURSE ---
Shift Note Frequent safety and comfort rounds continue. Orders and/or nursing care completed as indicated. Patient monitored for response to intervention and treatment(s). Education provided includes, (patient is intubated and sedated at this time). Patient and/or abrasives sales representative [patient unable to comprehend]. Will continue to monitor. Received bed side shift report from off going nurse. Pt's plan of care reviewed. Pt is currently resting in bed. Respirations are even and unlabored. No s/sx of distress noted. Pt continues to be intubated/sedated and on CRRT. Pt is tolerating CRRT without any complications. was updated on patient's status during day shift via phone call. Bed in lowest and locked position, call light within reach, x's 2 rails up. Will continue to monitor.
[2021-05-12 21:08] LABS: Glucose Point of Care 171 mg/dL (70-110)
[2021-05-13] VITALS (77 sets, daily range): BP systolic 77–172; BP diastolic 55–74; PULSE 55–81; RESP 12–22; TEMP 36.3–36.9; O2SAT 94–100; BMI 26.1
[2021-05-13] MEDS: hydrocortisone 100 mg/2 mL SDV 50 MG IVP ×3 (03:11→16:22)
[2021-05-13] MEDS: famotidine 20 mg/2 mL INJ IVP ×2 (03:11→16:22)
[2021-05-13] MEDS: propofol 1,000 MG/100 ML INJ 15.19 MG IV ×3 (03:17→16:22)
[2021-05-13 04:05] LABS: Hematocrit 22.2 % (42.0-52.0); Hemoglobin 6.9 g/dL (11.7-16.6); Lymphocytes # 0.5 10^3/uL (0.8-4.8); Lymphocytes % 7.9 %; Mean Corpuscular HGB Conc 31.1 g/dL (30.0-36.0); Mean Corpuscular Hemoglobin 27.1 pg (28.0-34.0); Mean Corpuscular Volume 87.1 fL (80-94); Mean Platelet Volume 12.3 fL (7.4-10.4); Monocytes # 0.3 10^3/uL (0.2-0.9); Monocytes % 4.6 %; Nucleated Red Blood Cells % 0.5 %; Platelet Count 75 10^3/cmm (130-400); Red Blood Count 2.55 10^6/uL (4.1-5.3); Red Cell Distribution Width 16.8 % (12.1-15.1); White Blood Count 6.1 10^3/uL (4.0-10.0)
[2021-05-13 04:32] LABS: Albumin Level 2.4 g/dL (3.5-5.2); Anion Gap 13.9 (5-19); Blood Urea Nitrogen 12 mg/dL (8-23); Calcium 7.5 mg/dL (8.5-10.5); Carbon Dioxide 24 mmol/L (22-29); Chloride 100 mmol/L (98-107); Glomerular Filtration Rate 96.1 mL/min (90-130); Glucose 125 mg/dL (65-115); Magnesium 2.3 mg/dL (1.7-2.3); Potassium 3.9 mmol/L (3.5-5.1); Sodium 134 mmol/L (136-145)
[2021-05-13] MEDS: PrismaSol BGK 4/2.5 - 5,000 mL Bag 5000 ML CRRT ×7 (06:07→23:31)
--- NOTE | 2021-05-13 07:32 | PM.PN ---
Subjective Subjective: Interval history: more awake, responsive. still intubated and on vasopressin. off of levophed Medications: Reviewed: Yes Medication Review Details: Current Medications Acetaminophen (Acetaminophen 325 Mg Tablet) 650 mg PO Q6H PRN PRN Reason: Mild/Mod Pain Or Temp >/= 101 Last Admin: 05/09/21 09:12 Dose: 650 mg Documented by: Albuterol Sulfate (Albuterol 2.5 Mg/0.5 Ml Neb) 2.5 mg INHALATION Q4H PRN PRN Reason: SHORTNESS OF BREATH Last Admin: 05/11/21 01:00 Dose: 2.5 mg Documented by: Albuterol/Ipratropium (Ipratropium-Albuterol 3 Ml Neb) 3 ml INHALATION Q6H PRN PRN Reason: SHORTNESS OF BREATH Last Admin: 05/12/21 20:13 Dose: 3 ml Documented by: Alprazolam (Alprazolam 0.5 Mg Tablet) 0.25 mg PO TID PRN PRN Reason: AIR HUNGER Last Admin: 05/10/21 20:04 Dose: 0.25 mg Documented by: Alteplase, Recombinant (Alteplase 1 Mg/Ml Sdv 2 Ml) 0 mg INTRACATH Q2H PRN; Protocol PRN Reason: Poor Catheter Flow/ Clotted Catheter Aspirin (Aspirin 81 Mg Ec Tablet) 81 mg PO DAILY@08 [facility] Last Admin: 05/12/21 07:57 Dose: 81 mg Documented by: Atorvastatin Calcium (Atorvastatin 40 Mg Tablet) 80 mg PO DAILY@0800 [facility] Last Admin: 05/09/21 08:54 Dose: 80 mg Documented by: Bisacodyl (Bisacodyl 10 Mg Supp) 10 mg [place] BID@ [facility] Last Admin: 05/12/21 19:27 Dose: 10 mg Documented by: Budesonide (Budesonide 0.5 Mg/2 Ml Neb) 0.5 mg INHALATION BID.RESPIRATORY [facility] Last Admin: 05/12/21 20:13 Dose: 0.5 mg Documented by: Carvedilol (Carvedilol 12.5 Mg Tablet) 12.5 mg PO BID@ [facility] Last Admin: 05/08/21 08:42 Dose: Not Given Documented by: Dextrose (Dextrose 50% Syringe 50 Ml) 25 ml IVP ONCE PRN; Protocol PRN Reason: hypoglycemia protocol Dextrose (Dextrose 50% Syringe 50 Ml) 50 ml IVP PRN PRN; Protocol PRN Reason: hypoglycemia protocol Famotidine (Famotidine 20 Mg/2 Ml Inj) 20 mg IVP Q12H BRII Last Admin: 05/13/21 03:11 Dose: 20 mg Documented by: Glucagon (Glucagon 1 Mg/Ml Inj 1 Ml) 1 mg IM ONCE PRN; Protocol PRN Reason: Adult Acute Hypoglycemia Prot. Heparin Sodium (Beef Lung) (Heparin Lock Flush 500 Unit/5 Ml Syringe) 500 unit IV PRN PRN PRN Reason: At CRRT disconnect Last Admin: 05/10/21 14:41 Dose: 500 unit Documented by: Heparin Sodium (Beef Lung) (Heparin 5,000 Unit/Ml Inj 1 Ml) 5,000 unit SUBCUT Q12H BRII Last Admin: 05/12/21 19:30 Dose: 5,000 unit Documented by: Hydrocortisone Sodium Succinate (Hydrocortisone 100 Mg/2 Ml Sdv) 50 mg IVP Q6H BRII Last Admin: 05/13/21 03:11 Dose: 50 mg Documented by: Dextrose (D5w) 500 mls @ 100 mls/hr IV ONCE PRN; Protocol PRN Reason: Adult Acute Hypoglycemia Prot Albumin Human (Albumin) 12.5 gm in 50 mls @ 60 mls/hr IV PRN PRN PRN Reason: Hypotension and/or symptomatic Last Infusion: 05/09/21 13:22 Dose: Infused Documented by: Norepinephrine Bitartrate 4 mg (/ Dextrose) 254 mls @ 0 mls/hr IV .Q0M BRII; Protocol Last Titration: 05/13/21 04:00 Dose: 0 mcg/min, 0 mls/hr Documented by: Imipenem/Cilastatin Sodium 500 (mg/ Sodium Chloride) 100 mls @ 200 mls/hr IV Q12H BRII; Protocol Last Admin: 05/13/21 06:16 Dose: 200 mls/hr Documented by: Caspofungin 50 mg/ Sodium (Chloride) 250 mls @ 250 mls/hr IV Q24H BRII Last Infusion: 05/12/21 19:16 Dose: Infused Documented by: Vasopressin 100 unit/ Sodium (Chloride) 100 mls @ 0 mls/hr IV .Q0M BRII; Protocol Last Admin: 05/12/21 18:41 Dose: 0.03 unit/min, 1.8 mls/hr Documented by: Vasopressin 40 unit/ Sodium (Chloride) 40 mls @ 0.03 mls/min IV CONT BRII Last Admin: 05/12/21 18:42 Dose: 0.03 mls/min Documented by: Midazolam HCl 100 mg/ Sodium (Chloride) 100 mls @ 0 mls/hr IV .Q0M BRII; Protocol Last Titration: 05/12/21 13:48 Dose: 0 mg/hr, 0 mls/hr Documented by: Fentanyl 1,000 mcg/ Sodium (Chloride) 100 mls @ 0 mls/hr IV .Q0M BRII; Protocol Last Admin: 05/13/21 03:11 Dose: 50 mcg/hr, 5 mls/hr Documented by: Propofol (Diprivan) 1,000 mg in 100 mls @ 0 mls/hr IV .Q0M BRII; Protocol Last Admin: 05/13/21 03:17 Dose: 30 mcg/kg/min, 15.19 mls/hr Documented by: Sodium Chloride (Sodium Chloride 0.9%) 250 mls @ 10 mls/hr IV .Q24H [facility] Last Infusion: 05/12/21 18:59 Dose: Infused Documented by: Heparin Sodium (Porcine) 20, (000 unit/ N/A) 20 mls @ 0 mls/hr CRRT .Q0M [facility]; Protocol Insulin Aspart (Insulin Aspart 100 Unit/1 Ml) 0 unit SUBCUT WM&BEDTIME [facility]; Protocol Last Admin: 05/12/21 19:27 Dose: Not Given Documented by: Sodium Chloride (Sodium Chloride 0.9% 1,000 Ml Bag) 1,000 - 7,000 ml CRRT PRN PRN PRN Reason: For priming CRRT Machine Last Admin: 05/11/21 01:45 Dose: 2,000 ml Documented by: Vitals/I&O/Wt Last Vital Signs Temp 97.3 F L 05/13/21 04:00 Pulse 61 05/13/21 06:00 Resp 12 05/13/21 04:00 BP 172/68 05/13/21 04:00 Pulse Ox 99 05/13/21 04:00 05/12/21 05/13/21 05/13/21 22:59 06:59 14:59 Intake Total 781.43 / 1052.940 253.124 / 1306.064 Output Total 160 / 160 Balance 621.43 / 892.940 253.124 / 1146.064 Weight last 48 hrs Weight 82.554 kg Physical Exam Narrative: EXAM NARRATIVE: levo off, vasoprresin @ 0.03 intubated vc/ac/ fio2 30%, tv 500, rr 12, peep 8 rt sided nephtostomy tube heent- nc/at, eomi, anicteric neck supple lung -improved air movement b/l heart- reg +s1, s2, no rub abd -soft, nt, nd, +BS, +ileostomy ext- 1+ edema neuro- responds, tracks Data : 05/13/21 03:19 05/13/21 03:19 Micro: Microbiology 05/09/21 07:11 Urine Culture - Preliminary Urine,Clean Catch Yeast A&P Additional A&P Information 1. Oliguric acute renal failure Consistent with septic associated ATN. Admission CT scan demonstrated bilateral hydronephrosis, however, this more consistent with reflux rather than true obstruction. Seen and examined on CRRT. 4K bath, dialysate flow 1500 mL, prefilter flow 60 mL. uf 100 ml/hr as tolerated Heparin free as plts and hgb dropping Avoid usual nephrotoxic agents Dose medications for GFR less than 15 2. Acidosis and electrolytes Due to bicarb wasting from ileostomy -resp alkalosis on 05/11/21 mild hyponatremia- -replace phos 3. Septic shock. presser requirements are decreasing - E. coli found in the urine, yeast in Sputum. Currently on combination antibiotic therapy with Caspofungin and Primaxin 4. Respiratory distress and VDRF Management per ICU team. 5. ileus improving w/ ng tube 6. thrombocytopenia- Q HIT, Q sepsis, Q med effect -d/c heparin. sned HIT ab 7, anemia- Q CT scan- consider tx 2 u prbc Exam and interview performed with aid of bedside RN using telemedicine Time spent 30 min inc > 50% of time in face to face counseling Attestations Medical Necessity Statement*: anemia, thrombocytopenia, vdrf, ion- on CRRT Time Spent in Patient Care: 16 - 35 minutes Coding Level of Care Code Acute Oil Heaterman for Lavonne Chaney
[2021-05-13 07:44] LABS: Glucose Point of Care 132 mg/dL (70-110)
[2021-05-13] MEDS: aspirin 81 mg EC Tablet PO (08:08)
[2021-05-13] MEDS: bisacodyl 10 mg Supp PR ×2 (08:09→19:47)
[2021-05-13] MEDS: ipratropium-albuterol 3 mL Neb INHALATION ×2 (08:42→21:19)
[2021-05-13] MEDS: budesonide 0.5 mg/2 mL Neb INHALATION ×2 (08:42→21:20)
--- NOTE | 2021-05-13 10:44 | PC.SOCIAL ---
IMM NOT GIVEN Did not give patient IMM update due to being intubated at the time.
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
[2021-05-13 12:03] LABS: Glucose Point of Care 138 mg/dL (70-110)
--- NOTE | 2021-05-13 13:52 | P.PN_ITS ---
Subjective Subjective: Interval history: The patient was seen and examined. I was able to put him on pressure support ventilation with minimal oxygen support. The patient was actually able to communicate and follow commands. He continues to be on CRRT. His pressor requirement has come down significantly. Currently he is off of Levophed. Medications: Reviewed: Yes Vitals/I&O/Wt Last Vital Signs Temp 97.8 F 05/13/21 12:00 Pulse 55 L 05/13/21 12:00 Resp 19 H 05/13/21 13:19 BP 102/66 05/13/21 12:00 Pulse Ox 97 05/13/21 13:19 05/12/21 05/13/21 05/13/21 22:59 06:59 14:59 Intake Total 781.43 / 1052.940 253.124 / 1306.064 208.065 / 208.065 Output Total 160 / 160 Balance 621.43 / 892.940 253.124 / 1146.064 208.065 / 208.065 Weight last 48 hrs Weight 182 lb Physical Exam Narrative: EXAM NARRATIVE: General: Patient is intubated and sedated. Able to follow commands Respiratory: Auscultation: Reduced breath sound bilaterally, minimal wheezing at bilateral bases Cardiovascular: Regular rate and rhythm, S1-S2 present, no murmur, minimal peripheral edema. Abdomen: Soft, nondistended, positive bowel sound Neuro: Intubated and sedated, the patient has contracture of all four extremities Data : 05/13/21 03:19 05/13/21 03:19 Attestation for Other Data: I personally reviewed and interpreted the following: Other data: I have reviewed his laboratory, microbiologic and neurologic data. The patient is receiving unit of PRBC for hemoglobin of 6.9. His platelet count is 75,000. Since CRRT was started his platelet count has dropped from 1 86,000- 75,000. A&P Assessment and plan (1) Cardiac arrest: The patient had suffered from cardiac arrest on May 10. He received CPR for approximately 15 minutes. The etiology of the cardiac arrest is unclear. The patient suffered from bradycardia followed by pulseless electrical activity. Massive gastric dilation in the setting of BiPAP may induce vagal response causing bradycardia. However, the reason for cardiac arrest is likely massive aspiration and the patient's overall poor condition. The patient has septic shock. He has developed dialysis dependent renal failure. Severe airflow obstruction, COPD. The patient is currently only on vasopressin. His mental status has improved significantly. The patient is actually following commands. Status: Acute (2) Septic shock: The patient is currently on imipenem and caspofungin. Culture from the ET tube and urine both grew yeast. Given the improvement in the patient's condition, I am going to switch the caspofungin to renally dose fluconazole. This has been dosed for CRRT. The blood culture has still remained negative. Status: Acute (3) Acute kidney injury superimposed on chronic kidney disease: The patient has acute worsening on chronic CKD. Minimal urine output. The worsening most likely secondary to acute pyelitis with E. coli. The patient self extubated 05/07. However, now he is intubated again following cardiac arrest. The patient is on CRRT. Status: Acute (4) Metabolic acidosis: The nephrology team is following the patient. He is on CRRT Status: Acute (5) Acute hypercapnic respiratory failure: The patient is currently on PSV with minimal oxygen. The patient has quadriplegia and significant weakness of his respiratory muscles. I believe he would be a good candidate for tracheostomy. I will discuss this with his . He has had tracheostomy in the past. Status: Acute (6) COPD (chronic obstructive pulmonary disease): The patient has severe airflow obstruction and he is an active smoker. We will continue with DuoNeb and Pulmicort nebulization. I am going to come down on the steroid dose. Status: Acute Qualifiers: COPD type: emphysema Emphysema type: centrilobular Qualified Code(s): J43.2 - Centrilobular emphysema (7) Acute pyelitis: His antibiotic coverage has been broadened. He is also on antifungal at this point. We will wait for the final result on the blood cultures. The culture result is negative to date. Status: Acute (8) Hydronephrosis: The patient has chronic nonobstructive hydronephrosis. no surgical intervention is planned at this point. Status: Acute Qualifiers: Hydronephrosis type: other Qualified Code(s): N13.39 - Other hydronephrosis Additional A&P Information His overall prognosis is poor. We will continue with the supportive therapy. Attestations Medical Necessity Statement*: Will defer to the primary team Coding Level of Care Code Acute Aquaculturist for Chg Fwd Diagnoses Cardiac arrest I46.9 Septic shock A41.9; R65.21 Acute kidney injury superimposed on chronic kidney disease N17.9; N18.9 Metabolic acidosis E87.2 Acute hypercapnic respiratory failure J96.02 COPD (chronic obstructive pulmonary disease) J43.2 COPD type: emphysema Emphysema type: centrilobular Acute pyelitis N10 Hydronephrosis N13.39 Hydronephrosis type: other Time Spent (min) 33
[2021-05-13 17:04] LABS: Glucose Point of Care 144 mg/dL (70-110)
--- NOTE | 2021-05-13 18:44 | PC.NURSE ---
Shift Note Frequent safety and comfort rounds continue. Orders and/or nursing care completed as indicated. Patient monitored for response to intervention and treatment(s). Education provided includes CRRT and vent. Patient and/or insurance account representative verbalized understanding. Will continue to monitor.
[2021-05-13] MEDS: fluconazole premix 800 MG/400 ML PIGGYBACK 200 MG IV (20:14)
[2021-05-13] MEDS: propofol 1,000 MG/100 ML INJ 17.72 MG IV (20:29)
[2021-05-13 20:35] LABS: Glucose Point of Care 139 mg/dL (70-110)
[2021-05-13] MEDS: heparin 5,000 unit/mL INJ 1 mL 5000 UNIT SUBCUT (20:36)
[2021-05-14] VITALS (96 sets, daily range): BP systolic 64–140; BP diastolic 44–96; PULSE 54–110; RESP 12–37; TEMP 36.6–38.2; O2SAT 88–100
[2021-05-14] MEDS: hydrocortisone 100 mg/2 mL SDV 50 MG IVP ×3 (00:44→15:36)
[2021-05-14] MEDS: PrismaSol BGK 4/2.5 - 5,000 mL Bag 5000 ML CRRT ×2 (01:29→03:02)
[2021-05-14] MEDS: propofol 1,000 MG/100 ML INJ 20.25 MG IV (01:29)
--- NOTE | 2021-05-14 01:35 | PC.NURSE ---
Dr. Dunlap called at around 2300 and lowered fluid removal from 100mL/hr to 50mL/hr, due to patient requiring 2 vasopressors. Continue care.
[2021-05-14] MEDS: famotidine 20 mg/2 mL INJ IVP ×2 (03:05→15:36)
[2021-05-14 04:36] LABS: Basophils % 0.3 %; Lymphocytes # 0.3 10^3/uL (0.8-4.8); Lymphocytes % 1.7 %; Mean Corpuscular Hemoglobin 28.7 pg (28.0-34.0); Mean Corpuscular Volume 89.6 fL (80-94); Mean Platelet Volume 12.1 fL (7.4-10.4); Monocytes # 0.4 10^3/uL (0.2-0.9); Monocytes % 2.7 %; Neutrophils # 14.22 10^3/uL (1.8-7.7); Neutrophils % 94.2 %; Nucleated Red Blood Cells % 0.2 %; Platelet Count 77 10^3/cmm (130-400); Red Blood Count 2.79 10^6/uL (4.1-5.3); Red Cell Distribution Width 16.9 % (12.1-15.1); White Blood Count 15.1 10^3/uL (4.0-10.0)
[2021-05-14 05:05] LABS: Alanine Aminotransferase 6 U/L (0-41); Albumin Level 2.4 g/dL (3.5-5.2); Alkaline Phosphatase 103 IU/L (40-130); Anion Gap 13.3 (5-19); Aspartate Amino Transferase 11 U/L (0-40); Blood Urea Nitrogen 14 mg/dL (8-23); Calcium 7.7 mg/dL (8.5-10.5); Carbon Dioxide 24 mmol/L (22-29); Chloride 103 mmol/L (98-107); Globulin 2.1 g/dL (1.3-4.6); Glomerular Filtration Rate 74.3 mL/min (90-130); Glucose 120 mg/dL (65-115); Magnesium 2.3 mg/dL (1.7-2.3); Osmolality Calculated 284 mOsm/kg (285-295); Phosphorus 3.1 mg/dL (2.5-4.5); Potassium 4.3 mmol/L (3.5-5.1); Sodium 136 mmol/L (136-145); Total Bilirubin 0.5 mg/dL (0.15-1.2); Total Protein 4.5 g/dL (6.6-8.7)
--- NOTE | 2021-05-14 05:21 | PC.NURSE ---
Shift Note Frequent safety and comfort rounds continue. Orders and/or nursing care completed as indicated. Patient monitored for response to intervention and treatment(s). Education provided includes CRRT. Patient and/or hobbies and crafts sales representative needs reinforcement. Will continue to monitor.
--- NOTE | 2021-05-14 05:24 | PC.NURSE ---
CRRT: New filter changed 05/14/21 @ 0403
[2021-05-14] MEDS: propofol 1,000 MG/100 ML INJ 17.72 MG IV (06:06)
--- NOTE | 2021-05-14 06:54 | PC.NURSE ---
CRRT: Discontinued at [address] Dunlap.
--- NOTE | 2021-05-14 07:01 | PM.PN ---
Subjective Subjective: Interval history: sedated, pressers, seen on CRRT- tolerating well. not able to give a ROS- due to critical status. Medications: Reviewed: Yes Medication Review Details: Current Medications Acetaminophen (Acetaminophen 325 Mg Tablet) 650 mg PO Q6H PRN PRN Reason: Mild/Mod Pain Or Temp >/= 101 Last Admin: 05/09/21 09:12 Dose: 650 mg Documented by: Albuterol Sulfate (Albuterol 2.5 Mg/0.5 Ml Neb) 2.5 mg INHALATION Q4H PRN PRN Reason: SHORTNESS OF BREATH Last Admin: 05/11/21 01:00 Dose: 2.5 mg Documented by: Albuterol/Ipratropium (Ipratropium-Albuterol 3 Ml Neb) 3 ml INHALATION Q6H PRN PRN Reason: SHORTNESS OF BREATH Last Admin: 05/13/21 21:19 Dose: 3 ml Documented by: Alteplase, Recombinant (Alteplase 1 Mg/Ml Sdv 2 Ml) 0 mg INTRACATH Q2H PRN; Protocol PRN Reason: Poor Catheter Flow/ Clotted Catheter Aspirin (Aspirin 81 Mg Ec Tablet) 81 mg PO DAILY@08 [facility] Last Admin: 05/13/21 08:08 Dose: 81 mg Documented by: Atorvastatin Calcium (Atorvastatin 40 Mg Tablet) 80 mg PO DAILY@08 [facility] Last Admin: 05/09/21 08:54 Dose: 80 mg Documented by: Bisacodyl (Bisacodyl 10 Mg Supp) 10 mg PA BID@ [facility] Last Admin: 05/13/21 19:47 Dose: 10 mg Documented by: Budesonide (Budesonide 0.5 Mg/2 Ml Neb) 0.5 mg INHALATION BID.RESPIRATORY [facility] Last Admin: 05/13/21 21:20 Dose: 0.5 mg Documented by: Carvedilol (Carvedilol 12.5 Mg Tablet) 12.5 mg PO BID@ [facility] Last Admin: 05/08/21 08:42 Dose: Not Given Documented by: Dextrose (Dextrose 50% Syringe 50 Ml) 25 ml IVP ONCE PRN; Protocol PRN Reason: hypoglycemia protocol Dextrose (Dextrose 50% Syringe 50 Ml) 50 ml IVP PRN PRN; Protocol PRN Reason: hypoglycemia protocol Famotidine (Famotidine 20 Mg/2 Ml Inj) 20 mg IVP Q12H BRII Last Admin: 05/14/21 03:05 Dose: 20 mg Documented by: Glucagon (Glucagon 1 Mg/Ml Inj 1 Ml) 1 mg IM ONCE PRN; Protocol PRN Reason: Adult Acute Hypoglycemia Prot. Heparin Sodium (Beef Lung) (Heparin 5,000 Unit/Ml Inj 1 Ml) 5,000 unit SUBCUT Q12H BRII Last Admin: 05/13/21 20:36 Dose: 5,000 unit Documented by: Hydrocortisone Sodium Succinate (Hydrocortisone 100 Mg/2 Ml Sdv) 50 mg IVP Q8H [facility] Last Admin: 05/14/21 00:44 Dose: 50 mg Documented by: Dextrose (D5w) 500 mls @ 100 mls/hr IV ONCE PRN; Protocol PRN Reason: Adult Acute Hypoglycemia Prot Albumin Human (Albumin) 12.5 gm in 50 mls @ 60 mls/hr IV PRN PRN PRN Reason: Hypotension and/or symptomatic Last Infusion: 05/09/21 13:22 Dose: Infused Documented by: Norepinephrine Bitartrate 4 mg (/ Dextrose) 254 mls @ 0 mls/hr IV .Q0M [facility]; Protocol Last Titration: 05/14/21 05:23 Dose: 6 mcg/min, 22.86 mls/hr Documented by: Imipenem/Cilastatin Sodium 500 (mg/ Sodium Chloride) 100 mls @ 200 mls/hr IV Q12H [facility]; Protocol Last Infusion: 05/14/21 06:02 Dose: Infused Documented by: Vasopressin 100 unit/ Sodium (Chloride) 100 mls @ 0 mls/hr IV .Q0M BRII; Protocol Last Titration: 05/14/21 05:23 Dose: 0.04 unit/min, 2.4 mls/hr Documented by: Vasopressin 40 unit/ Sodium (Chloride) 40 mls @ 0.03 mls/min IV CONT [facility] Last Infusion: 05/14/21 01:22 Dose: Infused Documented by: Midazolam HCl 100 mg/ Sodium (Chloride) 100 mls @ 0 mls/hr IV .Q0M BRII; Protocol Last Titration: 05/12/21 13:48 Dose: 0 mg/hr, 0 mls/hr Documented by: Fentanyl 1,000 mcg/ Sodium (Chloride) 100 mls @ 0 mls/hr IV .Q0M BRII; Protocol Last Admin: 05/13/21 21:41 Dose: 75 mcg/hr, 7.5 mls/hr Documented by: Propofol (Diprivan) 1,000 mg in 100 mls @ 0 mls/hr IV .Q0M [facility]; Protocol Last Admin: 05/14/21 06:06 Dose: 35 mcg/kg/min, 17.72 mls/hr Documented by: Sodium Chloride (Sodium Chloride 0.9%) 250 mls @ 10 mls/hr IV .Q24H [facility] Last Admin: 05/13/21 09:23 Dose: Not Given Documented by: Fluconazole (Diflucan Premix) 800 mg in 400 mls @ 200 mls/hr IV Q24H [facility] Last Infusion: 05/14/21 01:20 Dose: Infused Documented by: Insulin Aspart (Insulin Aspart 100 Unit/1 Ml) 0 unit SUBCUT WM&BEDTIME [facility]; Protocol Last Admin: 05/13/21 20:34 Dose: Not Given Documented by: Sodium Chloride (Sodium Chloride 0.9% 1,000 Ml Bag) 1,000 - 7,000 ml CRRT PRN PRN PRN Reason: For priming CRRT Machine Last Admin: 05/11/21 01:45 Dose: 2,000 ml Documented by: Vitals/I&O/Wt Last Vital Signs Temp 98.4 F 05/14/21 04:00 Pulse 64 05/14/21 06:00 Resp 13 05/14/21 06:18 BP 106/72 05/14/21 04:15 Pulse Ox 97 05/14/21 06:18 05/13/21 05/14/21 05/14/21 22:59 06:59 14:59 Intake Total 1305.046 / 1863.111 896.379 / 2759.490 Output Total 395 / 395 Balance 910.046 / 1468.111 896.379 / 2364.490 Weight last 48 hrs Weight 79.18 kg Weight 82.554 kg Physical Exam Narrative: EXAM NARRATIVE: levo @6, vasoprresin @ 0.04 intubated PS fio2 30%, tv 480, rr 12, peep 8 rt sided nephtostomy tube heent- nc/at, eomi, anicteric neck supple lung -improved air movement b/l heart- reg +s1, s2, no rub abd -soft, nt, nd, +BS, +ileostomy ext- 1+ edema neuro- responds to pain, more lethargic than yesterday Data : 05/14/21 03:55 05/14/21 03:55 A&P Additional A&P Information 1. Oliguric acute renal failure Consistent with septic associated ATN. Admission CT scan demonstrated bilateral hydronephrosis, however, this more consistent with reflux rather than true obstruction. Seen and examined on CRRT. 4K bath, dialysate flow 1500 mL, prefilter flow 60 mL. uf 100 ml/hr as tolerated- as k is 4.3, bicarb 24, bun 14 and on 2 pressers- will hold CRRT and monitor for renal recovery and ability to wean off pressers Avoid usual nephrotoxic agents Dose medications for GFR less than 15 2. Acidosis and electrolytes -stable 3. Septic shock. - E. coli found in the urine, yeast in Sputum. Currently on combination antibiotic therapy with Caspofungin and Primaxin =wbc is increasing 4. Respiratory distress and VDRF Management per ICU team. 5. ileus improving w/ ng tube 6. thrombocytopenia- Q HIT, Q sepsis, Q med effect -d/c heparin. f/u HIT ab -plts are stable 7, anemia- Q CT scan- s/p tx 1 u prbc dose all meds for ESRD Exam and interview performed with aid of bedside RN using telemedicine Time spent 30 min inc > 50% of time in face to face counseling Attestations Medical Necessity Statement*: ion, vdrf, septic shock Time Spent in Patient Care: 16 - 35 minutes Coding Level of Care Code Acute Diesel Mechanic Farm for Lavonne Chaney
[2021-05-14] MEDS: ipratropium-albuterol 3 mL Neb INHALATION ×3 (08:38→21:06)
[2021-05-14] MEDS: budesonide 0.5 mg/2 mL Neb INHALATION ×2 (08:38→21:06)
[2021-05-14 08:44] LABS: Glucose Point of Care 162 mg/dL (70-110)
[2021-05-14] MEDS: aspirin 81 mg EC Tablet PO (09:32)
[2021-05-14] MEDS: midodrine 5 mg TABLET 10 MG PO ×3 (09:32→20:20)
[2021-05-14] MEDS: heparin 5,000 unit/mL INJ 1 mL 5000 UNIT SUBCUT (09:32)
[2021-05-14] MEDS: bisacodyl 10 mg Supp PR ×2 (09:33→20:20)
--- NOTE | 2021-05-14 10:00 | PC.NURSE ---
Dialysis Cath and PICC dressings changed. Both had [place] View Contour Shield dressing applied. Hand hygiene and sterile technique observed throughout.
--- NOTE | 2021-05-14 10:00 | PC.CHAP ---
Pastoral Care Encounter/Spiritual Assessment Type of Contact [] Declined it portfolio manager visit [] Patient/Family/Request visit [] Outpatient visit [] Follow-up visit [] Physician referral [] Code/Alert [x] Routine visit [] Staff referral [] Actively dying [] Patient sleeping [] Family support [] [] Out of room [] Palliative care [] [] Receiving care in room [] Pre-surgical visit [] Trauma [] Long length of stay [x] ICU visit [] Other: Relational/Emotional Strength [] Patient feels connected with others/family/visitors/staff [] Distress [] Loneliness/isolation [] Abandonment Spirituality of Patient [] Person of Jessica [] Attends Faith of their Jessica [] Believes in Prayer [] Reads Bible or Latter-Day materials [] There are Spiritual issues to be addressed Rack Maker Interventions [x] Prayer [] Active listening [] Non-anxious presence [] Spiritual/emotional support [] Crisis/trauma care [] Spiritual counseling [] Bereavement support [] Provided bereavement packet [] Provided Bible/devotional materials [] Provided toy/stuffed animal, coloring book to patient or family member [] Provided Communion [] Anointing/[place] [] Salvation [x] Completed spiritual assessment [] Other: Impact on Illness or Injury [] Angry [] Fearful [] Anxious [] Often cries [] Exhaustion [] Unable to work [] Unable to attend mormonism [] Unable to walk/stand [] Unable to read [] Unable to drive [] Unable to eat/drink [] Unable to sleep [] Unable to be with family [] Patient intubated [] Other: Summary Time spent with patient
--- NOTE | 2021-05-14 11:00 | PC.NURSE ---
Persistent hypotension despite Midodrine starting today. Vasopressin remains at 0.04units/min. Levophed rate increasing per BP
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
[2021-05-14] MEDS: propofol 1,000 MG/100 ML INJ 10.12 MG IV ×2 (12:15→22:27)
--- NOTE | 2021-05-14 12:29 | XRR_ITS ---
PROCEDURE INFORMATION: Exam: XR Chest Exam date and time: 05/14/2021 12:29 PM Age: 70 years old Clinical indication: Condition or disease; Lung condition and disease; Pneumonia TECHNIQUE: Imaging protocol: XR of the chest. Views: 1 view. COMPARISON: CR XR chest 1V portable [id number] 05/11/2021 12:58 PM FINDINGS: Tubes, catheters and devices: There is an endotracheal tube, right IJ catheter and nasogastric tube. Lungs: There is opacification in the right lung base. The left lung is clear. Pleural spaces: There is a right pleural effusion. No pneumothorax. Heart/Mediastinum: Unremarkable. No cardiomegaly. Bones/joints: There are bilateral old rib fractures. XR/XR chest 1V portable [id number] IMPRESSION: There is a right pleural effusion. There is opacification in the right lung base consistent with atelectasis, aspiration and/or pneumonia.
--- NOTE | 2021-05-14 12:30 | CTR_ITS ---
PROCEDURE INFORMATION: Exam: CT Head Without Contrast Exam date and time: 05/14/2021 12:30 PM Age: 70 years old Clinical indication: Other: Post code; Additional info: Post code ? ? anoxic or hypoxic encephalopathy TECHNIQUE: Imaging protocol: Computed tomography of the head without contrast. Radiation optimization: All CT scans at this facility use at least one of these dose optimization techniques: automated exposure control; mA and/or kV adjustment per patient size (includes targeted exams where dose is matched to clinical indication); or iterative reconstruction. COMPARISON: CT head wo con* [id number] 05/01/2021 4:56 PM RADIATION DOSE METRICS: Total DLP (mGy-cm): 948.74 FINDINGS: Brain: No acute intracranial hemorrhage or mass effect. There is mild decreased attenuation in the periventricular white matter, likely from microvascular disease. Old infarct again seen in the high medial right frontal lobe. No definite acute infarct by CT. MRI could be more sensitive/specific for detection, as clinically directed. Cerebral ventricles: Ventricle size is normal for age. Paranasal sinuses: Included paranasal sinuses are essentially clear. Mastoid air cells: No significant acute finding. Vasculature: Vascular calcifications in the internal carotid and vertebral basilar systems. Bones/joints: No definite acute skull fracture. CT/CT head wo con* [id number] IMPRESSION: 1. No acute intracranial hemorrhage or mass effect. 2. Changes of microvascular disease, and old right frontal lobe infarct. 3. No definite acute infarct by CT, see above. 4. No significant interval change. 5. Other findings discussed above. Radiation Dose CTDIVOL = (mGy): DLP = 948.74 (mGy-cm)
--- NOTE | 2021-05-14 12:34 | ECG_ITS ---
[facility] Test Date: 2021-05-14 Pat Name: Johnny Jo Department: Room: ICU10 Gender: Male Reconciliation Specialist: : [id number] Requested By: Rocky Guadarrama Order Number: [id number] Raoul MD: Tushar Muller M.D. Measurements Intervals [place] Rate: 90 P: 57 AL: 177 QRS: -41 QRSD: 88 T: 45 QT: 336 QTc: 412 Interpretive Statements SINUS RHYTHM MARKED LEFT AXIS DEVIATION [QRS AXIS < -30] LOW QRS VOLTAGE IN PRECORDIAL LEADS [QRS DEFLECTION < 1.0 mV IN CHEST LEADS] POSSIBLE RIGHT VENTRICULAR CONDUCTION DELAY [RSR (QR) IN V1/V2] ANTEROSEPTAL MYOCARDIAL INFARCTION [40+ ms Q WAVE IN V1-V4], OF INDETERMINATE AGE Compared to ECG 05/11/2021 09:39:04 Left-axis deviation now present Low QRS voltage now present Sinus bradycardia no longer present First degree AV block no longer present Myocardial infarct finding still present Electronically Signed On 05-14-2021 17:27:26 CDT by Tushar Muller M.D. [email or web address]
[2021-05-14 12:41] LABS: Glucose Point of Care 132 mg/dL (70-110)
[2021-05-14] MEDS: albumin 12.5 GM/50 ML VIAL IV (12:46)
--- NOTE | 2021-05-14 17:44 | P.PN_ITS ---
Subjective Subjective: Interval history: No events overnight, patient is getting weaning trial today, talked with Dr. Jiménez to discuss his plan for today CRRT discontinued yesterday acidosis improved no electrolyte imbalance Hemoglobin 8 [place] brown urine in urine bag Vitals/I&O/Wt Last Vital Signs Temp 100 F H 05/14/21 16:45 Pulse 87 05/14/21 17:15 Resp 32 H 05/14/21 17:15 BP 93/44 05/14/21 17:15 Pulse Ox 91 05/14/21 17:15 05/14/21 05/14/21 05/14/21 06:59 14:59 22:59 Intake Total 896.379 / 2759.490 572.442 / 572.442 161.798 / 734.240 Balance 896.379 / 2364.490 572.442 / 572.442 161.798 / 734.240 Weight last 48 hrs Weight 79.18 kg Weight 82.554 kg Physical Exam Narrative: EXAM NARRATIVE: Patient is intubated and sedated getting weaning trial Off CRRT Weaning off sedatives Urine bag has muddy brown urine Abdomen not as distended, soft, mildly bloated Lower extremities misuse atrophy Assisted bilateral breath sounds with rhonchi at the base Left arm swollen as left arm is swollen as compared to right Data : 05/14/21 03:55 05/14/21 03:55 Micro: Microbiology 05/09/21 07:11 Urine Culture - Preliminary Urine,Clean Catch Yeast A&P Assessment and plan (1) Aspiration into respiratory tract: Status: Acute (2) Dependence on renal dialysis: Status: Acute (3) Cardiac arrest: Status: Acute (4) Septic shock: Status: Acute (5) Acute respiratory failure with hypoxia: Status: Acute (6) Acute hypercapnic respiratory failure: Status: Acute (7) Metabolic acidosis: Status: Acute (8) Hypothermia: Status: Acute (9) Shock: Status: Acute (10) Acute kidney injury superimposed on chronic kidney disease: Status: Acute (11) Normal anion gap metabolic acidosis: Status: Acute (12) Non-STEMI (non-ST elevated myocardial infarction): Status: Acute Additional A&P Information Septic shock: Titrating off Levophed and vasopressin Addition of midodrine noted His antifungal was transitioned back to caspofungin because of persistent r equirement of vasopressors Imipenem to be continued, pansensitive E. coli noted urine culture 05/01 Aspiration pneumonia Normal anion gap metabolic acidosis Required CRRT which was discontinued today on 05/14 [place] brown urine color related to ATN Respiratory failure requiring respiratory failure requiring mechanical ventilation Sedation vacation Starting weaning trial today Management as per spanish language lecturer Cardiac arrest secondary to hypoxia related to large vomitus 15 minutes of ACLS Concern for anoxic brain injury However postcode he was able to open his eyes and move his upper extremities Chronic left femoral vein thrombosis Currently on heparin DVT prophylactic regimen, not on therapeutic dose because of bleeding noticed through endotracheal tube H&H stable at 8 Gastric ileus due to use of BiPAP Monitor bowel movement Continue tube feeding DNR/DNI Poor prognosis High risk for reintubation, poor candidate for tracheostomy Attestations Medical Necessity Statement*: As per pulmonary continue medical management still intubated Time Spent in Patient Care: 16 - 35 minutes Coding Level of Care Code Acute Enterprise Software Developer for Chg Fwd Diagnoses Aspiration into respiratory tract T17.908A Dependence on renal dialysis Z99.2 Cardiac arrest I46.9 Septic shock A41.9; R65.21 Acute respiratory failure with hypoxia J96.01 Acute hypercapnic respiratory failure J96.02 Metabolic acidosis E87.2 Hypothermia T68.XXXA Shock R57.9 Acute kidney injury superimposed on chronic kidney disease N17.9; N18.9 Normal anion gap metabolic acidosis E87.2 Non-STEMI (non-ST elevated myocardial infarction) I21.4
[2021-05-14 18:21] LABS: Glucose Point of Care 159 mg/dL (70-110)
[2021-05-14 18:36] LABS: Basophils # 0.1 10^3/uL (0.0-0.1); Basophils % 0.2 %; Lymphocytes # 0.7 10^3/uL (0.8-4.8); Lymphocytes % 2.5 %; Mean Corpuscular HGB Conc 31.8 g/dL (30.0-36.0); Mean Corpuscular Hemoglobin 28.8 pg (28.0-34.0); Mean Corpuscular Volume 90.7 fL (80-94); Mean Platelet Volume 11.8 fL (7.4-10.4); Monocytes # 0.9 10^3/uL (0.2-0.9); Monocytes % 3.3 %; Neutrophils # 25.73 10^3/uL (1.8-7.7); Neutrophils % 91.4 %; Nucleated Red Blood Cells # 0.3 /100WBC; Nucleated Red Blood Cells % 1.1 %; Platelet Count 143 10^3/cmm (130-400); Red Blood Count 2.15 10^6/uL (4.1-5.3); Red Cell Distribution Width 17.2 % (12.1-15.1); White Blood Count 28.2 10^3/uL (4.0-10.0)
[2021-05-14 18:45] LABS: Hematocrit 19.5 % (42.0-52.0); Hemoglobin 6.2 g/dL (11.7-16.6)
[2021-05-14 19:03] LABS: Lactate (Lactic Acid level) 2.1 mmol/L (0.5-2.2)
[2021-05-14 19:34] LABS: Alanine Aminotransferase < 5 U/L (0-41); Albumin Level 2.3 g/dL (3.5-5.2); Alkaline Phosphatase 88 IU/L (40-130); Anion Gap 16.5 (5-19); Aspartate Amino Transferase 9 U/L (0-40); Blood Urea Nitrogen 20 mg/dL (8-23); Calcium 7.5 mg/dL (8.5-10.5); Carbon Dioxide 22 mmol/L (22-29); Chloride 102 mmol/L (98-107); Glomerular Filtration Rate 54.9 mL/min (90-130); Glucose 156 mg/dL (65-115); Osmolality Calculated 288 mOsm/kg (285-295); Potassium 4.5 mmol/L (3.5-5.1); Sodium 136 mmol/L (136-145); Total Bilirubin 0.6 mg/dL (0.15-1.2); Total Protein 4.3 g/dL (6.6-8.7)
--- NOTE | 2021-05-14 19:43 | PC.NURSE ---
Shift summary: Pt remains intubated, CPAP,FIO2 at 30%, peep and pressure support changed. Pt tolerating this well. Weaning trial started but did not get any further due to hypotension. Fentanyl and Propol rates decreased for trial and to help improve BP. Propofol now at 20mcg/kg/hr and Fentanyl now at 40mcg/hr. No change in set rate of Vasopressin. Levophed has been steadily increasing throughout the day to improve BP, rate now at 16mcg/min. Dr gutierrez to about pts condition, CODE status changed to AND. Pt pale. Pt opens eyes and tracks voices. He is edematous. His left arm is significantly larger than his right, Dr aware. Per his left arm is larger than right due to his accident but not this much. WBC elevated today, Fluconazole stopped and caspofungin restarted. Urine output negligible. Labs done at evening shift change, HGb critically low 6.2, PRBCs ordered. Frequent safety and comfort rounds continue. Orders and/or nursing care completed as indicated. Patient monitored for response to intervention and treatment(s). Education provided includes Propofol, Fentanyl, Levophed, Midodrine Patient and/or underwriting sales representative verbalizes Will continue to monitor.
[2021-05-14] MEDS: sodium chloride 0.9% 100 mL Bag 50 ML IV (19:57)
[2021-05-14 20:12] LABS: Glucose Point of Care 147 mg/dL (70-110)
[2021-05-15] VITALS (108 sets, daily range): BP systolic 73–155; BP diastolic 56–112; PULSE 42–86; RESP 12–27; TEMP 36.7–38.2; O2SAT 80–100; BMI 27.3
[2021-05-15] MEDS: hydrocortisone 100 mg/2 mL SDV 50 MG IVP ×3 (00:17→17:31)
[2021-05-15] MEDS: famotidine 20 mg/2 mL INJ IVP ×2 (04:46→17:31)
[2021-05-15 05:54] LABS: Basophils # 0.1 10^3/uL (0.0-0.1); Basophils % 0.2 %; Hematocrit 29.3 % (42.0-52.0); Hemoglobin 9.5 g/dL (11.7-16.6); Lymphocytes # 0.7 10^3/uL (0.8-4.8); Lymphocytes % 3.4 %; Mean Corpuscular HGB Conc 32.4 g/dL (30.0-36.0); Mean Corpuscular Hemoglobin 28.2 pg (28.0-34.0); Mean Corpuscular Volume 86.9 fL (80-94); Mean Platelet Volume 11.6 fL (7.4-10.4); Monocytes # 0.7 10^3/uL (0.2-0.9); Monocytes % 3.6 %; Neutrophils # 18.81 10^3/uL (1.8-7.7); Neutrophils % 90.5 %; Nucleated Red Blood Cells # 0.1 /100WBC; Nucleated Red Blood Cells % 0.5 %; Platelet Count 108 10^3/cmm (130-400); Red Blood Count 3.37 10^6/uL (4.1-5.3); Red Cell Distribution Width 15.8 % (12.1-15.1); White Blood Count 20.8 10^3/uL (4.0-10.0)
[2021-05-15 06:24] LABS: Alanine Aminotransferase 9 U/L (0-41); Albumin Level 2.4 g/dL (3.5-5.2); Alkaline Phosphatase 95 IU/L (40-130); Anion Gap 14.7 (5-19); Aspartate Amino Transferase 37 U/L (0-40); Blood Urea Nitrogen 23 mg/dL (8-23); Calcium 7.7 mg/dL (8.5-10.5); Carbon Dioxide 22 mmol/L (22-29); Chloride 100 mmol/L (98-107); Glomerular Filtration Rate 50.4 mL/min (90-130); Glucose 128 mg/dL (65-115); Magnesium 2.2 mg/dL (1.7-2.3); Osmolality Calculated 279 mOsm/kg (285-295); Phosphorus 4.1 mg/dL (2.5-4.5); Potassium 4.7 mmol/L (3.5-5.1); Sodium 132 mmol/L (136-145); Total Bilirubin 0.7 mg/dL (0.15-1.2); Total Protein 4.4 g/dL (6.6-8.7)
--- NOTE | 2021-05-15 07:15 | PM.PN ---
Subjective Subjective: Interval history: on CPAP trial in icu. remains on 2 pressers- dec doses - intubate. not able to give a ROS Medications: Reviewed: Yes Medication Review Details: Current Medications Acetaminophen (Acetaminophen 325 Mg Tablet) 650 mg PO Q6H PRN PRN Reason: Mild/Mod Pain Or Temp >/= 101 Last Admin: 05/09/21 09:12 Dose: 650 mg Documented by: Albuterol Sulfate (Albuterol 2.5 Mg/0.5 Ml Neb) 2.5 mg INHALATION Q4H PRN PRN Reason: SHORTNESS OF BREATH Last Admin: 05/11/21 01:00 Dose: 2.5 mg Documented by: Albuterol/Ipratropium (Ipratropium-Albuterol 3 Ml Neb) 3 ml INHALATION Q6H PRN PRN Reason: SHORTNESS OF BREATH Last Admin: 05/14/21 21:06 Dose: 3 ml Documented by: Alteplase, Recombinant (Alteplase 1 Mg/Ml Sdv 2 Ml) 0 mg INTRACATH Q2H PRN; Protocol PRN Reason: Poor Catheter Flow/ Clotted Catheter Aspirin (Aspirin 81 Mg Ec Tablet) 81 mg PO DAILY@0800 [facility] Last Admin: 05/14/21 09:32 Dose: 81 mg Documented by: Atorvastatin Calcium (Atorvastatin 40 Mg Tablet) 80 mg PO DAILY@0800 [facility] Last Admin: 05/09/21 08:54 Dose: 80 mg Documented by: Bisacodyl (Bisacodyl 10 Mg Supp) 10 mg AL BID@ [facility] Last Admin: 05/14/21 20:20 Dose: 10 mg Documented by: Budesonide (Budesonide 0.5 Mg/2 Ml Neb) 0.5 mg INHALATION BID.RESPIRATORY [facility] Last Admin: 05/14/21 21:06 Dose: 0.5 mg Documented by: Carvedilol (Carvedilol 12.5 Mg Tablet) 12.5 mg PO BID@ [facility] Last Admin: 05/08/21 08:42 Dose: Not Given Documented by: Dextrose (Dextrose 50% Syringe 50 Ml) 25 ml IVP ONCE PRN; Protocol PRN Reason: hypoglycemia protocol Dextrose (Dextrose 50% Syringe 50 Ml) 50 ml IVP PRN PRN; Protocol PRN Reason: hypoglycemia protocol Famotidine (Famotidine 20 Mg/2 Ml Inj) 20 mg IVP Q12H BRII Last Admin: 05/15/21 04:46 Dose: 20 mg Documented by: Glucagon (Glucagon 1 Mg/Ml Inj 1 Ml) 1 mg IM ONCE PRN; Protocol PRN Reason: Adult Acute Hypoglycemia Prot. Heparin Sodium (Beef Lung) (Heparin 5,000 Unit/Ml Inj 1 Ml) 5,000 unit SUBCUT Q12H BRII Last Admin: 05/14/21 21:40 Dose: Not Given Documented by: Heparin Sodium (Beef Lung) (Heparin Lock Flush 500 Unit/5 Ml Syringe) 500 unit IV ONCE PRN PRN Reason: Dialysis line Last Admin: 05/15/21 05:39 Dose: 500 unit Documented by: Heparin Sodium (Beef Lung) (Heparin Lock Flush 500 Unit/5 Ml Syringe) 500 unit IV BID PRN PRN Reason: Dialysis port Hydrocortisone Sodium Succinate (Hydrocortisone 100 Mg/2 Ml Sdv) 50 mg IVP Q8H BRII Last Admin: 05/15/21 00:17 Dose: 50 mg Documented by: Dextrose (D5w) 500 mls @ 100 mls/hr IV ONCE PRN; Protocol PRN Reason: Adult Acute Hypoglycemia Prot Albumin Human (Albumin) 12.5 gm in 50 mls @ 60 mls/hr IV PRN PRN PRN Reason: Hypotension and/or symptomatic Last Infusion: 05/14/21 14:00 Dose: Infused Documented by: Norepinephrine Bitartrate 4 mg (/ Dextrose) 254 mls @ 0 mls/hr IV .Q0M BRII; Protocol Last Titration: 05/15/21 06:24 Dose: 2 mcg/min, 7.62 mls/hr Documented by: Vasopressin 100 unit/ Sodium (Chloride) 100 mls @ 0 mls/hr IV .Q0M BRII; Protocol Last Admin: 05/14/21 14:45 Dose: 0.04 unit/min, 2.4 mls/hr Documented by: Vasopressin 40 unit/ Sodium (Chloride) 40 mls @ 0.03 mls/min IV CONT BRII Last Infusion: 05/15/21 05:41 Dose: 0.04 mls/min Documented by: Fentanyl 1,000 mcg/ Sodium (Chloride) 100 mls @ 0 mls/hr IV .Q0M BRII; Protocol Last Admin: 05/14/21 12:16 Dose: 40 mcg/hr, 4 mls/hr Documented by: Propofol (Diprivan) 1,000 mg in 100 mls @ 0 mls/hr IV .Q0M [facility]; Protocol Last Admin: 05/14/21 22:27 Dose: 20 mcg/kg/min, 10.12 mls/hr Documented by: Imipenem/Cilastatin Sodium 500 (mg/ Sodium Chloride) 100 mls @ 200 mls/hr IV Q6H [facility]; Protocol Last Infusion: 05/15/21 06:23 Dose: Infused Documented by: Caspofungin 50 mg/ Sodium (Chloride) 250 mls @ 250 mls/hr IV Q24H [facility] Last Infusion: 05/14/21 18:54 Dose: Infused Documented by: Insulin Aspart (Insulin Aspart 100 Unit/1 Ml) 0 unit SUBCUT WM&BEDTIME [facility]; Protocol Last Admin: 05/14/21 20:22 Dose: 4 unit Documented by: Midodrine (Midodrine 5 Mg Tablet) 10 mg PO TID [facility] Last Admin: 05/14/21 20:20 Dose: 10 mg Documented by: Sodium Chloride (Sodium Chloride 0.9% 1,000 Ml Bag) 1,000 - 7,000 ml CRRT PRN PRN PRN Reason: For priming CRRT Machine Last Admin: 05/11/21 01:45 Dose: 2,000 ml Documented by: Vitals/I&O/Wt Last Vital Signs Temp 100.2 F H 05/15/21 04:59 Pulse 66 05/15/21 07:01 Resp 22 H 05/15/21 07:01 BP 121/84 05/15/21 04:59 Pulse Ox 93 05/15/21 07:01 05/14/21 05/15/21 05/15/21 22:59 06:59 14:59 Intake Total 901.103 / 1473.545 848.290 / 2321.835 Output Total 30 160 / 190 Balance 871.103 / 1443.545 688.290 / 2131.835 Weight last 48 hrs Weight 86.268 kg Weight 79.18 kg Physical Exam Narrative: EXAM NARRATIVE: levo @2, vasoprresin @ 0.04 intubated -CPAP trial fio2 30%, rt sided nephtostomy tube heent- nc/at, eomi, anicteric neck supple lung -improved air movement b/l heart- reg +s1, s2, no rub abd -soft, nt, nd, +BS, +ileostomy ext- increased edema neuro- responds to pain, on vent Data : 05/15/21 05:25 05/15/21 05:25 Micro: Microbiology 05/09/21 17:39 Blood Culture - Final Blood NO GROWTH AFTER 5 DAYS 05/09/21 17:23 Blood Culture - Final Blood NO GROWTH AFTER 5 DAYS 05/09/21 07:11 Urine Culture - Preliminary Urine,Clean Catch Yeast A&P Additional A&P Information 1. Oliguric acute renal failure Consistent with septic associated ATN. Admission CT scan demonstrated bilateral hydronephrosis, however, this more consistent with reflux rather than true obstruction. - held CRRT yesterday -will discuss w/ pulmonary - attempt to hold HD -consider lasix -na 132, k 4.7, bicarb 22, cr 1.4, ca 7.7 Avoid usual nephrotoxic agents Dose medications for GFR less than 15 2. Septic shock. - E. coli found in the urine, yeast in Sputum. Currently on combination antibiotic therapy with Caspofungin and Primaxin =wbc is slowly improving 3. VDRF - bipap trial Management per ICU team. 4. ileus improving w/ ng tube 5. thrombocytopenia- Q HIT, Q sepsis, Q med effect -d/c heparin. f/u HIT ab -plts improved and now dropped again 7, anemia- Q CT scan- s/p tx prbc dose all meds for ESRD Exam and interview performed with aid of bedside RN using telemedicine Time spent 30 min inc > 50% of time in face to face counseling discussed w/ Datar Attestations Medical Necessity Statement*: ion, vdrf, presser dep, ams Time Spent in Patient Care: 16 - 35 minutes Coding Level of Care Code Acute Roving Or Yarn Color Checker for Lavonne Chaney
[2021-05-15] MEDS: propofol 1,000 MG/100 ML INJ 10.12 MG IV (07:30)
[2021-05-15] MEDS: aspirin 81 mg EC Tablet PO (07:40)
[2021-05-15] MEDS: FUROsemide 10 mg/mL SDV 4mL 40 MG IVP (08:04)
[2021-05-15] MEDS: bisacodyl 10 mg Supp PR ×2 (08:26→21:11)
[2021-05-15 08:28] LABS: Glucose Point of Care 140 mg/dL (70-110)
--- NOTE | 2021-05-15 08:41 | CT_ITS ---
WS: [id number] CT CHEST, ABDOMEN, AND PELVIS TECHNIQUE: Noncontrast CT of the chest, abdomen, and pelvis with coronal and sagittal reformatted heather ges. CLINICAL INFORMATION: internal bleeding COMPARISON: None. DLP: 1428.[address] scans at [facility] use at least one of these dose optimization techniques: automat ed exposure control; mA and/or kV adjustment per patient size (includes targeted exams where dose is matched to clinical indication); or iterative reconstruction. CT CHEST: Large amount of mixed attenuation hematoma blood products in the right lower lobe. This results in ri ght to left mass effect on the heart. Compression of the right lower lobe bronchi with a few air bron chograms. Additional blood products and fluid extending along the anterior mediastinum and deep to th e sternum. Tiny pericardial effusion. Right upper lobe is well aerated. Airspace consolidation left lower lobe. Shallow inspiration. Bronchiectasis and patchy infiltrates in the left upper lobe, and about the left hilum are new from previous. Additional patchy infiltrates in the anterior left upper lobe. Recommen d correlation for pneumonitis. Additional slight patchy infiltrates in the posterior right upper lobe with bronchiectasis. Endotrac heal tube above the dominick. Enteric tube in the stomach. Central venous catheter with tip in the SVC. No visualized acute rib fractures. No displaced rib fractures. Chronic rib fractures. Left thyroid n odule is unchanged from previous. CT ABDOMEN AND PELVIS: Noncontrast liver is normal. Enteric tube with tip in the stomach. Normal noncontrast spleen. Small a mount of perihepatic and perisplenic ascites. Fatty atrophy of the pancreas. Adrenal glands are artur l. Renal cortical atrophy with bilateral renal cysts. Bilateral ureterectasis is unchanged. Previousl y described gas within the renal collecting system has resolved. Cystectomy with urinary diversion an d ileal conduit. Soft tissue thickening along the dorsal sacrum and distal rectum is unchanged. Prior cholecystectomy. Chronic degenerative changes both hips. Left femoral head has been resected. Osteopenia. Chronic endp late compression deformities in the lumbar spine. CT/CT chest abd pel wo con IMPRESSION: 1. Large amount of heterogeneous hematoma in the right lower lobe with right t o left mass effect on the heart. This involves the right distal lower lobe bron chi with air bronchograms. Small amount of fluid and blood products in the pleu ral space. 2. Additional heterogeneous hematoma involving the anterior mediastinum and pl eural space deep to the sternum. 3. Small pericardial effusion. 4. Patchy infiltrates throughout the left lung with partial consolidation left lower lobe are new from previous. Associated bronchiectasis. Small amount of n ew infiltrate in the right upper lobe posteriorly. 5. Prior cystectomy with ileoconduit. Gas within the renal collecting systems has resolved. Bilateral pelvocaliectasis and ureterectasis appears unchanged. 6. Stable soft tissue thickening along the dorsal sacrum and rectum. Notified Rocky Jiménez MD at 05/15/2021 1:27 PM.
[2021-05-15] MEDS: budesonide 0.5 mg/2 mL Neb INHALATION ×2 (09:13→20:35)
[2021-05-15] MEDS: ipratropium-albuterol 3 mL Neb INHALATION ×2 (09:13→20:35)
[2021-05-15] MEDS: midodrine 5 mg TABLET 10 MG PO ×3 (09:52→21:11)
--- NOTE | 2021-05-15 12:39 | PC.SOCIAL ---
IMM NOT GIVEN IMM update not given due to pt being on vent at this time.
--- NOTE | 2021-05-15 13:38 | PC.NURSE ---
1320 discussing code status, states she doesnt want cpr done again if heart stops. dr. prescott in explained if meds were given during code and no cpr, they wouldnt be circulated. during this conversation 02 sat dropped into 70s. r.r. was in the 40s' 100% fio2 and sxd sat cont. to remain low. respiratory summoned.
--- NOTE | 2021-05-15 16:11 | PC.NUTR ---
Nutrition follow up: Recommend to initiate nutrition support as soon as possible and medically appropriate, given 11 days of no nutritional provision. Notified Dr. Jiménez of recommendation. TF recommendations: Nepro, beginning at 10 ml/hr, increasing by 10 ml/hr q 8 hours to goal rate of 40 ml/hr with 200 ml H2O flushes q 6 hours to provide 1728 kcal, 78 g protein, 1896 ml H2O. See full RD assessment for further details.
[2021-05-15 17:24] LABS: Glucose Point of Care 111 mg/dL (70-110)
--- NOTE | 2021-05-15 17:48 | PM.ACPR ---
Procedure/Consent Time out: Time Out Performed: Yes Consent: Consent for Procedure: Consent obtained from other (indicate) () Procedure Narrative: Procedure: Flexible bronchoscopy for airway inspection, airway clearance, obtaining bronchoalveolar lavage samples Pre-Operative Diagnosis: Right lower lobe bleeding on CT chest Post-Operative Diagnosis: Same Indication: Hemorrhagic shock with CT chest suggestive of large amount of heterogenous hematoma in right lower lobe with right to left mass effect on the heart Anesthesia: Titrated fentanyl patient is intubated and on fentanyl 25 MCG-titrated to 50 MCG for adequate sedation, given fentanyl 25 mg IV push and Versed 4 mg IV push Pre-procedure Evaluation: Patient was evaluated clinically and ancillary testing reviewed. The risk of having active MTB infection is very low in my clinical judgement. ASA: 4 Malampati score: unable to evaluate due to presence of endotracheal tube Consent: Consents were obtained from [facility] and placed in the chart Procedure Details: Time out was performed by the procedure team and nursing staff. Vent support maintained on Fio2 100. The bronchoscope was introduced through the ETT. A bronchoscopic airway exam was performed to evaluate the visible tracheobronchial tree to the segmental level. Summary of Significant Findings: -Bronchoscope passed through ET tube. The scope was passed further to visualize distal trachea which was noted to be normal. Main dominick visualized which was sharp and normal. 3 mL of 1% lidocaine instilled. Then the scope was passed through the right bronchial tree was assessed to include the right mainstem bronchus, RBI, and RUL/RML/RLL bronchi to the segmental and subsegmental levels. Dark-colored blood noted in bronchus intermedius and right middle lobe and right lower lobe and superior segment of right lower lobe subsegments. Mucosa appeared normal. All the bloody secretions including mucous plugs were suctioned right away. There was no active bleeding noted. Then the scope was left bronchial tree was assessed to include the left mainstem bronchus, MOE, Lingula, and LLL bronchi to the segmental and subsegmental level. No active bleeding noted. Mucosa appeared normal. Clear secretions noted with some spillage of blood from right lung noted. The bronchoscope was then removed and the procedure terminated. Estimated Blood Loss: None Specimens: Bronchoalveolar lavage was taken from right middle lobe and sent for microbiology cultures, fungal cultures and PCP PCR. Complications:None; patient tolerated the procedure well. Disposition: Patient remains critically ill, intubated and stays in ICU Rocky Jiménez MD Pulmonary critical Care Medicine [facility] Acute Procedures Epistaxis Control: Time out performed: Yes
[2021-05-15] MEDS: midazolam 1 mg/mL INJ 5 ML 5 MG (18:09)
--- NOTE | 2021-05-15 18:39 | PM.PN ---
Subjective Subjective: Interval history: Status post 2 units PRBC for acute drop in hemoglobin, bronchoscopy was done which showed dried clots in his bronchus, no active bleeding was identified Talked with his as well who does not want any chest compressions in case of cardiac arrest Vitals/I&O/Wt Last Vital Signs Temp 99.7 F H 05/15/21 12:00 Pulse 50 L 05/15/21 13:30 Resp 12 05/15/21 17:33 BP 112/75 05/15/21 13:30 Pulse Ox 99 05/15/21 17:33 05/15/21 05/15/21 05/15/21 06:59 14:59 22:59 Intake Total 848.290 / 2321.835 285.873 / 285.873 100 / 385.873 Output Total 160 / 190 500 / 500 Balance 688.290 / 2131.835 285.873 / 285.873 -400 / -114.127 Weight last 48 hrs Weight 86.268 kg Weight 79.18 kg Physical Exam Narrative: EXAM NARRATIVE: Patient intubated and sedated Clinically looks fluid overloaded with extremely large left arm as compared to right Swelling of extremities noted Patient able to move his eyes and nod his head to verbal commands He bites his tube frequently Assisted bilateral breath sounds He has protruded right lower subcostal margin as well Abdomen nondistended bowel sound present Lower extremity misuse atrophy Urine concentrated Data : 05/15/21 05:25 05/15/21 05:25 Micro: Microbiology 05/09/21 17:39 Blood Culture - Final Blood NO GROWTH AFTER 5 DAYS 05/09/21 17:23 Blood Culture - Final Blood NO GROWTH AFTER 5 DAYS 05/09/21 07:11 Urine Culture - Preliminary Urine,Clean Catch Yeast A&P Assessment and plan (1) Septic shock: Status: Acute (2) Cardiac arrest: Status: Acute (3) Acute respiratory failure with hypoxia: Status: Acute (4) ATN (acute tubular necrosis): Status: Acute (5) Acute blood loss anemia: Status: Acute (6) Acute pyelitis: Status: Acute (7) Normal anion gap metabolic acidosis: Status: Acute (8) Acute kidney injury superimposed on chronic kidney disease: Status: Acute Additional A&P Information Ventilator dependent respiratory failure Status post cardiac arrest after 15 minutes of ACLS Patient is biting tube opening his eyes in response to noxious stimuli Pressure support and weaning trial as per plaster die maker Normal anion gap acidosis, CRRT stopped yesterday Creatinine worsening, oliguric secondary to ATN We will follow up with nephro recommendation Off bicarb drip Acute blood loss anemia Status post bronchoscopy which showed dried blood in his bronchus, most likely trauma related after 15 minutes of chest compression no active bleeding noted Status post 2 units PRBC Heparin held Acute pyelitis septic shock: Patient is getting antifungal, along vasopressors Pansensitive E. coli urine culture Patient was getting imipenem Antibiotics to be managed by Dr. Thorne Chronic left femoral vein thrombosis Also noticed left arm swelling Not candidate of anticoagulation secondary to acute blood loss anemia DNR/DNI continue current management On tube feeding Guarded prognosis Attestations Medical Necessity Statement*: Guarded prognosis, continue ICU care Time Spent in Patient Care: less than 15 minutes Coding Level of Care Code Acute Truck Driver Heavy for [facility] Fwd Diagnoses Septic shock A41.9; R65.21 Cardiac arrest I46.9 Acute respiratory failure with hypoxia J96.01 ATN (acute tubular necrosis) N17.0 Acute blood loss anemia D62 Acute pyelitis N10 Normal anion gap metabolic acidosis E87.2 Acute kidney injury superimposed on chronic kidney disease N17.9; N18.9
--- NOTE | 2021-05-15 19:30 | PC.NURSE ---
Shift Note Frequent safety and comfort rounds continue. Orders and/or nursing care completed as indicated. Patient monitored for response to intervention and treatment(s). Education provided includes[Pt intubated/sedated]. Patient and/or veterans service representative [Family updated during day shift]. Will continue to monitor. Received bed side shift report from off going nurse. Pt's plan of care reviewed. Pt is resting in bed. Respirations are even and unlabored. No s/sx of distress noted. Pt is currently intubated and off sedation. Pt is able to follow me with his eyes and looks at me when I say his name. Pt appears to understand what Im saying. When asked questions he shakes his head yes and no. Bed in lowest and locked position, call light with reach, x's 2 rails up. Bed alarm on. Soft restraints applied. Will continue to monitor pt.
--- NOTE | 2021-05-15 19:54 | PC.NURSE ---
1700 bronkeith done today
[2021-05-15 19:55] LABS: Glucose Point of Care 111 mg/dL (70-110)
[2021-05-15 20:35] LABS: Basophils % 0.2 %; Hematocrit 28.2 % (42.0-52.0); Hemoglobin 9.2 g/dL (11.7-16.6); Lymphocytes # 0.5 10^3/uL (0.8-4.8); Lymphocytes % 2.4 %; Mean Corpuscular HGB Conc 32.6 g/dL (30.0-36.0); Mean Corpuscular Hemoglobin 28.3 pg (28.0-34.0); Mean Corpuscular Volume 86.8 fL (80-94); Mean Platelet Volume 11.5 fL (7.4-10.4); Monocytes # 0.7 10^3/uL (0.2-0.9); Monocytes % 3.2 %; Neutrophils # 20.06 10^3/uL (1.8-7.7); Neutrophils % 92.6 %; Nucleated Red Blood Cells % 0.2 %; Platelet Count 90 10^3/cmm (130-400); Red Blood Count 3.25 10^6/uL (4.1-5.3); Red Cell Distribution Width 16.4 % (12.1-15.1); White Blood Count 21.7 10^3/uL (4.0-10.0)
[2021-05-15 20:49] LABS: Anion Gap 17.1 (5-19); Blood Urea Nitrogen 29 mg/dL (8-23); Calcium 7.6 mg/dL (8.5-10.5); Carbon Dioxide 21 mmol/L (22-29); Chloride 100 mmol/L (98-107); Glomerular Filtration Rate 46.5 mL/min (90-130); Glucose 102 mg/dL (65-115); Osmolality Calculated 284 mOsm/kg (285-295); Potassium 4.1 mmol/L (3.5-5.1); Sodium 134 mmol/L (136-145)
[2021-05-15 21:18] LABS: Slide Review Slide Review Perform
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
[2021-05-16] VITALS (67 sets, daily range): BP systolic 74–143; BP diastolic 56–88; PULSE 44–101; RESP 12–40; TEMP 36.1–37; O2SAT 89–99; BMI 28.5
[2021-05-16] MEDS: hydrocortisone 100 mg/2 mL SDV 50 MG IVP ×2 (00:22→07:54)
[2021-05-16 00:34] LABS: Glucose Point of Care 110 mg/dL (70-110)
[2021-05-16] MEDS: ipratropium-albuterol 3 mL Neb INHALATION ×3 (02:41→22:13)
--- NOTE | 2021-05-16 02:42 | PC.RESP ---
RT Shift Note Frequent safety and respiratory rounds continue. Orders completed as indicated. Patient monitored pre and post treatments throughout shift. Patient [Did.] tolerate treatments appropriately. Condition .DidNotChange]. Patient and/or leasing representative educated on respiratory treatment and medications. Patient and/or leasing representative [unable to comprehend]. Will continue to monitor patient progress.
[2021-05-16] MEDS: famotidine 20 mg/2 mL INJ IVP ×2 (04:38→15:58)
[2021-05-16 05:11] LABS: Basophils % 0.2 %; Hematocrit 27.5 % (42.0-52.0); Hemoglobin 8.7 g/dL (11.7-16.6); Lymphocytes # 0.3 10^3/uL (0.8-4.8); Lymphocytes % 1.8 %; Mean Corpuscular HGB Conc 31.6 g/dL (30.0-36.0); Mean Corpuscular Hemoglobin 27.7 pg (28.0-34.0); Mean Corpuscular Volume 87.6 fL (80-94); Mean Platelet Volume 12.6 fL (7.4-10.4); Monocytes # 0.5 10^3/uL (0.2-0.9); Monocytes % 2.7 %; Neutrophils # 16.11 10^3/uL (1.8-7.7); Neutrophils % 93.7 %; Nucleated Red Blood Cells % 0.2 %; Platelet Count 79 10^3/cmm (130-400); Red Blood Count 3.14 10^6/uL (4.1-5.3); Red Cell Distribution Width 16.6 % (12.1-15.1); White Blood Count 17.2 10^3/uL (4.0-10.0)
[2021-05-16 05:25] LABS: Alanine Aminotransferase 6 U/L (0-41); Albumin Level 2.4 g/dL (3.5-5.2); Alkaline Phosphatase 88 IU/L (40-130); Aspartate Amino Transferase 22 U/L (0-40); Blood Urea Nitrogen 33 mg/dL (8-23); Calcium 7.8 mg/dL (8.5-10.5); Carbon Dioxide 21 mmol/L (22-29); Chloride 101 mmol/L (98-107); Globulin 1.9 g/dL (1.3-4.6); Glomerular Filtration Rate 43.2 mL/min (90-130); Glucose 107 mg/dL (65-115); Osmolality Calculated 282 mOsm/kg (285-295); Phosphorus 4.5 mg/dL (2.5-4.5); Sodium 132 mmol/L (136-145); Total Bilirubin 0.6 mg/dL (0.15-1.2); Total Protein 4.3 g/dL (6.6-8.7)
--- NOTE | 2021-05-16 07:27 | PM.PN ---
Subjective Subjective: Interval history: more alert, remains intubated, levo@ 2. s/p bronchoscopy yesterday Medications: Reviewed: Yes Medication Review Details: Current Medications Acetaminophen (Acetaminophen 325 Mg Tablet) 650 mg PO Q6H PRN PRN Reason: Mild/Mod Pain Or Temp >/= 101 Last Admin: 05/09/21 09:12 Dose: 650 mg Documented by: Albuterol Sulfate (Albuterol 2.5 Mg/0.5 Ml Neb) 2.5 mg INHALATION Q4H PRN PRN Reason: SHORTNESS OF BREATH Last Admin: 05/11/21 01:00 Dose: 2.5 mg Documented by: Albuterol/Ipratropium (Ipratropium-Albuterol 3 Ml Neb) 3 ml INHALATION Q6H PRN PRN Reason: SHORTNESS OF BREATH Last Admin: 05/16/21 02:41 Dose: 3 ml Documented by: Alteplase, Recombinant (Alteplase 1 Mg/Ml Sdv 2 Ml) 0 mg INTRACATH Q2H PRN; Protocol PRN Reason: Poor Catheter Flow/ Clotted Catheter Aspirin (Aspirin 81 Mg Ec Tablet) 81 mg PO DAILY@0800 [facility] Last Admin: 05/15/21 07:40 Dose: 81 mg Documented by: Atorvastatin Calcium (Atorvastatin 40 Mg Tablet) 80 mg PO DAILY@0800 [facility] Last Admin: 05/09/21 08:54 Dose: 80 mg Documented by: Bisacodyl (Bisacodyl 10 Mg Supp) 10 mg MI BID@ [facility] Last Admin: 05/15/21 21:11 Dose: 10 mg Documented by: Budesonide (Budesonide 0.5 Mg/2 Ml Neb) 0.5 mg INHALATION BID.RESPIRATORY [facility] Last Admin: 05/15/21 20:35 Dose: 0.5 mg Documented by: Carvedilol (Carvedilol 12.5 Mg Tablet) 12.5 mg PO BID@ [facility] Last Admin: 05/08/21 08:42 Dose: Not Given Documented by: Dextrose (Dextrose 50% Syringe 50 Ml) 25 ml IVP ONCE PRN; Protocol PRN Reason: hypoglycemia protocol Dextrose (Dextrose 50% Syringe 50 Ml) 50 ml IVP PRN PRN; Protocol PRN Reason: hypoglycemia protocol Famotidine (Famotidine 20 Mg/2 Ml Inj) 20 mg IVP Q12H [facility] Last Admin: 05/16/21 04:38 Dose: 20 mg Documented by: Glucagon (Glucagon 1 Mg/Ml Inj 1 Ml) 1 mg IM ONCE PRN; Protocol PRN Reason: Adult Acute Hypoglycemia Prot. Heparin Sodium (Beef Lung) (Heparin Lock Flush 500 Unit/5 Ml Syringe) 500 unit IV ONCE PRN PRN Reason: Dialysis line Last Admin: 05/16/21 04:40 Dose: 500 unit Documented by: Heparin Sodium (Beef Lung) (Heparin Lock Flush 500 Unit/5 Ml Syringe) 500 unit IV BID PRN PRN Reason: Dialysis port Hydrocortisone Sodium Succinate (Hydrocortisone 100 Mg/2 Ml Sdv) 50 mg IVP Q8H BRII Last Admin: 05/16/21 00:22 Dose: 50 mg Documented by: Dextrose (D5w) 500 mls @ 100 mls/hr IV ONCE PRN; Protocol PRN Reason: Adult Acute Hypoglycemia Prot Albumin Human (Albumin) 12.5 gm in 50 mls @ 60 mls/hr IV PRN PRN PRN Reason: Hypotension and/or symptomatic Last Infusion: 05/14/21 14:00 Dose: Infused Documented by: Norepinephrine Bitartrate 4 mg (/ Dextrose) 254 mls @ 0 mls/hr IV .Q0M BRII; Protocol Last Admin: 05/15/21 21:26 Dose: 3 mcg/min, 11.43 mls/hr Documented by: Vasopressin 100 unit/ Sodium (Chloride) 100 mls @ 0 mls/hr IV .Q0M BRII; Protocol Last Titration: 05/15/21 07:33 Dose: 0.03 unit/min, 1.8 mls/hr Documented by: Vasopressin 40 unit/ Sodium (Chloride) 40 mls @ 0.03 mls/min IV CONT BRII Last Admin: 05/15/21 20:49 Dose: Not Given Documented by: Fentanyl 1,000 mcg/ Sodium (Chloride) 100 mls @ 0 mls/hr IV .Q0M BRII; Protocol Last Admin: 05/15/21 14:33 Dose: 25 mcg/hr, 2.5 mls/hr Documented by: Propofol (Diprivan) 1,000 mg in 100 mls @ 0 mls/hr IV .Q0M BRII; Protocol Last Titration: 05/15/21 11:05 Dose: 0 mcg/kg/min, 0 mls/hr Documented by: Imipenem/Cilastatin Sodium 500 (mg/ Sodium Chloride) 100 mls @ 200 mls/hr IV Q6H [facility]; Protocol Last Infusion: 05/16/21 05:38 Dose: Infused Documented by: Caspofungin 50 mg/ Sodium (Chloride) 250 mls @ 250 mls/hr IV Q24H [facility] Last Infusion: 05/15/21 19:29 Dose: Infused Documented by: Insulin Aspart (Insulin Aspart 100 Unit/1 Ml) 0 unit SUBCUT WM&BEDTIME [facility]; Protocol Last Admin: 05/15/21 21:09 Dose: Not Given Documented by: Midodrine (Midodrine 5 Mg Tablet) 10 mg PO TID [facility] Last Admin: 05/15/21 21:11 Dose: 10 mg Documented by: Sodium Chloride (Sodium Chloride 0.9% 1,000 Ml Bag) 1,000 - 7,000 ml CRRT PRN PRN PRN Reason: For priming CRRT Machine Last Admin: 05/11/21 01:45 Dose: 2,000 ml Documented by: Vitals/I&O/Wt Last Vital Signs Temp 97.0 F L 05/16/21 04:00 Pulse 53 L 05/16/21 06:00 Resp 12 05/16/21 04:28 BP 113/76 05/16/21 04:30 Pulse Ox 98 05/16/21 04:30 05/15/21 05/16/21 05/16/21 22:59 06:59 14:59 Intake Total 560.82 / 846.693 200 / 1046.693 Output Total 500 / 500 400 / 900 Balance 60.82 / 346.693 -200 / 146.693 Weight last 48 hrs Weight 90.378 kg Weight 86.268 kg Physical Exam Narrative: EXAM NARRATIVE: levo @2 intubated TV 500, rr 12, fio2 30%, PPEP 5 rt sided nephtostomy tube heent- nc/at, eomi, anicteric neck supple lung -improved air movement b/l heart- reg +s1, s2, no rub abd -soft, nt, nd, +BS, +ileostomy ext- b/l 2+ all ext edema neuro- responds to pain and voice, interactive on vent Data : 05/16/21 04:48 05/16/21 04:48 A&P Additional A&P Information 1. Oliguric acute renal failure Consistent with septic associated ATN. Admission CT scan demonstrated bilateral hydronephrosis, however, this more consistent with reflux rather than true obstruction. - held CRRT 05-14-21 uop improving- cont loop diuretics -cont to hold HD -na 132, k 4.0, bicarb 21, cr 1.6 Avoid usual nephrotoxic agents Dose medications for GFR less than 15 2. Septic shock. - E. coli found in the urine, yeast in Sputum. Currently on combination antibiotic therapy with Caspofungin and Primaxin =wbc is slowly improving 3. VDRF -Management per ICU team. 4. ileus improving w/ ng tube 5. thrombocytopenia- Q HIT, Q sepsis, Q med effect -d/c heparin. 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 Large amount of heterogeneous hematoma in the right lower lobe with right to left mass effect on the heart. This involves the right distal lower lobe bronchi with air bronchograms. Small amount of fluid and blood products in the pleural space. 2. Additional heterogeneous hematoma involving the anterior mediastinum and pleural space deep to the sternum. 3. Small pericardial effusion. 4. Patchy infiltrates throughout the left lung with partial consolidation left lower lobe are new from previous. Associated bronchiectasis. Small amount of new infiltrate in the right upper lobe posteriorly. 5. Prior cystectomy with ileoconduit. Gas within the renal collecting systems has resolved. Bilateral pelvocaliectasis and ureterectasis appears unchanged. 6. Stable soft tissue thickening along the dorsal sacrum and rectum. dose all meds for ESRD Exam and interview performed with aid of bedside RN using telemedicine Time spent 30 min inc > 50% of time in face to face counseling Attestations Medical Necessity Statement*: vdrf, ion Time Spent in Patient Care: 16 - 35 minutes Coding Level of Care Code Acute Chemical Lab Supervisor for Lavonne Chaney
[2021-05-16] MEDS: FUROsemide 10 mg/mL SDV 4mL 40 MG IVP (07:54)
[2021-05-16] MEDS: bisacodyl 10 mg Supp PR ×2 (07:54→19:23)
[2021-05-16] MEDS: aspirin 81 mg EC Tablet PO (07:54)
[2021-05-16 07:56] LABS: Glucose Point of Care 104 mg/dL (70-110)
[2021-05-16] MEDS: midodrine 5 mg TABLET 10 MG PO (08:55)
[2021-05-16] MEDS: budesonide 0.5 mg/2 mL Neb INHALATION ×2 (09:00→22:13)
--- NOTE | 2021-05-16 09:44 | PC.NURSE ---
0940 Up to bedside chair, tolerating well.
--- NOTE | 2021-05-16 09:47 | XR_ITS ---
WS: [id number] Portable AP semiupright chest, 05/16/2021 Clinical Data: pneumonia Comparison: Portable chest, 05/14/2021. Findings: There is elevation of the right diaphragm with bilateral pleural effusions. The heart is pr obably enlarged. The aortic arch shows calcification. There is minimal patchy opacity over the surfac e of the elevated right diaphragm. The endotracheal tube and nasogastric tube remain in the same posi tion. There is a right PICC line which ends in the right subclavian vein and a right internal jugular venous catheter ending in the superior vena cava. Monitor leads are on the chest wall. XR/XR chest 1V portable [id number] Impression: 1. Elevation of the right diaphragm with bilateral pleural effusions. 2. Minimal patchy opacity over surface of right diaphragm. 3. Atherosclerosis and probable cardiomegaly. 4. No change in position of multiple tubes.
--- NOTE | 2021-05-16 10:48 | PC.CHAP ---
Pastoral Care Encounter/Spiritual Assessment Type of Contact [] Declined manager hematology visit [] Patient/Family/Request visit [] Outpatient visit [] Follow-up visit [] Physician referral [] Code/Alert [x] Routine visit [] Staff referral [] Actively dying [] Patient sleeping [] Family support [] [] Out of room [] Palliative care [] [] Receiving care in room [] Pre-surgical visit [] Trauma [] Long length of stay [x] ICU visit [x] Other: oxygen,,, allowed in room to pray Relational/Emotional Strength [] Patient feels connected with others/family/visitors/staff [] Distress [] Loneliness/isolation [] Abandonment Spirituality of Patient [] Person of Jessica [] Attends Protestant of their Jessica [] Believes in Prayer [] Reads Bible or Presybeterian materials [] There are Spiritual issues to be addressed Baggage Handler Interventions [x] Prayer [] Active listening [] Non-anxious presence [] Spiritual/emotional support [] Crisis/trauma care [] Spiritual counseling [] Bereavement support [] Provided bereavement packet [] Provided Bible/devotional materials [] Provided toy/stuffed animal, coloring book to patient or family member [] Provided Communion [] Anointing/[place] [] Salvation [x] Completed spiritual assessment [] Other: Impact on Illness or Injury [] Angry [] Fearful [] Anxious [] Often cries [] Exhaustion [] Unable to work [] Unable to attend jain [] Unable to walk/stand [] Unable to read [] Unable to drive [] Unable to eat/drink [] Unable to sleep [] Unable to be with family [] Patient intubated [] Other: Summary Time spent with patient
[2021-05-16 11:42] LABS: Glucose Point of Care 100 mg/dL (70-110)
--- NOTE | 2021-05-16 14:18 | XR_ITS ---
WS: [id number] Portable AP upright chest, 05/16/2021, 1436 hours. Clinical Data: decrease sob ,low bp Comparison: Portable chest, today, 1029 hours. Findings: The endotracheal tube and nasogastric tube have been removed. There is patchy opacity overl hernesto the right diaphragm unchanged. There is a small right effusion with elevation of the right diaph ragm. The aortic arch shows calcification and tortuosity. A right internal jugular venous catheter an d right PICC line remain in position. Monitor leads are on the chest wall. XR/XR chest 1V portable [id number] Impression: Removal endotracheal tube and nasogastric tube but no change in appearance of h eart and lungs.
--- NOTE | 2021-05-16 15:06 | P.PN_ITS ---
Subjective Subjective: Interval history: Patient was seen and examined this morning, patient was able to comprehend, he was blinking his eyes appropriately to my questions, Was requiring Levophed at 2 mics Plan for weaning trial and extubation later if she stays hemodynamically stable as per my discussion with pulmonology Hemoglobin has stayed stable Worsening of creatinine noted Urine color has improved from muddy brown to concentrated yellow 900 mL out Vitals/I&O/Wt Last Vital Signs Temp 97.0 F L 05/16/21 08:00 Pulse 64 05/16/21 12:20 Resp 17 05/16/21 11:30 BP 102/69 05/16/21 08:00 Pulse Ox 95 05/16/21 12:20 05/16/21 05/16/21 05/16/21 06:59 14:59 22:59 Intake Total 200 / 1046.693 319.884 / 319.884 Output Total 400 / 900 Balance -200 / 146.693 319.884 / 319.884 Weight last 48 hrs Weight 90.378 kg Weight 86.268 kg Physical Exam Narrative: EXAM NARRATIVE: . On sedation vacation Intubated, able to comprehend my questions and blink his eyes appropriately Levophed running at 2 mics Abdomen soft nontender Left arm swollen Urine color dark yellow Ileal conduit without any decompensation Quadriplegia Bilateral assisted breath sounds Data : 05/16/21 04:48 05/16/21 04:48 A&P Assessment and plan (1) Pulmonary alveolar hemorrhage: Status: Acute (2) Acute blood loss anemia: Status: Acute (3) ATN (acute tubular necrosis): Status: Acute (4) Aspiration into respiratory tract: Status: Acute (5) Cardiac arrest: Status: Acute (6) Septic shock: Status: Acute (7) Acute respiratory failure with hypoxia: Status: Acute (8) Acute hypercapnic respiratory failure: Status: Acute (9) Metabolic acidosis: Status: Acute (10) Quadriplegia, C5-C7 complete: Status: Acute (11) Normal anion gap metabolic acidosis: Status: Acute Additional A&P Information Ventilator dependent respiratory failure Weaning trial, sedation location with levo running at 2 mics Acute blood loss anemia alveolar hemorrhage Hemoglobin stable status post 2 units PRBC on 05/15 Normal anion gap acidosis with ATN CRRT on hold Creatinine worsening, patient oliguria slightly improved urine color has improved as well Septic shock Currently on levo at 2 mics, start maintenance stress dose steroid dose Ileus: Resolved Yeast noticed in urine: Currently on caspofungin, do not notice any antibiotics in his medication ordered Pansensitive E. coli in urine culture as well CODE STATUS DNR/DNI Tube feeding Guarded prognosis high risk for re- intubation Attestations Medical Necessity Statement*: Continue medical management for ventilator dependent respiratory failure Time Spent in Patient Care: less than 15 minutes Coding Level of Care Code Acute Change Booth Attendant for [facility] Fwd Diagnoses Pulmonary alveolar hemorrhage R04.89 Acute blood loss anemia D62 ATN (acute tubular necrosis) N17.0 Aspiration into respiratory tract T17.908A Cardiac arrest I46.9 Septic shock A41.9; R65.21 Acute respiratory failure with hypoxia J96.01 Acute hypercapnic respiratory failure J96.02 Metabolic acidosis E87.2 Quadriplegia, C5-C7 complete G82.53 Normal anion gap metabolic acidosis E87.2
[2021-05-16 15:48] LABS: Basophils # 0.1 10^3/uL (0.0-0.1); Basophils % 0.3 %; Hematocrit 30.3 % (42.0-52.0); Hemoglobin 9.8 g/dL (11.7-16.6); Lymphocytes # 0.5 10^3/uL (0.8-4.8); Lymphocytes % 1.4 %; Mean Corpuscular HGB Conc 32.3 g/dL (30.0-36.0); Mean Corpuscular Hemoglobin 28.5 pg (28.0-34.0); Mean Corpuscular Volume 88.1 fL (80-94); Mean Platelet Volume 12.1 fL (7.4-10.4); Monocytes # 1.5 10^3/uL (0.2-0.9); Monocytes % 4.3 %; Neutrophils # 30.28 10^3/uL (1.8-7.7); Neutrophils % 90.7 %; Nucleated Red Blood Cells # 0.1 /100WBC; Nucleated Red Blood Cells % 0.4 %; Platelet Count 192 10^3/cmm (130-400); Red Blood Count 3.44 10^6/uL (4.1-5.3); Red Cell Distribution Width 17.1 % (12.1-15.1)
[2021-05-16 16:05] LABS: White Blood Count 33.4 10^3/uL (4.0-10.0)
[2021-05-16 16:44] LABS: Hepatitis B Surface AB 3.5 (11.5-1000); Hepatitis B Surface Antigen Non-Reactive (Nonreactive); Hepatitis C Virus Antibody Reactive (Nonreactive)
[2021-05-16 17:00] LABS: Glucose Point of Care 133 mg/dL (70-110)
--- NOTE | 2021-05-16 18:59 | PC.NURSE ---
Wasted 60ml Fentanyl after patient was extubated with Timothy ORTIZ as a witness.
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
[2021-05-16 22:37] LABS: Glucose Point of Care 128 mg/dL (70-110)
[2021-05-17] VITALS (58 sets, daily range): BP systolic 80–128; BP diastolic 57–85; PULSE 49–101; RESP 12–43; TEMP 36.8–37.3; O2SAT 72–100; BMI 29.2
[2021-05-17] MEDS: famotidine 20 mg/2 mL INJ IVP ×2 (04:11→17:03)
[2021-05-17 04:49] LABS: Basophils # 0.1 10^3/uL (0.0-0.1); Basophils % 0.3 %; Hematocrit 30.9 % (42.0-52.0); Hemoglobin 9.5 g/dL (11.7-16.6); Lymphocytes # 0.3 10^3/uL (0.8-4.8); Mean Corpuscular HGB Conc 30.7 g/dL (30.0-36.0); Mean Corpuscular Hemoglobin 27.9 pg (28.0-34.0); Mean Corpuscular Volume 90.6 fL (80-94); Mean Platelet Volume 11.7 fL (7.4-10.4); Monocytes # 1.5 10^3/uL (0.2-0.9); Monocytes % 4.9 %; Neutrophils # 28.48 10^3/uL (1.8-7.7); Neutrophils % 92.2 %; Nucleated Red Blood Cells # 0.1 /100WBC; Nucleated Red Blood Cells % 0.2 %; Platelet Count 170 10^3/cmm (130-400); Red Blood Count 3.41 10^6/uL (4.1-5.3); Red Cell Distribution Width 16.9 % (12.1-15.1)
[2021-05-17 05:15] LABS: Alanine Aminotransferase < 5 U/L (0-41); Albumin Level 2.6 g/dL (3.5-5.2); Alkaline Phosphatase 112 IU/L (40-130); Anion Gap 17.2 (5-19); Aspartate Amino Transferase 17 U/L (0-40); Blood Urea Nitrogen 40 mg/dL (8-23); Calcium 8.2 mg/dL (8.5-10.5); Carbon Dioxide 21 mmol/L (22-29); Chloride 98 mmol/L (98-107); Globulin 2.3 g/dL (1.3-4.6); Glomerular Filtration Rate 40.3 mL/min (90-130); Glucose 143 mg/dL (65-115); Osmolality Calculated 286 mOsm/kg (285-295); Phosphorus 6.4 mg/dL (2.5-4.5); Potassium 4.2 mmol/L (3.5-5.1); Sodium 132 mmol/L (136-145); Total Bilirubin 0.6 mg/dL (0.15-1.2); Total Protein 4.9 g/dL (6.6-8.7)
[2021-05-17 06:25] LABS: White Blood Count 30.9 10^3/uL (4.0-10.0)
--- NOTE | 2021-05-17 06:50 | PM.PN ---
Subjective Subjective: Interval history: extubated, more aleert, on pressers. weak, more awake. no cp Medications: Reviewed: Yes Medication Review Details: Current Medications Acetaminophen (Acetaminophen 325 Mg Tablet) 650 mg PO Q6H PRN PRN Reason: Mild/Mod Pain Or Temp >/= 101 Last Admin: 05/09/21 09:12 Dose: 650 mg Documented by: Albuterol Sulfate (Albuterol 2.5 Mg/0.5 Ml Neb) 2.5 mg INHALATION Q4H PRN PRN Reason: SHORTNESS OF BREATH Last Admin: 05/11/21 01:00 Dose: 2.5 mg Documented by: Albuterol/Ipratropium (Ipratropium-Albuterol 3 Ml Neb) 3 ml INHALATION Q6H PRN PRN Reason: SHORTNESS OF BREATH Last Admin: 05/16/21 22:13 Dose: 3 ml Documented by: Alteplase, Recombinant (Alteplase 1 Mg/Ml Sdv 2 Ml) 0 mg INTRACATH Q2H PRN; Protocol PRN Reason: Poor Catheter Flow/ Clotted Catheter Aspirin (Aspirin 81 Mg Ec Tablet) 81 mg PO DAILY@0800 [facility] Last Admin: 05/16/21 07:54 Dose: 81 mg Documented by: Atorvastatin Calcium (Atorvastatin 40 Mg Tablet) 80 mg PO DAILY@0800 [facility] Last Admin: 05/09/21 08:54 Dose: 80 mg Documented by: Bisacodyl (Bisacodyl 10 Mg Supp) 10 mg NV BID@ [facility] Last Admin: 05/16/21 19:23 Dose: 10 mg Documented by: Budesonide (Budesonide 0.5 Mg/2 Ml Neb) 0.5 mg INHALATION BID.RESPIRATORY [facility] Last Admin: 05/16/21 22:13 Dose: 0.5 mg Documented by: Carvedilol (Carvedilol 12.5 Mg Tablet) 12.5 mg PO BID@ [facility] Last Admin: 05/08/21 08:42 Dose: Not Given Documented by: Dextrose (Dextrose 50% Syringe 50 Ml) 25 ml IVP ONCE PRN; Protocol PRN Reason: hypoglycemia protocol Dextrose (Dextrose 50% Syringe 50 Ml) 50 ml IVP PRN PRN; Protocol PRN Reason: hypoglycemia protocol Famotidine (Famotidine 20 Mg/2 Ml Inj) 20 mg IVP Q12H [facility] Last Admin: 05/17/21 04:11 Dose: 20 mg Documented by: Fentanyl (Fentanyl 50 Mcg/Ml Inj 2ml) 25 mcg IVP Q4H PRN PRN Reason: OPIOID WITHDRAWAL Furosemide (Furosemide 10 Mg/Ml Sdv 4ml) 40 mg IVP Q24H [facility] Last Admin: 05/16/21 07:54 Dose: 40 mg Documented by: Glucagon (Glucagon 1 Mg/Ml Inj 1 Ml) 1 mg IM ONCE PRN; Protocol PRN Reason: Adult Acute Hypoglycemia Prot. Heparin Sodium (Beef Lung) (Heparin Lock Flush 500 Unit/5 Ml Syringe) 500 unit IV ONCE PRN PRN Reason: Dialysis line Last Admin: 05/17/21 04:15 Dose: 500 unit Documented by: Heparin Sodium (Beef Lung) (Heparin Lock Flush 500 Unit/5 Ml Syringe) 500 unit IV BID PRN PRN Reason: Dialysis port Last Admin: 05/16/21 15:10 Dose: 500 unit Documented by: Hydrocortisone Sodium Succinate (Hydrocortisone 100 Mg/2 Ml Sdv) 100 mg IVP DAILY [facility] Dextrose (D5w) 500 mls @ 100 mls/hr IV ONCE PRN; Protocol PRN Reason: Adult Acute Hypoglycemia Prot Albumin Human (Albumin) 12.5 gm in 50 mls @ 60 mls/hr IV PRN PRN PRN Reason: Hypotension and/or symptomatic Last Infusion: 05/14/21 14:00 Dose: Infused Documented by: Norepinephrine Bitartrate 4 mg (/ Dextrose) 254 mls @ 0 mls/hr IV .Q0M [facility]; Protocol Last Admin: 05/17/21 04:17 Dose: 12 mcg/min, 45.72 mls/hr Documented by: Fentanyl 1,000 mcg/ Sodium (Chloride) 100 mls @ 0 mls/hr IV .Q0M [facility]; Protocol Last Titration: 05/16/21 14:00 Dose: 0 mcg/hr, 0 mls/hr Documented by: Propofol (Diprivan) 1,000 mg in 100 mls @ 0 mls/hr IV .Q0M [facility]; Protocol Last Titration: 05/15/21 11:05 Dose: 0 mcg/kg/min, 0 mls/hr Documented by: Imipenem/Cilastatin Sodium 500 (mg/ Sodium Chloride) 100 mls @ 200 mls/hr IV Q6H [facility]; Protocol Last Infusion: 05/17/21 05:00 Dose: Infused Documented by: Caspofungin 50 mg/ Sodium (Chloride) 250 mls @ 250 mls/hr IV Q24H [facility] Last Infusion: 05/16/21 17:05 Dose: Infused Documented by: Vasopressin 100 unit/ Sodium (Chloride) 100 mls @ 0 mls/hr IV .Q0M [facility]; Protocol Last Admin: 05/16/21 18:35 Dose: 0.04 unit/min, 2.4 mls/hr Documented by: Insulin Aspart (Insulin Aspart 100 Unit/1 Ml) 0 unit SUBCUT WM&BEDTIME [facility]; Protocol Last Admin: 05/16/21 19:45 Dose: Not Given Documented by: Midodrine (Midodrine 5 Mg Tablet) 10 mg PO TID [facility] Last Admin: 05/16/21 19:19 Dose: Not Given Documented by: Sodium Chloride (Sodium Chloride 0.9% 1,000 Ml Bag) 1,000 - 7,000 ml CRRT PRN PRN PRN Reason: For priming CRRT Machine Last Admin: 05/11/21 01:45 Dose: 2,000 ml Documented by: Vitals/I&O/Wt Last Vital Signs Temp 98.2 F 05/17/21 00:00 Pulse 88 05/17/21 06:00 Resp 38 H 05/17/21 04:15 BP 106/80 05/17/21 04:15 Pulse Ox 97 05/17/21 04:15 05/16/21 05/16/21 05/17/21 14:59 22:59 06:59 Intake Total 333.059 / 333.059 743.246 / 1076.305 424.79 / 1501.095 Output Total 700 / 700 50 / 750 Balance 333.059 / 333.059 43.246 / 376.305 374.79 / 751.095 Weight last 48 hrs Weight 92.533 kg Weight 90.378 kg Physical Exam Narrative: EXAM NARRATIVE: levo @12- up from 2 yest, addition of vasopressin 0.04 bipap rt sided nephtostomy tube heent- nc/at, eomi, anicteric neck supple lung -improved air movement b/l heart- reg +s1, s2, no rub abd -soft, nt, nd, +BS, +ileostomy ext- b/l 1-2+ all ext edema neuro- responds to pain and voice, interactive, follows simple commands Data : 05/17/21 04:22 05/17/21 04:22 Micro: Microbiology 05/15/21 16:30 Gram Stain - Final Lung Right Lower Lobe A&P Additional A&P Information 1. Oliguric acute renal failure Consistent with septic associated ATN. Admission CT scan demonstrated bilateral hydronephrosis, however, this more consistent with reflux rather than true obstruction. - held CRRT 05-14-21 uop improving- cont loop diuretics -cont to hold HD -na 132, k 4.2, bicarb 21, cr 1.7 -hold lkasix -start LR ivf Avoid usual nephrotoxic agents Dose medications for GFR less than 15 -repeat labs this afternoon and re-assess for HD 2. Septic shock. - E. coli found in the urine, yeast in Sputum. Currently on combination antibiotic therapy with Caspofungin and Primaxin =wbc remains 31 -back on 2 pressers -on caspofungin 3. bipap per pulm 4. ileus improving w/ ng tube 5. thrombocytopenia- improving to 170 7, anemia- hematoma in chest- s/p bronchoscopy - s/p tx prbc -hgb stable at 9.5 -abd chest ct on 05-15-21- 1. Large amount of heterogeneous hematoma in the right lower lobe with right to left mass effect on the heart. This involves the right distal lower lobe bronchi with air bronchograms. Small amount of fluid and blood products in the pleural space. 2. Additional heterogeneous hematoma involving the anterior mediastinum and pleural space deep to the sternum. 3. Small pericardial effusion. 4. Patchy infiltrates throughout the left lung with partial consolidation left lower lobe are new from previous. Associated bronchiectasis. Small amount of new infiltrate in the right upper lobe posteriorly. 5. Prior cystectomy with ileoconduit. Gas within the renal collecting systems has resolved. Bilateral pelvocaliectasis and ureterectasis appears unchanged. 6. Stable soft tissue thickening along the dorsal sacrum and rectum. 8. hyperphosphatemia - from renal failure- low phos diet, may need binders Exam and interview performed with aid of bedside RN using telemedicine Time spent 30 min inc > 50% of time in face to face counseling Attestations Medical Necessity Statement*: ion, bipap dep, sob, septic shock on 2 pressers Time Spent in Patient Care: 16 - 35 minutes Coding Level of Care Code Acute Jacquard Plate Maker for Lavonne Chaney
[2021-05-17 07:59] LABS: Glucose Point of Care 142 mg/dL (70-110)
[2021-05-17] MEDS: lactated ringers 500 ML 999 ML IV (08:03)
[2021-05-17] MEDS: lactated ringers 1,000 ML 100 ML IV (08:04)
[2021-05-17] MEDS: aspirin 81 mg EC Tablet PO (08:04)
[2021-05-17] MEDS: bisacodyl 10 mg Supp PR ×2 (08:05→23:46)
[2021-05-17] MEDS: hydrocortisone 100 mg/2 mL SDV IVP (08:05)
[2021-05-17] MEDS: midodrine 5 mg TABLET 10 MG PO ×3 (08:20→20:16)
--- NOTE | 2021-05-17 08:34 | XR_ITS ---
WS: [id number] Portable AP upright chest, 05/17/2021 Clinical Data: PNEUMONIA Comparison: Portable chest, 05/16/2021 Findings: The right lung opacity has increased since yesterday. There are bilateral small pleural eff usions and elevation of the right diaphragm unchanged. The heart is enlarged. The aortic arch shows c alcification and tortuosity. The right internal jugular venous catheter and right PICC line remain in the same position. There are monitor leads on the chest wall. There are old bilateral rib fractures. XR/XR chest 1V portable [id number] Impression: 1. Increase in right basilar opacity which may represent worsening pneumonia. 2. No change in small bilateral effusions and cardiomegaly.
[2021-05-17] MEDS: budesonide 0.5 mg/2 mL Neb INHALATION ×2 (09:12→21:32)
[2021-05-17] MEDS: ipratropium-albuterol 3 mL Neb INHALATION ×2 (09:12→21:32)
--- NOTE | 2021-05-17 09:28 | PC.SOCIAL ---
IMM UPDATE Gave patient's verbal IMM update via phone. Copy of pg 2 of IMM left at bedside. She verbalized understanding. Initialed, dated, timed and placed in chart.
--- NOTE | 2021-05-17 10:58 | PC.NURSE ---
Vasopressin gtt off per Dr Datar's verbal bedside order.
--- NOTE | 2021-05-17 12:54 | PC.NURSE ---
Vasopressin gtt restarted per Datar
[2021-05-17] MEDS: midazolam 1 mg/mL INJ 2 mL 4 MG IVP (13:06)
--- NOTE | 2021-05-17 13:14 | XR_ITS ---
WS: [id number] Portable AP semiupright chest, 05/17/2021, 1318 hours Clinical Data: POST INTUBATION Comparison: Portable chest, today, 0902 hours Findings: The endotracheal tube is above the dominick. The right internal jugular venous catheter and r ight PICC line remain the same. The patchy opacity in the right lower lobe has almost totally cleared . There is still elevation of the right diaphragm. There are small bilateral pleural effusions. The h eart is enlarged. Monitor leads are on the chest wall. XR/XR chest 1V portable [id number] Impression: 1. Placement of endotracheal tube above dominick. 2. Almost total clearing of patchy right lower lobe opacity. 3. No change in remainder of the chest.
[2021-05-17 13:37] LABS: Anti-Double Strand DNA AB <1 IU/mL; SS A Ro Sjogrens Antibody <1.0 NEG AI (<1.0 NEG); SS-B/LA IGG <1.0 NEG AI (<1.0 NEG)
--- NOTE | 2021-05-17 13:59 | PM.ACPR ---
Procedure/Consent Time out: Time Out Performed: Yes Consent: Consent for Procedure: Consent obtained from other (indicate) ( (verbal)), Emergency procedure, Risks & Benefits reviewed and Agrees to proceed with procedure Procedure Narrative: Time of intubation: 1300 Endotracheal Intubation Procedure Note: Indication for endotracheal intubation: Acute hypoxic respiratory failure Consent: The patient was in immediate danger, and required the procedure emergently, patient has given verbal consent as witnessed by the staff. Sedation: Etomidate 10, Versed 4, Equipment: [place] scope View: Grade 1 Cricoid Pressure: No Number of attempts: 1 ETT location confirmed by colorimetric change, fogging of ET tube, bilateral breath sounds, chest x-ray. Rocky DatarMD Pulm/Critical Care Medicine Acute Procedures Epistaxis Control: Time out performed: Yes
[2021-05-17 14:02] LABS: Glucose Point of Care 133 mg/dL (70-110)
--- NOTE | 2021-05-17 14:11 | PC.NURSE ---
1306 4MG VERSED 1307 ETOMIDATE 1308 ET TUBE PLACED
[2021-05-17 14:27] LABS: Anti-streptolysin O <50 IU/mL (<200)
[2021-05-17] MEDS: propofol 1,000 MG/100 ML INJ 9.37 MG IV (14:55)
[2021-05-17 15:17] LABS: Anti-Nuclear Antibody Screen NEGATIVE (NEGATIVE)
[2021-05-17 16:09] LABS: Blood Urea Nitrogen 41 mg/dL (8-23); Calcium 7.5 mg/dL (8.5-10.5); Carbon Dioxide 11 mmol/L (22-29); Chloride 100 mmol/L (98-107); Glomerular Filtration Rate 40.3 mL/min (90-130); Glucose 120 mg/dL (65-115); Osmolality Calculated 279 mOsm/kg (285-295); Sodium 129 mmol/L (136-145)
[2021-05-17 16:13] LABS: Anion Gap 22.2 (5-19); Potassium 4.2 mmol/L (3.5-5.1)
--- NOTE | 2021-05-17 16:34 | XRR_ITS ---
PROCEDURE INFORMATION: Exam: XR Chest Exam date and time: 05/17/2021 4:34 PM Age: 70 years old Clinical indication: Device placement; Other: Og placement; Additional info: Confirm og placement TECHNIQUE: Imaging protocol: XR of the chest. Views: 1 view. COMPARISON: CR XR chest 1V portable [id number] 05/17/2021 1:17 PM FINDINGS: Tubes, catheters and devices: Gastric tube in the mid stomach. Right IJ central venous catheter with tip over the distal SVC. Intubation with tip 4.5 cm above the dominick. Right PICC line with tip in the right subclavian region. Lungs: Mild atelectasis in the left lung base. The right lung is clear. Pleural spaces: Small left pleural effusion. No pneumothorax. Heart/Mediastinum: Unremarkable. No cardiomegaly. Diaphragm: Stable elevation of the right diaphragm. Bones/joints: Old rib fractures. Other findings: Two AP views. XR/XR chest 1V portable [id number] IMPRESSION: 1. Gastric tube in the mid stomach. 2. Stable left pleural effusion and left base atelectasis.
[2021-05-17 17:17] LABS: Hematocrit 22.9 % (42.0-52.0); Hemoglobin 7.6 g/dL (11.7-16.6)
--- NOTE | 2021-05-17 17:50 | P.PN_ITS ---
Subjective Subjective: Interval history: Patient was extubated to BiPAP however in the morning received fluids as per nephrology recommendations because of concentrated cola colored urine, he became tachypneic and hypoxic afterwards however repeat chest x-ray is not showing worsening of pulmonary edema, he was reintubated Was sedated with fentanyl and propofol at the bedside who is endorsing that she is agreeable with tracheostomy and another trial of chest compressions because his first cardiac arrest was secondary to a reversible cause which is not present at this point however his k idney function is getting worse he is getting acidotic again he will require CRRT Gram-negative rods from bronchioloalveolar lavage however no bacteremia urine showing yeast, sputum positive for yeast species Leukocytosis, hemoglobin7.6 today Sodium 129 Patient is anuric Vitals/I&O/Wt Last Vital Signs Temp 99.1 F 05/17/21 10:30 Pulse 70 05/17/21 16:00 Resp 12 05/17/21 16:51 BP 80/61 05/17/21 16:00 Pulse Ox 99 05/17/21 16:51 05/17/21 05/17/21 05/17/21 06:59 14:59 22:59 Intake Total 424.79 / 1501.095 436.612 / 436.612 81.022 / 517.634 Output Total 50 / 750 Balance 374.79 / 751.095 436.612 / 436.612 81.022 / 517.634 Weight last 48 hrs Weight 92.533 kg Weight 90.378 kg Physical Exam Narrative: EXAM NARRATIVE: Intubated and sedated currently on propofol and fentanyl He is wide awake opening his eyes Biting his endotracheal tube Volume control ventilator setting Requiring vasopressors at 2 mics of levo S1, S2 Abdomen nondistended Patient able to comprehend all questions No cellulitis Left arm swelling PICC line in place, right arm Data : 05/17/21 16:37 05/17/21 12:50 Micro: Microbiology 05/15/21 16:30 Gram Stain - Final Lung Right Lower Lobe Bronchoalveolar Lavage Culture - Preliminary Gram Negative Rods 05/17/21 00:27 C.difficile Toxin B Gene (PCR) - Final Stool A&P Assessment and plan (1) Severe muscle deconditioning: Status: Acute (2) Pulmonary alveolar hemorrhage: Status: Acute (3) Acute blood loss anemia: Status: Acute (4) ATN (acute tubular necrosis): Status: Acute (5) Aspiration into respiratory tract: Status: Acute Qualifiers: Encounter type: subsequent encounter Qualified Code(s): T17.908D - Unspecified foreign body in respiratory tract, part unspecified causing other injury, subsequent encounter (6) Dependence on renal dialysis: Status: Acute (7) Cardiac arrest: Status: Acute (8) Septic shock: Status: Acute (9) Acute respiratory failure with hypoxia: Status: Acute (10) Acute hypercapnic respiratory failure: Status: Acute (11) Metabolic acidosis: Status: Acute Additional A&P Information Ventilator dependent respiratory failure He was extubated to BiPAP yesterday and afterwards required higher doses of vasopressors Patient was reintubated today because of worsening of hypoxia and respite distress Received fluids in the morning Extreme muscle deconditioning Will need tracheostomy, family agreeable Vent settings as per pulmonology Currently sedated with propofol and fentanyl On Levophed at 2 mics Septic shock Gram-negative bruno and bronchoalveolar lavage, yeast in sputum and urine Currently on broad-spectrum antimicrobials Continue levo and titrate to keep map above 70mmhg Worsening metabolic acidosis with anuria Sepsis related ATN CRRT to restart today Acute blood loss anemia Globin dropped 7.6 today status post 2 unit PRBC most likely traumatic injury caused pulmonary hemorrhage after ACLS of 15-minute No active bleeding noticed during bronchoscopy On tube feeds wants to go ahead and do 1 trial of chest compressions, does not want intubation, Guarded prognosis Disposition out of ICU once he is off pressors and long-term he will need tracheostomy facility care/LTAC Attestations Medical Necessity Statement*: Continue ICU management currently patient is intubated Time Spent in Patient Care: less than 15 minutes Coding Level of Care Code Acute Dental Manager for g Fwd Diagnoses Severe muscle deconditioning R29.898 Pulmonary alveolar hemorrhage R04.89 Acute blood loss anemia D62 ATN (acute tubular necrosis) N17.0 Aspiration into respiratory tract T17.908D Encounter type: subsequent encounter Dependence on renal dialysis Z99.2 Cardiac arrest I46.9 Septic shock A41.9; R65.21 Acute respiratory failure with hypoxia J96.01 Acute hypercapnic respiratory failure J96.02 Metabolic acidosis E87.2
--- NOTE | 2021-05-17 17:51 | PC.RESP ---
RT Shift Note Frequent safety and respiratory rounds continue. Orders completed as indicated. Patient monitored pre and post treatments throughout shift. Patient [Did.] tolerate treatments appropriately. Condition [DidNotChange]. Patient and/or hospital insurance representative educated on respiratory treatment and medications. Patient and/or hospital insurance representative [unable to comprehend]. Will continue to monitor patient progress.
[2021-05-17 18:03] LABS: Glucose Point of Care 104 mg/dL (70-110)
[2021-05-17 18:07] LABS: ABG PCO2 38.4 mmHg (35-45); ABG PH Result 7.37 (7.35-7.45); Alveolar-Arterial Oxygen Gradi 24.5 mmHg (5-10); Arterial Blood Gas Hematocrit 24.6 % (42-52); Base Excess ABG -3.2 mmol/L (-2.0-2.0); Blood Gas Allen Test Pos; Blood Gas Operator Identificat GD; Blood Gas Sample Site Radial, right; Blood Gas Sample Type Arterial; Carboxyhemoglobin 1.7 %THgb (0.4-20.1); HCO3 ABG 21.9 mmol/L (22-26); HGB O2 Sat 86.2 % (95-100); Ionized Calcium Level - ABG 1.1 mmol/L (1.1-1.4); Oxygen Device VENT; Oxygen Saturation ABG 88.6; PO2 ABG 48.9 mmHg (80.0-100.0); Potassium Level - ABG 4.1 mmol/L (3.5-5.0)
[2021-05-17 18:45] LABS: Basophils % 0.1 %; Hematocrit 23.2 % (42.0-52.0); Hemoglobin 7.5 g/dL (11.7-16.6); Lymphocytes # 0.2 10^3/uL (0.8-4.8); Lymphocytes % 1.7 %; Mean Corpuscular HGB Conc 32.3 g/dL (30.0-36.0); Mean Corpuscular Hemoglobin 28.4 pg (28.0-34.0); Mean Corpuscular Volume 87.9 fL (80-94); Mean Platelet Volume 11.1 fL (7.4-10.4); Monocytes # 0.6 10^3/uL (0.2-0.9); Monocytes % 4.8 %; Neutrophils # 10.92 10^3/uL (1.8-7.7); Neutrophils % 92.5 %; Nucleated Red Blood Cells % 0.3 %; Platelet Count 92 10^3/cmm (130-400); Red Blood Count 2.64 10^6/uL (4.1-5.3); Red Cell Distribution Width 16.6 % (12.1-15.1); White Blood Count 11.8 10^3/uL (4.0-10.0)
[2021-05-17] MEDS: PrismaSol BGK 4/2.5 - 5,000 mL Bag 5000 ML CRRT ×3 (19:00)
[2021-05-17 19:08] LABS: Albumin Level 2.1 g/dL (3.5-5.2); Blood Urea Nitrogen 44 mg/dL (8-23); Calcium 7.3 mg/dL (8.5-10.5); Carbon Dioxide 20 mmol/L (22-29); Chloride 100 mmol/L (98-107); Glomerular Filtration Rate 40.3 mL/min (90-130); Glucose 90 mg/dL (65-115); Magnesium 1.7 mg/dL (1.7-2.3); Phosphorus 4.9 mg/dL (2.5-4.5); Sodium 130 mmol/L (136-145)
[2021-05-17 19:42] LABS: Partial Thromboplastin Time 32.9 SECONDS (23.9-36.7)
[2021-05-17] MEDS: heparin 5,000 unit/mL INJ 1 mL 1000 UNIT CRRT (19:54)
--- NOTE | 2021-05-17 20:01 | PC.NURSE ---
CRRT CRRT initiated at 1845 with night nurse Ramirez. Pt tolerating well at the moment. Report given to night nurse.
[2021-05-17] MEDS: sodium chloride 0.9% (100 ml) 100 ML 150 ML (20:30)
[2021-05-17 22:32] LABS: Glucose Point of Care 99 mg/dL (70-110)
[2021-05-17] MEDS: hydrocortisone 100 mg/2 mL SDV 50 MG IVP (23:46)
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
[2021-05-18] VITALS (7 sets, daily range): BP systolic 82–103; BP diastolic 55–64; PULSE 50–82; RESP 18–22; TEMP 36.4; O2SAT 77–93; BMI 29.2
[2021-05-18] MEDS: PrismaSol BGK 4/2.5 - 5,000 mL Bag 5000 ML CRRT ×2 (00:59→01:00)
[2021-05-18] MEDS: hydrocortisone 100 mg/2 mL SDV 50 MG IVP (03:12)
[2021-05-18] MEDS: famotidine 20 mg/2 mL INJ IVP (03:13)
[2021-05-18] MEDS: propofol 1,000 MG/100 ML INJ 7.59 MG IV (03:25)
[2021-05-18] MEDS: lactated ringers 1,000 ML 100 ML IV (04:22)
[2021-05-18 04:58] LABS: Basophils # 0.1 10^3/uL (0.0-0.1); Basophils % 0.7 %; Eosinophils % 0.1 %; Hematocrit 35.4 % (42.0-52.0); Lymphocytes # 0.3 10^3/uL (0.8-4.8); Lymphocytes % 1.6 %; Mean Corpuscular HGB Conc 32.5 g/dL (30.0-36.0); Mean Corpuscular Hemoglobin 28.4 pg (28.0-34.0); Mean Corpuscular Volume 87.4 fL (80-94); Mean Platelet Volume 11.3 fL (7.4-10.4); Monocytes # 0.6 10^3/uL (0.2-0.9); Monocytes % 3.7 %; Neutrophils # 14.95 10^3/uL (1.8-7.7); Neutrophils % 93.4 %; Nucleated Red Blood Cells # 0.1 /100WBC; Nucleated Red Blood Cells % 0.9 %; Platelet Count 150 10^3/cmm (130-400); Red Blood Count 4.05 10^6/uL (4.1-5.3); Red Cell Distribution Width 16.3 % (12.1-15.1)
[2021-05-18 05:20] LABS: Alanine Aminotransferase < 5 U/L (0-41); Albumin Level 2.2 g/dL (3.5-5.2); Alkaline Phosphatase 100 IU/L (40-130); Anion Gap 14.7 (5-19); Aspartate Amino Transferase 14 U/L (0-40); Blood Urea Nitrogen 35 mg/dL (8-23); Calcium 7.7 mg/dL (8.5-10.5); Carbon Dioxide 20 mmol/L (22-29); Chloride 102 mmol/L (98-107); Globulin 2.3 g/dL (1.3-4.6); Glomerular Filtration Rate 54.9 mL/min (90-130); Glucose 104 mg/dL (65-115); Magnesium 1.8 mg/dL (1.7-2.3); Osmolality Calculated 284 mOsm/kg (285-295); Potassium 3.7 mmol/L (3.5-5.1); Sodium 133 mmol/L (136-145); Total Bilirubin 0.9 mg/dL (0.15-1.2); Total Protein 4.5 g/dL (6.6-8.7)
[2021-05-18] MEDS: norepinephrine 8 MG in dextrose 5 % 500 ML 57.15 MG IV (06:15)
[2021-05-18 07:31] LABS: Hemoglobin 11.5 g/dL (11.7-16.6)
[2021-05-18 07:33] LABS: Slide Review Slide Review Perform
--- NOTE | 2021-05-18 07:48 | PC.NURSE ---
0720-Pt's HR dropped to 30's and 40's with significant rhythm changes. SBP 60s on max of Levophed. at bedside. Advised that pt's condition has worsened. Pt's wishes ET tube to be removed. 0725-Dr Datar notified. Orders to extubate and administer Morphine if needed. 0726-RT notified 0729-Pt asytole. Family at bedside. Pt shows no S/S of distress or discomfort.
--- NOTE | 2021-05-18 08:20 | PC.NURSE ---
MTS contacted. Monogram Maker, Xuan, stated pt not a candidate. Raisa, [place], to arrange home transfer. Helene, Expediter, notified.
[2021-05-19 12:16] LABS: ANCA Interp Negative (Negative)
[2021-05-20 01:06] LABS: Heparin Induced Platelet AB NEGATIVE (NEGATIVE); Patient O.D 0.031
[2021-05-20 20:33] LABS: Heparin-Induced Platelet AB Negative (Negative)
[2021-05-22 17:03] LABS: P. Jirovecii DNA QL PCR NOT DETECTED; P. Jirovecii DNA QL PCR Source BAL RML
[2021-05-22 23:12] LABS: UFH High Dose, 100 IU/ML 0 % release; UFH Low Dose, 0.1 IU/ML 0 % release; UFH Low Dose, 0.5 IU/ML 0 % release; UFH SRA Result NEGATIVE (NEGATIVE)
[2021-05-23 22:03] LABS: Pneumocystis Jirovecii DNA PCR NO DNA DETECTED copies/mL; Pneumocystis Jirovecii Source BAL RML
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
== END 2021-05-18 07:29 | disposition expired | DRG 870 ==
LOC: ER 23:41 → ER IP 05-02 03:50 → MEDSURG 05-02 12:47 → CSU 05-03 23:49 → ICU 05-04 09:16
PROVIDERS: Internal Medicine; Internal Medicine Critical Care Medicine; Internal Medicine Nephrology; Internal Medicine Pulmonary Disease; Physician Assistant; Surgery; Admitting Provider Student in an Organized Health Care Education/Training Program; Emergency Provider Family Medicine; PCP Family Medicine; Visit Provider Internal Medicine
PROC: 05HM33Z Insertion of Infusion Device into Right Internal Jugular Vein, Percutaneous Approach (ICD-10-PCS; principal; 2021-05-06 13:30)
DX: A41.9 Sepsis, unspecified organism (principal); R65.21 Severe sepsis with septic shock; G82.53 Quadriplegia, C5-C7 complete; G93.41 Metabolic encephalopathy; J69.0 Pneumonitis due to inhalation of food and vomit; J96.02 Acute respiratory failure with hypercapnia; J96.01 Acute respiratory failure with hypoxia; N17.0 Acute kidney failure with tubular necrosis; I21.A1 Myocardial infarction type 2; N10 Acute pyelonephritis; T83.511A Infection and inflammatory reaction due to indwelling urethral catheter, initial encounter; F33.9 Major depressive disorder, recurrent, unspecified; E87.0 Hyperosmolality and hypernatremia; B37.89 Other sites of candidiasis; I82.512 Chronic embolism and thrombosis of left femoral vein; R04.89 Hemorrhage from other sites in respiratory passages; D62 Acute posthemorrhagic anemia; I47.2 Ventricular tachycardia; K56.7 Ileus, unspecified; D61.818 Other pancytopenia; E87.4 Mixed disorder of acid-base balance; N13.30 Unspecified hydronephrosis; K73.9 Chronic hepatitis, unspecified; E11.22 Type 2 diabetes mellitus with diabetic chronic kidney disease; I12.9 Hypertensive chronic kidney disease with stage 1 through stage 4 chronic kidney disease, or unspecified chronic kidney disease; N18.30 Chronic kidney disease, stage 3 unspecified; K21.9 Gastro-esophageal reflux disease without esophagitis; I25.10 Atherosclerotic heart disease of native coronary artery without angina pectoris; Z95.5 Presence of coronary angioplasty implant and graft; F41.9 Anxiety disorder, unspecified; Z87.442 Personal history of urinary calculi; I25.2 Old myocardial infarction; E78.00 Pure hypercholesterolemia, unspecified; Z87.440 Personal history of urinary (tract) infections; F17.210 Nicotine dependence, cigarettes, uncomplicated; Y73.8 Miscellaneous gastroenterology and urology devices associated with adverse incidents, not elsewhere classified; Z93.6 Other artificial openings of urinary tract status; Z88.0 Allergy status to penicillin; Z66 Do not resuscitate; R57.8 Other shock; I46.9 Cardiac arrest, cause unspecified; J43.2 Centrilobular emphysema; N31.9 Neuromuscular dysfunction of bladder, unspecified; E16.2 Hypoglycemia, unspecified; E83.42 Hypomagnesemia; B96.20 Unspecified Escherichia coli [E. coli] as the cause of diseases classified elsewhere; E87.6 Hypokalemia; I95.9 Hypotension, unspecified; R68.0 Hypothermia, not associated with low environmental temperature; G47.33 Obstructive sleep apnea (adult) (pediatric); D50.9 Iron deficiency anemia, unspecified
CPT/HCPCS: 36415; 36416; 36430; 36569; 36592; 36600; 70450; 71045; 71250; 71260; 74018; 74176; 74177; 76000; 77001; 80048; 80051; 80053; 80069; 80306; 81001; 82310; 82330; 82436; 82533; 82550; 82575; 82803; 82805; 82962; 83516; 83605; 83735; 83880; 83970; 84100; 84133; 84145; 84300; 84436; 84439; 84443; 84481; 84484; 84540; 84550; 85014; 85018; 85025; 85378; 85610; 85730; 86022; 86038; 86060; 86140; 86225; 86235; 86706; 86803; 86850; 86900; 86920; 87040; 87070; 87077; 87086; 87102; 87106; 87107; 87186; 87205; 87206; 87340; 87426; 87493; 87635; 87798; 87799; 90935; 92523; 92526; 92610; 93005; 93306; 93970; 94002; 94003; 94640; 94660; 94799; 96361; 96365; 96367; 96372; 99285; C1751; C1752; J0278; J0610; J0637; J0743; J1450; J1630; J1642; J1644; J1650; J1720; J1815; J1940; J1956; J2020; J2060; J2185; J2250; J2370; J2704; J2920; J3010; J3370; J3480; J3490; J7030; J7050; J7611; J7626; J7799; P9016; P9047; Q3014; Q9967